=== PATIENT | female | born 1955 | race Caucasian/White ===

== ENCOUNTER 2020-05-19 09:19 | Outpatient (REF) | payer MEDICARE, MEDICAID, SELFPAY ==
[2020-05-19 10:11] LABS: MANUAL DIFF FLAG NO
[2020-05-19 10:23] LABS: Basophils Absolute Auto 0.1 X10*3/uL (0.0-0.2); Basophils Percent Auto 2.1 % (0-2); Eosinophils Absolute Auto 0.3 X10*3/uL (0.0-0.4); Eosinophils Percent Auto 6.5 % (0-4); Hematocrit 41.4 % (37-47); Imm Gran Abs Auto 0.02 X10*3/uL (0.00-0.03); Imm Gran Pct Auto 0.4 % (0.0-0.4); Lymphocytes Absolute Auto 1.2 X10*3/uL (1.2-4.9); Lymphocytes Percent Auto 24.6 % (20-40); Mean Corpuscular HGB Conc 33.8 g/dl (31.0-35.0); Mean Corpuscular Hemoglobin 32.5 pg (27.0-33.0); Mean Corpuscular Volume 96.1 fL (80-98); Mean Platelet Volume 10.9 fL (9.4-12.3); Monocytes Absolute Auto 0.5 X10*3/uL (0.1-1.2); Monocytes Percent Auto 9.7 % (2-11); Neutrophils Absolute Auto 2.7 X10*3/uL (2.0-8.3); Neutrophils Percent Auto 56.7 % (45-73); Platelet Count 146 X10*3/uL (160-400); Red Blood Count 4.31 X10*6/uL (4.20-5.50); Red Cell Distribution Width 12.8 % (11.0-16.0); White Blood Count 4.8 X10*3/uL (4.8-10.8)
[2020-05-19 10:55] LABS: Glucose Urine UA NEG (NEG); Leukocyte Esterase Urine NEG (NEG); Nitrite Urine NEG (NEG); PH 5.5 (5.0-8.0); Specific Gravity - Urine 1.025 (1.005-1.025); Urine Blood TRACE (NEG); Urine Ketones NEG (NEG); Urine Protein TRACE MG/DL (NEG-TRACE)
[2020-05-19 10:59] LABS: Appearance Urine HAZY; Cholesterol 125 mg/dL; Color Urine YELLOW; Glucose Fasting 128 mg/dL (60-99); HDL Cholesterol 45 mg/dL; LDL Cholesterol Calculated 50 mg/dl; Triglycerides 152 mg/dL
[2020-05-19 11:00] LABS: Albumin Level 3.8 g/dL (3.5-5.0); Anion Gap 11 (12-20); Blood Urea Nitrogen 24 mg/dL (9-16); Calcium 8.7 mg/dL (8.4-10.2); Carbon Dioxide 27 mmol/L (22-29); Chloride 105 mmol/L (96-108); Estimated Glomerular Filt Rate 38; Magnesium 1.8 mg/dL (1.6-2.6); Phosphorus 2.7 mg/dL (2.7-4.5); Potassium 4.3 mmol/l (3.3-5.1); Sodium 139 mmol/L (135-145)
[2020-05-19 11:06] LABS: Renal w Reflex-LAB USE ONLY Order Verified
[2020-05-19 11:15] LABS: Bacteria Urine 4+ /LPF; RBC Urine 0-2 /HPF (0); Squamous Epithelial Cell Urine 4+ /LPF
[2020-05-19 11:29] LABS: Estimated Average Glucose 174 mg/dL; Hemoglobin A1c % 7.7 %
[2020-05-19 11:34] LABS: Creatinine Urine 157.93 mg/dL; Microalbum/Creatinine Ratio Ur 25.9 ug/mg cr; Total Protein Urine Random 122 mg/dL (<12)
[2020-05-19 11:35] LABS: Creatinine Urine 156.92 mg/dL; Protein/Creatinine Ratio, Ur 0.74 (<0.2); Total Protein Urine Random 116 mg/dL (<12)
[2020-05-19 11:40] LABS: Renal w Reflex Lab Use Only Order verified
== END 2020-05-19 09:20 | disposition home or self-care (01) ==
LOC: HO.10HDL 09:19
PROVIDERS: Absent Provider Family Medicine; PCP Family Medicine; Visit Provider Internal Medicine Nephrology
DX: M91.0 Juvenile osteochondrosis of pelvis (principal); I12.9 Hypertensive chronic kidney disease with stage 1 through stage 4 chronic kidney disease, or unspecified chronic kidney disease; N18.30 Chronic kidney disease, stage 3 unspecified; E66.9 Obesity, unspecified; F32.9 Major depressive disorder, single episode, unspecified; E11.65 Type 2 diabetes mellitus with hyperglycemia; E11.22 Type 2 diabetes mellitus with diabetic chronic kidney disease; E11.21 Type 2 diabetes mellitus with diabetic nephropathy
CPT/HCPCS: 36415; 80048; 80051; 80061; 81001; 82040; 82043; 82310; 82565; 82947; 83036; 83735; 84100; 84156; 84520; 85025; 87086; 87088; 87186

== ENCOUNTER 2020-08-05 09:53 | Outpatient (REF) | payer MEDICARE, MEDICAID, SELFPAY ==
[2020-08-05 14:43] LABS: Anion Gap 14 (12-20); Blood Urea Nitrogen 23 mg/dL (9-16); Calcium 8.7 mg/dL (8.4-10.2); Carbon Dioxide 28 mmol/L (22-29); Chloride 103 mmol/L (96-108); Cholesterol 130 mg/dL; Estimated Glomerular Filt Rate 43; Glucose Fasting 148 mg/dL (60-99); HDL Cholesterol 46 mg/dL; LDL Cholesterol Calculated 50 mg/dl; Potassium 4.4 mmol/l (3.3-5.1); Sodium 141 mmol/L (135-145); Triglycerides 172 mg/dL
== END 2020-08-05 09:54 | disposition home or self-care (01) ==
LOC: HO.10HDL 09:53
PROVIDERS: Visit Provider Family Medicine
DX: E11.65 Type 2 diabetes mellitus with hyperglycemia (principal); I10 Essential (primary) hypertension; E11.21 Type 2 diabetes mellitus with diabetic nephropathy
CPT/HCPCS: 36415; 80048; 80061

== ENCOUNTER 2020-09-09 09:43 | Outpatient (REF) | payer MEDICARE, MEDICAID, SELFPAY ==
[2020-09-09 13:54] LABS: Estimated Average Glucose 200 mg/dL; Hemoglobin A1c % 8.6 %
== END 2020-09-09 09:44 | disposition home or self-care (01) ==
LOC: HO.10HDL 09:43
PROVIDERS: Visit Provider Family Medicine
DX: E11.9 Type 2 diabetes mellitus without complications (principal)
CPT/HCPCS: 36415; 83036

== ENCOUNTER 2020-11-17 12:29 | Outpatient (REF) | payer MEDICARE, MEDICAID, SELFPAY ==
[2020-11-17 14:11] LABS: Glucose Urine UA 250 MG/DL (NEG); Leukocyte Esterase Urine NEG (NEG); Nitrite Urine NEG (NEG); PH 5.5 (5.0-8.0); Specific Gravity - Urine >= 1.030 (1.005-1.025); Urine Blood NEG (NEG); Urine Ketones NEG (NEG); Urine Protein 1+ MG/DL (NEG-TRACE)
[2020-11-17 14:16] LABS: Hemoglobin 14.8 g/dl (12.0-16.0); Imm Gran Abs Auto 0.02 X10*3/uL (0.00-0.03); Imm Gran Pct Auto 0.3 % (0.0-0.4); MANUAL DIFF FLAG SCAN; PLT CLUMP 1; Red Cell Distribution Width 12.6 % (11.0-16.0); SCAN SMEAR FLAG 1
[2020-11-17 14:18] LABS: Basophils Absolute Auto 0.1 X10*3/uL (0.0-0.2); Basophils Percent Auto 1.6 % (0-2); Eosinophils Absolute Auto 0.3 X10*3/uL (0.0-0.4); Eosinophils Percent Auto 4.6 % (0-4); Hematocrit 43.5 % (37-47); Lymphocytes Absolute Auto 1.3 X10*3/uL (1.2-4.9); Lymphocytes Percent Auto 21.3 % (20-40); Mean Corpuscular Hemoglobin 32.3 pg (27.0-33.0); Monocytes Absolute Auto 0.5 X10*3/uL (0.1-1.2); Monocytes Percent Auto 7.9 % (2-11); Neutrophils Absolute Auto 4.1 X10*3/uL (2.0-8.3); Neutrophils Percent Auto 64.3 % (45-73); Platelet Count 140 X10*3/uL (160-400); Red Blood Count 4.58 X10*6/uL (4.20-5.50); White Blood Count 6.3 X10*3/uL (4.8-10.8)
[2020-11-17 14:23] LABS: Appearance Urine HAZY; Color Urine YELLOW
[2020-11-17 14:40] LABS: Bacteria Urine TRACE /LPF; RBC Urine 0 /HPF (0); Squamous Epithelial Cell Urine 2+ /LPF; WBC Urine 0-2 /HPF (0-4)
[2020-11-17 14:42] LABS: Renal w Reflex-LAB USE ONLY Order Verified
[2020-11-17 14:49] LABS: Albumin Level 4.1 g/dL (3.5-5.0); Anion Gap 14 (12-20); Blood Urea Nitrogen 23 mg/dL (9-16); Calcium 9.2 mg/dL (8.4-10.2); Carbon Dioxide 23 mmol/L (22-29); Chloride 104 mmol/L (96-108); Estimated Glomerular Filt Rate 38; Magnesium 1.7 mg/dL (1.6-2.6); Potassium 4.3 mmol/L (3.3-5.1); Sodium 137 mmol/L (135-145)
[2020-11-17 15:00] LABS: Creatinine Urine 189.27 mg/dL; Microalbum/Creatinine Ratio Ur 32.2 ug/mg cr; Protein/Creatinine Ratio, Ur 0.72 (<0.2); Total Protein Urine Random 137 mg/dL (<12)
[2020-11-17 15:01] LABS: Vitamin D 25-OH Total 22.9 ng/mL (>30)
[2020-11-17 15:37] LABS: Renal w Reflex Lab Use Only Order verified
[2020-11-18 19:47] LABS: Calcium (PTHI) 9.3 mg/dL (8.6-10.4); PTHI 175 pg/mL (14-64)
== END 2020-11-17 12:30 | disposition home or self-care (01) ==
LOC: HO.10HDL 12:29
PROVIDERS: Visit Provider Internal Medicine Nephrology
DX: F32.9 Major depressive disorder, single episode, unspecified (principal); M81.0 Age-related osteoporosis without current pathological fracture; I12.9 Hypertensive chronic kidney disease with stage 1 through stage 4 chronic kidney disease, or unspecified chronic kidney disease; N18.30 Chronic kidney disease, stage 3 unspecified; E66.9 Obesity, unspecified; E11.65 Type 2 diabetes mellitus with hyperglycemia; E11.21 Type 2 diabetes mellitus with diabetic nephropathy; E11.22 Type 2 diabetes mellitus with diabetic chronic kidney disease
CPT/HCPCS: 36415; 80051; 81001; 82040; 82043; 82306; 82310; 82565; 83735; 83970; 84100; 84156; 84520; 85025

== ENCOUNTER 2020-11-25 09:23 | Outpatient (REF) | payer MEDICARE, MEDICAID, SELFPAY ==
[2020-11-25 10:28] LABS: Glucose Urine UA NEG (NEG); Leukocyte Esterase Urine NEG (NEG); Nitrite Urine NEG (NEG); Urine Blood NEG (NEG); Urine Ketones NEG (NEG); Urine Protein NEG (NEG-TRACE)
[2020-11-25 10:32] LABS: Appearance Urine CLEAR; Color Urine YELLOW
[2020-11-25 10:50] LABS: Bacteria Urine TRACE /LPF; Mucus Urine TRACE /LPF; RBC Urine 0 /HPF (0); Squamous Epithelial Cell Urine 2+ /LPF; WBC Urine 0-2 /HPF (0-4)
== END 2020-11-25 09:24 | disposition home or self-care (01) ==
LOC: HO.10HDL 09:23
PROVIDERS: Absent Provider Family Medicine; Visit Provider Internal Medicine Nephrology
DX: I12.9 Hypertensive chronic kidney disease with stage 1 through stage 4 chronic kidney disease, or unspecified chronic kidney disease (principal); N18.31 Chronic kidney disease, stage 3a; E66.8 Other obesity; N25.0 Renal osteodystrophy
CPT/HCPCS: 81001; 87086

== ENCOUNTER 2021-05-25 11:06 | Outpatient (REF) | payer MEDICARE, MEDICAID, SELFPAY ==
[2021-05-25 13:53] LABS: Hematocrit 44.1 % (37.0-47.0); Hemoglobin 14.7 g/dl (12.0-16.0); Mean Corpuscular HGB Conc 33.3 g/dl (31.0-35.0); Mean Corpuscular Hemoglobin 31.6 pg (27.0-33.0); Mean Corpuscular Volume 94.8 fL (80.0-98.0); Mean Platelet Volume 11.6 fL (9.4-12.3); Platelet Count 150 X10*3/uL (160-400); Red Blood Count 4.65 X10*6/uL (4.20-5.50); Red Cell Distribution Width 12.9 % (11.0-16.0); White Blood Count 5.1 X10*3/uL (4.8-10.8)
[2021-05-25 14:19] LABS: Anion Gap 15 (12-20); Blood Urea Nitrogen 21 mg/dL (9-16); Carbon Dioxide 25 mmol/L (22-29); Chloride 105 mmol/L (96-108); Estimated Glomerular Filt Rate 36; Magnesium 1.7 mg/dL (1.6-2.6); Phosphorus 2.6 mg/dL (2.7-4.5); Potassium 4.3 mmol/L (3.3-5.1); Sodium 141 mmol/L (135-145)
[2021-05-25 14:20] LABS: Appearance Urine HAZY; Color Urine YELLOW; Glucose Urine UA NEG (NEG); Leukocyte Esterase Urine TRACE (NEG); Nitrite Urine NEG (NEG); Specific Gravity - Urine 1.025 (1.005-1.025); Urine Blood TRACE (NEG); Urine Ketones 5 MG/DL (NEG); Urine Protein 2+ MG/DL (NEG-TRACE)
[2021-05-25 14:39] LABS: Vitamin D 25-OH Total 21.5 ng/mL (>30)
[2021-05-25 14:41] LABS: Bacteria Urine 1+ /LPF; RBC Urine 0 /HPF (0); Squamous Epithelial Cell Urine 2+ /LPF
[2021-05-25 14:48] LABS: Creatinine Urine 247.89 mg/dL; Microalbum/Creatinine Ratio Ur 140.3 ug/mg cr; Protein/Creatinine Ratio, Ur 0.71 (<0.2); Total Protein Urine Random 177 mg/dL (<12)
[2021-05-27 12:12] LABS: Calcium (PTHI) 9.1 mg/dL (8.6-10.4); PTHI 178 pg/mL (14-64)
== END 2021-05-25 11:07 | disposition home or self-care (01) ==
LOC: HO.10HDL 11:06
PROVIDERS: Visit Provider Internal Medicine Nephrology
DX: I12.9 Hypertensive chronic kidney disease with stage 1 through stage 4 chronic kidney disease, or unspecified chronic kidney disease (principal); N18.31 Chronic kidney disease, stage 3a; E66.8 Other obesity; N25.0 Renal osteodystrophy
CPT/HCPCS: 36415; 80051; 81001; 82040; 82043; 82306; 82310; 82565; 83735; 83970; 84100; 84156; 84520; 85027; 87086; 87088; 87186

== ENCOUNTER 2022-03-03 11:14 | Outpatient (REF) | payer MEDICARE, MEDICAID, SELFPAY ==
[2022-03-03 14:17] LABS: Appearance Urine Clear; Color Urine Yellow; Glucose Urine UA Negative (Negative); Leukocyte Esterase Urine Trace (Negative); Nitrite Urine Negative (Negative); Specific Gravity - Urine 1.025 (1.005-1.025); Urine Blood Negative (Negative); Urine Ketones Trace mg/dL (Negative); Urine Protein 30 (1+) mg/dL (Neg-Trace)
[2022-03-03 14:22] LABS: Bacteria Urine 3+ (None Seen); Hyaline Casts Urine 0-2 /LPF (0-2); RBC Urine 0-2 /HPF (0-2); UACC Culture Trigger YES
[2022-03-03 14:22] LABS: Hematocrit 43.1 % (37.0-47.0); Hemoglobin 14.4 g/dl (12.0-16.0); Mean Corpuscular HGB Conc 33.4 g/dl (31.0-35.0); Mean Corpuscular Hemoglobin 31.9 pg (27.0-33.0); Mean Corpuscular Volume 95.4 fL (80.0-98.0); Mean Platelet Volume 11.6 fL (9.4-12.3); Platelet Count 120 X10*3/uL (160-400); Red Blood Count 4.52 X10*6/uL (4.20-5.50); White Blood Count 5.2 X10*3/uL (4.8-10.8)
[2022-03-03 14:39] LABS: Albumin Level 3.9 g/dL (3.5-5.0); Anion Gap 14 (12-20); Blood Urea Nitrogen 21 mg/dL (9-16); Calcium 9.3 mg/dL (8.4-10.2); Carbon Dioxide 26 mmol/L (22-29); Chloride 104 mmol/L (96-108); Estimated Glomerular Filt Rate 43; Magnesium 1.6 mg/dL (1.6-2.6); Phosphorus 2.9 mg/dL (2.7-4.5); Potassium 4.4 mmol/L (3.3-5.1); Sodium 140 mmol/L (135-145)
[2022-03-03 14:42] LABS: Creatinine Urine 187.45 mg/dL; Protein/Creatinine Ratio, Ur 0.57 (<0.2); Total Protein Urine Random 107 mg/dL (<12)
[2022-03-04 16:13] LABS: Calcium (PTHI) 9.2 mg/dL (8.6-10.4); PTHI 131 pg/mL (16-77)
== END 2022-03-03 11:15 | disposition home or self-care (01) ==
LOC: HO.10HDL 11:14
PROVIDERS: Visit Provider Internal Medicine Nephrology
DX: E11.21 Type 2 diabetes mellitus with diabetic nephropathy (principal); E11.22 Type 2 diabetes mellitus with diabetic chronic kidney disease; N18.31 Chronic kidney disease, stage 3a; N25.0 Renal osteodystrophy
CPT/HCPCS: 36415; 80051; 81001; 82040; 82043; 82306; 82310; 82565; 83735; 83970; 84100; 84156; 84520; 85027; 87086; 87088; 87186

== ENCOUNTER 2023-03-11 10:11 | Outpatient (REF) | payer MEDICARE, MEDICAID, SELFPAY ==
[2023-03-11 11:02] LABS: MANUAL DIFF FLAG NO
[2023-03-11 11:09] LABS: Appearance Urine Clear; Basophils Absolute Auto 0.1 X10*3/uL (0.0-0.2); Basophils Percent Auto 1.9 % (0-2); Color Urine Yellow; Eosinophils Absolute Auto 0.2 X10*3/uL (0.0-0.4); Eosinophils Percent Auto 4.1 % (0-4); Glucose Urine UA Negative (Negative); Hematocrit 43.4 % (37.0-47.0); Hemoglobin 14.1 g/dl (12.0-16.0); Imm Gran Abs Auto 0.01 X10*3/uL (0.00-0.03); Imm Gran Pct Auto 0.2 % (0.0-0.4); Leukocyte Esterase Urine Negative (Negative); Lymphocytes Absolute Auto 1.1 X10*3/uL (1.2-4.9); Lymphocytes Percent Auto 22.2 % (20-40); Mean Corpuscular HGB Conc 32.5 g/dl (31.0-35.0); Mean Corpuscular Hemoglobin 31.8 pg (27.0-33.0); Mean Corpuscular Volume 97.7 fL (80.0-98.0); Mean Platelet Volume 11.4 fL (9.4-12.3); Monocytes Absolute Auto 0.5 X10*3/uL (0.1-1.2); Monocytes Percent Auto 9.3 % (2-11); Neutrophils Percent Auto 62.3 % (45-73); Nitrite Urine Negative (Negative); PH 6.5 (5.0-9.0); Platelet Count 115 X10*3/uL (160-400); Red Blood Count 4.44 X10*6/uL (4.20-5.50); Red Cell Distribution Width 13.4 % (11.0-16.0); Specific Gravity - Urine 1.015 (1.005-1.025); UMIC TRIGGER UACC YES; Urine Blood Negative (Negative); Urine Ketones Negative (Negative); Urine Protein 100 (2+) mg/dL (Neg-Trace); White Blood Count 4.8 X10*3/uL (4.8-10.8)
[2023-03-11 11:15] LABS: Bacteria Urine None Seen (None Seen); Hyaline Casts Urine 0-2 /LPF (0-2); RBC Urine 0-2 /HPF (0-2); Squamous Epithelial Cell Urine 0-2 /HPF (0-2); WBC Urine 0-5 /HPF (0-5)
[2023-03-11 11:34] LABS: Albumin Level 3.8 g/dL (3.5-5.0); Anion Gap 15 (12-20); Blood Urea Nitrogen 19 mg/dL (9-16); Calcium 9.9 mg/dL (8.4-10.2); Carbon Dioxide 24 mmol/L (22-29); Chloride 107 mmol/L (96-108); Estimated Glomerular Filt Rate 48; Magnesium 1.6 mg/dL (1.6-2.6); Phosphorus 2.9 mg/dL (2.7-4.5); Potassium 4.4 mmol/L (3.3-5.1); Sodium 142 mmol/L (135-145)
[2023-03-11 11:49] LABS: Vitamin D 25-OH Total 26.3 ng/mL (>30)
[2023-03-11 12:30] LABS: Creatinine Urine 92.89 mg/dL; Protein/Creatinine Ratio, Ur 1.97 (<0.2); Total Protein Urine Random 183 mg/dL (<12)
[2023-03-11 12:40] LABS: Microalbum/Creatinine Ratio Ur 965.6 ug/mg cr (<30)
[2023-03-13 14:59] LABS: Calcium (PTHI) 9.3 mg/dL (8.6-10.4); PTHI 168 pg/mL (16-77)
== END 2023-03-11 10:12 | disposition home or self-care (01) ==
LOC: HO.10HDL 10:11
PROVIDERS: Visit Provider Internal Medicine Nephrology
DX: I12.9 Hypertensive chronic kidney disease with stage 1 through stage 4 chronic kidney disease, or unspecified chronic kidney disease (principal); E11.22 Type 2 diabetes mellitus with diabetic chronic kidney disease; N18.31 Chronic kidney disease, stage 3a
CPT/HCPCS: 36415; 80051; 81001; 82040; 82043; 82306; 82310; 82565; 82570; 83735; 83970; 84100; 84156; 84520; 85025; 87086; 87088; 87186

== ENCOUNTER 2024-04-12 17:45 | Emergency (ER) | payer MEDICARE, MEDICAID, SELFPAY ==
--- NOTE | ~2024-04-12 | US_ITS ---
EXAMINATION: US TRIPLEX LOWER EXTREMITY, RIGHT CLINICAL INFORMATION: Right lower extremity swelling and pain. Question DVT. COMPARISON: None available. TECHNIQUE: Color-flow triplex imaging with spectral analysis and compression Doppler were performed on the right lower extremity. FINDINGS: Respiratory variation, normal compression and augmented flow are noted throughout the right lower extremity. The visualized common femoral vein, superficial femoral vein, profunda femoral vein, and popliteal vein show no evidence of deep venous thrombosis. There is no Valdez's cyst. US/US venous duplex LE RT IMPRESSION: No evidence of deep venous thrombosis involving the right lower extremity. Please note, the right calf veins were not seen due to body habitus. Electronically signed by: Dwain Cole DO 04/12/2024 07:51 PM EDT
[2024-04-12 18:52] VITALS: BP 119/69; PULSE 90; RESP 18; TEMP 36.4; O2SAT 98; BMI 53.0
--- NOTE | 2024-04-12 18:55 | ED.EXTPRO ---
HPI - Extremity Problem General Chief complaint: Extremity Problem Stated complaint: ? blood clot right leg Time Seen by Provider: 04/12/24 20:52 Source: patient and family Mode of arrival: wheelchair Limitations: no limitations History of Present Illness ED Provider: Edda Dacosta PA-C HPI Narrative: 69 yo female with history of afib on xarelto, DM, morbid obesity who presents to the ER from doctor's office for evaluation of 3 days of 03/20 right lower leg pain, redness and worsening swelling. concerned for blood clot. PCP sent her in. compliant with xarelto. subjective fever and chills. no chest pain or SOB. denies injury to the leg. MD Complaint: extremity pain and extremity swelling Onset (ago): day(s) (3) Pain Consistency: constant Location: right and lower extremity Severity scale (1-10): 9 Quality: aching Radiation: proximal Relieving factors: rest Exacerbating factors: weight bearing, walking and palpation Associated symptoms: denies other symptoms Related Data Previous Rx's ?Medication ?Instructions ?Recorded cephalexin 500 mg capsule 500 mg PO Q6H 7 days #28 caps 04/12/24 doxycycline hyclate 100 mg tablet 100 mg PO BID #14 tabs 04/12/24 Allergies Allergy/AdvReac Type Severity Reaction Status Date / Time Unable to Assess Allergy Verified 04/12/24 18:55 Review of Systems Review of Systems: Yes all other systems are reviewed and are negative [facility] Social History Social History Do you have a plan to hurt others: No Plan Physical Exam Vital Signs: Vital Signs: Last Vital Signs Temp 97.9 F 04/12/24 20:53 Pulse 75 04/12/24 20:53 Resp 18 04/12/24 20:53 BP 102/61 04/12/24 20:53 Pulse Ox 100 04/12/24 20:53 O2 Del Method Room Air 04/12/24 20:53 BMI result Body Mass Index 53.0 Appearance: Alert. Oriented X3. No acute distress. HEENT: normal inspection CVS: Normal heart rate and rhythm. Pulses normal. Respiratory: No respiratory distress. Skin: Skin warm and dry. Normal skin color. Normal skin turgor. No rashes. Extremities: bilateral lower extremity swelling of the entire legs, equal and symmetrical, nonpitting. right lower leg with erythema, warmth and tenderness anteriorly. mild induration. NV intact distally. Neuro: Oriented X 3. limited ROM due to body habitus. grossly nonfocal. Course Course Course Narrative: This is a Rapid Medical Examination (RME) performed by Edda Dacosta PA-C in triage. Full HPI, ROS, assessment and treatment plan per primary provider in the Main ED. 69 yo female with history of afib on xarelto, morbid obesity who presents to the ER from doctor's office for evaluation of 3 days of 9/10 right lower leg pain, redness and worsening swelling. concerned for blood clot. compliant with xarelto. subjective fever and chills. exam w/ right lower leg erythema, warmth and tenderness of the anterior lower leg most c/w cellulitis. Plan: US RLE r/o DVT Medical Decision Making Medical Decision Making MDM Narrative: 69 yo female with history of afib on xarelto, DM, morbid obesity who presents to the ER from doctor's office for evaluation of 3 days of 9/10 right lower leg pain, redness and worsening swelling. PCP sent in for LE doppler to r/o DVT. low suspicion for DVT as she is on Xarleto and exam is more c/w cellulitis. not septic. LE doppler negative for DVT although distal veins not well visualized. will treat for cellulitis and have her f/u her PCP. return precautions were discussed. stable for d/c home with outpatient follow up. Differential Diagnosis Differential Diagnoses: The differential diagnosis associated with the presentation includes DVT, cellulitis, erysipylas, allergic reaction, dermatits, PVD Independent Interpretation I performed an independent interpretation of an: Ultrasound Interpretation: no acute DVT apprecaited Radiology Impression Discussion of test interpretation with radiology: I have reviewed the radiologist's reading. Independent Historian Clinical information obtained from an independent historian. History obtained from or confirmed by: Friend External Record Review External record reviewed: Outpatient record and Prior outpatient labs Tests considered The following testing was considered but not selected: basic labs considered, would not international exchange coordinator Prescription Management I considered prescription management with: Pain Medication and Antibiotic Chronic Conditions Patient?s care impacted by: Diabetes and Other (obesity, afib) Social Determinants Patient?s care significantly limited by Social Determinants of Health including: Other Social Determinant of Health (limited mobility due to body habitus) Critical Care Time Critical Care Time Critical Care Time: No Discharge Plan Discharge Clinical Impression: Cellulitis Qualifiers: Site of cellulitis: extremity Site of cellulitis of extremity: lower extremity Laterality: right Qualified Code(s): L03.115 - Cellulitis of right lower limb Patient Disposition: Home, Self-Care Instructions: Cellulitis (DC) Additional Instructions: Ultrasound did not show any evidence of blood clots today You are being treated for cellulitis Take the prescribed antibiotics as directed, complete the entire course and do not miss any doses Elevate the leg when possible If you develop new or worsening symptoms call 911 or come back to the ER for further evaluation. Prescriptions: New doxycycline hyclate 100 mg tablet 100 mg PO BID Qty: 14 0RF cephalexin 500 mg capsule 500 mg PO Q6H 7 Days Qty: 28 0RF Print Language: Setswana
[2024-04-12 20:53] VITALS: BP 102/61; PULSE 75; RESP 18; TEMP 36.6; O2SAT 100
[2024-04-12] MEDS: cephALEXin 500 MG CAPSULE PO (20:57)
[2024-04-12] MEDS: Doxycycline Monohydrate 100 MG CAPSULE PO (20:58)
[2024-04-12 21:00] VITALS: BP 102/61; PULSE 75; RESP 18; TEMP 36.6; O2SAT 100
== END 2024-04-12 21:07 | disposition home or self-care (01) ==
LOC: HO.ED 21:04
PROVIDERS: Emergency Provider Emergency Medicine
DX: L03.115 Cellulitis of right lower limb (principal); R60.0 Localized edema; I48.91 Unspecified atrial fibrillation; Z79.01 Long term (current) use of anticoagulants
CPT/HCPCS: 93971; 99282; 99284

== ENCOUNTER 2024-10-01 21:44 | Inpatient (IN) | payer MEDICARE, MEDICAID, SELFPAY ==
--- NOTE | ~2024-10-01 | XR_ITS ---
EXAMINATION: XR FINGERS LEFT HISTORY: L 4th finger infection COMPARISON: There are no prior studies available for comparison. FINDINGS: Three views of the left 4th finger are submitted. Osseous mineralization is normal. There is no fracture or dislocation. The joint spaces are preserved. The soft tissues are unremarkable. 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 XR/XR finger LT min 2V IMPRESSION: Unremarkable examination of the left 4th finger. Electronically signed by: Jassi Berry MD 10/03/2024 11:07 AM EDT
--- NOTE | ~2024-10-01 | XR_ITS ---
CLINICAL HISTORY: dyspnea 1 view chest x-ray Comparison: None Findings: Left basilar opacity or infiltrate and layering left-sided effusion. Enlarged cardiac silhouette. No acute fracture. IMPRESSION: Left basilar opacity or infiltrate and layering left-sided effusion. This document has been electronically signed by: Dereck Jose MD, PHD on 10/01/2024 23:00:11
[2024-10-01 21:57] VITALS: BP 106/50; PULSE 67; O2SAT 97
[2024-10-01 22:05] VITALS: BP 96/54; PULSE 55; RESP 16; TEMP 36.5; O2SAT 100; BMI 56.1
--- NOTE | 2024-10-01 22:10 | ECG_ITS ---
Test Reason : check qtc Blood Pressure : */* mmHG Vent. Rate : * BPM Atrial Rate : * BPM P-R Int : * ms QRS Dur : 72 ms QT Int : 196 ms P-R-T Axes : * 0 245 degrees QTcB Int : * ms Baseline wander Sinus bradycardia Low voltage QRS Indeterminate axis Pulmonary disease pattern Nonspecific ST and T wave abnormality Abnormal ECG No previous ECGs available Referred By: Oma Means Electronically Signed By: CAROLYN PEACOCK MD
--- NOTE | 2024-10-01 22:50 | ED_ITS ---
HPI - Recheck/Abnormal Lab/Rx General Chief Complaint: Recheck/Abnormal Lab/Rx Stated Complaint: abnormal labs from [facility] Time Seen by Provider: 10/01/24 22:07 Source: patient, EMS and old records reviewed Mode of arrival: EMS Limitations: no limitations History of Present Illness ED Provider: SINGH RÍOS narrative: 69 yo female with PMH of obesity, CKD Cr 3.0 on 09/21, PAF on eliquis, CHF, HLD, DM, HTN who presents with c/o 20lb [facility] and metolazone. She also reports she is very swollen and was told that her Cr is going up. She has never been on dialysis. She states she is taking her medications and eating the way she is supposed to there. She states she has been okay but cannot lay flat. complaint: abnormal lab Onset/Timin Initial visit (ago): day(s) Initial visit for: other Returns today for: called because of abnormal lab/test Description of abnormal result: increasing BUN and Cr Symptoms since prior visit: no new symptoms Context: called for abnormal lab result Associated symptoms: other (edema/orthopnea) Related Data Previous Rx's ?Medication ?Instructions ?Recorded cephalexin 500 mg capsule 500 mg PO Q6H 7 days #28 caps 04/12/24 doxycycline hyclate 100 mg tablet 100 mg PO BID #14 tabs 04/12/24 Allergies Allergy/AdvReac Type Severity Reaction Status Date / Time adhesive Allergy Unknown Verified 10/01/24 22:07 bacitracin Allergy Unknown Verified 10/01/24 22:07 beet Allergy Unknown Verified 10/01/24 22:07 cefazolin Allergy Unknown Verified 10/01/24 22:07 Corticosteroids Allergy Unknown Verified 10/01/24 22:07 (Glucocorticoids) ibuprofen Allergy Unknown Verified 10/01/24 22:07 polymyxin B Allergy Unknown Verified 10/01/24 22:07 Review of Systems 2 Review of Systems: Constitutional : No Fever, No Chills, pos weight gain ENT/Mouth : No sore throat, No Rhinorrhea, No Swallowing Difficulty Eyes: No Eye Pain, No Swelling, No Redness Cardiovascular : No Chest Pain, positive SOB, pos Orthopnea, positive Edema Respiratory : No Cough, No Sputum, No Wheezing, positive dyspnea Gastrointestinal : No Nausea, No Vomiting, No Diarrhea, No abdominal Pain, No Hematochezia, No Melena Genitourinary : No Dysuria, No Urinary Frequency, No Hematuria Musculoskeletal : No joint pain, No Myalgias Skin : No Skin Lesions, No rash Neuro : No Weakness, No Numbness, No Dizziness, No Headache All other systems reviewed and are negative [facility] Past Medical History Attestation statement: The following information was validated with the patient. Source: old records reviewed Medical History CHF (congestive heart failure) Obesity CKD (chronic kidney disease) Hyperlipidemia HTN (hypertension) Afib Social History Social History Alcohol intake: never Smoked in Last 30 Days: No Use of substances other than those prescribed or required for medical reasons: No Any prior treatment program specific to substance use: No Advance Directives: No Advance Directives Information Provided: Yes Do you have a plan to hurt others: No Plan Physical Exam 2 Vital Signs: Vital Signs: Last Vital Signs Temp 97.7 F 10/01/24 22:05 Pulse 55 10/01/24 22:05 Resp 16 10/01/24 22:05 BP 96/54 L 10/01/24 22:05 Pulse Ox 100 10/01/24 22:05 O2 Del Method Room Air 10/01/24 22:05 BMI result Body Mass Index 56.1 Appearance: Alert. Oriented X3. No acute distress. Eyes: Pupils equal, round and reactive to light. ENT: Pharynx normal. Neck: Normal inspection. Neck supple. CVS: Normal heart rate and rhythm. Pulses normal. Respiratory: No respiratory distress. Breath sounds diminished lower lobes Abdomen: Soft and nontender. Obese Skin: Skin warm and dry. Normal skin color. Normal skin turgor. Extremities: 3+ symmetric diffuse lower extremity pitting edema. No calf ttp Neuro: Oriented X 3. No motor deficit. No sensory deficit. CN2-12 intact Medical Decision Making Medical Decision Making MDM Narrative: 69 yo female with PMH of obesity, CKD Cr 3.0 on 09/21, PAF on eliquis, CHF, HLD, DM, HTN here with c/o diffuse edema, orthopnea and 20lb weight gain sent in for abnormal kidney function at this time she is volume overloaded will need labs, CXR, EKG, IV lasix gtt ordered. She has no CP and no dyspnea unless she is laying flat. She took her xarelto today. Differential Diagnosis Differential Diagnoses: The differential diagnosis associated with the presentation includes TANA on CKD, CHF, volume overload Admission/Observation Consideration of admission/observation: Escalation of care including admission/observation considered admit for diuresisis Consult Healthcare Provider Management of the patient was discussed with: Hospitalist (Dr. Urena to admit) and Eating Disorder Specialist (Dr. Wu message sent) Lab Data [facility] Lab Attestation statement: I reviewed the patient's lab results. 10/01/24 22:41 10/01/24 22:41 Labs: Lab Results 10/01/24 Range/Units 22:41 WBC 4.9 (4.8-10.8) X10*3/uL RBC 3.80 L (4.20-5.50) X10*6/uL Hgb 13.2 (12.0-16.0) g/dl Hct 39.3 (37.0-47.0) % MCV 103.4 H (80.0-98.0) fL MCH 34.7 H (27.0-33.0) pg MCHC 33.6 (31.0-35.0) g/dl RDW 16.3 H (11.0-16.0) % Plt Count 115 L (160-400) X10*3/uL MPV 11.1 (9.4-12.3) fL Immature Gran % (Auto) 0.2 (0.0-0.4) % Neut % (Auto) 69.4 (45-73) % Lymph % (Auto) 14.5 L (20-40) % [place] % (Auto) 12.5 H (2-11) % Eos % (Auto) 1.4 (0-4) % Baso % (Auto) 2.0 (0-2) % Lymph # (Auto) 0.7 L (1.2-4.9) X10*3/uL [place] # (Auto) 0.6 (0.1-1.2) X10*3/uL Eos # (Auto) 0.1 (0.0-0.4) X10*3/uL Baso # (Auto) 0.1 (0.0-0.2) X10*3/uL Abs Immat Gran (auto) 0.01 (0.00-0.03) X10*3/uL Absolute Neuts (auto) 3.4 (2.0-8.3) x10*3/uL Absolute Nucleated RBC 0.000 (0.0-0.012) X10*3/uL Nucleated RBC % (auto) 0.0 (0.0-0.2) /100WBC Sodium 134 L (135-145) mmol/L Potassium 4.1 (3.3-5.1) mmol/L Chloride 96 (96-108) mmol/L Carbon Dioxide 27 (22-29) mmol/L Anion Gap 15 (12-20) BUN 102 H (9-16) mg/dL Creatinine 3.95 H (0.5-1.4) mg/dL Estim Creat Clear Calc 18.3 Estimated GFR 11 Random Glucose 148 H (60-115) mg/dL Calcium 9.0 D (8.4-10.2) mg/dL Magnesium 2.0 (1.6-2.6) mg/dL Total Bilirubin 1.1 H (0.0-1.0) mg/dL Direct Bilirubin 0.7 H (0.0-0.5) mg/dL AST 39 H (5-31) U/L ALT 29 (0-31) U/L Alkaline Phosphatase 117 (39-117) U/L B-Natriuretic Peptide 2564 H (<100) pg/mL Total Protein 5.6 L (6.5-8.0) g/dL Albumin 3.0 L (3.5-5.0) g/dL Lipase 57 (8-78) U/L Independent Interpretation I performed an independent interpretation of an: EKG and Plain X-Ray (effusion) Interpretation: Rate: 60 Rhythm: afib [place]: normal decreased QRS complex. ST T wave : no SET, flat t waves throughout, inverted t wave aVL qTC: normal prior studies:no prior The study has been interpreted contemporaneously by me. . Radiology Impression Discussion of test interpretation with radiology: I have reviewed the radiologist's reading. Independent Historian Clinical information obtained from an independent historian. History obtained from or confirmed by: EMS External Record Review External record reviewed: Outpatient record Discharge Plan Discharge Clinical Impression: Acute kidney injury superimposed on chronic kidney disease, Leg edema, Pleural effusion Patient Disposition: Admitted As Inpatient Prescriptions: No Action doxycycline hyclate 100 mg tablet 100 mg PO BID Qty: 14 0RF cephalexin 500 mg capsule 500 mg PO Q6H 7 Days Qty: 28 0RF Print Language: Spanish
[2024-10-01 22:55] LABS: MANUAL DIFF FLAG NO
[2024-10-01 22:58] LABS: Basophils Absolute Auto 0.1 X10*3/uL (0.0-0.2); Eosinophils Absolute Auto 0.1 X10*3/uL (0.0-0.4); Eosinophils Percent Auto 1.4 % (0-4); Hematocrit 39.3 % (37.0-47.0); Hemoglobin 13.2 g/dl (12.0-16.0); Imm Gran Abs Auto 0.01 X10*3/uL (0.00-0.03); Imm Gran Pct Auto 0.2 % (0.0-0.4); Lymphocytes Absolute Auto 0.7 X10*3/uL (1.2-4.9); Lymphocytes Percent Auto 14.5 % (20-40); Mean Corpuscular HGB Conc 33.6 g/dl (31.0-35.0); Mean Corpuscular Hemoglobin 34.7 pg (27.0-33.0); Mean Corpuscular Volume 103.4 fL (80.0-98.0); Mean Platelet Volume 11.1 fL (9.4-12.3); Monocytes Absolute Auto 0.6 X10*3/uL (0.1-1.2); Monocytes Percent Auto 12.5 % (2-11); Neutrophils Absolute Auto 3.4 x10*3/uL (2.0-8.3); Neutrophils Percent Auto 69.4 % (45-73); Platelet Count 115 X10*3/uL (160-400); Red Cell Distribution Width 16.3 % (11.0-16.0); White Blood Count 4.9 X10*3/uL (4.8-10.8)
[2024-10-01 23:13] LABS: Alanine Aminotransferase 29 U/L (0-31); Alkaline Phosphatase 117 U/L (39-117); Anion Gap 15 (12-20); Aspartate Amino Transferase 39 U/L (5-31); Bilirubin Direct 0.7 mg/dL (0.0-0.5); Bilirubin Total 1.1 mg/dL (0.0-1.0); Blood Urea Nitrogen 102 mg/dL (9-16); Carbon Dioxide 27 mmol/L (22-29); Chloride 96 mmol/L (96-108); Creatinine Clr Calc Pharmacy 18.3; Estimated Glomerular Filt Rate 11; Glucose Random 148 mg/dL (60-115); Lipase 57 U/L (8-78); Potassium 4.1 mmol/L (3.3-5.1); Sodium 134 mmol/L (135-145); Total Protein 5.6 g/dL (6.5-8.0)
[2024-10-01 23:17] LABS: B Type Natriuretic Peptide 2564 pg/mL (<100)
--- NOTE | 2024-10-01 23:45 | PC.NURSE ---
Report given to CANDACE Manning.
[2024-10-02] VITALS (9 sets, daily range): BP systolic 93–119; BP diastolic 50–70; PULSE 55–63; RESP 16–20; TEMP 36–36.9; O2SAT 93–100
[2024-10-02 00:01] LABS: Troponin-I High Sensitivity 928.3 ng/L (<3.5-17.0)
--- NOTE | 2024-10-02 00:43 | P.HPHOSP_ITS ---
History of Present Illness Date of Service: 10/02/24 Attending physician on admission: Eduardo Urena Chief Complaint: Abnormal labs Patient is a 69-year-old female with a past medical history significant for obesity, CKD (creatinine 3.0 on 09/11), PAF on Eliquis, CHF, HLD, T2 DM, HTN, who presented from [facility] to the ED due to a progressive 20 lb weight gain over the past month and abnormal labs. The patient was taking Lasix and metolazone daily. Her labs have shown increasing creatinine. She has never been on dialysis. She reports orthopnea and dyspnea on exertion. She denies any fever, chills, nausea, vomiting or urinary symptoms including frequency, urgency or dysuria. Review of Systems 2 Constitutional: Constitutional: Denies chills, Denies fatigue and Denies fever(s) Eyes: Eyes: Denies change in vision and Denies photophobia ENT: Denies nasal congestion, Denies nasal discharge and Denies sore throat Cardiovascular: Cardiovascular: Denies chest pain, Denies rapid heart rate, Reports leg edema, Denies lightheadedness and Reports dyspnea on exertion Respiratory: Respiratory: Denies chest congestion, Denies cough, Reports dyspnea on exertion and Denies wheezing Gastrointestinal: Gastrointestinal: Denies diarrhea, Denies nausea and Denies vomiting Genitourinary: Genitourinary: Denies hematuria, Denies difficulty voiding, Denies dysuria and Denies urinary urgency Musculoskeletal: Musculoskeletal: Denies back pain Integumentary/Breasts: Skin/Breast: Denies rash Neurologic: Denies confusion Psychiatric: Psychiatric: Denies confusion Endocrine: Endocrine: Denies fatigue Hematologic/Lymphatic: Hematologic/Lymphatic: Denies easy bleeding and Denies easy bruising Allergic/Immunologic: Allergic/Immunologic: Denies wheezing [facility] Medical History Diabetes type 2, controlled CHF (congestive heart failure) Obesity CKD (chronic kidney disease) Hyperlipidemia HTN (hypertension) Afib Functional capacity: wheelchair bound Social History Alcohol intake: never Smoked in Last 30 Days: No Use of substances other than those prescribed or required for medical reasons: No Any prior treatment program specific to substance use: No Advance Directives: No Advance Directives Information Provided: Yes Do you have a plan to hurt others: No Plan Narrative: No smoking, alcohol or drug use Meds Allergies Allergy/AdvReac Type Severity Reaction Status Date / Time adhesive Allergy Unknown Verified 10/01/24 22:07 bacitracin Allergy Unknown Verified 10/01/24 22:07 beet Allergy Unknown Verified 10/01/24 22:07 cefazolin Allergy Unknown Verified 10/01/24 22:07 Corticosteroids Allergy Unknown Verified 10/01/24 22:07 (Glucocorticoids) ibuprofen Allergy Unknown Verified 10/01/24 22:07 polymyxin B Allergy Unknown Verified 10/01/24 22:07 Active Medications: Current Medications Acetaminophen (Acetaminophen 325 Mg Tablet) 650 mg PO Q6H PRN PRN Reason: Pain, Mild 1-3,fever,headache Calcium Carbonate (Calcium Carbonate 750 Mg Tab.Chew) 750 mg PO Q4H PRN PRN Reason: Heartburn Dextrose (Dextrose 50 % 25 Gm/50 Ml Syringe) 25 gm IVPUSH Q15M PRN; Protocol PRN Reason: per Hypoglycemia Standing Ord. Enoxaparin Sodium (Enoxaparin Sodium 30 Mg/0.3 Ml Syringe) 30 mg SUBCUT Q24H AKBAR Glucose (Glucose Gel 15 Gm Gel..Gram.) 15 gm PO Q15M PRN; Protocol PRN Reason: per Hypoglycemia Standing Ord. Furosemide 200 mg/ Sodium (Chloride) 100 mls @ 2.5 mls/hr IVCONT .Q24H AKBAR Insulin Human Lispro (Insulin Lispro 100 Unit/Ml 3 Ml Vial) 0 unit SUBCUT QIDACHS AKBAR; Protocol Magnesium Hydroxide (Milk Of Magnesia 30 Ml Oral.Susp) 30 ml PO DAILY PRN PRN Reason: Constipation Melatonin (Melatonin 3 Mg Tablet) 6 mg PO BEDTIME PRN PRN Reason: Insomnia Ondansetron HCl (Ondansetron Hcl 4 Mg/2 Ml Vial) 4 mg IVPUSH Q8H PRN PRN Reason: Nausea and Vomiting Sodium Chloride (0.9 % Sodium Chloride Flush 3 Ml Syringe) 3 ml IVFLUSH QSHIFT [facility] Physical Exam 2 Vital Signs and Narrative: Vital Signs: Last Vital Signs Temp 97.7 F 10/01/24 22:05 Pulse 55 10/01/24 22:05 Resp 16 10/01/24 22:05 BP 96/54 L 10/01/24 22:05 Pulse Ox 100 10/01/24 22:05 O2 Del Method Room Air 10/01/24 22:05 BMI result Body Mass Index 56.1 General: AOx3, no acute distress Resp: Diminished throughout, no wheezing, fine crackles throughout CVS: regular rate, irregular rhythm, +murmur GI: +BS, NT, no distention Skin: Warm, dry Neuro: Cranial nerves II-XII grossly intact bilaterally. Motor grossly intact bilaterally Extremities: 2+ pitting edema Psych: Appropriate affect Const: General: No confusion Orientation/consciousness: No confusion Eyes: Direct Ophthalmoscopy: No photophobia Neuro: General: No confusion Results Labs 10/01/24 22:41 10/01/24 22:41 Labs: Laboratory Results - last 24 hr 10/01/24 22:41 MCV 103.4 H MCH 34.7 H MCHC 33.6 RDW 16.3 H Plt Count 115 L MPV 11.1 Immature Gran % (Auto) 0.2 Neut % (Auto) 69.4 Lymph % (Auto) 14.5 L [place] % (Auto) 12.5 H Eos % (Auto) 1.4 Baso % (Auto) 2.0 Lymph # (Auto) 0.7 L [place] # (Auto) 0.6 Eos # (Auto) 0.1 Baso # (Auto) 0.1 Abs Immat Gran (auto) 0.01 Absolute Neuts (auto) 3.4 Absolute Nucleated RBC 0.000 Nucleated RBC % (auto) 0.0 Anion Gap 15 Estim Creat Clear Calc 18.3 Estimated GFR 11 Random Glucose 148 H Calcium 9.0 D Magnesium 2.0 Total Bilirubin 1.1 H Direct Bilirubin 0.7 H AST 39 H ALT 29 Alkaline Phosphatase 117 B-Natriuretic Peptide 2564 H Total Protein 5.6 L Albumin 3.0 L Lipase 57 Assessment and Plan (1) Acute exacerbation of chronic heart failure: Status: Acute (2) Acute kidney injury superimposed on chronic kidney disease: Status: Acute (3) Hyponatremia with excess extracellular fluid volume: Status: Acute (4) Elevated troponin: Status: Acute (5) Class 3 obesity: Status: Chronic Plan Patient is a 69-year-old female with a past medical history significant for obesity, CKD (creatinine 3.0 on 09/11), PAF on Eliquis, CHF, HLD, T2DM, HTN, who presented from [facility] to the ED due to a progressive 20 lb weight gain over the past month and abnormal labs. Acute exacerbation of congestive heart failure (EF unknown) - WBC 4.9, no fever, tachycardia or tachypnea. No sign of infectious process - BNP 2564 - chest x-ray with left basilar opacity or infiltrate and layering left-sided effusion - started on Lasix drip in ED - echo - monitor on tele - monitor BMP TANA on CKD 3 - creatinine 3.95, baseline 3.14 - IV diuresis as above - monitor BMP Hypervolemic hyponatremia - sodium mildly low at 134 - IV diuresis as above - monitor BMP Elevated troponin - troponin 928, elevated secondary to usually elevated BNP at 2564 - no chest pain - EKG without ischemic changes Paroxysmal AFib - EKG without active AFib - continue Eliquis HLD - continue home meds Type 2 diabetes - hold glyburide - sliding scale insulin - diabetic diet HTN - BP low - hold BP meds Class 3 obesity - BMI 56.2 - weight loss encouraged Full code VTE prophylaxis: [facility] Patient with acute on chronic congestive heart failure complicated by TANA on CKD, requiring admission for at least 2 midnights stay for IV diuresis. Quality Stroke Does the patient have a stroke diagnosis?: No VTE Prior VTE?: No VTE Risk Level:: Medical - moderate - high VTE Device Contraindication: Treatment Not Indicated VTE Drug Contraindication: N/A - Med Ordered
--- NOTE | 2024-10-02 00:45 | PC.NURSE ---
Report taken from Luz MARIA, assumed care of pt at 0000. Pt A&Ox3 respirations even unlabored. Denies pain. Sent in by [facility] for report of abnormal labs- increased BUN. Pt found to have elevated troponin and BNP in ED. IV access obtained, lasix drip hung and infusing without difficulty. Charge nurse notified of need for monitored bed.
[2024-10-02] MEDS: Enoxaparin Sodium 30 MG/0.3 ML SYRINGE SUBCUT (00:56)
[2024-10-02] MEDS: Furosemide 200 MG in 0.9 % Sodium Chloride 80 ML IVCONT ×2 (00:56→23:58)
--- NOTE | 2024-10-02 01:07 | PC.NURSE ---
Pt moved to RM 19 for cardiac monitoring, report given to Paris MARIA.
--- NOTE | 2024-10-02 01:17 | PC.NURSE ---
Addendum entered by Fani Delatorre 10/02/24 07:00: Pt A&Ox3, reports 5/ headache, Pt medicated per MAR with effectiveness. Pt reports she ambulates with walker at baseline. Swelling noted to bilateral lower legs. Original Note: This fha underwriter assumed care of this Pt at this time.
[2024-10-02] MEDS: Acetaminophen 325 MG TABLET 650 MG PO (05:14)
[2024-10-02 06:38] LABS: MANUAL DIFF FLAG NO
[2024-10-02 06:50] LABS: Basophils Absolute Auto 0.1 X10*3/uL (0.0-0.2); Basophils Percent Auto 2.1 % (0-2); Eosinophils Absolute Auto 0.1 X10*3/uL (0.0-0.4); Eosinophils Percent Auto 2.1 % (0-4); Hematocrit 41.3 % (37.0-47.0); Hemoglobin 13.9 g/dl (12.0-16.0); Imm Gran Abs Auto 0.01 X10*3/uL (0.00-0.03); Imm Gran Pct Auto 0.2 % (0.0-0.4); Lymphocytes Absolute Auto 0.9 X10*3/uL (1.2-4.9); Lymphocytes Percent Auto 17.8 % (20-40); Mean Corpuscular HGB Conc 33.7 g/dl (31.0-35.0); Mean Corpuscular Hemoglobin 34.7 pg (27.0-33.0); Mean Platelet Volume 11.2 fL (9.4-12.3); Monocytes Absolute Auto 0.8 X10*3/uL (0.1-1.2); Monocytes Percent Auto 16.6 % (2-11); Neutrophils Absolute Auto 2.9 x10*3/uL (2.0-8.3); Neutrophils Percent Auto 61.2 % (45-73); Platelet Count 118 X10*3/uL (160-400); Red Blood Count 4.01 X10*6/uL (4.20-5.50); Red Cell Distribution Width 16.1 % (11.0-16.0); White Blood Count 4.8 X10*3/uL (4.8-10.8)
--- NOTE | 2024-10-02 07:00 | CA_ITS ---
Transthoracic Echocardiogram Amended Patient (Last, First, Middle): Shira Nicholas A Gender: Female Date of : 1955 Age: 69 Procedure Date: 10/02/2024 Procedure Type: Transthoracic Echocardiogram Location: ER Height: 160.02 cm Weight: 143.79 kg BSA: 2.35 m2 Heart Rate: 54 bpm BP: 106 / 70 mmHg Office Technology Instructor: CARMEN Referring MD: Eduardo Urena MD Brush Head Maker: Lui Wu MD Symptoms: CHF Study Quality: Adequate ECG Rhythm: Bradycardia Conclusions: - 1. Normal LV ejection fraction with LVEF of 60-65% with grade 3 diastolic dysfunction with moderately increased wall thickness 2. Severely reduced RV systolic function 3. Moderate biatrial enlargement 4. Mild mitral and tricuspid regurgitation 5. Moderately elevated right ventricular systolic pressure with significantly elevated right atrial pressures 6. Mildly dilated ascending aorta at 3.9 cm Findings Procedure Information The quality of the study was technically difficult. The study quality is limited by patients body habitus. Left Ventricle Normal left ventricular size and systolic function. There is moderately increased left ventricular wall thickness. The visually estimated ejection fraction is between 60-65%. Spectral Doppler is indicative of a restrictive filling pattern. E/E prime ratio is >15, consistent with elevated filling pressures. Evidence suggests grade III (severe) diastolic dysfunction. Right Ventricle Normal right ventricular cavity size. There is severely decreased right ventricular systolic function. Atria The left atrium is moderately dilated. There is an interatrial septal aneurysm seen bowing to the right. There is no evidence of interatrial shunt. The right atrium is moderately dilated. Aortic Valve There is mild calcification of the aortic valve. There is no aortic valve stenosis. There is no aortic valve regurgitation. Mitral Valve There is mild anterior and moderate posterior mitral leaflet thickening. There is moderate mitral annular calcification. There is mild mitral valve regurgitation. There is no mitral valve stenosis. Pulmonic Valve The pulmonic valve is likely normal. There is mild to moderate pulmonic valve regurgitation. Tricuspid Valve Normal tricuspid valve structure. There is mild tricuspid valve regurgitation. Significantly elevated right atrial pressure. Moderate pulmonary hypertension is present. Great Vessels The pulmonary artery was not well visualized. There is mild dilatation of the ascending aorta measuring 3.90 cm. Venous The inferior vena cava is moderately dilated and does not collapse with inspiration. Pericardium/Pleural There is no evidence of pericardial effusion. There is a left sided pleural effusion. Prior Study Comparison No prior study available for comparison. Measurements 2D Linear Measurements IVSd: 1.40 0.6-0.9/0.6-1.0 cm LVIDd: 3.39 3.9-5.3/4.2-5.9 cm LVIDd Index: 1.44 2.4-3.2/2.2-3.1 cm/m2 LVIDs: 2.37 2.0-3.6 cm LVPWd: 1.44 0.7-1.1 cm LA Diam: 4.70 2.7-3.8/3.0-4.0 cm LAIDs Index: 2.00 1.5-2.3 cm/m2 LV Mass: 190.93 67-162/88-224 g LV Mass Index: 81.25 43-95/49-115 g/m2 LVOT Diam: 2.30 3.0+(-)1.3 cm 2D Volumes LA Vol: 35.50 2D Systolic Function EF 4C: 63.60 >55% EF 2C: 68.20 >55% EF BiP: 64.00 >55% Mitral Valve MV VTI: 0.24 MV Pk Bart: 0.74 MV Mn Bart: 0.31 MV Pk Grad: 2.00 MV Mn Grad: 1.00 MV Pk E: 0.66 MV PK A: 0.22 MV Decel Time: 204.00 E/A: 3.00 E'Lateral: 2.81 E'Medial: 2.31 E/E' Med: 28.70 E/E' Lat: 23.60 PHT: 60.00 MVA PHT: 3.67 MVA Continuity: 2.22 Decel [place]: 3.25 Aortic Valve AoV Pk Bart: 0.99 AoV Mn Bart: 0.64 AoV VTI: 0.16 AoV Pk Grad: 4.00 Aov Mn Grad: 2.00 [place] Cont.VTI: 3.28 LVOT LVOT Pk Bart: 0.64 LVOT Mn Bart: 0.46 LVOT VTI: 0.13 LVOT Pk Grad: 2.00 LVOT Mn Grad: 1.00 LVOT Diam: 2.30 LVOT Area: 4.15 Diastolic Function MV Pk E: 0.66 MV Pk A: 0.22 E/A: 3.00 E'Medial: 2.31 E/E' Med: 28.70 E' Laterial: 2.81 E/E' Lat: 23.60 Right Ventricle TAPSE (mm): 9.60 TVS' Bart: 6.58 Tricuspid Valve TR Pk Bart: 3.15 TR Pk Grad: 40.00 RA Press: 15.00 RVSP: 55.00 Great Vessels Aorta Sinus of Valsalva: 3.10 2.0-3.5 cm Ao Asc: 3.90 2.1-3.4 cm Pulmonary Valve PV Pk Bart: 0.63 Peak PV Grad: 2.00 MT Pk Bart: 2.61 Updated in Other Vendor System with Status of Final Lui Wu MD electronically signed on 10/02/2024 12:28:01 PM with status of Final
[2024-10-02 07:03] LABS: Anion Gap 19 (12-20); Blood Urea Nitrogen 100 mg/dL (9-16); Calcium 9.5 mg/dL (8.4-10.2); Carbon Dioxide 24 mmol/L (22-29); Chloride 97 mmol/L (96-108); Creatinine Clr Calc Pharmacy 18.5; Estimated Glomerular Filt Rate 11; Glucose Random 86 mg/dL (60-115); Potassium 4.1 mmol/L (3.3-5.1); Sodium 136 mmol/L (135-145)
[2024-10-02 07:11] LABS: Troponin-I High Sensitivity 986.2 ng/L (<3.5-17.0)
[2024-10-02 07:12] LABS: Glucose, Whole Blood 80 mg/dL (60-115)
--- NOTE | 2024-10-02 08:54 | PHA.MEDREC ---
Addendum entered by Anyi Clark [facility] 10/02/24 09:34: reviewed Original Note: Pharmacy Consult ? Medication Reconciliation Pharmacy has completed the medication reconciliation. Utilized list from [facility].
--- NOTE | 2024-10-02 11:56 | P.CONCA_ITS ---
History of Present Illness History of Present Illness Date of Service: 10/02/24 Requesting physician: Stanley Toure Consult reason: congestive heart failure Chief complaint: abnormal labs Narrative: I was consulted to see soon cardiology consultation today for progressive heart failure symptoms. She is a 69-year-old female who follows with manually cardiology group for congestive heart failure syndrome. She says she was prior history of congestive heart failure although her medications have been adjusted due to a worsening kidney functions and that has led to holding of her diuretic regimen. [facility] her [facility] admission to [facility] with decompensated congestive heart failure. She has prior history of morbid obesity, question sleep apnea although she says she was not aware of the test results, chronic kidney disease, paroxysmal atrial fibrillation on full-dose Xarelto, diastolic heart failure, hypertension, diabetes, hyperlipidemia. No clear history of coronary artery disease. Patient says that she came [facility] because she gained significant amount of weight over the last couple weeks with associated shortness of breath on exertion as well as orthopnea. She had also noticed significant leg swelling as well as abdominal distension. She was not had any other systemic symptoms. She denies any chest pain. No prolonged palpitation irregular heartbeat. When presented emergency room she was noted to have normal sinus rhythm with significantly elevated BNP in 2400 range with flat but elevated troponins as well as worsening renal insufficiency with creatinine of 3.9. Review of Systems 2 Constitutional: Constitutional: Denies chills, Denies fever(s), Reports lethargy and Reports weight gain Eyes: Eyes: Reports no additional eye complaints Cardiovascular: Cardiovascular: Reports Abdominal Distension, Denies chest pain, Reports leg edema, Denies lightheadedness, Denies Loss of Consciousness, Denies palpitations and Reports dyspnea on exertion Respiratory: Respiratory: Reports no additional respiratory complaints and Reports dyspnea on exertion Gastrointestinal: Gastrointestinal: Reports no additional gastrointestinal complaints Genitourinary: Genitourinary: Reports no additional female genitourinary complaints Integumentary/Breasts: Skin/Breast: Reports system reviewed and no additional complaints, except as docu Psychiatric: Psychiatric: Reports no additional psychiatric complaints Endocrine: Endocrine: Denies palpitations PMFSH Past Medical History Medical History Diabetes type 2, controlled CHF (congestive heart failure) Obesity CKD (chronic kidney disease) Hyperlipidemia HTN (hypertension) Afib Social History Social History Alcohol intake: never Meds Allergies Allergy/AdvReac Type Severity Reaction Status Date / Time adhesive Allergy Unknown Verified 10/01/24 22:07 bacitracin Allergy Unknown Verified 10/01/24 22:07 beet Allergy Unknown Verified 10/01/24 22:07 cefazolin Allergy Unknown Verified 10/01/24 22:07 Corticosteroids Allergy Unknown Verified 10/01/24 22:07 (Glucocorticoids) ibuprofen Allergy Unknown Verified 10/01/24 22:07 polymyxin B Allergy Unknown Verified 10/01/24 22:07 Active Medications: Current Medications Acetaminophen (Acetaminophen 325 Mg Tablet) 650 mg PO Q6H PRN PRN Reason: Pain, Mild 1-3,fever,headache Last Admin: 10/02/24 05:14 Dose: 650 mg Calcium Carbonate (Calcium Carbonate 750 Mg Tab.Chew) 750 mg PO Q4H PRN PRN Reason: Heartburn Dextrose (Dextrose 50 % 25 Gm/50 Ml Syringe) 25 gm IVPUSH Q15M PRN; Protocol PRN Reason: per Hypoglycemia Standing Ord. Enoxaparin Sodium (Enoxaparin Sodium 30 Mg/0.3 Ml Syringe) 30 mg SUBCUT Q24H [facility] Last Admin: 10/02/24 00:56 Dose: 30 mg Glucose (Glucose Gel 15 Gm Gel..Gram.) 15 gm PO Q15M PRN; Protocol PRN Reason: per Hypoglycemia Standing Ord. Furosemide 200 mg/ Sodium (Chloride) 100 mls @ 2.5 mls/hr IVCONT .Q24H [facility] Last Admin: 10/02/24 00:56 Dose: 5 mg/hr, 2.5 mls/hr Insulin Human Lispro (Insulin Lispro 100 Unit/Ml 3 Ml Vial) 0 unit SUBCUT QIDACHS [facility]; Protocol Last Admin: 10/02/24 08:29 Dose: Not Given Magnesium Hydroxide (Milk Of Magnesia 30 Ml Oral.Susp) 30 ml PO DAILY PRN PRN Reason: Constipation Melatonin (Melatonin 3 Mg Tablet) 6 mg PO BEDTIME PRN PRN Reason: Insomnia Ondansetron HCl (Ondansetron Hcl 4 Mg/2 Ml Vial) 4 mg IVPUSH Q8H PRN PRN Reason: Nausea and Vomiting Sodium Chloride (0.9 % Sodium Chloride Flush 3 Ml Syringe) [facility] Last Admin: 10/02/24 08:29 Dose: Not Given Home Medications ?Medication ?Instructions ?Recorded ?Confirmed ?Last Taken ?Type acetaminophen 325 mg tablet 650 mg PO Q6H PRN Fever/Pain 10/02/24 10/02/24 Unknown History bisacodyl 10 mg rectal suppository [address] DAILY PRN Constipation 10/02/24 10/02/24 Unknown History calcitriol 0.25 mcg capsule 0.25 mcg PO MOWEFR 10/02/24 10/02/24 Unknown History dextrose 40 % oral gel (Glutose-45) 45 g PO Q10M PRN Hypoglycemia 10/02/24 10/02/24 Unknown History fexofenadine 60 mg tablet 60 mg PO DAILY 10/02/24 10/02/24 Unknown History furosemide 20 mg tablet 20 mg PO DAILY@1400 10/02/24 10/02/24 Unknown History furosemide 40 mg tablet 40 mg PO DAILY@0800 10/02/24 10/02/24 Unknown History glucagon 1 mg solution for 1 mg subcut Q10M PRN Hypoglycemia 10/02/24 10/02/24 Unknown History injection glyburide 5 mg tablet 5 mg PO BID 10/02/24 10/02/24 Unknown History levothyroxine 150 mcg tablet 150 mcg PO MOTUWETHFRSA 10/02/24 10/02/24 Unknown History levothyroxine 150 mcg tablet 225 mcg PO TATUM 10/02/24 10/02/24 Unknown History loratadine 10 mg tablet 10 mg PO DAILY 10/02/24 10/02/24 Unknown History magnesium hydroxide 400 mg/5 mL 30 ml PO DAILY PRN Constipation 10/02/24 10/02/24 Unknown History oral suspension (Milk of Magnesia) magnesium oxide 400 mg PO DAILY 10/02/24 10/02/24 Unknown History melatonin 3 mg tablet 6 mg PO BEDTIME 10/02/24 10/02/24 Unknown History metolazone 2.5 mg tablet 2.5 mg PO MOWEFR 10/02/24 10/02/24 Unknown History metoprolol tartrate 25 mg tablet 25 mg PO BID 10/02/24 10/02/24 Unknown History rivaroxaban 20 mg tablet 20 mg PO DAILY 10/02/24 10/02/24 Unknown History rosuvastatin 40 mg tablet 40 mg PO DAILY 10/02/24 10/02/24 Unknown History sodium phosphates 19 gram-[address] DAILY PRN Constipation 10/02/24 10/02/24 Unknown History gram/118 mL enema (Fleet Enema) tramadol 50 mg tablet 50 mg PO DAILY 10/02/24 10/02/24 Unknown History Physical Exam 2 Vital Signs: Vital Signs: Last Vital Signs Temp 97.2 F 10/02/24 10:53 Pulse 63 10/02/24 10:53 Resp 20 10/02/24 10:53 BP 115/55 L 10/02/24 10:53 Pulse Ox 100 10/02/24 10:53 O2 Del Method Room Air 10/02/24 10:53 BMI result Body Mass Index 56.1 Const: General: cooperative, comfortable, alert, awake and in distress mild Nutritional Appearance: obese morbidly obese Orientation/consciousness: p atient oriented x3 HEENT: Head: Yes normocephalic and Yes atraumatic Neck: Neck: Yes trachea midline, Yes supple and Yes JVD Resp: Effort & Inspection: decreased respiratory effort Auscultation: no wheezes and diminished lung sounds Cardio: Jugular venous distension: JVD Rate: regular rate Rhythm: r egular rhythm Heart sounds: S1 normal heart sound present, S2 normal heart sound present, no click, no gallops, no murmurs and no rubs GI: Auscultation: normal bowel sounds Skin: General skin exam: no rashes or lesions noted and ecchymosis Neuro: General: patient oriented x3 and no focal motor deficits Extrem: General: No clubbing, No cyanosis and Yes edema Psych: Appearance: grossly normal Objective Labs and Meds 10/02/24 06:03 10/02/24 06:03 Lab results: Laboratory Results - last 24 hr 10/01/24 10/02/24 10/02/24 22:41 06:03 07:08 WBC 4.9 4.8 RBC 3.80 L 4.01 L Hgb 13.2 13.9 Hct 39.3 41.3 MCV 103.4 H 103.0 H MCH 34.7 H 34.7 H MCHC 33.6 33.7 RDW 16.3 H 16.1 H Plt Count 115 L 118 L MPV 11.1 11.2 Immature Gran % (Auto) 0.2 0.2 Neut % (Auto) 69.4 61.2 Lymph % (Auto) 14.5 L 17.8 L [place] % (Auto) 12.5 H 16.6 H Eos % (Auto) 1.4 2.1 Baso % (Auto) 2.0 2.1 H Lymph # (Auto) 0.7 L 0.9 L [place] # (Auto) 0.6 0.8 Eos # (Auto) 0.1 0.1 Baso # (Auto) 0.1 0.1 Abs Immat Gran (auto) 0.01 0.01 Absolute Neuts (auto) 3.4 2.9 Absolute Nucleated RBC 0.000 0.000 Nucleated RBC % (auto) 0.0 0.0 Sodium 134 L 136 Potassium 4.1 4.1 Chloride 96 97 Carbon Dioxide 27 24 Anion Gap 15 19 BUN 102 H 100 H Creatinine 3.95 H 3.91 H Estim Creat Clear Calc 18.3 18.5 Estimated GFR 11 11 POC Glucose 80 Random Glucose 148 H 86 Calcium 9.0 D 9.5 Magnesium 2.0 Total Bilirubin 1.1 H Direct Bilirubin 0.7 H AST 39 H ALT 29 Alkaline Phosphatase 117 Troponin I High Sens 928.3 H* 986.2 H* B-Natriuretic Peptide 2564 H Total Protein 5.6 L Albumin 3.0 L Lipase 57 Assessment and Plan (1) Acute exacerbation of chronic heart failure: Status: Acute Acute decompensated congestive heart failure in this elderly woman with multiple comorbidities including paroxysmal atrial fibrillation suppressed, chronic kidney disease, morbid obesity, diabetes. There has been change in his management of oral diuretics as outpatient which has led to worsening fluid gain and congestive heart failure symptoms and with poor response to oral diuretic therapy as outpatient. Patient presents with worsening heart failure syndrome with worsening renal function most likely cardiorenal syndrome. At this point time I think she requires diuresis aggressively. Agree with Lasix drip at 5 mg an hour and uptitrate as needed. Strict intake and output chart needs to be pursued. Continue monitor renal function electrolytes closely. Continue blood pressure control which is well optimized. Continue rhythm control approach. Will obtain echocardiogram. Given her low-voltage QRS as well as atrial fibrillation heart failure syndrome there is likelihood of cardiac amyloidosis which will need to be evaluated as outpatient. Also possibility of underlying coronary artery disease will need a myocardial perfusion imaging as an outpatient. Her elevated troponins are most likely related to decompensated congestive heart failure with LV strain in the setting of worsening renal function. (2) Paroxysmal atrial fibrillation: Status: Acute History of atrial fibrillation in the past. Patient currently using sinus rhythm. Continue pursue rhythm control approach. She did mentioned that she was on amiodarone, please check with pharmacy about whether she was getting amiodarone at current point time. She also has worsening renal function with worsening creatinine and reduced GFR and will reduce his Xarelto dose to 15 mg daily. Continue metoprolol for now. Continue full disclosure cardiac telemetry. Will follow with you Procedures Date of Service Date of Service: 10/02/24
[2024-10-02 13:17] LABS: Glucose, Whole Blood 109 mg/dL (60-115)
[2024-10-02 13:18] LABS: Glucose, Whole Blood 132 mg/dL (60-115)
[2024-10-02] MEDS: Triamcinolone Acet 0.5 % Oint 15 GM TUBE 1 APPL TOPICAL ×2 (14:33→20:49)
--- NOTE | 2024-10-02 14:55 | MHC.CM.PN ---
IMM 10/02/24, EMR REVIEWED, PT ADMITTED W/HYPONATREMIA/CHF/TANA, PT A&O, REPORTS SHE IS IN STR AT [facility] HOWEVER WILL BE TRANSITIONING TO LTC. PT REPORTS SHE USES A [facility] FOR MOBILITY, REPORTS HER PLAN IS TO RETURN TO [facility] WHEN MEDICALLY CLEARED. PCP ON FILE VERIFIED AND PT REPORTS HER HCP IS [facility], COPY REQUESTED FROM [facility].
--- NOTE | 2024-10-02 16:02 | PM.EVENT ---
Event Note Date of Service: 10/02/24 Event Note: Day hospitalist update S: breathing + leg swelling improving O: Temp Pulse Resp BP Pulse Ox O2 Del Method 96.8 F 55 16 107/50 L 98 Room Air 10/02/24 15:45 10/02/24 15:45 10/02/24 15:45 10/02/24 15:45 10/02/24 15:45 10/02/24 15:45 Gen: in no acute distress HEENT: sclera anicteric, moist mucus membranes Neck: supple Lungs: diminished Heart: regular rate and rhythm, no murmurs Abd: soft, non-tender, non-distended, obese Ext: 4+ bilateral leg edema Skin: warm/well-perfused Neuro: alert and oriented x3, no focal findings Psych: appropriate affect TTE 10/02/24: 1. Normal LV ejection fraction with LVEF of 60-65% with grade 3 diastolic dysfunction with moderately increased wall thickness 2. Severely reduced RV systolic function 3. Moderate biatrial enlargement 4. Mild mitral and tricuspid regurgitation 5. Moderately elevated right ventricular systolic pressure with significantly elevated right atrial pressures 6. Mildly dilated ascending aorta at 3.9 cm SCr 3.95->3.91 A/P: d1 for 69yo F with HFpEF, CKD3, morbiD obesity, pAF on rivaorxaban, HTN, DM2, and HLD [facility] being [facility] with ADHF; developed worsening weight gain, orthopnea, exertional dypnea, and leg edema and found to have worsening renal insufficiency acute-chronic HFpEF/R-sided HF - IV furosemide infusion, PO metolazone, monitor BNP/BMP/Mg, I/O + wts; Cardiology consulted - needs outpt Cardiology f/u including MPS and possibly cardiac MRI TANA/CKD3 - suspect cardiorenal; monitor SCr with diuresis; Nephrology consultation pAF - continue rivaroxaban - continue metoprolol tartrate hypothyroidism - continue LT4 HTN - continue metoprolol tartrate HLD - statin DM2 - miguel-dose lispro VTE ppx - rivaroxaban dispo - eventual return to STR->LTC transition In my clinical judgment, the patient requires continued hospitalization for the following reasons: IV diuresis, TANA, CHF Time Spent With Patient Time: Total time managing care of this patient today ____ minutes.
[2024-10-02 16:27] LABS: Glucose, Whole Blood 152 mg/dL (60-115)
[2024-10-02] MEDS: 0.9 % Sodium Chloride Flush 3 ML SYRINGE IVFLUSH (20:49)
[2024-10-02] MEDS: Melatonin 3 MG TABLET 6 MG PO (20:49)
[2024-10-03] VITALS (7 sets, daily range): BP systolic 90–151; BP diastolic 50–69; PULSE 63–94; RESP 14–18; TEMP 36–36.7; O2SAT 95–100
--- NOTE | 2024-10-03 | ECG_ITS ---
Test Reason : CP Blood Pressure : */* mmHG Vent. Rate : 87 BPM Atrial Rate : * BPM P-R Int : * ms QRS Dur : 86 ms QT Int : 406 ms P-R-T Axes : * 126 160 degrees QTcB Int : 488 ms Atrial fibrillation Possible Right ventricular hypertrophy Septal infarct , age undetermined Lateral infarct , age undetermined Abnormal ECG When compared with ECG of 01-Oct-2024 22:24, Atrial fibrillation has replaced Normal sinus rhythm Referred By: Stanley Toure Electronically Signed By: CAROLYN PEACOCK MD
[2024-10-03 04:49] LABS: Glucose, Whole Blood 109 mg/dL (60-115)
[2024-10-03] MEDS: Levothyroxine Sodium 150 MCG TABLET PO (06:00)
[2024-10-03 07:08] LABS: B Type Natriuretic Peptide 3239 pg/mL (<100)
[2024-10-03 07:31] LABS: Vitamin B12 591 pg/mL (200-900)
[2024-10-03 07:35] LABS: Anion Gap 17 (12-20); Blood Urea Nitrogen 102 mg/dL (9-16); Calcium 9.3 mg/dL (8.4-10.2); Carbon Dioxide 28 mmol/L (22-29); Chloride 95 mmol/L (96-108); Creatinine Clr Calc Pharmacy 17.7; Estimated Glomerular Filt Rate 11; Glucose Random 106 mg/dL (60-115); Magnesium 2.2 mg/dL (1.6-2.6); Potassium 3.8 mmol/L (3.3-5.1); Sodium 136 mmol/L (135-145)
[2024-10-03 07:56] LABS: Glucose, Whole Blood 132 mg/dL (60-115)
[2024-10-03] MEDS: traMADoL HCL 50 MG TABLET PO (08:10)
[2024-10-03] MEDS: Rivaroxaban 15 MG TABLET PO (08:10)
[2024-10-03] MEDS: Metoprolol Tartrate 25 MG TABLET PO ×2 (08:10→21:08)
[2024-10-03] MEDS: Magnesium Oxide 400 MG TABLET PO (08:10)
[2024-10-03] MEDS: Atorvastatin Calcium 80 MG TABLET PO (08:10)
[2024-10-03] MEDS: Loratadine 10 MG TABLET PO (08:10)
[2024-10-03] MEDS: 0.9 % Sodium Chloride Flush 3 ML SYRINGE IVFLUSH (08:11)
[2024-10-03] MEDS: metOLazone 2.5 MG TABLET PO (08:17)
[2024-10-03] MEDS: Triamcinolone Acet 0.5 % Oint 15 GM TUBE 1 APPL TOPICAL ×2 (08:17→21:08)
--- NOTE | 2024-10-03 10:32 | HO.PM.IMPN ---
Subjective Subjective Date of Service: 10/03/24 Interval History: dyspnea improved, not much improvement in leg swelling; negative 852 mL thus far but had some leakage of urine around [place] so may be underestimated c/o redness tip of L 4th finger at site of cut Review of Systems Review of Systems: Yes all other systems are reviewed and are negative Physical Exam Vital Signs: Vital Signs: Last Vital Signs Temp 96.8 F 10/03/24 07:11 Pulse 84 10/03/24 07:11 Resp 16 10/03/24 07:11 BP 116/56 L 10/03/24 07:11 Pulse Ox 95 10/03/24 07:11 O2 Del Method Room Air 10/03/24 07:11 BMI result Body Mass Index 56.1 Gen: in no acute distress HEENT: sclera anicteric, moist mucus membranes Neck: supple Lungs: diminished Heart: irregular, no murmurs Abd: soft, non-tender, non-distended, obese Ext: 4+ bilateral leg edema Skin: warm/well-perfused, tip of 4th finger with dry cut, some surrounding redness but no purulence Neuro: alert and oriented x3, no focal findings Psych: appropriate affect Objective Data Active Medications Acetaminophen (Acetaminophen 325 Mg Tablet) 650 mg PO Q6H PRN PRN Reason: Pain, Mild 1-3,fever,headache Last Admin: 10/02/24 05:14 Dose: 650 mg Documented By: LORIE Atorvastatin Calcium (Atorvastatin Calcium 80 Mg Tablet) 80 mg PO DAILY [facility] Last Admin: 10/03/24 08:10 Dose: 80 mg Documented By: ILEANA Bisacodyl (Bisacodyl 10 Mg Supp.Rect) 10 mg [place] DAILY PRN PRN Reason: Constipation Calcitriol (Calcitriol 0.25 Mcg Capsule) 0.25 mcg PO MOWEFR [facility] Calcium Carbonate (Calcium Carbonate 750 Mg Tab.Chew) 750 mg PO Q4H PRN PRN Reason: Heartburn Dextrose (Dextrose 50 % 25 Gm/50 Ml Syringe) 25 gm IVPUSH Q15M PRN; Protocol PRN Reason: per Hypoglycemia Standing Ord. Diphenhydramine HCl (Diphenhydramine Hcl 25 Mg Capsule) 25 mg PO Q4H PRN PRN Reason: Itching Glucose (Glucose Gel 15 Gm Gel..Gram.) 15 gm PO Q15M PRN; Protocol PRN Reason: per Hypoglycemia Standing Ord. Furosemide 200 mg/ Sodium (Chloride) 100 mls @ 5 mls/hr IVCONT .Q20H [facility] Last Infusion: 10/03/24 07:54 Dose: 10 mg/hr, 5 mls/hr Documented By: ILEANA Insulin Human Lispro (Insulin Lispro 100 Unit/Ml 3 Ml Vial) 0 unit SUBCUT QIDACHS [facility]; Protocol Last Admin: 10/03/24 08:00 Dose: Not Given Documented By: ILEANA Non-Admin Reason: No Insulin Coverage Levothyroxine Sodium (Levothyroxine Sodium 150 Mcg Tablet) 150 mcg PO MoTuWeThFrSa@0600 [facility] Last Admin: 10/03/24 06:00 Dose: 150 mcg Documented By: ALESIA Levothyroxine Sodium (Levothyroxine Sodium 75 Mcg Tablet) 225 mcg PO Pozo@0600 [facility] Loratadine (Loratadine 10 Mg Tablet) 10 mg PO DAILY [facility] Last Admin: 10/03/24 08:10 Dose: 10 mg Documented By: ILEANA Magnesium Hydroxide (Milk Of Magnesia 30 Ml Oral.Susp) 30 ml PO DAILY PRN PRN Reason: Constipation Magnesium Oxide (Magnesium Oxide 400 Mg Tablet) 400 mg PO DAILY [facility] Last Admin: 10/03/24 08:10 Dose: 400 mg Documented By: ILEANA Melatonin (Melatonin 3 Mg Tablet) 6 mg PO BEDTIME [facility] Last Admin: 10/02/24 20:49 Dose: 6 mg Documented By: CHARLOTTE Metolazone (Metolazone 2.5 Mg Tablet) 2.5 mg PO MOWEFR [facility] Last Admin: 10/03/24 08:17 Dose: 2.5 mg Documented By: ILEANA Metoprolol Tartrate (Metoprolol Tartrate 25 Mg Tablet) 25 mg PO BID [facility]; Protocol Last Admin: 10/03/24 08:10 Dose: 25 mg Documented By: ILEANA Ondansetron HCl (Ondansetron Hcl 4 Mg/2 Ml Vial) 4 mg IVPUSH Q8H PRN PRN Reason: Nausea and Vomiting Rivaroxaban (Rivaroxaban 15 Mg Tablet) 15 mg PO DAILY [facility] Last Admin: 10/03/24 08:10 Dose: 15 mg Documented By: ILEANA Sodium Biphosphate/Sodium Phosphate (Sodium Phosphate,[place]-Dibasic 133 Ml Enema) 118 ml [place] DAILY PRN PRN Reason: Constipation Sodium Chloride (0.9 % Sodium Chloride Flush 3 Ml Syringe) 3 ml IVFLUSH QSHIFT [facility] Last Admin: 10/03/24 08:11 Dose: 3 ml Documented By: ILEANA Tramadol HCl (Tramadol Hcl 50 Mg Tablet) 50 mg PO DAILY [facility] Last Admin: 10/03/24 08:10 Dose: 50 mg Documented By: ILEANA Triamcinolone Acetonide (Triamcinolone Acet 0.5 % Oint 15 Gm Tube) 1 appl TOPICAL BID [facility] Last Admin: 10/03/24 08:17 Dose: 1 appl Documented By: ILEANA Labs 10/02/24 06:03 10/03/24 06:17 Labs: Laboratory Results - last 24 hr 10/02/24 10/02/24 10/02/24 11:10 12:43 15:58 Anion Gap Estim Creat Clear Calc Estimated GFR POC Glucose 109 132 H 152 H Random Glucose Calcium Magnesium B-Natriuretic Peptide Vitamin B12 Folate 10/02/24 10/03/24 10/03/24 19:51 06:17 07:14 Anion Gap 17 Estim Creat Clear Calc 17.7 Estimated GFR 11 POC Glucose 109 132 H Random Glucose 106 Calcium 9.3 Magnesium 2.2 B-Natriuretic Peptide 3239 H Vitamin B12 591 Folate 6.0 Assessment and Plan (1) Acute exacerbation of chronic heart failure: Status: Acute Assessment and Plan: d2 for 69yo F with HFpEF, CKD3, morbiD obesity, pAF on rivaorxaban, HTN, DM2, and HLD sent in from [facility] where she was admitted after being discharged from [facility] with ADHF; developed worsening weight gain, orthopnea, exertional dypnea, and leg edema and found to have worsening renal insufficiency acute-chronic diastolic HF/R-sided HF - TTE 10/02/24 1. Normal LV ejection fraction with LVEF of 60-65% with grade 3 diastolic dysfunction with moderately increased wall thickness 2. Severely reduced RV systolic function 3. Moderate biatrial enlargement 4. Mild mitral and tricuspid regurgitation 5. Moderately elevated right ventricular systolic pressure with significantly elevated right atrial pressures 6. 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 Quality Stroke Does the patient have a stroke diagnosis?: No VTE Prior VTE?: No VTE Risk Level:: Medical - moderate - high VTE Device Contraindication: Treatment Not Indicated VTE Drug Contraindication: N/A - Med Ordered
[2024-10-03 11:21] LABS: Glucose, Whole Blood 104 mg/dL (60-115)
--- NOTE | 2024-10-03 11:34 | PM.PNCARD ---
Subjective Subjective Date of Service: 10/03/24 Principal diagnosis: Decompensated congestive heart failure, predominantly right heart failure Interval history: Echo finding consistent with normal sinus rhythm with normal LV EF of 60 65% with grade 2 diastolic dysfunction with severely reduced RV systolic function with moderately elevated right ventricular systolic pressure with significantly elevated right atrial pressures. She says she continues to have symptoms of orthopnea. She says her belly tightness has improved. She continues to have leg edema. Overall negative balance of 1000 cc but patient says that the catheter was malfunctioning, not sure she had more urine output. Creatinine is slightly worse at 4. She has no uremic symptoms. Noted to be in atrial fibrillation. Patient and patient's daughter at bedside said that she has had intermittent atrial fibrillation. Not sure as to why her amiodarone was discontinued. Review of Systems Constitutional: Reports no additional constitutional complaints Eyes: Reports no additional eye complaints Cardiovascular: Reports Abdominal Distension, Denies chest pain, Reports leg edema, Denies lightheadedness, Denies Loss of Consciousness, Denies palpitations and Reports orthopnea Genitourinary: Reports no additional female genitourinary complaints Musculoskeletal: Reports no additional musculoskeletal complaints Reports system reviewed and no additional complaints, except as documented Endocrine: Denies palpitations Physical Exam Vital Signs: Last Vital Signs Temp 97.6 F 10/03/24 10:58 Pulse 74 10/03/24 10:58 Resp 15 10/03/24 10:58 BP 90/64 10/03/24 10:58 Pulse Ox 98 10/03/24 10:58 O2 Del Method Room Air 10/03/24 10:58 BMI result Body Mass Index 56.1 Const General: cooperative, comfortable, alert, awake and in distress mild Nutritional Appearance: obese morbidly obese Orientation/consciousness: patient oriented x3 HEENT Head: Yes normocephalic and Yes atraumatic Neck Neck: Yes trachea midline, Yes supple and Yes JVD Resp Effort & Inspection: decreased respiratory effort Auscultation: no wheezes and diminished lung sounds Cardio Jugular venous distension: JVD Rate: regular rate Rhythm: regular rhythm Heart sounds: S1 normal heart sound present, S2 normal heart sound present, no click, no gallops, no murmurs and no rubs GI Auscultation: normal bowel sounds Skin General skin exam: no rashes or lesions noted and ecchymosis Neuro General: patient oriented x3 and no focal motor deficits Extrem General: No clubbing, No cyanosis and Yes edema Psych Appearance: grossly normal Objective Labs and Meds 10/02/24 06:03 10/03/24 06:17 Lab results: Laboratory Results - last 24 hr 10/02/24 10/02/24 10/02/24 11:10 12:43 15:58 Sodium Potassium Chloride Carbon Dioxide Anion Gap BUN Creatinine Estim Creat Clear Calc Estimated GFR POC Glucose 109 132 H 152 H Random Glucose Calcium Magnesium B-Natriuretic Peptide Vitamin B12 Folate 10/02/24 10/03/24 10/03/24 19:51 06:17 07:14 Sodium 136 Potassium 3.8 Chloride 95 L Carbon Dioxide 28 Anion Gap 17 BUN 102 H Creatinine 4.08 H* Estim Creat Clear Calc 17.7 Estimated GFR 11 POC Glucose 109 132 H Random Glucose 106 Calcium 9.3 Magnesium 2.2 B-Natriuretic Peptide 3239 H Vitamin B12 591 Folate 6.0 10/03/24 11:05 Sodium Potassium Chloride Carbon Dioxide Anion Gap BUN Creatinine Estim Creat Clear Calc Estimated GFR POC Glucose 104 Random Glucose Calcium Magnesium B-Natriuretic Peptide Vitamin B12 Folate Imaging Radiologist's impression: Impressions Finger X-Ray 10/03/24 10:50 IMPRESSION: Unremarkable examination of the left 4th finger. Electronically signed by: Jassi Berry MD 10/03/2024 11:07 AM EDT RP Progress Note: A&P Assessment and plan (1) Acute exacerbation of chronic heart failure: Status: Acute Assessment and Plan: Patient with acute decompensated congestive heart failure predominantly right heart failure findings with echo findings consistent with advanced diastolic dysfunction with moderately increased wall thickness. 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 She also severely reduced RV systolic function with significantly elevated right atrial pressures. She had tepid diuretic response. Agree with increasing Lasix to 10 mg an hour and add metolazone today. Strict intake and output chart needs to be pursued. Continue monitor renal function closely. Overall prognosis is guarded and this was discussed with her. She was recurrent atrial fibrillation has intermittent atrial fibrillation. Not sure as why rhythm management plan was abandoned as an outpatient. Will need to check with her cardiology group to figure this out. I think she will benefit from rhythm control approach although she does have moderate biatrial enlargement. Overall multiple comorbidities. Consider out of bed to chair. (2) Afib: Status: Acute Assessment and Plan: Atrial fibrillation with recurrent with intermittent atrial fibrillation. When she presented she was in sinus rhythm. I think she will benefit from rhythm control approach. However will check with her cardiology group to see if there was any particular reason her amiodarone was discontinued. Continue full oral anticoagulation although renally adjusted dose of 15 mg of Xarelto. Will follow with you Time Spent With Patient Time: Total time managing care of this patient today ____ minutes. Progress Note: Quality Stroke Does the patient have a stroke diagnosis?: No Procedures Date of Service Date of Service: 10/03/24
[2024-10-03 11:36] LABS: C Reactive Protein 0.65 mg/dL (< or = 0.50)
[2024-10-03] MEDS: Doxycycline Monohydrate 100 MG CAPSULE PO ×2 (11:39→21:08)
[2024-10-03] MEDS: calcitrioL 0.25 MCG CAPSULE PO (18:26)
[2024-10-03] MEDS: Melatonin 3 MG TABLET 6 MG PO (21:08)
--- NOTE | 2024-10-03 21:43 | PM.CNNEP ---
History of Present Illness Reason for Consult Consult date: 10/03/24 Reason for consult: TANA Chief Complaint Chief complaint: abnormal labs History of Present Illness Narrative: 69-year-old female with obesity, advanced CKD , T2 DM, HTN, who presented to the ER due to a progressive 20 lb weight gain over the past month and abnormal labs. The patient was taking Lasix and metolazone daily. Her labs have shown increasing creatinine. She reports orthopnea and dyspnea on exertion. She denies any fever, chills, nausea, vomiting or urinary symptoms including frequency, urgency or dysuria. She was found to have exacerbation of HF and having TANA due to CR syndrome. She was admitted for further management. Nephrology has been consulted to assist in her clinical management during her current hospital stay Review of Systems Review of Systems Yes all other systems are reviewed and are negative PMF Past Medical History Medical History (Updated 10/03/24 @ 11:36 by Lui Wu MD) Diabetes type 2, controlled CHF (congestive heart failure) Obesity CKD (chronic kidney disease) Hyperlipidemia HTN (hypertension) Afib Social History Social History Household Members: Family Housing: House Do you presently have visiting nurse or other home services: No Alcohol intake: never Patient Tobacco Use Status: Never used Tobacco e-Cigarette/Vaping Use: Never Used Second Hand Smoke Exposure: No service: No Meds Allergies Allergy/AdvReac Type Severity Reaction Status Date / Time adhesive Allergy Unknown Verified 10/01/24 22:07 bacitracin Allergy Unknown Verified 10/01/24 22:07 beet Allergy Unknown Verified 10/01/24 22:07 cefazolin Allergy Unknown Verified 10/01/24 22:07 Corticosteroids Allergy Unknown Verified 10/01/24 22:07 (Glucocorticoids) ibuprofen Allergy Unknown Verified 10/01/24 22:07 polymyxin B Allergy Unknown Verified 10/01/24 22:07 Active Medications: Current Medications Acetaminophen (Acetaminophen 325 Mg Tablet) 650 mg PO Q6H PRN PRN Reason: Pain, Mild 1-3,fever,headache Last Admin: 10/02/24 05:14 Dose: 650 mg Atorvastatin Calcium (Atorvastatin Calcium 80 Mg Tablet) 80 mg PO DAILY [facility] Last Admin: 10/03/24 08:10 Dose: 80 mg Bisacodyl (Bisacodyl 10 Mg Supp.Rect) 10 mg [place] DAILY PRN PRN Reason: Constipation Calcitriol (Calcitriol 0.25 Mcg Capsule) 0.25 mcg PO MOWEFR [facility] Last Admin: 10/03/24 18:26 Dose: 0.25 mcg Calcium Carbonate (Calcium Carbonate 750 Mg Tab.Chew) 750 mg PO Q4H PRN PRN Reason: Heartburn Dextrose (Dextrose 50 % 25 Gm/50 Ml Syringe) 25 gm IVPUSH Q15M PRN; Protocol PRN Reason: per Hypoglycemia Standing Ord. Diphenhydramine HCl (Diphenhydramine Hcl 25 Mg Capsule) 25 mg PO Q4H PRN PRN Reason: Itching Doxycycline Monohydrate (Doxycycline Monohydrate 100 Mg Capsule) 100 mg PO Q12H [facility] Last Admin: 10/03/24 21:08 Dose: 100 mg Glucose (Glucose Gel 15 Gm Gel..Gram.) 15 gm PO Q15M PRN; Protocol PRN Reason: per Hypoglycemia Standing Ord. Furosemide 200 mg/ Sodium (Chloride) 100 mls @ 5 mls/hr IVCONT .Q20H [facility] Last Infusion: 10/03/24 07:54 Dose: 10 mg/hr, 5 mls/hr Insulin Human Lispro (Insulin Lispro 100 Unit/Ml 3 Ml Vial) 0 unit SUBCUT QIDACHS [facility]; Protocol Last Admin: 10/03/24 18:09 Dose: Not Given Levothyroxine Sodium (Levothyroxine Sodium 150 Mcg Tablet) 150 mcg PO MoTuWeThFrSa@0600 [facility] Last Admin: 10/03/24 06:00 Dose: 150 mcg Levothyroxine Sodium (Levothyroxine Sodium 75 Mcg Tablet) 225 mcg PO Pozo@0600 [facility] Loratadine (Loratadine 10 Mg Tablet) 10 mg PO DAILY [facility] Last Admin: 10/03/24 08:10 Dose: 10 mg Magnesium Hydroxide (Milk Of Magnesia 30 Ml Oral.Susp) 30 ml PO DAILY PRN PRN Reason: Constipation Magnesium Oxide (Magnesium Oxide 400 Mg Tablet) 400 mg PO DAILY [facility] Last Admin: 10/03/24 08:10 Dose: 400 mg Melatonin (Melatonin 3 Mg Tablet) 6 mg PO BEDTIME [facility] Last Admin: 10/03/24 21:08 Dose: 6 mg Metolazone (Metolazone 2.5 Mg Tablet) 2.5 mg PO MOWEFR [facility] Last Admin: 10/03/24 08:17 Dose: 2.5 mg Metoprolol Tartrate (Metoprolol Tartrate 25 Mg Tablet) 25 mg PO BID [facility]; Protocol Last Admin: 10/03/24 21:08 Dose: 25 mg Ondansetron HCl (Ondansetron Hcl 4 Mg/2 Ml Vial) 4 mg IVPUSH Q8H PRN PRN Reason: Nausea and Vomiting Rivaroxaban (Rivaroxaban 15 Mg Tablet) 15 mg PO DAILY [facility] Last Admin: 10/03/24 08:10 Dose: 15 mg Sodium Biphosphate/Sodium Phosphate (Sodium Phosphate,[place]-Dibasic 133 Ml Enema) 118 ml [place] DAILY PRN PRN Reason: Constipation Sodium Chloride (0.9 % Sodium Chloride Flush 3 Ml Syringe) 3 ml IVFLUSH QSHIFT [facility] Last Admin: 10/03/24 21:08 Dose: Not Given Tramadol HCl (Tramadol Hcl 50 Mg Tablet) 50 mg PO DAILY [facility] Last Admin: 10/03/24 08:10 Dose: 50 mg Triamcinolone Acetonide (Triamcinolone Acet 0.5 % Oint 15 Gm Tube) 1 appl TOPICAL BID [facility] Last Admin: 10/03/24 21:08 Dose: 1 appl Home Medications ?Medication ?Instructions ?Recorded ?Confirmed ?Last Taken ?Type acetaminophen 325 mg tablet 650 mg PO Q6H PRN Fever/Pain 10/02/24 10/02/24 Unknown History bisacodyl 10 mg rectal suppository 10 mg [place] DAILY PRN Constipation 10/02/24 10/02/24 Unknown History calcitriol 0.25 mcg capsule 0.25 mcg PO MOWEFR 10/02/24 10/02/24 Unknown History dextrose 40 % oral gel (Glutose-45) 45 g PO Q10M PRN Hypoglycemia 10/02/24 10/02/24 Unknown History fexofenadine 60 mg tablet 60 mg PO DAILY 10/02/24 10/02/24 Unknown History furosemide 20 mg tablet 20 mg PO DAILY@1400 10/02/24 10/02/24 Unknown History furosemide 40 mg tablet 40 mg PO DAILY@0800 10/02/24 10/02/24 Unknown History glucagon 1 mg solution for 1 mg subcut Q10M PRN Hypoglycemia 10/02/24 10/02/24 Unknown History injection glyburide 5 mg tablet 5 mg PO BID 10/02/24 10/02/24 Unknown History levothyroxine 150 mcg tablet 150 mcg PO MOTUWETHFRSA 10/02/24 10/02/24 Unknown History levothyroxine 150 mcg tablet 225 mcg PO POZO 10/02/24 10/02/24 Unknown History loratadine 10 mg tablet 10 mg PO DAILY 10/02/24 10/02/24 Unknown History magnesium hydroxide 400 mg/5 mL 30 ml PO DAILY PRN Constipation 10/02/24 10/02/24 Unknown History oral suspension (Milk of Magnesia) magnesium oxide 400 mg PO DAILY 10/02/24 10/02/24 Unknown History melatonin 3 mg tablet 6 mg PO BEDTIME 10/02/24 10/02/24 Unknown History metolazone 2.5 mg tablet 2.5 mg PO MOWEFR 10/02/24 10/02/24 Unknown History metoprolol tartrate 25 mg tablet 25 mg PO BID 10/02/24 10/02/24 Unknown History rivaroxaban 20 mg tablet 20 mg PO DAILY 10/02/24 10/02/24 Unknown History rosuvastatin 40 mg tablet 40 mg PO DAILY 10/02/24 10/02/24 Unknown History sodium phosphates 19 gram-7 118 ml [place] DAILY PRN Constipation 10/02/24 10/02/24 Unknown History gram/118 mL enema (Fleet Enema) tramadol 50 mg tablet 50 mg PO DAILY 10/02/24 10/02/24 Unknown History Physical Exam Vital Signs: Last Vital Signs Temp 97.4 F 10/03/24 20:12 Pulse 89 10/03/24 20:12 Resp 16 10/03/24 20:12 BP 101/69 10/03/24 20:12 Pulse Ox 97 10/03/24 20:12 O2 Del Method Room Air 10/03/24 20:12 BMI result Body Mass Index 56.1 Const General: no acute distress Orientation/consciousness: patient oriented x3 Eyes EOM: EOMs intact bilaterally Neck Neck: Yes supple Resp Auscultation: diminished lung sounds Cardio Rhythm: abnormal rhythm GI Palpation (GI): Soft to palpation Neuro General: patient oriented x3 Results Lab Results 10/02/24 06:03 10/03/24 06:17 Lab results: Chemistry 10/01/24 10/02/24 10/03/24 22:41 06:03 06:17 Sodium 134 L 136 136 Potassium 4.1 4.1 3.8 Carbon Dioxide 27 24 28 BUN 102 H 100 H 102 H Creatinine 3.95 H 3.91 H 4.08 H* Calcium 9.0 D 9.5 9.3 Hematology 10/01/24 10/02/24 22:41 06:03 WBC 4.9 4.8 Hgb 13.2 13.9 Plt Count 115 L 118 L Assessment and Plan (1) Acute kidney injury superimposed on chronic kidney disease: Status: Acute Plan TANA due to cardio renal syndrome Has RV systolic dysfunction Very hypervolemic Has good response to diuresis Renal function worsened No indication for renal replacement today Cardiology closely following C/W current management for now Procedures Date of Service Date of Service: 10/03/24
[2024-10-03] MEDS: Furosemide 200 MG in 0.9 % Sodium Chloride 80 ML IVCONT (23:34)
[2024-10-04 03:40] VITALS: BP 115/56; PULSE 85; RESP 16; TEMP 36.6; O2SAT 96
[2024-10-04 04:22] LABS: Glucose, Whole Blood 138 mg/dL (60-115)
[2024-10-04 04:22] LABS: Glucose, Whole Blood 134 mg/dL (60-115)
[2024-10-04 04:22] LABS: Glucose, Whole Blood 146 mg/dL (60-115)
[2024-10-04] MEDS: Levothyroxine Sodium 150 MCG TABLET PO (05:02)
[2024-10-04 07:35] VITALS: BP 93/58; PULSE 95; RESP 18; TEMP 36.3; O2SAT 98
[2024-10-04 08:10] LABS: Glucose, Whole Blood 95 mg/dL (60-115)
[2024-10-04 08:22] LABS: B Type Natriuretic Peptide 4014 pg/mL (<100)
[2024-10-04 08:23] LABS: Anion Gap 17 (12-20); Blood Urea Nitrogen 101 mg/dL (9-16); Calcium 9.4 mg/dL (8.4-10.2); Carbon Dioxide 29 mmol/L (22-29); Chloride 94 mmol/L (96-108); Creatinine Clr Calc Pharmacy 18.4; Estimated Glomerular Filt Rate 11; Glucose Random 97 mg/dL (60-115); Magnesium 2.1 mg/dL (1.6-2.6); Potassium 3.5 mmol/L (3.3-5.1); Sodium 136 mmol/L (135-145)
[2024-10-04 08:40] LABS: Erythrocyte Sedimentation Rate 6 MM/HR (0-20)
[2024-10-04] MEDS: Atorvastatin Calcium 80 MG TABLET PO (09:28)
[2024-10-04] MEDS: traMADoL HCL 50 MG TABLET PO (09:29)
[2024-10-04] MEDS: Metoprolol Tartrate 25 MG TABLET PO (09:30)
[2024-10-04] MEDS: Magnesium Oxide 400 MG TABLET PO (09:30)
[2024-10-04] MEDS: Loratadine 10 MG TABLET PO (09:31)
[2024-10-04] MEDS: Rivaroxaban 15 MG TABLET PO (09:31)
[2024-10-04] MEDS: Triamcinolone Acet 0.5 % Oint 15 GM TUBE 1 APPL TOPICAL ×2 (09:32→20:07)
[2024-10-04] MEDS: 0.9 % Sodium Chloride Flush 3 ML SYRINGE IVFLUSH ×3 (09:33→21:28)
--- NOTE | 2024-10-04 10:30 | HO.PM.IMPN ---
Subjective Subjective Date of Service: 10/04/24 Interval History: breathing and leg edema slightly improved, negative 2.5L thus far Review of Systems Review of Systems: Yes all other systems are reviewed and are negative Physical Exam Vital Signs: Vital Signs: Last Vital Signs Temp 97.3 F 10/04/24 07:35 Pulse 95 10/04/24 07:35 Resp 18 10/04/24 07:35 BP 93/58 L 10/04/24 07:35 Pulse Ox 98 10/04/24 07:35 O2 Del Method Room Air 10/04/24 07:35 BMI result Body Mass Index 56.1 Gen: in no acute distress HEENT: sclera anicteric, moist mucus membranes Neck: supple Lungs: diminished Heart: irregular, no murmurs Abd: soft, non-tender, non-distended, obese Ext: 4+ bilateral leg edema Skin: warm/well-perfused, tip of 4th finger with dry cut, minimal surrounding erythema Neuro: alert and oriented x3, no focal findings Psych: appropriate affect Objective Data Active Medications Acetaminophen (Acetaminophen 325 Mg Tablet) 650 mg PO Q6H PRN PRN Reason: Pain, Mild 1-3,fever,headache Last Admin: 10/02/24 05:14 Dose: 650 mg Documented By: LORIE Atorvastatin Calcium (Atorvastatin Calcium 80 Mg Tablet) 80 mg PO DAILY [facility] Last Admin: 10/04/24 09:28 Dose: 80 mg Documented By: SHERI Bisacodyl (Bisacodyl 10 Mg Supp.Rect) 10 mg ID DAILY PRN PRN Reason: Constipation Calcitriol (Calcitriol 0.25 Mcg Capsule) 0.25 mcg PO MOWEFR [facility] Last Admin: 10/03/24 18:26 Dose: 0.25 mcg Documented By: ILEANA Calcium Carbonate (Calcium Carbonate 750 Mg Tab.Chew) 750 mg PO Q4H PRN PRN Reason: Heartburn Dextrose (Dextrose 50 % 25 Gm/50 Ml Syringe) 25 gm IVPUSH Q15M PRN; Protocol PRN Reason: per Hypoglycemia Standing Ord. Diphenhydramine HCl (Diphenhydramine Hcl 25 Mg Capsule) 25 mg PO Q4H PRN PRN Reason: Itching Doxycycline Monohydrate (Doxycycline Monohydrate 100 Mg Capsule) 100 mg PO Q12H [facility] Last Admin: 10/03/24 21:08 Dose: 100 mg Documented By: ROSS Glucose (Glucose Gel 15 Gm Gel..Gram.) 15 gm PO Q15M PRN; Protocol PRN Reason: per Hypoglycemia Standing Ord. Furosemide 200 mg/ Sodium (Chloride) 100 mls @ 5 mls/hr IVCONT .Q20H [facility] Last Admin: 10/03/24 23:34 Dose: 10 mg/hr, 5 mls/hr Documented By: ROSS Insulin Human Lispro (Insulin Lispro 100 Unit/Ml 3 Ml Vial) 0 unit SUBCUT QIDACHS [facility]; Protocol Last Admin: 10/04/24 09:14 Dose: Not Given Documented By: SHERI Non-Admin Reason: No Insulin Coverage Levothyroxine Sodium (Levothyroxine Sodium 150 Mcg Tablet) 150 mcg PO MoTuWeThFrSa@0600 [facility] Last Admin: 10/04/24 05:02 Dose: 150 mcg Documented By: RSOS Levothyroxine Sodium (Levothyroxine Sodium 75 Mcg Tablet) 225 mcg PO Pozo@0600 [facility] Loratadine (Loratadine 10 Mg Tablet) 10 mg PO DAILY [facility] Last Admin: 10/04/24 09:31 Dose: 10 mg Documented By: SHERI Magnesium Hydroxide (Milk Of Magnesia 30 Ml Oral.Susp) 30 ml PO DAILY PRN PRN Reason: Constipation Magnesium Oxide (Magnesium Oxide 400 Mg Tablet) 400 mg PO DAILY [facility] Last Admin: 10/04/24 09:30 Dose: 400 mg Documented By: SHERI Melatonin (Melatonin 3 Mg Tablet) 6 mg PO BEDTIME [facility] Last Admin: 10/03/24 21:08 Dose: 6 mg Documented By: ROSS Metolazone (Metolazone 2.5 Mg Tablet) 2.5 mg PO MOWEFR [facility] Last Admin: 10/03/24 08:17 Dose: 2.5 mg Documented By: ILEANA Metoprolol Tartrate (Metoprolol Tartrate 25 Mg Tablet) 25 mg PO BID [facility]; Protocol Last Admin: 10/04/24 09:30 Dose: 25 mg Documented By: SHERI Ondansetron HCl (Ondansetron Hcl 4 Mg/2 Ml Vial) 4 mg IVPUSH Q8H PRN PRN Reason: Nausea and Vomiting Rivaroxaban (Rivaroxaban 15 Mg Tablet) 15 mg PO DAILY [facility] Last Admin: 10/04/24 09:31 Dose: 15 mg Documented By: SHERI Sodium Biphosphate/Sodium Phosphate (Sodium Phosphate,[place]-Dibasic 133 Ml Enema) 118 ml ID DAILY PRN PRN Reason: Constipation Sodium Chloride (0.9 % Sodium Chloride Flush 3 Ml Syringe) 3 ml IVFLUSH QSHIFT [facility] Last Admin: 10/04/24 09:33 Dose: 3 ml Documented By: SHERI Tramadol HCl (Tramadol Hcl 50 Mg Tablet) 50 mg PO DAILY [facility] Last Admin: 10/04/24 09:29 Dose: 50 mg Documented By: SHERI Triamcinolone Acetonide (Triamcinolone Acet 0.5 % Oint 15 Gm Tube) 1 appl TOPICAL BID [facility] Last Admin: 10/04/24 09:32 Dose: 1 appl Documented By: SHERI Labs 10/02/24 06:03 10/04/24 07:47 Labs: Laboratory Results - last 24 hr 10/03/24 10/03/24 10/03/24 06:17 11:05 16:20 ESR Anion Gap Estim Creat Clear Calc Estimated GFR POC Glucose 104 134 H Random Glucose Calcium Magnesium C-Reactive Protein 0.65 H B-Natriuretic Peptide 10/03/24 10/03/24 10/04/24 21:05 23:36 07:20 ESR Anion Gap Estim Creat Clear Calc Estimated GFR POC Glucose 146 H 138 H 95 Random Glucose Calcium Magnesium C-Reactive Protein B-Natriuretic Peptide 10/04/24 07:47 ESR 6 Anion Gap 17 Estim Creat Clear Calc 18.4 Estimated GFR 11 POC Glucose Random Glucose 97 Calcium 9.4 Magnesium 2.1 C-Reactive Protein B-Natriuretic Peptide 4014 H Assessment and Plan (1) Acute exacerbation of chronic heart failure: Status: Acute Assessment and Plan: d3 for 69yo F with HFpEF, CKD3, morbiD obesity, pAF on rivaorxaban, HTN, DM2, and HLD sent in from [facility] where she was admitted after being discharged from [facility] with ADHF; developed worsening weight gain, orthopnea, exertional dypnea, and leg edema and found to have worsening renal insufficiency acute-chronic diastolic HF/R-sided HF - TTE 10/02/24 1. Normal LV ejection fraction with LVEF of 60-65% with grade 3 diastolic dysfunction with moderately increased wall thickness 2. Severely reduced RV systolic function 3. Moderate biatrial enlargement 4. Mild mitral and tricuspid regurgitation 5. Moderately elevated right ventricular systolic pressure with significantly elevated right atrial pressures 6. 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 Quality Stroke Does the patient have a stroke diagnosis?: No VTE Prior VTE?: No VTE Risk Level:: Medical - moderate - high VTE Device Contraindication: Treatment Not Indicated VTE Drug Contraindication: N/A - Med Ordered
[2024-10-04 11:29] VITALS: BP 91/55; PULSE 72; RESP 16; TEMP 36.6; O2SAT 99
[2024-10-04] MEDS: Insulin Lispro 100 UNIT/ML 3 ML VIAL SUBCUT ×2 (11:50→21:48)
[2024-10-04] MEDS: Doxycycline Monohydrate 100 MG CAPSULE PO ×2 (11:51→21:27)
--- NOTE | 2024-10-04 12:28 | PM.PNCARD ---
Subjective Subjective Date of Service: 10/04/24 Principal diagnosis: Decompensated congestive heart failure, predominantly right heart failure Interval history: Shira continues to have orthopnea when she lays flat. Says leg edema. Overall negative balance of 1600 cc since last night. Blood pressure is on the softer side. Remains in atrial fibrillation with controlled ventricular response. Kidney function is about similar. Continues to have leg edema. Review of Systems Constitutional: Reports no additional constitutional complaints Cardiovascular: Denies chest pain, Denies rapid heart rate, Reports leg edema, Denies palpitations and Reports orthopnea Respiratory: Reports no additional respiratory complaints Gastrointestinal: Reports no additional gastrointestinal complaints Reports system reviewed and no additional complaints, except as documented Psychiatric: Reports no additional psychiatric complaints Endocrine: Denies palpitations Hematologic/Lymphatic: Reports no additional hematologic/lymphatic complaints Physical Exam Vital Signs: Last Vital Signs Temp 97.8 F 10/04/24 11:29 Pulse 72 10/04/24 11:29 Resp 16 10/04/24 11:29 BP 91/55 L 10/04/24 11:29 Pulse Ox 99 10/04/24 11:29 O2 Del Method Room Air 10/04/24 11:29 BMI result Body Mass Index 56.1 Const General: cooperative, comfortable, alert, awake and in distress mild Nutritional Appearance: obese morbidly obese Orientation/consciousness: patient oriented x3 HEENT Head: Yes normocephalic and Yes atraumatic Neck Neck: Yes trachea midline, Yes supple and Yes JVD Resp Effort & Inspection: decreased respiratory effort Auscultation: no wheezes and diminished lung sounds Cardio Jugular venous distension: JVD Rate: regular rate Rhythm: regular rhythm Heart sounds: S1 normal heart sound present, S2 normal heart sound present, no click, no gallops, no murmurs and no rubs GI Auscultation: normal bowel sounds Skin General skin exam: no rashes or lesions noted and ecchymosis Neuro General: patient oriented x3 and no focal motor deficits Extrem General: No clubbing, No cyanosis and Yes edema Psych Appearance: grossly normal Objective Labs and Meds 10/02/24 06:03 10/04/24 07:47 Lab results: Laboratory Results - last 24 hr 10/03/24 10/03/24 10/03/24 16:20 21:05 23:36 ESR Sodium Potassium Chloride Carbon Dioxide Anion Gap BUN Creatinine Estim Creat Clear Calc Estimated GFR POC Glucose 134 H 146 H 138 H Random Glucose Calcium Magnesium B-Natriuretic Peptide 10/04/24 10/04/24 07:20 07:47 ESR 6 Sodium 136 Potassium 3.5 Chloride 94 L Carbon Dioxide 29 Anion Gap 17 BUN 101 H Creatinine 3.94 H Estim Creat Clear Calc 18.4 Estimated GFR 11 POC Glucose 95 Random Glucose 97 Calcium 9.4 Magnesium 2.1 B-Natriuretic Peptide 4014 H Progress Note: A&P Assessment and plan (1) Acute exacerbation of chronic heart failure: Status: Acute Assessment and Plan: Acute heart failure with significant fluid overloaded predominantly right heart failure syndrome with now persistent atrial fibrillation which makes treatment difficult. Multiple comorbidities as listed before. Continue IV diuresis with Lasix as well as give metolazone today. Strict intake and output chart needs to be pursued. Blood pressures are softer side and would hold metoprolol and switch to amiodarone for rate control, see below. Continue monitor renal function as well as BNP. BNP significantly elevated today compared to on admission probably related to reduced renal clearance in setting of heart failure. Out of bed to chair as well as incentive spirometry. (2) Afib: Status: Acute Assessment and Plan: Persistent atrial fibrillation probably does not help overall heart failure syndrome. Would benefit from rhythm control approach would start amiodarone 200 mg b.i.d., loading with intent of rate control and eventually rhythm control if possible. Hold metoprolol due to low blood pressure. Continue full oral anticoagulation. Will continue to follow with you Time Spent With Patient Time: Total time managing care of this patient today ____ minutes. Progress Note: Quality Stroke Does the patient have a stroke diagnosis?: No Procedures Date of Service Date of Service: 10/04/24
[2024-10-04 12:51] LABS: Glucose, Whole Blood 168 mg/dL (60-115)
[2024-10-04] MEDS: metOLazone 2.5 MG TABLET PO (13:51)
[2024-10-04] MEDS: Amiodarone HCL 200 MG TABLET PO ×2 (13:52→21:27)
[2024-10-04 16:00] VITALS: BP 97/54; PULSE 62; RESP 19; TEMP 36.2; O2SAT 100
[2024-10-04 16:40] LABS: Glucose, Whole Blood 141 mg/dL (60-115)
--- NOTE | 2024-10-04 18:51 | P.PNNP_ITS ---
Subjective Subjective Date of Service: 10/04/24 Principal diagnosis: Decompensated congestive heart failure, predominantly right heart failure Interval history: Seen AM. breathing and leg edema slightly improved, negative 2.5L thus far Physical Exam 2 Vital Signs: Vital Signs: Last Vital Signs Temp 97.1 F 10/04/24 16:00 Pulse 62 10/04/24 16:00 Resp 19 10/04/24 16:00 BP 97/54 L 10/04/24 16:00 Pulse Ox 100 10/04/24 16:00 O2 Del Method Room Air 10/04/24 16:00 BMI result Body Mass Index 56.1 Const: General: no acute distress Orientation/consciousness: patient oriented x3 Eyes: EOM: EOMs intact bilaterally Resp: Auscultation: diminished lung sounds Cardio: Jugular venous distension: JVD GI: Palpation (GI): Soft to palpation Neuro: General: patient oriented x3 and moves all extremities Objective Data Labs 10/02/24 06:03 10/04/24 07:47 Labs: Laboratory Results - last 24 hr 10/03/24 10/03/24 10/03/24 16:20 21:05 23:36 ESR Sodium Potassium Chloride Carbon Dioxide Anion Gap BUN Creatinine Estim Creat Clear Calc Estimated GFR POC Glucose 134 H 146 H 138 H Random Glucose Calcium Magnesium B-Natriuretic Peptide 10/04/24 10/04/24 10/04/24 07:20 07:47 10:49 ESR 6 Sodium 136 Potassium 3.5 Chloride 94 L Carbon Dioxide 29 Anion Gap 17 BUN 101 H Creatinine 3.94 H Estim Creat Clear Calc 18.4 Estimated GFR 11 POC Glucose 95 168 H Random Glucose 97 Calcium 9.4 Magnesium 2.1 B-Natriuretic Peptide 4014 H 10/04/24 15:50 ESR Sodium Potassium Chloride Carbon Dioxide Anion Gap BUN Creatinine Estim Creat Clear Calc Estimated GFR POC Glucose 141 H Random Glucose Calcium Magnesium B-Natriuretic Peptide Procedures Date of Service Date of Service: 10/04/24 Assessment & Plan Assessment and plan (1) Acute kidney injury superimposed on chronic kidney disease: Status: Acute Plan TANA due to cardio renal syndrome Has RV systolic dysfunction Very hypervolemic Has good response to diuresis Renal function stable No indication for renal replacement today Cardiology closely following C/W current management for now Progress Note: Quality Stroke Does the patient have a stroke diagnosis?: No
[2024-10-04 19:30] VITALS: BP 105/56; PULSE 88; RESP 18; TEMP 37.1; O2SAT 97
[2024-10-04] MEDS: Furosemide 200 MG in 0.9 % Sodium Chloride 80 ML IVCONT (20:05)
[2024-10-04] MEDS: diphenhydrAMINE HCL 25 MG CAPSULE PO (21:27)
[2024-10-04 21:57] LABS: Glucose, Whole Blood 172 mg/dL (60-115)
[2024-10-04 23:26] VITALS: BP 100/58; PULSE 73; RESP 18; TEMP 36; O2SAT 96
[2024-10-04] MEDS: Melatonin 3 MG TABLET 6 MG PO (23:38)
[2024-10-05 03:02] VITALS: BP 100/58; PULSE 84; RESP 16; TEMP 36.3; O2SAT 98
[2024-10-05] MEDS: diphenhydrAMINE HCL 25 MG CAPSULE PO ×2 (03:43→20:21)
[2024-10-05] MEDS: Levothyroxine Sodium 150 MCG TABLET PO (05:59)
[2024-10-05 07:18] VITALS: BP 114/57; PULSE 89; RESP 16; TEMP 36.6; O2SAT 98
[2024-10-05 08:16] LABS: Glucose, Whole Blood 113 mg/dL (60-115)
[2024-10-05 08:17] LABS: B Type Natriuretic Peptide 3550 pg/mL (<100)
[2024-10-05] MEDS: traMADoL HCL 50 MG TABLET PO (08:18)
[2024-10-05] MEDS: Acetaminophen 325 MG TABLET 650 MG PO (08:18)
[2024-10-05] MEDS: Rivaroxaban 15 MG TABLET PO (08:18)
[2024-10-05] MEDS: Magnesium Oxide 400 MG TABLET PO (08:18)
[2024-10-05] MEDS: Atorvastatin Calcium 80 MG TABLET PO (08:18)
[2024-10-05] MEDS: Loratadine 10 MG TABLET PO (08:18)
[2024-10-05] MEDS: Amiodarone HCL 200 MG TABLET PO ×2 (08:19→20:21)
[2024-10-05 08:20] LABS: Anion Gap 18 (12-20); Blood Urea Nitrogen 98 mg/dL (9-16); Calcium 9.2 mg/dL (8.4-10.2); Carbon Dioxide 27 mmol/L (22-29); Chloride 94 mmol/L (96-108); Creatinine Clr Calc Pharmacy 18.8; Estimated Glomerular Filt Rate 12; Glucose Random 102 mg/dL (60-115); Magnesium 2.1 mg/dL (1.6-2.6); Potassium 3.3 mmol/L (3.3-5.1); Sodium 136 mmol/L (135-145)
[2024-10-05] MEDS: 0.9 % Sodium Chloride Flush 3 ML SYRINGE IVFLUSH ×3 (08:20→22:20)
[2024-10-05] MEDS: Triamcinolone Acet 0.5 % Oint 15 GM TUBE 1 APPL TOPICAL ×2 (08:22→20:23)
[2024-10-05] MEDS: metOLazone 2.5 MG TABLET PO (08:25)
[2024-10-05 11:13] VITALS: BP 99/65; PULSE 91; RESP 18; TEMP 36; O2SAT 95
[2024-10-05] MEDS: Doxycycline Monohydrate 100 MG CAPSULE PO ×2 (11:18→22:19)
--- NOTE | 2024-10-05 11:34 | PM.PNCARD ---
Subjective Subjective Date of Service: 10/05/24 Principal diagnosis: Decompensated congestive heart failure, predominantly right heart failure Interval history: Patient diastolic gently and typically on current diuretic regimen. Patient continues to have shortness of breath especially orthopnea. Continues to be fluid overloaded. Creatinine in his downtrending. BNP is downtrending. Patient was converted to sinus rhythm Review of Systems Constitutional: Reports lethargy Cardiovascular: Denies Abdominal Distension, Reports leg edema, Denies lightheadedness, Denies Loss of Consciousness, Denies palpitations and Reports orthopnea Gastrointestinal: Reports no additional gastrointestinal complaints Endocrine: Denies palpitations Allergic/Immunologic: Reports no additional allergic/immunologic complaints Physical Exam Vital Signs: Last Vital Signs Temp 96.8 F 10/05/24 11:13 Pulse 91 10/05/24 11:13 Resp 18 10/05/24 11:13 BP 99/65 10/05/24 11:13 Pulse Ox 95 10/05/24 11:13 O2 Del Method Room Air 10/05/24 11:13 BMI result Body Mass Index 56.1 Const General: cooperative, comfortable, alert, awake and in distress mild Nutritional Appearance: obese morbidly obese Orientation/consciousness: patient oriented x3 HEENT Head: Yes normocephalic and Yes atraumatic Neck Neck: Yes trachea midline, Yes supple and Yes JVD Resp Effort & Inspection: decreased respiratory effort Auscultation: no wheezes and diminished lung sounds Cardio Jugular venous distension: JVD Rate: regular rate Rhythm: regular rhythm Heart sounds: S1 normal heart sound present, S2 normal heart sound present, no click, no gallops, no murmurs and no rubs GI Auscultation: normal bowel sounds Skin General skin exam: no rashes or lesions noted and ecchymosis Neuro General: patient oriented x3 and no focal motor deficits Extrem General: No clubbing, No cyanosis and Yes edema Psych Appearance: grossly normal Objective Labs and Meds 10/02/24 06:03 10/05/24 07:13 Lab results: Laboratory Results - last 24 hr 10/04/24 10/04/24 10/04/24 10:49 15:50 21:10 Hold Purple Top Sodium Potassium Chloride Carbon Dioxide Anion Gap BUN Creatinine Estim Creat Clear Calc Estimated GFR POC Glucose 168 H 141 H 172 H Random Glucose Calcium Magnesium B-Natriuretic Peptide 10/05/24 10/05/24 07:13 07:23 Hold Purple Top SEE NOTE Sodium 136 Potassium 3.3 Chloride 94 L Carbon Dioxide 27 Anion Gap 18 BUN 98 H Creatinine 3.85 H Estim Creat Clear Calc 18.8 Estimated GFR 12 POC Glucose 113 Random Glucose 102 Calcium 9.2 Magnesium 2.1 B-Natriuretic Peptide 3550 H Progress Note: A&P Assessment and plan (1) Acute exacerbation of chronic heart failure: Status: Acute Assessment and Plan: Acute decompensated congestive heart failure in this elderly woman with predominantly right heart failure syndrome. Clinically gently improving. Continue IV diuresis with Lasix drip and metolazone. Strict intake and output chart needs to be pursued. Continue monitor renal function as well as BNP. Replace potassium to about 4. Has converted to sinus rhythm with amiodarone therapy. I think overall this should help with her heart failure syndrome. Overall prognosis still guarded. Will continue to follow with you. (2) Paroxysmal atrial fibrillation: Status: Acute Assessment and Plan: Atrial fibrillation converted to sinus rhythm with amiodarone loading. Continue the same. Continue full oral anticoagulation. Continue loading for about a month. Will follow with you Time Spent With Patient Time: Total time managing care of this patient today ____ minutes. Progress Note: Quality Stroke Does the patient have a stroke diagnosis?: No Procedures Date of Service Date of Service: 10/05/24
--- NOTE | 2024-10-05 11:40 | P.PNIM_ITS ---
Subjective Subjective Date of Service: 10/05/24 Interval History: converted to NSR breathing slightly improved legs still very swollen Review of Systems Review of Systems: Yes all other systems are reviewed and are negative Physical Exam 2 Vital Signs: Vital Signs: Last Vital Signs Temp 96.8 F 10/05/24 11:13 Pulse 91 10/05/24 11:13 Resp 18 10/05/24 11:13 BP 99/65 10/05/24 11:13 Pulse Ox 95 10/05/24 11:13 O2 Del Method Room Air 10/05/24 11:13 BMI result Body Mass Index 56.1 Gen: in no acute distress HEENT: sclera anicteric, moist mucus membranes Neck: supple, JVD Lungs: diminished Heart: irregular, no murmurs Abd: soft, non-tender, non-distended, obese Ext: 4+ bilateral leg edema Skin: warm/well-perfused, tip of 4th finger with dry cut, no surrounding erythema Neuro: alert and oriented x3, no focal findings Psych: appropriate affect Objective Data Active Medications Acetaminophen (Acetaminophen 325 Mg Tablet) 650 mg PO Q6H PRN PRN Reason: Pain, Mild 1-3,fever,headache Last Admin: 10/05/24 08:18 Dose: 650 mg Documented By: GENARO Amiodarone HCl (Amiodarone Hcl 200 Mg Tablet) 200 mg PO BID [facility] Last Admin: 10/05/24 08:19 Dose: 200 mg Documented By: GENARO Atorvastatin Calcium (Atorvastatin Calcium 80 Mg Tablet) 80 mg PO DAILY [facility] Last Admin: 10/05/24 08:18 Dose: 80 mg Documented By: GENARO Bisacodyl (Bisacodyl 10 Mg Supp.Rect) 10 mg [place] DAILY PRN PRN Reason: Constipation Calcitriol (Calcitriol 0.25 Mcg Capsule) 0.25 mcg PO MOWEFR [facility] Last Admin: 10/03/24 18:26 Dose: 0.25 mcg Documented By: ILEANA Calcium Carbonate (Calcium Carbonate 750 Mg Tab.Chew) 750 mg PO Q4H PRN PRN Reason: Heartburn Dextrose (Dextrose 50 % 25 Gm/50 Ml Syringe) 25 gm IVPUSH Q15M PRN; Protocol PRN Reason: per Hypoglycemia Standing Ord. Diphenhydramine HCl (Diphenhydramine Hcl 25 Mg Capsule) 25 mg PO Q4H PRN PRN Reason: Itching Last Admin: 10/05/24 03:43 Dose: 25 mg Documented By: ETHAN Doxycycline Monohydrate (Doxycycline Monohydrate 100 Mg Capsule) 100 mg PO Q12H [facility] Last Admin: 10/05/24 11:18 Dose: 100 mg Documented By: GENARO Glucose (Glucose Gel 15 Gm Gel..Gram.) 15 gm PO Q15M PRN; Protocol PRN Reason: per Hypoglycemia Standing Ord. Furosemide 200 mg/ Sodium (Chloride) 100 mls @ 5 mls/hr IVCONT .Q20H [facility] Last Admin: 10/04/24 20:05 Dose: 10 mg/hr, 5 mls/hr Documented By: ETHAN Insulin Human Lispro (Insulin Lispro 100 Unit/Ml 3 Ml Vial) 0 unit SUBCUT QIDACHS [facility]; Protocol Last Admin: 10/05/24 11:18 Dose: Not Given Documented By: GENARO Non-Admin Reason: No Insulin Coverage Levothyroxine Sodium (Levothyroxine Sodium 150 Mcg Tablet) 150 mcg PO MoTuWeThFrSa@0600 [facility] Last Admin: 10/05/24 05:59 Dose: 150 mcg Documented By: ROSS Levothyroxine Sodium (Levothyroxine Sodium 75 Mcg Tablet) 225 mcg PO Pozo@0600 [facility] Loratadine (Loratadine 10 Mg Tablet) 10 mg PO DAILY [facility] Last Admin: 10/05/24 08:18 Dose: 10 mg Documented By: GENARO Magnesium Hydroxide (Milk Of Magnesia 30 Ml Oral.Susp) 30 ml PO DAILY PRN PRN Reason: Constipation Magnesium Oxide (Magnesium Oxide 400 Mg Tablet) 400 mg PO DAILY [facility] Last Admin: 10/05/24 08:18 Dose: 400 mg Documented By: GENARO Melatonin (Melatonin 3 Mg Tablet) 6 mg PO BEDTIME [facility] Last Admin: 10/04/24 23:38 Dose: 6 mg Documented By: ETHAN Metolazone (Metolazone 2.5 Mg Tablet) 2.5 mg PO MOWEFR [facility] Last Admin: 10/05/24 08:25 Dose: 2.5 mg Documented By: GENARO Ondansetron HCl (Ondansetron Hcl 4 Mg/2 Ml Vial) 4 mg IVPUSH Q8H PRN PRN Reason: Nausea and Vomiting Rivaroxaban (Rivaroxaban 15 Mg Tablet) 15 mg PO DAILY [facility] Last Admin: 10/05/24 08:18 Dose: 15 mg Documented By: GENARO Sodium Biphosphate/Sodium Phosphate (Sodium Phosphate,Oliver-Dibasic 133 Ml Enema) 118 ml UT DAILY PRN PRN Reason: Constipation Sodium Chloride (0.9 % Sodium Chloride Flush 3 Ml Syringe) 3 ml IVFLUSH QSHIFT [facility] Last Admin: 10/05/24 11:18 Dose: 3 ml Documented By: GENARO Tramadol HCl (Tramadol Hcl 50 Mg Tablet) 50 mg PO DAILY [facility] Last Admin: 10/05/24 08:18 Dose: 50 mg Documented By: GENARO Triamcinolone Acetonide (Triamcinolone Acet 0.5 % Oint 15 Gm Tube) 1 appl TOPICAL BID [facility] Last Admin: 10/05/24 08:22 Dose: 1 appl Documented By: GENARO Labs 10/02/24 06:03 10/05/24 07:13 Labs: Laboratory Results - last 24 hr 10/04/24 10/04/24 10/04/24 10:49 15:50 21:10 Hold Purple Top Anion Gap Estim Creat Clear Calc Estimated GFR POC Glucose 168 H 141 H 172 H Random Glucose Calcium Magnesium B-Natriuretic Peptide 10/05/24 10/05/24 07:13 07:23 Hold Purple Top SEE NOTE Anion Gap 18 Estim Creat Clear Calc 18.8 Estimated GFR 12 POC Glucose 113 Random Glucose 102 Calcium 9.2 Magnesium 2.1 B-Natriuretic Peptide 3550 H Assessment and Plan (1) Acute exacerbation of chronic heart failure: Status: Acute Assessment and Plan: d4 for 69yo F with HFpEF, CKD3, morbiD obesity, pAF on rivaorxaban, HTN, DM2, and HLD sent in from [facility] where she was admitted after being discharged from [facility] with ADHF; developed worsening weight gain, orthopnea, exertional dypnea, and leg edema and found to have worsening renal insufficiency acute-chronic diastolic HF/R-sided HF - TTE 10/02/24 1. Normal LV ejection fraction with LVEF of 60-65% with grade 3 diastolic dysfunction with moderately increased wall thickness 2. Severely reduced RV systolic function 3. Moderate biatrial enlargement 4. Mild mitral and tricuspid regurgitation 5. Moderately elevated right ventricular systolic pressure with significantly elevated right atrial pressures 6. Mildly dilated ascending aorta at 3.9 cm - continue IV furosemide infusion 10 mg/hr + PO metolazone MWF, monitor BNP/BMP/Mg, I/O + wts; Cardiology following - needs outpt Cardiology f/u including MPS and possibly cardiac MRI TANA/CKD3 - suspect cardiorenal; monitor SCr with diuresis; Nephrology following; SCr slightly improved today L 4th finger cellulitis - mild; continue doxycycline 10/03-10/10 pAF - continue rivaroxaban - stopped metoprolol tartrate and changed to amiodarone 200 mg bid 10/04, continue load until 11/01 then maintenance dosing - replete K to 4+ hypothyroidism - continue LT4 HTN - continue metoprolol tartrate HLD - statin DM2 - miguel-dose lispro VTE ppx - rivaroxaban dispo - eventual return to STR->LTC transition at Rehab In my clinical judgment, the patient requires continued hospitalization for the following reasons: IV diuresis, TANA, CHF Total time managing care of this patient today: 40 minutes. Quality Stroke Does the patient have a stroke diagnosis?: No VTE Prior VTE?: No VTE Risk Level:: Medical - moderate - high VTE Device Contraindication: Treatment Not Indicated VTE Drug Contraindication: N/A - Med Ordered
[2024-10-05] MEDS: Sennosides/Docusate Sodium TABLET 2 TAB PO ×2 (12:17→20:20)
[2024-10-05] MEDS: Potassium Chloride ER 20 MEQ TAB.ER.PRT 40 MEQ PO ×2 (12:17→20:21)
[2024-10-05] MEDS: polyethylene glycoL 3350 17 GM POWD.PACK PO (12:17)
--- NOTE | 2024-10-05 12:34 | MHC.CM.PN ---
PT NOT YET MEDICALLY CLEARED, REQUIRING ONGOING IV DIURESIS AND TREATMENT FOR TANA AND CHF PER HOSPITALIST PN. DCP: RETURN TO [facility] VIA BLS
[2024-10-05 13:28] LABS: Glucose, Whole Blood 142 mg/dL (60-115)
[2024-10-05] MEDS: Furosemide 200 MG in 0.9 % Sodium Chloride 80 ML IVCONT (14:14)
[2024-10-05 15:26] VITALS: BP 97/50; PULSE 86; RESP 16; TEMP 36.1; O2SAT 95
[2024-10-05] MEDS: calcitrioL 0.25 MCG CAPSULE PO (16:45)
[2024-10-05 19:48] VITALS: BP 98/52; PULSE 67; RESP 18; TEMP 37.1; O2SAT 100
--- NOTE | 2024-10-05 21:30 | P.PNNP_ITS ---
Subjective Subjective Date of Service: 10/05/24 Principal diagnosis: Decompensated congestive heart failure, predominantly right heart failure Interval history: converted to NSR; breathing slightly improved; legs still very swollen. Creatinine better. Feels improved Physical Exam 2 Vital Signs: Vital Signs: Last Vital Signs Temp 98.7 F 10/05/24 19:48 Pulse 67 10/05/24 19:48 Resp 18 10/05/24 19:48 BP 98/52 L 10/05/24 19:48 Pulse Ox 100 10/05/24 19:48 O2 Del Method Room Air 10/05/24 19:48 BMI result Body Mass Index 56.1 Const: General: no acute distress Orientation/consciousness: patient oriented x3 Eyes: EOM: EOMs intact bilaterally Neck: Neck: Yes supple Resp: Auscultation: diminished lung sounds Cardio: Jugular venous distension: JVD Rate: regular rate GI: Palpation (GI): Soft to palpation Neuro: General: patient oriented x3 Objective Data Labs 10/02/24 06:03 10/05/24 07:13 Labs: Laboratory Results - last 24 hr 10/04/24 10/05/24 10/05/24 21:10 07:13 07:23 Hold Purple Top SEE NOTE Sodium 136 Potassium 3.3 Chloride 94 L Carbon Dioxide 27 Anion Gap 18 BUN 98 H Creatinine 3.85 H Estim Creat Clear Calc 18.8 Estimated GFR 12 POC Glucose 172 H 113 Random Glucose 102 Calcium 9.2 Magnesium 2.1 B-Natriuretic Peptide 3550 H 10/05/24 11:17 Hold Purple Top Sodium Potassium Chloride Carbon Dioxide Anion Gap BUN Creatinine Estim Creat Clear Calc Estimated GFR POC Glucose 142 H Random Glucose Calcium Magnesium B-Natriuretic Peptide Procedures Date of Service Date of Service: 10/05/24 Assessment & Plan Assessment and plan (1) Acute kidney injury superimposed on chronic kidney disease: Status: Acute Plan TANA due to cardio renal syndrome Has RV systolic dysfunction Hypervolemic- improving Has good response to diuresis Renal function stable/better No indication for renal replacement today Cardiology closely following C/W current management for now Progress Note: Quality Stroke Does the patient have a stroke diagnosis?: No
[2024-10-05 23:38] VITALS: BP 103/59; PULSE 71; RESP 18; TEMP 36.7; O2SAT 97
[2024-10-06] MEDS: diphenhydrAMINE HCL 25 MG CAPSULE PO ×4 (00:35→16:24)
[2024-10-06 02:01] LABS: Glucose, Whole Blood 129 mg/dL (60-115)
[2024-10-06 02:02] LABS: Glucose, Whole Blood 141 mg/dL (60-115)
[2024-10-06 04:00] VITALS: BP 108/58; PULSE 70; RESP 18; TEMP 36.6; O2SAT 95
[2024-10-06] MEDS: Levothyroxine Sodium 150 MCG TABLET PO (05:31)
[2024-10-06 05:57] VITALS: BMI 56.1
[2024-10-06 07:25] LABS: Anion Gap 19 (12-20); Blood Urea Nitrogen 105 mg/dL (9-16); Calcium 9.5 mg/dL (8.4-10.2); Carbon Dioxide 27 mmol/L (22-29); Chloride 94 mmol/L (96-108); Estimated Glomerular Filt Rate 12; Glucose Random 122 mg/dL (60-115); Potassium 3.9 mmol/L (3.3-5.1); Sodium 136 mmol/L (135-145)
[2024-10-06 07:29] LABS: B Type Natriuretic Peptide 2089 pg/mL (<100)
[2024-10-06 07:43] VITALS: BP 104/63; PULSE 106; RESP 20; TEMP 36.6; O2SAT 95
[2024-10-06 08:36] LABS: Glucose, Whole Blood 139 mg/dL (60-115)
[2024-10-06] MEDS: polyethylene glycoL 3350 17 GM POWD.PACK PO (09:15)
[2024-10-06] MEDS: Amiodarone HCL 200 MG TABLET PO ×2 (09:15→21:31)
[2024-10-06] MEDS: Triamcinolone Acet 0.5 % Oint 15 GM TUBE 1 APPL TOPICAL ×2 (09:15→22:24)
[2024-10-06] MEDS: Atorvastatin Calcium 80 MG TABLET PO (09:15)
[2024-10-06] MEDS: Sennosides/Docusate Sodium TABLET 2 TAB PO ×2 (09:15→21:31)
[2024-10-06] MEDS: Doxycycline Monohydrate 100 MG CAPSULE PO ×2 (09:16→21:31)
[2024-10-06] MEDS: traMADoL HCL 50 MG TABLET PO (09:16)
[2024-10-06] MEDS: Magnesium Oxide 400 MG TABLET PO (09:16)
[2024-10-06] MEDS: 0.9 % Sodium Chloride Flush 3 ML SYRINGE IVFLUSH ×3 (09:17→21:32)
[2024-10-06] MEDS: Loratadine 10 MG TABLET PO (09:17)
[2024-10-06] MEDS: Rivaroxaban 15 MG TABLET PO (09:17)
[2024-10-06] MEDS: Furosemide 200 MG in 0.9 % Sodium Chloride 80 ML IVCONT (10:44)
--- NOTE | 2024-10-06 11:06 | P.PNIM_ITS ---
Subjective Subjective Date of Service: 10/06/24 Interval History: dyspnea improved slightly Review of Systems Review of Systems: Yes all other systems are reviewed and are negative Physical Exam 2 Vital Signs: Vital Signs: Last Vital Signs Temp 97.8 F 10/06/24 07:43 Pulse 106 H 10/06/24 07:43 Resp 20 10/06/24 07:43 BP 104/63 10/06/24 07:43 Pulse Ox 95 10/06/24 07:43 O2 Del Method Room Air 10/06/24 07:43 BMI result Body Mass Index 56.1 Gen: in no acute distress HEENT: sclera anicteric, moist mucus membranes Neck: supple, JVD Lungs: diminished Heart: regular, no murmurs Abd: soft, non-tender, non-distended, obese Ext: 3+ pitting bilateral leg edema Skin: warm/well-perfused, tip of 4th finger with dry cut, no surrounding erythema Neuro: alert and oriented x3, no focal findings Psych: appropriate affect Objective Data Active Medications Acetaminophen (Acetaminophen 325 Mg Tablet) 650 mg PO Q6H PRN PRN Reason: Pain, Mild 1-3,fever,headache Last Admin: 10/05/24 08:18 Dose: 650 mg Documented By: GENARO Amiodarone HCl (Amiodarone Hcl 200 Mg Tablet) 200 mg PO BID [facility] Last Admin: 10/06/24 09:15 Dose: 200 mg Documented By: JESUS Atorvastatin Calcium (Atorvastatin Calcium 80 Mg Tablet) 80 mg PO DAILY [facility] Last Admin: 10/06/24 09:15 Dose: 80 mg Documented By: JESUS Bisacodyl (Bisacodyl 10 Mg Supp.Rect) 10 mg [place] DAILY PRN PRN Reason: Constipation Calcitriol (Calcitriol 0.25 Mcg Capsule) 0.25 mcg PO MOWEFR [facility] Last Admin: 10/05/24 16:45 Dose: 0.25 mcg Documented By: GENARO Calcium Carbonate (Calcium Carbonate 750 Mg Tab.Chew) 750 mg PO Q4H PRN PRN Reason: Heartburn Dextrose (Dextrose 50 % 25 Gm/50 Ml Syringe) 25 gm IVPUSH Q15M PRN; Protocol PRN Reason: per Hypoglycemia Standing Ord. Diphenhydramine HCl (Diphenhydramine Hcl 25 Mg Capsule) 25 mg PO Q4H PRN PRN Reason: Itching Last Admin: 10/06/24 09:16 Dose: 25 mg Documented By: JESUS Doxycycline Monohydrate (Doxycycline Monohydrate 100 Mg Capsule) 100 mg PO Q12H [facility] Last Admin: 10/06/24 09:16 Dose: 100 mg Documented By: JESUS Glucose (Glucose Gel 15 Gm Gel..Gram.) 15 gm PO Q15M PRN; Protocol PRN Reason: per Hypoglycemia Standing Ord. Furosemide 200 mg/ Sodium (Chloride) 100 mls @ 5 mls/hr IVCONT .Q20H [facility] Last Admin: 10/06/24 10:44 Dose: 10 mg/hr, 5 mls/hr Documented By: JESUS Insulin Human Lispro (Insulin Lispro 100 Unit/Ml 3 Ml Vial) 0 unit SUBCUT QIDACHS [facility]; Protocol Last Admin: 10/06/24 09:09 Dose: Not Given Documented By: JESUS Non-Admin Reason: poc= 139 Levothyroxine Sodium (Levothyroxine Sodium 150 Mcg Tablet) 150 mcg PO MoTuWeThFrSa@0600 [facility] Last Admin: 10/06/24 05:31 Dose: 150 mcg Documented By: [place] Levothyroxine Sodium (Levothyroxine Sodium 75 Mcg Tablet) 225 mcg PO Pozo@0600 [facility] Loratadine (Loratadine 10 Mg Tablet) 10 mg PO DAILY [facility] Last Admin: 10/06/24 09:17 Dose: 10 mg Documented By: JESUS Magnesium Hydroxide (Milk Of Magnesia 30 Ml Oral.Susp) 30 ml PO DAILY PRN PRN Reason: Constipation Magnesium Oxide (Magnesium Oxide 400 Mg Tablet) 400 mg PO DAILY [facility] Last Admin: 10/06/24 09:16 Dose: 400 mg Documented By: JESUS Melatonin (Melatonin 3 Mg Tablet) 6 mg PO BEDTIME [facility] Last Admin: 10/05/24 21:00 Dose: Not Given Documented By: ETHAN Non-Admin Reason: See Note Metolazone (Metolazone 2.5 Mg Tablet) 2.5 mg PO DAILY [facility] Ondansetron HCl (Ondansetron Hcl 4 Mg/2 Ml Vial) 4 mg IVPUSH Q8H PRN PRN Reason: Nausea and Vomiting Polyethylene Glycol (Polyethylene Glycol 3350 17 Gm Powd.Pack) 17 gm PO DAILY [facility] Last Admin: 10/06/24 09:15 Dose: 17 gm Documented By: JESUS Rivaroxaban (Rivaroxaban 15 Mg Tablet) 15 mg PO DAILY [facility] Last Admin: 10/06/24 09:17 Dose: 15 mg Documented By: JESUS Senna/Docusate Sodium (Sennosides/Docusate Sodium Tablet) 2 tab PO BID [facility] Last Admin: 10/06/24 09:15 Dose: 2 tab Documented By: JESUS Sodium Biphosphate/Sodium Phosphate (Sodium Phosphate,Tompkins-Dibasic 133 Ml Enema) 118 ml [place] DAILY PRN PRN Reason: Constipation Sodium Chloride (0.9 % Sodium Chloride Flush 3 Ml Syringe) 3 ml IVFLUSH QSHIFT [facility] Last Admin: 10/06/24 09:17 Dose: 3 ml Documented By: JESUS Tramadol HCl (Tramadol Hcl 50 Mg Tablet) 50 mg PO DAILY [facility] Last Admin: 10/06/24 09:16 Dose: 50 mg Documented By: JESUS Triamcinolone Acetonide (Triamcinolone Acet 0.5 % Oint 15 Gm Tube) 1 appl TOPICAL BID [facility] Last Admin: 10/06/24 09:15 Dose: 1 appl Documented By: JESUS Labs 10/02/24 06:03 10/06/24 06:41 Labs: Laboratory Results - last 24 hr 10/05/24 10/05/24 10/05/24 11:17 16:38 21:32 Anion Gap Estim Creat Clear Calc Estimated GFR POC Glucose 142 H 129 H 141 H Random Glucose Calcium Magnesium B-Natriuretic Peptide 10/06/24 10/06/24 06:41 07:16 Anion Gap 19 Estim Creat Clear Calc 19.0 Estimated GFR 12 POC Glucose 139 H Random Glucose 122 H Calcium 9.5 Magnesium 2.0 B-Natriuretic Peptide 2089 H Assessment and Plan (1) Acute exacerbation of chronic heart failure: Status: Acute Assessment and Plan: d5 for 69yo F with HFpEF, CKD3, morbid obesity, pAF on rivaorxaban, HTN, DM2, and HLD sent in from [facility] where she was admitted after being discharged from [facility] with ADHF; developed worsening weight gain, orthopnea, exertional dypnea, and leg edema and found to have worsening renal insufficiency acute-chronic diastolic HF/R-sided HF - TTE 10/02/24 1. Normal LV ejection fraction with LVEF of 60-65% with grade 3 diastolic dysfunction with moderately increased wall thickness 2. Severely reduced RV systolic function 3. Moderate biatrial enlargement 4. Mild mitral and tricuspid regurgitation 5. Moderately elevated right ventricular systolic pressure with significantly elevated right atrial pressures 6. Mildly dilated ascending aorta at 3.9 cm - continue IV furosemide infusion 10 mg/hr + PO metolazone [increase to daily] monitor BNP/BMP/Mg, I/O + wts; Cardiology following - needs outpt Cardiology f/u including MPS and possibly cardiac MRI TANA/CKD3 - suspect cardiorenal; monitor SCr with diuresis; Nephrology following; SCr continues to slightly improve L 4th finger cellulitis - mild; continue doxycycline 10/03-10/10 pAF - continue rivaroxaban - stopped metoprolol tartrate and changed to amiodarone 200 mg bid 10/04, continue load until 11/01 then maintenance dosing hypothyroidism - continue LT4 HTN - continue metoprolol tartrate HLD - statin DM2 - miguel-dose lispro VTE ppx - rivaroxaban dispo - eventual return to STR->LTC transition at Rehab In my clinical judgment, the patient requires continued hospitalization for the following reasons: IV diuresis, TANA, CHF Total time managing care of this patient today: 35 minutes. Quality Stroke Does the patient have a stroke diagnosis?: No VTE Prior VTE?: No VTE Risk Level:: Medical - moderate - high VTE Device Contraindication: Treatment Not Indicated VTE Drug Contraindication: N/A - Med Ordered
[2024-10-06] MEDS: Insulin Lispro 100 UNIT/ML 3 ML VIAL SUBCUT ×3 (11:58→21:31)
[2024-10-06] MEDS: metOLazone 2.5 MG TABLET PO (11:59)
--- NOTE | 2024-10-06 11:59 | PM.PNCARD ---
Subjective Subjective Date of Service: 10/06/24 Principal diagnosis: Decompensated congestive heart failure, predominantly right heart failure Interval history: Patient was breathing better. However still remains fluid overloaded. BNP is downtrending nicely. Diuresing gently. Creatinine is more or less remained stable. Remains in sinus rhythm with intermittent atrial fibrillation. Review of Systems Constitutional: Reports fatigue Eyes: Reports no additional eye complaints Cardiovascular: Reports leg edema and Reports orthopnea Respiratory: Reports no additional respiratory complaints Gastrointestinal: Reports no additional gastrointestinal complaints Reports system reviewed and no additional complaints, except as documented Endocrine: Reports fatigue Allergic/Immunologic: Reports no additional allergic/immunologic complaints Physical Exam Vital Signs: Last Vital Signs Temp 97.8 F 10/06/24 07:43 Pulse 106 H 10/06/24 07:43 Resp 20 10/06/24 07:43 BP 104/63 10/06/24 07:43 Pulse Ox 95 10/06/24 07:43 O2 Del Method Room Air 10/06/24 07:43 BMI result Body Mass Index 56.1 Objective Labs and Meds 10/02/24 06:03 10/06/24 06:41 Lab results: Laboratory Results - last 24 hr 10/05/24 10/05/24 10/05/24 11:17 16:38 21:32 Sodium Potassium Chloride Carbon Dioxide Anion Gap BUN Creatinine Estim Creat Clear Calc Estimated GFR POC Glucose 142 H 129 H 141 H Random Glucose Calcium Magnesium B-Natriuretic Peptide 10/06/24 10/06/24 06:41 07:16 Sodium 136 Potassium 3.9 Chloride 94 L Carbon Dioxide 27 Anion Gap 19 BUN 105 H Creatinine 3.80 H Estim Creat Clear Calc 19.0 Estimated GFR 12 POC Glucose 139 H Random Glucose 122 H Calcium 9.5 Magnesium 2.0 B-Natriuretic Peptide 2089 H Progress Note: A&P Assessment and plan (1) Acute exacerbation of chronic heart failure: Status: Acute Assessment and Plan: Acute congestive heart failure with marked fluid overload with predominantly right heart failure syndrome with advanced kidney dysfunction. Improving gradually. Continue IV diuresis with metolazone. Strict intake and output chart needs to be pursued. Out of bed to chair and ambulate if tolerated. Incentive spirometry. Continue monitor renal function as well as BNP. Overall prognosis is guarded. to pursue stops likely rhythm control approach. Amyloidosis workup as outpatient. (2) Afib: Status: Acute Assessment and Plan: Atrial fibrillation with intermittent sinus rhythm versus PACs. Continue amiodarone for rate control as well as rhythm control. Continue full oral anticoagulation. Will follow with you Time Spent With Patient Time: Total time managing care of this patient today ____ minutes. Progress Note: Quality Stroke Does the patient have a stroke diagnosis?: No Procedures Date of Service Date of Service: 10/06/24
[2024-10-06 12:00] VITALS: BP 98/57; PULSE 93; RESP 20; TEMP 36.8; O2SAT 100
[2024-10-06 12:20] LABS: Glucose, Whole Blood 190 mg/dL (60-115)
[2024-10-06 15:25] VITALS: BP 131/67; PULSE 100; RESP 18; TEMP 37; O2SAT 96
[2024-10-06 17:37] LABS: Glucose, Whole Blood 178 mg/dL (60-115)
[2024-10-06 19:59] VITALS: BP 109/64; PULSE 98; RESP 20; TEMP 36.4; O2SAT 95
[2024-10-06] MEDS: Melatonin 3 MG TABLET 6 MG PO (21:30)
[2024-10-06] MEDS: Acetaminophen 325 MG TABLET 650 MG PO (21:30)
[2024-10-06 21:48] LABS: Glucose, Whole Blood 171 mg/dL (60-115)
[2024-10-06 23:56] VITALS: BP 96/55; PULSE 94; RESP 17; TEMP 36.5; O2SAT 95
--- NOTE | 2024-10-07 | ECG_ITS ---
Test Reason : chest pain Blood Pressure : */* mmHG Vent. Rate : 95 BPM Atrial Rate : * BPM P-R Int : * ms QRS Dur : 98 ms QT Int : 326 ms P-R-T Axes : * 68 168 degrees QTcB Int : 409 ms Atrial fibrillation Low voltage QRS Septal infarct (cited on or before 03-Oct-2024) Abnormal ECG When compared with ECG of 03-Oct-2024 21:06, QRS axis Shifted left Referred By: Stanley Toure Electronically Signed By: KHOA FRY
[2024-10-07] MEDS: diphenhydrAMINE HCL 25 MG CAPSULE PO ×2 (02:27→04:19)
[2024-10-07 03:35] VITALS: BP 102/67; PULSE 96; RESP 18; TEMP 36.2; O2SAT 95
[2024-10-07] MEDS: Acetaminophen 325 MG TABLET 650 MG PO (04:17)
[2024-10-07] MEDS: Furosemide 200 MG in 0.9 % Sodium Chloride 80 ML IVCONT (05:42)
[2024-10-07] MEDS: Levothyroxine Sodium 75 MCG TABLET 225 MCG PO (05:43)
[2024-10-07 06:00] VITALS: BMI 52.7
[2024-10-07 07:00] VITALS: BP 116/59; PULSE 98; RESP 17; TEMP 36.1; O2SAT 96
[2024-10-07 07:39] LABS: Glucose, Whole Blood 119 mg/dL (60-115)
[2024-10-07 08:36] LABS: B Type Natriuretic Peptide 3257 pg/mL (<100)
[2024-10-07 08:39] LABS: Blood Urea Nitrogen 106 mg/dL (9-16); Calcium 9.6 mg/dL (8.4-10.2); Creatinine Clr Calc Pharmacy 17.7; Estimated Glomerular Filt Rate 11; Glucose Random 105 mg/dL (60-115); Magnesium 1.9 mg/dL (1.6-2.6)
[2024-10-07 08:54] LABS: Anion Gap 19 (12-20); Carbon Dioxide 30 mmol/L (22-29); Chloride 92 mmol/L (96-108); Potassium 3.1 mmol/L (3.3-5.1); Sodium 138 mmol/L (135-145)
--- NOTE | 2024-10-07 09:54 | PM.PNCARD ---
Subjective Subjective Date of Service: 10/07/24 Principal diagnosis: Decompensated congestive heart failure, predominantly right heart failure Interval history: patient was breathing better. Stains negative balance of about 11 20 cc. Renal function is similar. She says her breathing is better. She denies any abdominal distension. Leg edema persists. Back in atrial fibrillation at this point in time. Review of Systems Constitutional: Reports fatigue and Reports weakness Cardiovascular: Denies chest pain, Reports leg edema, Denies lightheadedness, Denies Loss of Consciousness, Denies palpitations and Reports dyspnea on exertion Respiratory: Denies no additional respiratory complaints and Reports dyspnea on exertion Reports weakness Endocrine: Reports fatigue and Denies palpitations Physical Exam Vital Signs: Last Vital Signs Temp 97.0 F 10/07/24 07:00 Pulse 98 10/07/24 07:00 Resp 17 10/07/24 07:00 BP 116/59 L 10/07/24 07:00 Pulse Ox 96 10/07/24 07:00 O2 Del Method Room Air 10/07/24 07:00 BMI result Body Mass Index 52.7 Const General: cooperative, comfortable, alert, awake and in distress mild Nutritional Appearance: obese morbidly obese Orientation/consciousness: patient oriented x3 HEENT Head: Yes normocephalic and Yes atraumatic Neck Neck: Yes trachea midline, Yes supple and Yes JVD Resp Effort & Inspection: decreased respiratory effort Auscultation: no wheezes and diminished lung sounds Cardio Jugular venous distension: JVD Rate: regular rate Rhythm: regular rhythm Heart sounds: S1 normal heart sound present, S2 normal heart sound present, no click, no gallops, no murmurs and no rubs GI Auscultation: normal bowel sounds Skin General skin exam: no rashes or lesions noted and ecchymosis Neuro General: patient oriented x3 and no focal motor deficits Extrem General: No clubbing, No cyanosis and Yes edema Psych Appearance: grossly normal Objective Labs and Meds 10/02/24 06:03 10/07/24 07:56 Lab results: Laboratory Results - last 24 hr 10/06/24 10/06/24 10/06/24 11:34 16:21 20:56 Sodium Potassium Chloride Carbon Dioxide Anion Gap BUN Creatinine Estim Creat Clear Calc Estimated GFR POC Glucose 190 H 178 H 171 H Random Glucose Calcium Magnesium B-Natriuretic Peptide 10/07/24 10/07/24 07:02 07:56 Sodium 138 Potassium 3.1 L D Chloride 92 L Carbon Dioxide 30 H Anion Gap 19 BUN 106 H Creatinine 3.93 H Estim Creat Clear Calc 17.7 Estimated GFR 11 POC Glucose 119 H Random Glucose 105 Calcium 9.6 Magnesium 1.9 B-Natriuretic Peptide 3257 H Progress Note: A&P Assessment and plan (1) Acute exacerbation of chronic heart failure: Status: Acute Assessment and Plan: Decompensated congestive heart failure with stable creatinine any but gentle add diuretic effect with current diuretic dose. Continue metolazone in addition to Lasix drip. BNP is elevated today. Patient is back in atrial fibrillation which probably does not help overall situation. Continue diuresis. Continue monitor electrolytes and replace electrolytes as needed. Overall prognosis is guarded given her multiple comorbidities. Out of bed to chair incentive spirometer to Be pursued (2) Afib: Status: Acute Assessment and Plan: intermittent atrial fibrillation. Continue amiodarone loading for total of 1 month with 200 mg b.i.d.. Following that if she remains in atrial fibrillation will probably require synchronized cardioversion through her [employer] office. Continue full oral anticoagulation. Will follow with you Time Spent With Patient Time: Total time managing care of this patient today ____ minutes. Progress Note: Quality Stroke Does the patient have a stroke diagnosis?: No Procedures Date of Service Date of Service: 10/07/24
[2024-10-07] MEDS: Doxycycline Monohydrate 100 MG CAPSULE PO ×2 (09:57→22:21)
[2024-10-07] MEDS: Loratadine 10 MG TABLET PO (09:58)
[2024-10-07] MEDS: polyethylene glycoL 3350 17 GM POWD.PACK PO (09:58)
[2024-10-07] MEDS: Rivaroxaban 15 MG TABLET PO (09:58)
[2024-10-07] MEDS: Amiodarone HCL 200 MG TABLET PO ×2 (09:58→22:22)
[2024-10-07] MEDS: Magnesium Oxide 400 MG TABLET PO (09:58)
[2024-10-07] MEDS: Atorvastatin Calcium 80 MG TABLET PO (09:58)
[2024-10-07] MEDS: traMADoL HCL 50 MG TABLET PO (09:58)
[2024-10-07] MEDS: Sennosides/Docusate Sodium TABLET 2 TAB PO ×2 (09:58→22:22)
[2024-10-07] MEDS: metOLazone 2.5 MG TABLET PO (09:58)
[2024-10-07] MEDS: 0.9 % Sodium Chloride Flush 3 ML SYRINGE IVFLUSH (09:59)
--- NOTE | 2024-10-07 10:38 | HO.PM.IMPN ---
Subjective Subjective Date of Service: 10/07/24 Interval History: continues to slowly improve did have brief episode rapid AF in 120s-130s, about 2-3 min Review of Systems Review of Systems: Yes all other systems are reviewed and are negative Physical Exam Vital Signs: Vital Signs: Last Vital Signs Temp 97.0 F 10/07/24 07:00 Pulse 98 10/07/24 07:00 Resp 17 10/07/24 07:00 BP 116/59 L 10/07/24 07:00 Pulse Ox 96 10/07/24 07:00 O2 Del Method Room Air 10/07/24 07:00 BMI result Body Mass Index 52.7 Gen: in no acute distress HEENT: sclera anicteric, moist mucus membranes Neck: supple, JVD Lungs: diminished Heart: regular, no murmurs Abd: soft, non-tender, non-distended, obese Ext: 3+ pitting bilateral leg edema Skin: warm/well-perfused, tip of 4th finger with dry cut, no surrounding erythema Neuro: alert and oriented x3, no focal findings Psych: appropriate affect Objective Data Active Medications Acetaminophen (Acetaminophen 325 Mg Tablet) 650 mg PO Q6H PRN PRN Reason: Pain, Mild 1-3,fever,headache Last Admin: 10/07/24 04:17 Dose: 650 mg Documented By: EMIL Amiodarone HCl (Amiodarone Hcl 200 Mg Tablet) 200 mg PO BID [facility] Last Admin: 10/07/24 09:58 Dose: 200 mg Documented By: VIKAS Atorvastatin Calcium (Atorvastatin Calcium 80 Mg Tablet) 80 mg PO DAILY [facility] Last Admin: 10/07/24 09:58 Dose: 80 mg Documented By: VIKAS Bisacodyl (Bisacodyl 10 Mg Supp.Rect) 10 mg TN DAILY PRN PRN Reason: Constipation Calcitriol (Calcitriol 0.25 Mcg Capsule) 0.25 mcg PO MOWEFR [facility] Last Admin: 10/05/24 16:45 Dose: 0.25 mcg Documented By: GENARO Calcium Carbonate (Calcium Carbonate 750 Mg Tab.Chew) 750 mg PO Q4H PRN PRN Reason: Heartburn Dextrose (Dextrose 50 % 25 Gm/50 Ml Syringe) 25 gm IVPUSH Q15M PRN; Protocol PRN Reason: per Hypoglycemia Standing Ord. Diphenhydramine HCl (Diphenhydramine Hcl 25 Mg Capsule) 25 mg PO Q4H PRN PRN Reason: Itching Last Admin: 10/07/24 02:27 Dose: 25 mg Documented By: EMIL Doxycycline Monohydrate (Doxycycline Monohydrate 100 Mg Capsule) 100 mg PO Q12H [facility] Last Admin: 10/07/24 09:57 Dose: 100 mg Documented By: VIKAS Glucose (Glucose Gel 15 Gm Gel..Gram.) 15 gm PO Q15M PRN; Protocol PRN Reason: per Hypoglycemia Standing Ord. Furosemide 200 mg/ Sodium (Chloride) 100 mls @ 5 mls/hr IVCONT .Q20H [facility] Last Admin: 10/07/24 05:42 Dose: 10 mg/hr, 5 mls/hr Documented By: EMIL Insulin Human Lispro (Insulin Lispro 100 Unit/Ml 3 Ml Vial) 0 unit SUBCUT QIDACHS [facility]; Protocol Last Admin: 10/07/24 07:53 Dose: Not Given Documented By: VIKAS Non-Admin Reason: No Insulin Coverage Levothyroxine Sodium (Levothyroxine Sodium 150 Mcg Tablet) 150 mcg PO MoTuWeThFrSa@0600 [facility] Last Admin: 10/06/24 05:31 Dose: 150 mcg Documented By: [place] Levothyroxine Sodium (Levothyroxine Sodium 75 Mcg Tablet) 225 mcg PO Pozo@0600 [facility] Last Admin: 10/07/24 05:43 Dose: 225 mcg Documented By: EMIL Loratadine (Loratadine 10 Mg Tablet) 10 mg PO DAILY [facility] Last Admin: 10/07/24 09:58 Dose: 10 mg Documented By: VIKAS Magnesium Hydroxide (Milk Of Magnesia 30 Ml Oral.Susp) 30 ml PO DAILY PRN PRN Reason: Constipation Magnesium Oxide (Magnesium Oxide 400 Mg Tablet) 400 mg PO DAILY [facility] Last Admin: 10/07/24 09:58 Dose: 400 mg Documented By: VIKAS Melatonin (Melatonin 3 Mg Tablet) 6 mg PO BEDTIME [facility] Last Admin: 10/06/24 21:30 Dose: 6 mg Documented By: EMIL Metolazone (Metolazone 2.5 Mg Tablet) 2.5 mg PO DAILY [facility] Last Admin: 10/07/24 09:58 Dose: 2.5 mg Documented By: VIKAS Ondansetron HCl (Ondansetron Hcl 4 Mg/2 Ml Vial) 4 mg IVPUSH Q8H PRN PRN Reason: Nausea and Vomiting Polyethylene Glycol (Polyethylene Glycol 3350 17 Gm Powd.Pack) 17 gm PO DAILY [facility] Last Admin: 10/07/24 09:58 Dose: 17 gm Documented By: VIKAS Rivaroxaban (Rivaroxaban 15 Mg Tablet) 15 mg PO DAILY [facility] Last Admin: 10/07/24 09:58 Dose: 15 mg Documented By: VIKAS Senna/Docusate Sodium (Sennosides/Docusate Sodium Tablet) 2 tab PO BID [facility] Last Admin: 10/07/24 09:58 Dose: 2 tab Documented By: VIKAS Sodium Biphosphate/Sodium Phosphate (Sodium Phosphate,Walker-Dibasic 133 Ml Enema) 118 ml TN DAILY PRN PRN Reason: Constipation Sodium Chloride (0.9 % Sodium Chloride Flush 3 Ml Syringe) 3 ml IVFLUSH QSHIFT [facility] Last Admin: 10/07/24 09:59 Dose: 3 ml Documented By: VIKAS Tramadol HCl (Tramadol Hcl 50 Mg Tablet) 50 mg PO DAILY [facility] Last Admin: 10/07/24 09:58 Dose: 50 mg Documented By: VIKAS Triamcinolone Acetonide (Triamcinolone Acet 0.5 % Oint 15 Gm Tube) 1 appl TOPICAL BID [facility] Last Admin: 10/06/24 22:24 Dose: 1 appl Documented By: EMIL Labs 10/02/24 06:03 10/07/24 07:56 Labs: Laboratory Results - last 24 hr 10/06/24 10/06/24 10/06/24 11:34 16:21 20:56 Anion Gap Estim Creat Clear Calc Estimated GFR POC Glucose 190 H 178 H 171 H Random Glucose Calcium Magnesium B-Natriuretic Peptide 10/07/24 10/07/24 07:02 07:56 Anion Gap 19 Estim Creat Clear Calc 17.7 Estimated GFR 11 POC Glucose 119 H Random Glucose 105 Calcium 9.6 Magnesium 1.9 B-Natriuretic Peptide 3257 H Assessment and Plan (1) Acute exacerbation of chronic heart failure: Status: Acute Assessment and Plan: d6 for 69yo F with HFpEF, CKD3, morbid obesity, pAF on rivaorxaban, HTN, DM2, and HLD [facility] in [facility] after being discharged from [facility] with decompensated HF; developed worsening weight gain, orthopnea, exertional dypnea, and leg edema and found to have worsening renal insufficiency, likely from cardiorenal syndrome acute-chronic diastolic HF/R-sided HF - TTE 10/02/24 1. Normal LV ejection fraction with LVEF of 60-65% with grade 3 diastolic dysfunction with moderately increased wall thickness 2. Severely reduced RV systolic function 3. Moderate biatrial enlargement 4. Mild mitral and tricuspid regurgitation 5. Moderately elevated right ventricular systolic pressure with significantly elevated right atrial pressures 6. Mildly dilated ascending aorta at 3.9 cm - continue IV furosemide infusion 10 mg/hr + PO metolazone daily; monitor BNP/BMP/Mg, I/O + wts; Cardiology following - needs outpt Cardiology f/u including MPS and possibly cardiac MRI pAF - continue rivaroxaban - stopped metoprolol tartrate and changed to amiodarone 200 mg bid 10/04, continue load until 11/01 then maintenance dosing. Back in AF today, now rate-controlled. TANA/CKD3 - suspect cardiorenal; monitor SCr with diuresis; Nephrology following; SCr seems to be settling around 3.9 L 4th finger cellulitis - mild; continue doxycycline 10/03-10/10 hypothyroidism - continue LT4 HTN - continue metoprolol tartrate HLD - statin DM2 - miguel-dose lispro VTE ppx - rivaroxaban dispo - eventual return to [facility] transition at Re[facility] In my clinical judgment, the patient requires continued hospitalization for the following reasons: IV diuresis, TANA, CHF Total time managing care of this patient today: 35 minutes. Quality Stroke Does the patient have a stroke diagnosis?: No VTE Prior VTE?: No VTE Risk Level:: Medical - moderate - high VTE Device Contraindication: Treatment Not Indicated VTE Drug Contraindication: N/A - Med Ordered
[2024-10-07] MEDS: Insulin Lispro 100 UNIT/ML 3 ML VIAL SUBCUT ×2 (11:32→22:26)
[2024-10-07] MEDS: Potassium Chloride ER 20 MEQ TAB.ER.PRT 40 MEQ PO (11:32)
[2024-10-07 11:34] VITALS: BP 122/65; PULSE 78; RESP 18; TEMP 36.3; O2SAT 95
[2024-10-07 11:38] LABS: Glucose, Whole Blood 161 mg/dL (60-115)
[2024-10-07 15:37] VITALS: BP 124/62; PULSE 84; RESP 17; TEMP 36.4; O2SAT 97
[2024-10-07 16:27] LABS: Troponin-I High Sensitivity 1560.9 ng/L (<3.5-17.0)
[2024-10-07 18:34] LABS: Troponin-I High Sensitivity 1473.8 ng/L (<3.5-17.0)
[2024-10-07 20:00] VITALS: BP 147/67; PULSE 103; RESP 18; TEMP 36.9; O2SAT 97
[2024-10-07 21:05] LABS: Glucose, Whole Blood 99 mg/dL (60-115)
[2024-10-07 21:05] LABS: Glucose, Whole Blood 164 mg/dL (60-115)
[2024-10-07] MEDS: Melatonin 3 MG TABLET 6 MG PO (22:22)
[2024-10-07] MEDS: Triamcinolone Acet 0.1 % Cream 15 GM TUBE 1 APPL TOPICAL (22:27)
[2024-10-07 23:33] VITALS: BP 120/58; PULSE 93; RESP 20; TEMP 36.2; O2SAT 96
[2024-10-08 01:02] LABS: Glucose, Whole Blood 161 mg/dL (60-115)
[2024-10-08] MEDS: Furosemide 200 MG in 0.9 % Sodium Chloride 80 ML IVCONT (01:47)
[2024-10-08] MEDS: diphenhydrAMINE HCL 25 MG CAPSULE PO ×2 (01:56→09:43)
[2024-10-08 03:40] VITALS: BP 120/56; PULSE 84; RESP 20; TEMP 36.2; O2SAT 97
[2024-10-08 04:47] VITALS: BMI 51.7
[2024-10-08] MEDS: Acetaminophen 325 MG TABLET 650 MG PO (04:51)
[2024-10-08] MEDS: Levothyroxine Sodium 150 MCG TABLET PO (04:51)
[2024-10-08 07:05] VITALS: BP 118/68; PULSE 98; RESP 20; TEMP 36.8; O2SAT 97
[2024-10-08 08:12] LABS: Glucose, Whole Blood 149 mg/dL (60-115)
[2024-10-08 08:46] LABS: Anion Gap 17 (12-20); Blood Urea Nitrogen 105 mg/dL (9-16); Calcium 9.7 mg/dL (8.4-10.2); Carbon Dioxide 36 mmol/L (22-29); Chloride 89 mmol/L (96-108); Creatinine Clr Calc Pharmacy 17.5; Estimated Glomerular Filt Rate 11; Glucose Random 145 mg/dL (60-115); Magnesium 1.9 mg/dL (1.6-2.6); Potassium 3.2 mmol/L (3.3-5.1); Sodium 139 mmol/L (135-145)
[2024-10-08 08:52] LABS: B Type Natriuretic Peptide 2902 pg/mL (<100)
[2024-10-08] MEDS: Magnesium Oxide 400 MG TABLET PO (08:53)
[2024-10-08] MEDS: metOLazone 2.5 MG TABLET PO (08:53)
[2024-10-08] MEDS: Atorvastatin Calcium 80 MG TABLET PO (08:53)
[2024-10-08] MEDS: Doxycycline Monohydrate 100 MG CAPSULE PO ×2 (08:53→20:49)
[2024-10-08] MEDS: Loratadine 10 MG TABLET PO (08:53)
[2024-10-08] MEDS: Potassium Chloride ER 20 MEQ TAB.ER.PRT 40 MEQ PO (08:53)
[2024-10-08] MEDS: Rivaroxaban 15 MG TABLET PO (08:53)
[2024-10-08] MEDS: polyethylene glycoL 3350 17 GM POWD.PACK PO (08:54)
[2024-10-08] MEDS: Triamcinolone Acet 0.1 % Cream 15 GM TUBE 1 APPL TOPICAL ×2 (08:54→20:54)
[2024-10-08] MEDS: traMADoL HCL 50 MG TABLET PO (08:54)
[2024-10-08] MEDS: Sennosides/Docusate Sodium TABLET 2 TAB PO ×2 (08:54→20:49)
[2024-10-08] MEDS: 0.9 % Sodium Chloride Flush 3 ML SYRINGE IVFLUSH ×4 (08:54→20:57)
[2024-10-08] MEDS: Amiodarone HCL 200 MG TABLET PO ×2 (08:54→20:49)
--- NOTE | 2024-10-08 09:54 | PM.PNCARD ---
Subjective Subjective Date of Service: 10/08/24 Principal diagnosis: Decompensated congestive heart failure, predominantly right heart failure Interval history: Patient seen in follow-up. Per sign-out, thought to be right heart failure with advanced CKD and getting diuresis. Intermittent atrial fibrillation and had started amiodarone for rate/rhythm control. Seems to be improving slowly. Review of Systems Review of Systems Yes all other systems are reviewed and are negative Constitutional: Reports as per HPI and Reports no additional constitutional complaints Eyes: Reports as per HPI and Denies no additional eye complaints Denies system reviewed and no additional complaints, except as documented and Reports as per HPI Cardiovascular: Reports as per HPI, Reports no additional cardiovascular complaints, Denies acrocyanosis, Denies cool extremities, Denies chest pain, Denies leg edema, Denies lightheadedness, Denies palpitations and Denies dyspnea Respiratory: Reports as per HPI, Denies no additional respiratory complaints and Denies dyspnea Gastrointestinal: Reports as per HPI and Denies no additional gastrointestinal complaints Genitourinary: Reports as per HPI Musculoskeletal: Reports no additional musculoskeletal complaints and Reports as per HPI Skin/Breast: Reports system reviewed and no additional complaints, except as docu Reports system reviewed and no additional complaints, except as documented and Reports as per HPI Psychiatric: Reports no additional psychiatric complaints and Reports as per HPI Endocrine: Reports no additional endocrine complaints, Reports as per HPI and Denies palpitations Hematologic/Lymphatic: Reports no additional hematologic/lymphatic complaints and Reports as per HPI Allergic/Immunologic: Reports no additional allergic/immunologic complaints and Reports as per HPI Physical Exam Vital Signs: Last Vital Signs Temp 98.2 F 10/08/24 07:05 Pulse 98 10/08/24 07:05 Resp 20 10/08/24 07:05 BP 118/68 10/08/24 07:05 Pulse Ox 97 10/08/24 07:05 O2 Del Method Room Air 10/08/24 07:05 BMI result Body Mass Index 51.7 Const General: comfortable and no acute distress Orientation/consciousness: patient oriented x3 HEENT Other: Unremarkable Head: Yes normal to inspection Neck Neck: Yes normal visual inspection Chest Chest palpation & inspection: normal inspection of the chest Resp Auscultation: clear to auscultation bilaterally Cardio Palpation: normal PMI Heart sounds: S1 normal heart sound present, S2 normal heart sound present, no gallops, no murmurs and no rubs GI Palpation (GI): Soft to palpation Back/Spine/Pelvis Other: unremarkable Skin General skin exam: no rashes or lesions noted Neuro General: patient oriented x3 Extrem General: Yes normal to inspection Psych Mental Status: mental status grossly normal Objective Labs and Meds 10/02/24 06:03 10/08/24 07:52 Lab results: Laboratory Results - last 24 hr 10/07/24 10/07/24 10/07/24 11:08 15:18 15:59 Sodium Potassium Chloride Carbon Dioxide Anion Gap BUN Creatinine Estim Creat Clear Calc Estimated GFR POC Glucose 161 H 99 Random Glucose Calcium Magnesium Troponin I High Sens 1560.9 H* D B-Natriuretic Peptide 10/07/24 10/07/24 10/07/24 17:54 20:33 22:21 Sodium Potassium Chloride Carbon Dioxide Anion Gap BUN Creatinine Estim Creat Clear Calc Estimated GFR POC Glucose 164 H 161 H Random Glucose Calcium Magnesium Troponin I High Sens 1473.8 H* B-Natriuretic Peptide 10/08/24 10/08/24 06:45 07:52 Sodium 139 Potassium 3.2 L Chloride 89 L Carbon Dioxide 36 H Anion Gap 17 BUN 105 H Creatinine 3.91 H Estim Creat Clear Calc 17.5 Estimated GFR 11 POC Glucose 149 H Random Glucose 145 H Calcium 9.7 Magnesium 1.9 Troponin I High Sens B-Natriuretic Peptide 2902 H Progress Note: A&P Assessment and plan (1) Acute exacerbation of chronic heart failure: Status: Acute (2) Paroxysmal atrial fibrillation: Status: Acute (3) Acute kidney injury superimposed on chronic kidney disease: Status: Acute (4) Class 3 obesity: Status: Chronic Plan Echocardiogram reviewed. Preserved LVEF at 60-65%. Advanced diastolic dysfunction. Severely reduced right ventricular systolic function. Moderate biatrial enlargement. Mild mitral/tricuspid regurgitation with moderate pulmonary hypertension and elevated right atrial pressures. Labs show BUN of 105 and it has been like that for the last few days. Creatinine is 3.9 again similar levels last few days. High sensitivity troponins elevated with a peak of 1560. Cardiac BNP elevated at 2900 and against similar range in the last few days. Overall, probable demand related troponin leak unless likely primary NSTEMI. Right heart failure as well as renal failure. She is on IV diuretics with Lasix drip and metolazone. To discuss with Nephrology about any diuretic changes. For anti arrhythmics, on amiodarone. Currently, in atrial fibrillation with a ventricular rate around 90-100/Min. For anticoagulation, she is on Xarelto but this may need to be changed because of low creatinine clearance. Overall, many comorbidities and multiorgan dysfunction. Guarded prognosis. Discussed with Dr. Louis. Time Spent With Patient Time: Total time managing care of this patient today ____ minutes. Progress Note: Quality Stroke Does the patient have a stroke diagnosis?: No Procedures Date of Service Date of Service: 10/08/24
[2024-10-08 10:54] LABS: Glucose, Whole Blood 200 mg/dL (60-115)
[2024-10-08 11:05] VITALS: BP 122/82; PULSE 92; RESP 20; TEMP 36.4; O2SAT 98
[2024-10-08] MEDS: Insulin Lispro 100 UNIT/ML 3 ML VIAL SUBCUT ×2 (11:11→15:56)
--- NOTE | 2024-10-08 13:01 | MHC.CM.PN ---
Per EMR, Pt. is not ready to DC, she requires continued acute care for IV diuresis, TANA, and CHF. DCP: to return to [facility], update sent to them.
--- NOTE | 2024-10-08 13:02 | P.PNNP_ITS ---
Subjective Subjective Date of Service: 10/08/24 Principal diagnosis: Decompensated congestive heart failure, predominantly right heart failure Interval history: continues to slowly improve. Seen this morning. Discussed with the hospitalist. All recent data reviewed Physical Exam 2 Vital Signs: Vital Signs: Last Vital Signs Temp 97.5 F 10/08/24 11:05 Pulse 92 10/08/24 11:05 Resp 20 10/08/24 11:05 BP 122/82 10/08/24 11:05 Pulse Ox 98 10/08/24 11:05 O2 Del Method Room Air 10/08/24 11:05 BMI result Body Mass Index 51.7 Const: General: no acute distress Orientation/consciousness: patient oriented x3 Eyes: EOM: EOMs intact bilaterally Neck: Neck: Yes supple Resp: Auscultation: diminished lung sounds Cardio: Rate: regular rate GI: Palpation (GI): Soft to palpation Neuro: General: patient oriented x3 and moves all extremities Objective Data Labs 10/02/24 06:03 10/08/24 07:52 Labs: Laboratory Results - last 24 hr 10/07/24 10/07/24 10/07/24 15:18 15:59 17:54 Sodium Potassium Chloride Carbon Dioxide Anion Gap BUN Creatinine Estim Creat Clear Calc Estimated GFR POC Glucose 99 Random Glucose Calcium Magnesium Troponin I High Sens 1560.9 H* D 1473.8 H* B-Natriuretic Peptide 10/07/24 10/07/24 10/08/24 20:33 22:21 06:45 Sodium Potassium Chloride Carbon Dioxide Anion Gap BUN Creatinine Estim Creat Clear Calc Estimated GFR POC Glucose 164 H 161 H 149 H Random Glucose Calcium Magnesium Troponin I High Sens B-Natriuretic Peptide 10/08/24 10/08/24 07:52 10:46 Sodium 139 Potassium 3.2 L Chloride 89 L Carbon Dioxide 36 H Anion Gap 17 BUN 105 H Creatinine 3.91 H Estim Creat Clear Calc 17.5 Estimated GFR 11 POC Glucose 200 H Random Glucose 145 H Calcium 9.7 Magnesium 1.9 Troponin I High Sens B-Natriuretic Peptide 2902 H Procedures Date of Service Date of Service: 10/08/24 Assessment & Plan Assessment and plan (1) Acute kidney injury superimposed on chronic kidney disease: Status: Acute Plan TANA due to cardio renal syndrome Has RV systolic dysfunction Hypervolemic- improved Has good response to diuresis Renal function stable/better No indication for renal replacement today Cardiology closely following Could switch to PO diuresis C/W rest of current management for now Progress Note: Quality Stroke Does the patient have a stroke diagnosis?: No
--- NOTE | 2024-10-08 15:49 | P.PNIM_ITS ---
Subjective Subjective Date of Service: 10/08/24 Interval History: Essentially no change overnight. Tolerant of therapies Review of Systems Denies chest pain Admits shortness of breath with minimal movement Denies nausea vomiting diarrhea Denies fever chills Physical Exam 2 Vital Signs: Vital Signs: Last Vital Signs Temp 97.5 F 10/08/24 11:05 Pulse 92 10/08/24 11:05 Resp 20 10/08/24 11:05 BP 122/82 10/08/24 11:05 Pulse Ox 98 10/08/24 11:05 O2 Del Method Room Air 10/08/24 11:05 BMI result Body Mass Index 51.7 Const: Other: Obese ill-appearing lying quietly in bed Resp: Other: Diminished at bases with faint crackles Cardio: Other: No S4; positive S1-S2; no S3 murmurs rubs or gallops Extrem: Other: LNo edema bilaterally Objective Data Active Medications Acetaminophen (Acetaminophen 325 Mg Tablet) 650 mg PO Q6H PRN PRN Reason: Pain, Mild 1-3,fever,headache Last Admin: 10/08/24 04:51 Dose: 650 mg Documented By: ETHAN Amiodarone HCl (Amiodarone Hcl 200 Mg Tablet) 200 mg PO BID [facility] Last Admin: 10/08/24 08:54 Dose: 200 mg Documented By: DERIK Atorvastatin Calcium (Atorvastatin Calcium 80 Mg Tablet) 80 mg PO DAILY [facility] Last Admin: 10/08/24 08:53 Dose: 80 mg Documented By: DERIK Bisacodyl (Bisacodyl 10 Mg Supp.Rect) 10 mg [place] DAILY PRN PRN Reason: Constipation Calcitriol (Calcitriol 0.25 Mcg Capsule) 0.25 mcg PO MOWEFR [facility] Last Admin: 10/05/24 16:45 Dose: 0.25 mcg Documented By: GENARO Calcium Carbonate (Calcium Carbonate 750 Mg Tab.Chew) 750 mg PO Q4H PRN PRN Reason: Heartburn Dextrose (Dextrose 50 % 25 Gm/50 Ml Syringe) 25 gm IVPUSH Q15M PRN; Protocol PRN Reason: per Hypoglycemia Standing Ord. Diphenhydramine HCl (Diphenhydramine Hcl 25 Mg Capsule) 25 mg PO Q4H PRN PRN Reason: Itching Last Admin: 10/08/24 09:43 Dose: 25 mg Documented By: JUAN Doxycycline Monohydrate (Doxycycline Monohydrate 100 Mg Capsule) 100 mg PO Q12H [facility] Last Admin: 10/08/24 08:53 Dose: 100 mg Documented By: DERIK Glucose (Glucose Gel 15 Gm Gel..Gram.) 15 gm PO Q15M PRN; Protocol PRN Reason: per Hypoglycemia Standing Ord. Furosemide 200 mg/ Sodium (Chloride) 100 mls @ 5 mls/hr IVCONT .Q20H [facility] Last Admin: 10/08/24 01:47 Dose: 10 mg/hr, 5 mls/hr Documented By: ETHAN Insulin Human Lispro (Insulin Lispro 100 Unit/Ml 3 Ml Vial) 0 unit SUBCUT QIDACHS [facility]; Protocol Last Admin: 10/08/24 11:11 Dose: 2 unit Documented By: JUAN Levothyroxine Sodium (Levothyroxine Sodium 150 Mcg Tablet) 150 mcg PO MoTuWeThFrSa@0600 [facility] Last Admin: 10/08/24 04:51 Dose: 150 mcg Documented By: ETHAN Levothyroxine Sodium (Levothyroxine Sodium 75 Mcg Tablet) 225 mcg PO Pozo@0600 [facility] Last Admin: 10/07/24 05:43 Dose: 225 mcg Documented By: EMIL Loratadine (Loratadine 10 Mg Tablet) 10 mg PO DAILY [facility] Last Admin: 10/08/24 08:53 Dose: 10 mg Documented By: DERIK Magnesium Hydroxide (Milk Of Magnesia 30 Ml Oral.Susp) 30 ml PO DAILY PRN PRN Reason: Constipation Magnesium Oxide (Magnesium Oxide 400 Mg Tablet) 400 mg PO DAILY [facility] Last Admin: 10/08/24 08:53 Dose: 400 mg Documented By: DERIK Melatonin (Melatonin 3 Mg Tablet) 6 mg PO BEDTIME [facility] Last Admin: 10/07/24 22:22 Dose: 6 mg Documented By: ETHAN Metolazone (Metolazone 2.5 Mg Tablet) 2.5 mg PO DAILY [facility] Last Admin: 10/08/24 08:53 Dose: 2.5 mg Documented By: DERIK Ondansetron HCl (Ondansetron Hcl 4 Mg/2 Ml Vial) 4 mg IVPUSH Q8H PRN PRN Reason: Nausea and Vomiting Polyethylene Glycol (Polyethylene Glycol 3350 17 Gm Powd.Pack) 17 gm PO DAILY [facility] Last Admin: 10/08/24 08:54 Dose: 17 gm Documented By: DERIK Potassium Chloride (Potassium Chloride Er 20 Meq Tab.Er.Prt) 40 meq PO DAILY [facility] Last Admin: 10/08/24 08:53 Dose: 40 meq Documented By: DERIK Rivaroxaban (Rivaroxaban 15 Mg Tablet) 15 mg PO DAILY [facility] Last Admin: 10/08/24 08:53 Dose: 15 mg Documented By: DERIK Senna/Docusate Sodium (Sennosides/Docusate Sodium Tablet) 2 tab PO BID [facility] Last Admin: 10/08/24 08:54 Dose: 2 tab Documented By: DERIK Sodium Biphosphate/Sodium Phosphate (Sodium Phosphate,Dodge-Dibasic 133 Ml Enema) 118 ml [place] DAILY PRN PRN Reason: Constipation Sodium Chloride (0.9 % Sodium Chloride Flush 3 Ml Syringe) 3 ml IVFLUSH QSHIFT [facility] Last Admin: 10/08/24 08:54 Dose: 3 ml Documented By: DERIK Tramadol HCl (Tramadol Hcl 50 Mg Tablet) 50 mg PO DAILY [facility] Last Admin: 10/08/24 08:54 Dose: 50 mg Documented By: DERIK Triamcinolone Acetonide (Triamcinolone Acet 0.5 % Oint 15 Gm Tube) 1 appl TOPICAL BID [facility] Last Admin: 10/08/24 08:54 Dose: Not Given Documented By: DERIK Non-Admin Reason: Duplicate Order Triamcinolone Acetonide (Triamcinolone Acet 0.1 % Cream 15 Gm Tube) 1 appl TOPICAL BID [facility]; Protocol Last Admin: 10/08/24 08:54 Dose: 1 appl Documented By: DERIK Labs 10/02/24 06:03 10/08/24 07:52 Labs: Laboratory Results - last 24 hr 10/07/24 10/07/24 10/07/24 15:59 20:33 22:21 Anion Gap Estim Creat Clear Calc Estimated GFR POC Glucose 99 164 H 161 H Random Glucose Calcium Magnesium B-Natriuretic Peptide 10/08/24 10/08/24 10/08/24 06:45 07:52 10:46 Anion Gap 17 Estim Creat Clear Calc 17.5 Estimated GFR 11 POC Glucose 149 H 200 H Random Glucose 145 H Calcium 9.7 Magnesium 1.9 B-Natriuretic Peptide 2902 H Assessment and Plan (1) Acute exacerbation of chronic heart failure: Status: Acute Assessment and Plan: 69yo F with HFpEF, CKD3, morbid obesity, pAF on rivaorxaban, HTN, DM2, and HLD [facility] being discharged from [facility] with decompensated HF; developed worsening weight gain, orthopnea, exertional dypnea, and leg edema and found to have worsening renal insufficiency, likely from cardiorenal syndrome 1.Acute-chronic diastolic HF/R-sided HF - TTE 10/02/24 1. Normal LV ejection fraction with LVEF of 60-65% with grade 3 diastolic dysfunction with moderately increased wall thickness 2. Severely reduced RV systolic function 3. Moderate biatrial enlargement 4. Mild mitral and tricuspid regurgitation 5. Moderately elevated right ventricular systolic pressure with significantly elevated right atrial pressures 6. Mildly dilated ascending aorta at 3.9 cm - switch to po lasix - needs outpt Cardiology f/u including MPS and possibly cardiac MRI 2.pAF - continue rivaroxaban - stopped metoprolol tartrate and changed to amiodarone 200 mg bid 10/04, continue load until 11/01 then maintenance dosing. Back in AF today, now rate- controlled. 3.TANA/CKD3 - suspect cardiorenal -follow renals/divalents -renal following 4.HTN -acceptable control on current therapies -adjust as indicated 5.DM2 -acceptable control on current therapies -lispro correctional scale -adjust as indicated Rivaroxaban Full Code In my clinical judgment, the patient requires continued hospitalization for the following reasons: IV diuresis, TANA, CHF (2) Paroxysmal atrial fibrillation: Status: Acute Quality Stroke Does the patient have a stroke diagnosis?: No VTE Prior VTE?: No VTE Risk Level:: Medical - moderate - high VTE Device Contraindication: Treatment Not Indicated VTE Drug Contraindication: N/A - Med Ordered
[2024-10-08 15:51] VITALS: BP 134/65; PULSE 77; RESP 18; TEMP 36.3; O2SAT 98
[2024-10-08] MEDS: calcitrioL 0.25 MCG CAPSULE PO (15:56)
[2024-10-08] MEDS: Furosemide 40 MG TABLET PO (16:02)
[2024-10-08 18:01] LABS: Glucose, Whole Blood 174 mg/dL (60-115)
[2024-10-08 20:00] VITALS: BP 159/84; PULSE 85; RESP 16; TEMP 36.2; O2SAT 96
[2024-10-08] MEDS: Melatonin 3 MG TABLET 6 MG PO (20:49)
[2024-10-08 21:22] LABS: Glucose, Whole Blood 143 mg/dL (60-115)
[2024-10-08 23:44] VITALS: BP 105/57; PULSE 87; RESP 16; TEMP 36.7; O2SAT 94
[2024-10-09 03:36] VITALS: BP 107/55; PULSE 100; RESP 18; TEMP 36.1; O2SAT 95
[2024-10-09] MEDS: diphenhydrAMINE HCL 25 MG CAPSULE PO ×2 (03:49→12:11)
[2024-10-09] MEDS: Levothyroxine Sodium 150 MCG TABLET PO (05:04)
[2024-10-09 06:04] LABS: MANUAL DIFF FLAG NO
[2024-10-09 06:12] LABS: Basophils Absolute Auto 0.1 X10*3/uL (0.0-0.2); Basophils Percent Auto 1.2 % (0-2); Eosinophils Absolute Auto 0.1 X10*3/uL (0.0-0.4); Eosinophils Percent Auto 2.3 % (0-4); Hematocrit 41.6 % (37.0-47.0); Hemoglobin 13.8 g/dl (12.0-16.0); Imm Gran Abs Auto 0.03 X10*3/uL (0.00-0.03); Imm Gran Pct Auto 0.6 % (0.0-0.4); Lymphocytes Absolute Auto 0.6 X10*3/uL (1.2-4.9); Lymphocytes Percent Auto 10.9 % (20-40); Mean Corpuscular HGB Conc 33.2 g/dl (31.0-35.0); Mean Corpuscular Hemoglobin 34.4 pg (27.0-33.0); Mean Corpuscular Volume 103.7 fL (80.0-98.0); Monocytes Absolute Auto 0.4 X10*3/uL (0.1-1.2); Monocytes Percent Auto 8.1 % (2-11); Neutrophils Percent Auto 76.9 % (45-73); Red Blood Count 4.01 X10*6/uL (4.20-5.50); Red Cell Distribution Width 16.1 % (11.0-16.0); White Blood Count 5.2 X10*3/uL (4.8-10.8)
[2024-10-09 06:13] LABS: Platelet Count 94 X10*3/uL (160-400)
[2024-10-09 06:34] LABS: Alanine Aminotransferase 25 U/L (0-31); Albumin Level 3.1 g/dL (3.5-5.0); Alkaline Phosphatase 123 U/L (39-117); Anion Gap 20 (12-20); Aspartate Amino Transferase 40 U/L (5-31); Bilirubin Total 2.6 mg/dL (0.0-1.0); Blood Urea Nitrogen 106 mg/dL (9-16); Calcium 9.7 mg/dL (8.4-10.2); Carbon Dioxide 34 mmol/L (22-29); Chloride 89 mmol/L (96-108); Creatinine Clr Calc Pharmacy 18.5; Estimated Glomerular Filt Rate 12; Glucose Fasting 133 mg/dL (60-99); Sodium 140 mmol/L (135-145); Total Protein 5.9 g/dL (6.5-8.0)
[2024-10-09 07:23] VITALS: BP 119/60; PULSE 103; RESP 20; TEMP 36.6; O2SAT 100
[2024-10-09 07:57] LABS: Glucose, Whole Blood 135 mg/dL (60-115)
[2024-10-09] MEDS: Sennosides/Docusate Sodium TABLET 2 TAB PO (09:21)
[2024-10-09] MEDS: Furosemide 40 MG TABLET PO ×2 (09:21→17:37)
[2024-10-09] MEDS: traMADoL HCL 50 MG TABLET PO (09:22)
[2024-10-09] MEDS: Rivaroxaban 15 MG TABLET PO (09:22)
[2024-10-09] MEDS: Magnesium Oxide 400 MG TABLET PO (09:22)
[2024-10-09] MEDS: polyethylene glycoL 3350 17 GM POWD.PACK PO (09:22)
[2024-10-09] MEDS: Atorvastatin Calcium 80 MG TABLET PO (09:22)
[2024-10-09] MEDS: metOLazone 2.5 MG TABLET PO (09:22)
[2024-10-09] MEDS: Amiodarone HCL 200 MG TABLET PO ×2 (09:22→21:11)
[2024-10-09] MEDS: Doxycycline Monohydrate 100 MG CAPSULE PO ×2 (09:22→21:11)
[2024-10-09] MEDS: Potassium Chloride ER 20 MEQ TAB.ER.PRT 40 MEQ PO ×2 (09:22→11:04)
[2024-10-09] MEDS: Loratadine 10 MG TABLET PO (09:22)
[2024-10-09] MEDS: 0.9 % Sodium Chloride Flush 3 ML SYRINGE IVFLUSH ×3 (09:23→21:12)
[2024-10-09] MEDS: Triamcinolone Acet 0.1 % Cream 15 GM TUBE 1 APPL TOPICAL ×2 (09:28→21:11)
--- NOTE | 2024-10-09 09:53 | P.PNCA_ITS ---
Subjective Subjective Date of Service: 10/09/24 Principal diagnosis: Decompensated congestive heart failure, predominantly right heart failure Interval history: Seen this morning around 830. She states that she feels okay. No acute cardiac complaints. Review of Systems Review of Systems all other system reviewed and are negative Yes all other systems are reviewed and are negative Constitutional: Reports as per HPI and Reports no additional constitutional complaints Eyes: Reports as per HPI and Denies no additional eye complaints Denies system reviewed and no additional complaints, except as documented and Reports as per HPI Cardiovascular: Reports as per HPI, Reports no additional cardiovascular complaints, Denies acrocyanosis, Denies cool extremities, Denies chest pain, Denies leg edema, Denies lightheadedness, Denies palpitations and Denies dyspnea Respiratory: Reports as per HPI, Denies no additional respiratory complaints and Denies dyspnea Gastrointestinal: Reports as per HPI and Denies no additional gastrointestinal complaints Genitourinary: Reports as per HPI Musculoskeletal: Reports no additional musculoskeletal complaints and Reports as per HPI Skin/Breast: Reports system reviewed and no additional complaints, except as docu Reports system reviewed and no additional complaints, except as documented and Reports as per HPI Psychiatric: Reports no additional psychiatric complaints and Reports as per HPI Endocrine: Reports no additional endocrine complaints, Reports as per HPI and Denies palpitations Hematologic/Lymphatic: Reports no additional hematologic/lymphatic complaints and Reports as per HPI Allergic/Immunologic: Reports no additional allergic/immunologic complaints and Reports as per HPI Physical Exam Vital Signs: Last Vital Signs Temp 97.9 F 10/09/24 07:23 Pulse 103 H 10/09/24 07:23 Resp 20 10/09/24 07:23 BP 119/60 10/09/24 07:23 Pulse Ox 100 10/09/24 07:23 O2 Del Method Nasal Cannula 10/09/24 07:23 O2 Flow Rate 2 10/09/24 07:23 BMI result Body Mass Index 51.7 Const General: comfortable and no acute distress Orientation/consciousness: patient oriented x3 HEENT Other: Unremarkable Head: Yes normal to inspection Neck Neck: Yes normal visual inspection Chest Chest palpation & inspection: normal inspection of the chest Resp Auscultation: clear to auscultation bilaterally Cardio Palpation: normal PMI Heart sounds: S1 normal heart sound present, S2 normal heart sound present, no gallops, no murmurs and no rubs GI Palpation (GI): Soft to palpation Back/Spine/Pelvis Other: unremarkable Skin General skin exam: no rashes or lesions noted Neuro General: patient oriented x3 Extrem General: Yes normal to inspection Psych Mental Status: mental status grossly normal Objective Labs and Meds 10/09/24 05:51 10/09/24 05:51 Lab results: Laboratory Results - last 24 hr 10/08/24 10/08/24 10/08/24 10:46 15:45 20:30 WBC RBC Hgb Hct MCV MCH MCHC RDW Plt Count MPV Immature Gran % (Auto) Neut % (Auto) Lymph % (Auto) [place] % (Auto) Eos % (Auto) Baso % (Auto) Lymph # (Auto) [place] # (Auto) Eos # (Auto) Baso # (Auto) Abs Immat Gran (auto) Absolute Neuts (auto) Absolute Nucleated RBC Nucleated RBC % (auto) Sodium Potassium Chloride Carbon Dioxide Anion Gap BUN Creatinine Estim Creat Clear Calc Estimated GFR POC Glucose 200 H 174 H 143 H Fasting Glucose Calcium Total Bilirubin AST ALT Alkaline Phosphatase Total Protein Albumin 10/09/24 10/09/24 05:51 06:47 WBC 5.2 RBC 4.01 L Hgb 13.8 Hct 41.6 MCV 103.7 H MCH 34.4 H MCHC 33.2 RDW 16.1 H Plt Count 94 L MPV 11.0 Immature Gran % (Auto) 0.6 H Neut % (Auto) 76.9 H Lymph % (Auto) 10.9 L [place] % (Auto) 8.1 Eos % (Auto) 2.3 Baso % (Auto) 1.2 Lymph # (Auto) 0.6 L [place] # (Auto) 0.4 Eos # (Auto) 0.1 Baso # (Auto) 0.1 Abs Immat Gran (auto) 0.03 Absolute Neuts (auto) 4.0 Absolute Nucleated RBC 0.000 Nucleated RBC % (auto) 0.0 Sodium 140 Potassium 3.0 L Chloride 89 L Carbon Dioxide 34 H Anion Gap 20 BUN 106 H Creatinine 3.70 H Estim Creat Clear Calc 18.5 Estimated GFR 12 POC Glucose 135 H Fasting Glucose 133 H Calcium 9.7 Total Bilirubin 2.6 H AST 40 H ALT 25 Alkaline Phosphatase 123 H Total Protein 5.9 L Albumin 3.1 L Progress Note: A&P Assessment and plan (1) Acute exacerbation of chronic heart failure: Status: Acute (2) Paroxysmal atrial fibrillation: Status: Acute (3) Acute kidney injury superimposed on chronic kidney disease: Status: Acute (4) Class 3 obesity: Status: Chronic Plan Echocardiogram reviewed. Preserved LVEF at 60-65%. Advanced diastolic dysfunction. Severely reduced right ventricular systolic function. Moderate biatrial enlargement. Mild mitral/tricuspid regurgitation with moderate pulmonary hypertension and elevated right atrial pressures. Outpatient cardiology notes reviewed. Has had fairly comprehensive cardiac workup. PYP scan-not suggestive of TTR amyloid. Coronary [id number] not describe stenosis but seems there was nothing significant. FFR value seem normal. Echocardiogram at [facility] with LVEF of 55%; moderate septal hypertrophy and advanced diastolic dysfunction with pulmonary hypertension. With regard to atrial fibrillation itself, history of cardioversions, ablation and it seems that plan was for rate control only. Currently, she seems to be improving. She is on oral diuretics. With regard to atrial fibrillation, it seems that she has failed rhythm control as above. Hence resume beta-blockers and we can consider stopping the amiodarone. She may need AV alexandru ablation as an outpatient. For anticoagulation, need to check with pharmacy as the creatinine is quite low and she may not be suitable for Xarelto. In that case, switch to Eliquis. We will follow up with you. Time Spent With Patient Time: Total time managing care of this patient today ____ minutes. Progress Note: Quality Stroke Does the patient have a stroke diagnosis?: No Procedures Date of Service Date of Service: 10/09/24
[2024-10-09 11:06] LABS: Glucose, Whole Blood 182 mg/dL (60-115)
[2024-10-09 11:14] VITALS: BP 108/52; PULSE 93; RESP 20; TEMP 36.4; O2SAT 96
[2024-10-09] MEDS: Insulin Lispro 100 UNIT/ML 3 ML VIAL SUBCUT ×2 (12:11→22:02)
--- NOTE | 2024-10-09 13:11 | P.PNNP_ITS ---
Subjective Subjective Date of Service: 10/09/24 Principal diagnosis: Decompensated congestive heart failure, predominantly right heart failure Interval history: Events noted. Seen AM. All recent data reviewed. Physical Exam 2 Vital Signs: Vital Signs: Last Vital Signs Temp 97.5 F 10/09/24 11:14 Pulse 93 10/09/24 11:14 Resp 20 10/09/24 11:14 BP 108/52 L 10/09/24 11:14 Pulse Ox 96 10/09/24 11:14 O2 Del Method Room Air 10/09/24 11:14 O2 Flow Rate 2 10/09/24 07:23 BMI result Body Mass Index 51.7 Const: General: no acute distress Orientation/consciousness: patient oriented x3 Eyes: EOM: EOMs intact bilaterally Neck: Neck: Yes supple Resp: Auscultation: diminished lung sounds Cardio: Rate: regular rate GI: Palpation (GI): Soft to palpation Neuro: General: patient oriented x3 Objective Data Labs 10/09/24 05:51 10/09/24 05:51 Labs: Laboratory Results - last 24 hr 10/08/24 10/08/24 10/09/24 15:45 20:30 05:51 WBC 5.2 RBC 4.01 L Hgb 13.8 Hct 41.6 MCV 103.7 H MCH 34.4 H MCHC 33.2 RDW 16.1 H Plt Count 94 L MPV 11.0 Immature Gran % (Auto) 0.6 H Neut % (Auto) 76.9 H Lymph % (Auto) 10.9 L [place] % (Auto) 8.1 Eos % (Auto) 2.3 Baso % (Auto) 1.2 Lymph # (Auto) 0.6 L [place] # (Auto) 0.4 Eos # (Auto) 0.1 Baso # (Auto) 0.1 Abs Immat Gran (auto) 0.03 Absolute Neuts (auto) 4.0 Absolute Nucleated RBC 0.000 Nucleated RBC % (auto) 0.0 Sodium 140 Potassium 3.0 L Chloride 89 L Carbon Dioxide 34 H Anion Gap 20 BUN 106 H Creatinine 3.70 H Estim Creat Clear Calc 18.5 Estimated GFR 12 POC Glucose 174 H 143 H Fasting Glucose 133 H Calcium 9.7 Total Bilirubin 2.6 H AST 40 H ALT 25 Alkaline Phosphatase 123 H Total Protein 5.9 L Albumin 3.1 L 10/09/24 10/09/24 06:47 10:55 WBC RBC Hgb Hct MCV MCH MCHC RDW Plt Count MPV Immature Gran % (Auto) Neut % (Auto) Lymph % (Auto) [place] % (Auto) Eos % (Auto) Baso % (Auto) Lymph # (Auto) [place] # (Auto) Eos # (Auto) Baso # (Auto) Abs Immat Gran (auto) Absolute Neuts (auto) Absolute Nucleated RBC Nucleated RBC % (auto) Sodium Potassium Chloride Carbon Dioxide Anion Gap BUN Creatinine Estim Creat Clear Calc Estimated GFR POC Glucose 135 H 182 H Fasting Glucose Calcium Total Bilirubin AST ALT Alkaline Phosphatase Total Protein Albumin Procedures Date of Service Date of Service: 10/09/24 Assessment & Plan Assessment and plan (1) Acute kidney injury superimposed on chronic kidney disease: Status: Acute Time Spent With Patient Time: TANA due to cardio renal syndrome Has RV systolic dysfunction Hypervolemic- improved Has good response to diuresis Renal function stable/better No indication for renal replacement Cardiology closely following C/W rest of current management for now Progress Note: Quality Stroke Does the patient have a stroke diagnosis?: No
[2024-10-09 15:07] VITALS: BP 124/59; PULSE 113; RESP 20; TEMP 36.4; O2SAT 93
[2024-10-09 16:28] LABS: Glucose, Whole Blood 145 mg/dL (60-115)
--- NOTE | 2024-10-09 16:37 | HO.PM.IMPN ---
Subjective Subjective Date of Service: 10/09/24 Interval History: being followed for acute on chronic diastolic heart failure, offers no acute complaints denies chest pain, no palpitations, no shortness of breath unable to lie flat at night chronically use 2 pillows Review of Systems all other system reviewed and are negative Physical Exam Vital Signs: Vital Signs: Last Vital Signs Temp 97.6 F 10/09/24 15:07 Pulse 113 H 10/09/24 15:07 Resp 20 10/09/24 15:07 BP 124/59 L 10/09/24 15:07 Pulse Ox 93 10/09/24 15:07 O2 Del Method Room Air 10/09/24 15:07 O2 Flow Rate 2 10/09/24 07:23 BMI result Body Mass Index 51.7 Const: Other: Gen: in no acute distress HEENT: sclera anicteric, moist mucus membranes Neck: supple,no JVD Lungs: bibasilar faint crackles Heart: regular, no murmurs Abd: soft, non-tender, non-distended, obese Ext: no pitting edema Skin: warm/well-perfused Neuro: alert and oriented x3, no focal findings Psych: appropriate affect Objective Data Active Medications Acetaminophen (Acetaminophen 325 Mg Tablet) 650 mg PO Q6H PRN PRN Reason: Pain, Mild 1-3,fever,headache Last Admin: 10/08/24 04:51 Dose: 650 mg Documented By: ETHAN Amiodarone HCl (Amiodarone Hcl 200 Mg Tablet) 200 mg PO BID [facility] Last Admin: 10/09/24 09:22 Dose: 200 mg Documented By: DERIK Atorvastatin Calcium (Atorvastatin Calcium 80 Mg Tablet) 80 mg PO DAILY [facility] Last Admin: 10/09/24 09:22 Dose: 80 mg Documented By: DERIK Bisacodyl (Bisacodyl 10 Mg Supp.Rect) 10 mg FL DAILY PRN PRN Reason: Constipation Calcitriol (Calcitriol 0.25 Mcg Capsule) 0.25 mcg PO MOWEFR [facility] Last Admin: 10/08/24 15:56 Dose: 0.25 mcg Documented By: DERIK Calcium Carbonate (Calcium Carbonate 750 Mg Tab.Chew) 750 mg PO Q4H PRN PRN Reason: Heartburn Dextrose (Dextrose 50 % 25 Gm/50 Ml Syringe) 25 gm IVPUSH Q15M PRN; Protocol PRN Reason: per Hypoglycemia Standing Ord. Diphenhydramine HCl (Diphenhydramine Hcl 25 Mg Capsule) 25 mg PO Q4H PRN PRN Reason: Itching Last Admin: 10/09/24 12:11 Dose: 25 mg Documented By: DERIK Doxycycline Monohydrate (Doxycycline Monohydrate 100 Mg Capsule) 100 mg PO Q12H [facility] Last Admin: 10/09/24 09:22 Dose: 100 mg Documented By: DERIK Furosemide (Furosemide 40 Mg Tablet) 40 mg PO BID@0900,1800 [facility]; Protocol Last Admin: 10/09/24 09:21 Dose: 40 mg Documented By: DERIK Glucose (Glucose Gel 15 Gm Gel..Gram.) 15 gm PO Q15M PRN; Protocol PRN Reason: per Hypoglycemia Standing Ord. Insulin Human Lispro (Insulin Lispro 100 Unit/Ml 3 Ml Vial) 0 unit SUBCUT QIDACHS [facility]; Protocol Last Admin: 10/09/24 12:11 Dose: 2 unit Documented By: DERIK Levothyroxine Sodium (Levothyroxine Sodium 150 Mcg Tablet) 150 mcg PO MoTuWeThFrSa@0600 [facility] Last Admin: 10/09/24 05:04 Dose: 150 mcg Documented By: ROSS Levothyroxine Sodium (Levothyroxine Sodium 75 Mcg Tablet) 225 mcg PO Pozo@0600 [facility] Last Admin: 10/07/24 05:43 Dose: 225 mcg Documented By: EMIL Loratadine (Loratadine 10 Mg Tablet) 10 mg PO DAILY [facility] Last Admin: 10/09/24 09:22 Dose: 10 mg Documented By: DERIK Magnesium Hydroxide (Milk Of Magnesia 30 Ml Oral.Susp) 30 ml PO DAILY PRN PRN Reason: Constipation Magnesium Oxide (Magnesium Oxide 400 Mg Tablet) 400 mg PO DAILY [facility] Last Admin: 10/09/24 09:22 Dose: 400 mg Documented By: DERIK Melatonin (Melatonin 3 Mg Tablet) 6 mg PO BEDTIME [facility] Last Admin: 10/08/24 20:49 Dose: 6 mg Documented By: ROSS Metolazone (Metolazone 2.5 Mg Tablet) 2.5 mg PO DAILY [facility] Last Admin: 10/09/24 09:22 Dose: 2.5 mg Documented By: DERIK Ondansetron HCl (Ondansetron Hcl 4 Mg/2 Ml Vial) 4 mg IVPUSH Q8H PRN PRN Reason: Nausea and Vomiting Polyethylene Glycol (Polyethylene Glycol 3350 17 Gm Powd.Pack) 17 gm PO DAILY [facility] Last Admin: 10/09/24 09:22 Dose: 17 gm Documented By: DERIK Potassium Chloride (Potassium Chloride Er 20 Meq Tab.Er.Prt) 40 meq PO DAILY [facility] Last Admin: 10/09/24 11:04 Dose: 40 meq Documented By: DERIK Rivaroxaban (Rivaroxaban 15 Mg Tablet) 15 mg PO DAILY [facility] Last Admin: 10/09/24 09:22 Dose: 15 mg Documented By: DERIK Senna/Docusate Sodium (Sennosides/Docusate Sodium Tablet) 2 tab PO BID [facility] Last Admin: 10/09/24 09:21 Dose: 2 tab Documented By: DERIK Sodium Biphosphate/Sodium Phosphate (Sodium Phosphate,Placer-Dibasic 133 Ml Enema) 118 ml FL DAILY PRN PRN Reason: Constipation Sodium Chloride (0.9 % Sodium Chloride Flush 3 Ml Syringe) 3 ml IVFLUSH QSHIFT [facility] Last Admin: 10/09/24 09:23 Dose: 3 ml Documented By: DERIK Tramadol HCl (Tramadol Hcl 50 Mg Tablet) 50 mg PO DAILY [facility] Last Admin: 10/09/24 09:22 Dose: 50 mg Documented By: DERIK Triamcinolone Acetonide (Triamcinolone Acet 0.5 % Oint 15 Gm Tube) 1 appl TOPICAL BID [facility] Last Admin: 10/09/24 09:29 Dose: Not Given Documented By: DERIK Non-Admin Reason: Duplicate Order Triamcinolone Acetonide (Triamcinolone Acet 0.1 % Cream 15 Gm Tube) 1 appl TOPICAL BID [facility]; Protocol Last Admin: 10/09/24 09:28 Dose: 1 appl Documented By: DERIK Labs 10/09/24 05:51 10/09/24 05:51 Labs: Laboratory Results - last 24 hr 10/08/24 10/08/24 10/09/24 15:45 20:30 05:51 MCV 103.7 H MCH 34.4 H MCHC 33.2 RDW 16.1 H Plt Count 94 L MPV 11.0 Immature Gran % (Auto) 0.6 H Neut % (Auto) 76.9 H Lymph % (Auto) 10.9 L [place] % (Auto) 8.1 Eos % (Auto) 2.3 Baso % (Auto) 1.2 Lymph # (Auto) 0.6 L [place] # (Auto) 0.4 Eos # (Auto) 0.1 Baso # (Auto) 0.1 Abs Immat Gran (auto) 0.03 Absolute Neuts (auto) 4.0 Absolute Nucleated RBC 0.000 Nucleated RBC % (auto) 0.0 Anion Gap 20 Estim Creat Clear Calc 18.5 Estimated GFR 12 POC Glucose 174 H 143 H Fasting Glucose 133 H Calcium 9.7 Total Bilirubin 2.6 H AST 40 H ALT 25 Alkaline Phosphatase 123 H Total Protein 5.9 L Albumin 3.1 L 10/09/24 10/09/24 10/09/24 06:47 10:55 16:24 MCV MCH MCHC RDW Plt Count MPV Immature Gran % (Auto) Neut % (Auto) Lymph % (Auto) [place] % (Auto) Eos % (Auto) Baso % (Auto) Lymph # (Auto) [place] # (Auto) Eos # (Auto) Baso # (Auto) Abs Immat Gran (auto) Absolute Neuts (auto) Absolute Nucleated RBC Nucleated RBC % (auto) Anion Gap Estim Creat Clear Calc Estimated GFR POC Glucose 135 H 182 H 145 H Fasting Glucose Calcium Total Bilirubin AST ALT Alkaline Phosphatase Total Protein Albumin Assessment and Plan (1) Paroxysmal atrial fibrillation: Status: Acute (2) Class 3 obesity: Status: Chronic Plan 69yo F with HFpEF, CKD3, morbid obesity, pAF on rivaorxaban, HTN, DM2, and HLD sent in from [facility] where she was admitted after being discharged from [facility] with decompensated HF; developed worsening weight gain, orthopnea, exertional dypnea, and leg edema and found to have worsening renal insufficiency, likely from cardiorenal syndrome 1.Acute-chronic diastolic HF/R-sided HF - TTE 10/02/24 1. Normal LV ejection fraction with LVEF of 60-65% with grade 3 diastolic dysfunction with moderately increased wall thickness 2. Severely reduced RV systolic function 3. Moderate biatrial enlargement 4. Mild mitral and tricuspid regurgitation 5. Moderately elevated right ventricular systolic pressure with significantly elevated right atrial pressures 6. Mildly dilated ascending aorta at 3.9 cm - on po lasix and metolazone - needs outpt Cardiology f/u including MPS and possibly cardiac MRI 2.pAF - continue rivaroxaban - stopped metoprolol tartrate and changed to amiodarone 200 mg bid 10/04, continue load until 11/01 then maintenance dosing. 3.TANA/CKD3 - suspect cardiorenal, renal function improving, seen by Nephrology recommend to continue current management follow BMP 4.HTN -acceptable control 5.DM2 -acceptable control on current therapies -lispro correctional scale -adjust as indicated 6. left 4th finger cellulitis on doxycycline end date 10/10 7. acute hypokalemia due to diuretics will replace and follow labs. 8. constipation continue bowel regimen as needed enema 9. class 3 obesity recommend low-calorie diet Rivaroxaban Full Code In my clinical judgment, the patient requires continued hospitalization for the following reasons: monitoring of renal function while being diuresed, eventual returned to short-term rehab Quality Stroke Does the patient have a stroke diagnosis?: No VTE Prior VTE?: No VTE Risk Level:: Medical - moderate - high VTE Device Contraindication: Treatment Not Indicated VTE Drug Contraindication: N/A - Med Ordered
[2024-10-09 17:37] VITALS: BP 121/70
[2024-10-09 20:00] VITALS: BP 121/75; PULSE 75; RESP 15; TEMP 36; O2SAT 94
[2024-10-09] MEDS: Metoprolol Tartrate 25 MG TABLET PO (21:11)
[2024-10-09] MEDS: Melatonin 3 MG TABLET 6 MG PO (21:11)
[2024-10-09 22:04] LABS: Glucose, Whole Blood 182 mg/dL (60-115)
[2024-10-10] VITALS: BP 100/56; PULSE 98; RESP 16; TEMP 36.4; O2SAT 96
[2024-10-10 04:00] VITALS: BP 97/55; PULSE 65; RESP 16; TEMP 36.2; O2SAT 92
[2024-10-10] MEDS: Levothyroxine Sodium 150 MCG TABLET PO (05:00)
[2024-10-10 06:00] VITALS: BMI 49.9
[2024-10-10 06:05] LABS: Anion Gap 19 (12-20); Blood Urea Nitrogen 104 mg/dL (9-16); Calcium 9.4 mg/dL (8.4-10.2); Carbon Dioxide 36 mmol/L (22-29); Chloride 90 mmol/L (96-108); Creatinine Clr Calc Pharmacy 19.4; Estimated Glomerular Filt Rate 13; Glucose Random 142 mg/dL (60-115); Potassium 3.5 mmol/L (3.3-5.1); Sodium 141 mmol/L (135-145)
[2024-10-10 07:04] LABS: Glucose, Whole Blood 142 mg/dL (60-115)
[2024-10-10 07:25] VITALS: BP 101/58; PULSE 66; RESP 18; TEMP 36.6; O2SAT 98
[2024-10-10] MEDS: polyethylene glycoL 3350 17 GM POWD.PACK PO (08:04)
[2024-10-10] MEDS: diphenhydrAMINE HCL 25 MG CAPSULE PO (08:05)
[2024-10-10] MEDS: Sennosides/Docusate Sodium TABLET 2 TAB PO (08:05)
[2024-10-10] MEDS: Potassium Chloride ER 20 MEQ TAB.ER.PRT 40 MEQ PO (08:05)
[2024-10-10] MEDS: Atorvastatin Calcium 80 MG TABLET PO (08:06)
[2024-10-10] MEDS: Rivaroxaban 15 MG TABLET PO (08:06)
[2024-10-10] MEDS: Metoprolol Tartrate 25 MG TABLET PO (08:06)
[2024-10-10] MEDS: Furosemide 40 MG TABLET PO (08:07)
[2024-10-10] MEDS: traMADoL HCL 50 MG TABLET PO (08:07)
[2024-10-10] MEDS: Loratadine 10 MG TABLET PO (08:07)
[2024-10-10] MEDS: Magnesium Oxide 400 MG TABLET PO (08:07)
[2024-10-10] MEDS: 0.9 % Sodium Chloride Flush 3 ML SYRINGE IVFLUSH (08:08)
[2024-10-10] MEDS: Amiodarone HCL 200 MG TABLET PO (08:08)
[2024-10-10] MEDS: Triamcinolone Acet 0.1 % Cream 15 GM TUBE 1 APPL TOPICAL (08:08)
[2024-10-10] MEDS: Doxycycline Monohydrate 100 MG CAPSULE PO (08:11)
--- NOTE | 2024-10-10 10:51 | MHC.CM.PN ---
Second IMM given 10/10. Pt is medically cleared for discharge today, she will return to LTC at [facility] today via BLS/Mel[facility]. Per pts request this CM called pts step-daughter Eliana to notify her of the discharge plan.
[2024-10-10 10:53] VITALS: BP 107/51; PULSE 66; RESP 20; TEMP 36.7; O2SAT 100
[2024-10-10 10:55] LABS: Glucose, Whole Blood 156 mg/dL (60-115)
--- NOTE | 2024-10-10 11:44 | PM.PNCARD ---
Subjective Subjective Date of Service: 10/10/24 Principal diagnosis: Decompensated congestive heart failure, predominantly right heart failure Interval history: Patient states she feels good. She seems to be overall stable and without any new complaints. Review of Systems Review of Systems all other system reviewed and are negative Yes all other systems are reviewed and are negative Constitutional: Reports as per HPI and Reports no additional constitutional complaints Eyes: Reports as per HPI and Denies no additional eye complaints Denies system reviewed and no additional complaints, except as documented and Reports as per HPI Cardiovascular: Reports as per HPI, Reports no additional cardiovascular complaints, Denies acrocyanosis, Denies cool extremities, Denies chest pain, Denies leg edema, Denies lightheadedness, Denies palpitations and Denies dyspnea Respiratory: Reports as per HPI, Denies no additional respiratory complaints and Denies dyspnea Gastrointestinal: Reports as per HPI and Denies no additional gastrointestinal complaints Musculoskeletal: Reports no additional musculoskeletal complaints and Reports as per HPI Skin/Breast: Reports system reviewed and no additional complaints, except as docu Reports system reviewed and no additional complaints, except as documented and Reports as per HPI Psychiatric: Reports no additional psychiatric complaints and Reports as per HPI Endocrine: Reports no additional endocrine complaints, Reports as per HPI and Denies palpitations Hematologic/Lymphatic: Reports no additional hematologic/lymphatic complaints and Reports as per HPI Allergic/Immunologic: Reports no additional allergic/immunologic complaints and Reports as per HPI Physical Exam Vital Signs: Last Vital Signs Temp 98.1 F 10/10/24 10:53 Pulse 66 10/10/24 10:53 Resp 20 10/10/24 10:53 BP 107/51 L 10/10/24 10:53 Pulse Ox 100 10/10/24 10:53 O2 Del Method Room Air 10/10/24 10:53 O2 Flow Rate 2 10/10/24 00:00 BMI result Body Mass Index 49.9 Const General: comfortable and no acute distress Orientation/consciousness: patient oriented x3 HEENT Other: Unremarkable Head: Yes normal to inspection Neck Neck: Yes normal visual inspection Chest Chest palpation & inspection: normal inspection of the chest Resp Auscultation: clear to auscultation bilaterally Cardio Palpation: normal PMI Heart sounds: S1 normal heart sound present, S2 normal heart sound present, no gallops, no murmurs and no rubs GI Palpation (GI): Soft to palpation Back/Spine/Pelvis Other: unremarkable Skin General skin exam: no rashes or lesions noted Neuro General: patient oriented x3 Extrem General: Yes normal to inspection Psych Mental Status: mental status grossly normal Objective Labs and Meds 10/09/24 05:51 10/10/24 05:20 Lab results: Laboratory Results - last 24 hr 10/09/24 10/09/24 10/10/24 16:24 21:58 05:20 Sodium 141 Potassium 3.5 Chloride 90 L Carbon Dioxide 36 H Anion Gap 19 BUN 104 H Creatinine 3.54 H Estim Creat Clear Calc 19.4 Estimated GFR 13 POC Glucose 145 H 182 H Random Glucose 142 H Calcium 9.4 10/10/24 10/10/24 07:00 10:51 Sodium Potassium Chloride Carbon Dioxide Anion Gap BUN Creatinine Estim Creat Clear Calc Estimated GFR POC Glucose 142 H 156 H Random Glucose Calcium Progress Note: A&P Assessment and plan (1) Acute exacerbation of chronic heart failure: Status: Acute (2) Paroxysmal atrial fibrillation: Status: Acute (3) Acute kidney injury superimposed on chronic kidney disease: Status: Acute (4) Class 3 obesity: Status: Chronic Plan Echocardiogram reviewed. Preserved LVEF at 60-65%. Advanced diastolic dysfunction. Severely reduced right ventricular systolic function. Moderate biatrial enlargement. Mild mitral/tricuspid regurgitation with moderate pulmonary hypertension and elevated right atrial pressures. Outpatient cardiology notes reviewed. Has had fairly comprehensive cardiac workup. PYP scan-not suggestive of TTR amyloid. Coronary [id number] not describe stenosis but seems there was nothing significant. FFR value seem normal. Echocardiogram at [facility] with LVEF of 55%; moderate septal hypertrophy and advanced diastolic dysfunction with pulmonary hypertension. With regard to atrial fibrillation itself, history of cardioversions, ablation and it seems that plan was for rate control only. Currently, she seems to be okay on oral diuretics. With regard to the atrial fibrillation, she converted to sinus rhythm last evening. Per notes, it seems that plan was to keep her off amiodarone and just use beta-blockers. If she indeed goes back and forth atrial fibrillation, she may be candidate for AV alexandru ablation/pacemaker as she has failed amiodarone previously. Discussed with Nephrology, hospitalist. Upon discharge, follow up with her own technology project manager from [facility]. Time Spent With Patient Time: Total time managing care of this patient today ____ minutes. Progress Note: Quality Stroke Does the patient have a stroke diagnosis?: No Procedures Date of Service Date of Service: 10/10/24
[2024-10-10] MEDS: Insulin Lispro 100 UNIT/ML 3 ML VIAL SUBCUT (12:07)
--- NOTE | 2024-10-10 12:07 | PM.DS ---
DS: Providers Provider Date of Service: 10/10/24 Date of admission: 10/02/24 00:08 Date of discharge: 10/10/24 Primary care physician: Scott Quintanilla MD Consults: 10/02/24 09:06 Consult to Cardiology Routine Consulting Provider: [facility] Reason for consultation: ADHF, cardiorenal 10/02/24 09:07 Consult to Nephrology Routine Consulting Provider: [facility] Reason for consultation: tana/ckd, cardioreanl? DS: Diagnosis Discharge Diagnosis (1) Acute exacerbation of chronic heart failure: Status: Acute (2) Paroxysmal atrial fibrillation: Status: Acute (3) Acute kidney injury superimposed on chronic kidney disease: Status: Acute (4) Class 3 obesity: Status: Chronic DS: Summary Hospital Course Hospital Course: History of presenting illness: Date of Service: 10/02/24 Attending physician on admission: Eduardo Urena Chief Complaint: Abnormal labs Patient is a 69-year-old female with a past medical history significant for obesity, CKD (creatinine 3.0 on 09/11), PAF on Eliquis, CHF, HLD, T2 DM, HTN, who presented from [facility] to the ED due to a progressive 20 lb weight gain over the past month and abnormal labs. The patient was taking Lasix and metolazone daily. Her labs have shown increasing creatinine. She has never been on dialysis. She reports orthopnea and dyspnea on exertion. She denies any fever, chills, nausea, vomiting or urinary symptoms including frequency, urgency or dysuria. Hospital course: 69yo F with HFpEF, CKD3, morbid obesity, pAF on rivaorxaban, HTN, DM2, and HLD sent in from [facility] where she was admitted after being discharged from [facility] with decompensated HF; developed worsening weight gain, orthopnea, exertional dypnea, and leg edema and found to have worsening renal insufficiency, likely from cardiorenal syndrome 1.Acute-chronic diastolic HF/R-sided HF treated aggressively with intravenous diuretics , renal function and electrolytes were monitored closely, responded well ,is greater than 10 L negative shortness of breath resolved currently hemodynamically stable and appears euvolemic, noted to have hypokalemia due to diuretics that has been repleted, was followed closely by Cardiology and Nephrology echo 10/02/24 showed 1. Normal LV ejection fraction with LVEF of 60-65% with grade 3 diastolic dysfunction with moderately increased wall thickness 2. Severely reduced RV systolic function 3. Moderate biatrial enlargement 4. Mild mitral and tricuspid regurgitation 5. Moderately elevated right ventricular systolic pressure with significantly elevated right atrial pressures 6. Mildly dilated ascending aorta at 3.9 cm Since clinically stable she is being discharged home on Lasix 40 mg twice daily and metolazone 2.5 mg 3 times per week recommend outpatient follow-up by primary merchandise complaint adjuster 2. In regard to pAF with episodes of AFib with RVR patient was placed on amiodarone loading dose however later discontinued after reviewing old records that patient has failed multiple trials of amiodarone in the past therefore placed back on metoprolol 25 mg twice daily and Xarelto renally dosed, patient converted to normal sinus rhythm last evening. 3.TANA/CKD3 - likely cardiorenal, renal function improving, recommend outpatient follow-up with Nephrology. 4.DM2 stable blood sugars, recommend to continue home medications and monitor blood sugars. 5. Left 4th finger cellulitis finished course of doxycycline. 6. Constipation added Metamucil and prn enemas. 7. Class 3 obesity recommend low-calorie diet. Time Attestation Discharge Coordination Time (in mins): 40 Quality: Safe Use of Opioids Does Pt have an Active Cancer Diagnosis on the Problem List?: No Quality: Stroke Does the patient have a stroke diagnosis?: No Physical Exam Vital Signs: Vital Signs: Last Vital Signs Temp 98.1 F 10/10/24 10:53 Pulse 66 10/10/24 10:53 Resp 20 10/10/24 10:53 BP 107/51 L 10/10/24 10:53 Pulse Ox 100 10/10/24 10:53 O2 Del Method Room Air 10/10/24 10:53 O2 Flow Rate 2 10/10/24 00:00 BMI result Body Mass Index 49.9 Const: Other: Gen: in no acute distress HEENT: sclera anicteric, moist mucus membranes Neck: supple,no JVD Lungs: bibasilar faint crackles Heart: regular, no murmurs Abd: soft, non-tender, non-distended, obese Ext: no pitting edema Skin: warm/well-perfused/right upper extremity bruises Neuro: alert and oriented x3, no focal findings Psych: appropriate affect DS: Data Data Completed and Pending Labs on day of discharge: Laboratory Results - last 24 hr 10/09/24 10/09/24 10/10/24 16:24 21:58 05:20 Sodium 141 Potassium 3.5 Chloride 90 L Carbon Dioxide 36 H Anion Gap 19 BUN 104 H Creatinine 3.54 H Estim Creat Clear Calc 19.4 Estimated GFR 13 POC Glucose 145 H 182 H Random Glucose 142 H Calcium 9.4 10/10/24 10/10/24 07:00 10:51 Sodium Potassium Chloride Carbon Dioxide Anion Gap BUN Creatinine Estim Creat Clear Calc Estimated GFR POC Glucose 142 H 156 H Random Glucose Calcium Discharge Plan Discharge Anticipated Discharge Date/Time: 10/10/24 11:56 Patient Disposition: [facility] Discharge Diagnosis: Acute on chronic diastolic heart failure/right-sided heart failure Paroxysmal atrial fibrillation Acute on chronic kidney disease stage 3 Left 4th finger cellulitis Referrals: [facility] [Outside] - 1 Week Scott Castle MD [Primary Care Provider] - 1 Week Discharge Medications: New Xarelto 15 mg Tablet 15 mg PO DAILY Qty: 30 0RF furosemide 40 mg Tablet 40 mg PO BID@0900,1800 Qty: 60 0RF Protocol: Hold for SBP< HOLD for SBP < : 90 potassium chloride 20 mEq tablet extended release 20 meq PO DAILY Qty: 30 0RF Metamucil 3.4 gram/5.4 gram powder 1 tbsp PO DAILY Qty: 660 0RF Rx Instructions: mix into at least 8 oz of water or juice before administering Continued metolazone 2.5 mg Tablet 2.5 mg PO MOWEFR acetaminophen 325 mg Tablet 650 mg PO Q6H PRN (Reason: Fever/Pain) glyburide 5 mg Tablet 5 mg PO BID dextrose [Glutose-45] 40 % Gel 45 g PO Q10M PRN (Reason: Hypoglycemia) Rx Instructions: Use if FSBS <50 and able to swallow. melatonin 3 mg Tablet 6 mg PO BEDTIME tramadol 50 mg Tablet 50 mg PO DAILY magnesium hydroxide [Milk of Magnesia] 400 mg/5 mL Suspension 30 ml PO DAILY PRN (Reason: Constipation) bisacodyl 10 mg Suppository 10 mg CO DAILY PRN (Reason: Constipation) levothyroxine 150 mcg Tablet 150 mcg PO MOTUWETHFRSA levothyroxine 150 mcg Tablet 225 mcg PO TATUM Fleet Enema 19-7 gram/118 mL Enema 118 ml CO DAILY PRN (Reason: Constipation) glucagon 1 mg Recon Soln 1 mg SUBCUT Q10M PRN (Reason: Hypoglycemia) Rx Instructions: If FSBS below 60 calcitriol 0.25 mcg Capsule 0.25 mcg PO MOWEFR loratadine 10 mg Tablet 10 mg PO DAILY rosuvastatin 40 mg Tablet 40 mg PO DAILY metoprolol tartrate 25 mg Tablet 25 mg PO BID magnesium oxide 400 mg magnesium Tablet 400 mg PO DAILY Discontinued furosemide 40 mg Tablet 40 mg PO DAILY@0800 fexofenadine 60 mg Tablet 60 mg PO DAILY furosemide 20 mg Tablet 20 mg PO DAILY@1400 rivaroxaban 20 mg Tablet 20 mg PO DAILY Rx Instructions: must administer with evening meal Discharge Orders: Discharge Order (Routine); Ordered 10/10/24 Ordered By: Lenora Cloud Diet: Diabetic diet Activity on Discharge: As tolerated Stand Alone Forms: Patient Portal Discharge page Print Language: Unable To Collect Care Plan Goals: Acute on chronic CHF/right-sided heart failure resolved take Lasix 40 mg twice daily and continue metolazone 3 times per week Paroxysmal atrial fibrillation continue Xarelto dose reduced to 15 mg due to decreased renal function continue metoprolol twice daily Acute on chronic kidney disease stage 3 improving outpatient follow-up with Nephrology Left 4th finger cellulitis finished course of antibiotic Acute hypokalemia due to diuretics resolved continue potassium supplement Constipation continue bowel regimen Health Concerns: Continue diabetic diet and all home medication Plan of Treatment: Outpatient follow-up with primary care physician and primary merchandise complaint adjuster make for appointment Assessment: As above
== END 2024-10-10 14:34 | disposition skilled nursing facility (03) | DRG 291 ==
LOC: HO.ED 23:58 → HO.EDOVER 10-02 00:09 → HO.IMC 10-02 07:23
PROVIDERS: Family Medicine; Hospitalist; Admitting Provider Student in an Organized Health Care Education/Training Program; Emergency Provider Emergency Medicine; PCP Family Medicine; Visit Provider Hospitalist
DX: I13.0 Hypertensive heart and chronic kidney disease with heart failure and stage 1 through stage 4 chronic kidney disease, or unspecified chronic kidney disease (principal); I50.33 Acute on chronic diastolic (congestive) heart failure; N17.9 Acute kidney failure, unspecified; Z68.43 Body mass index [BMI] 50.0-59.9, adult; E85.4 Organ-limited amyloidosis; E78.5 Hyperlipidemia, unspecified; E03.9 Hypothyroidism, unspecified; N18.30 Chronic kidney disease, stage 3 unspecified; I48.0 Paroxysmal atrial fibrillation; I27.29 Other secondary pulmonary hypertension; I08.1 Rheumatic disorders of both mitral and tricuspid valves; E87.6 Hypokalemia; L03.012 Cellulitis of left finger; I43 Cardiomyopathy in diseases classified elsewhere; I50.813 Acute on chronic right heart failure; E11.22 Type 2 diabetes mellitus with diabetic chronic kidney disease; E66.813 Obesity, class 3; Z79.01 Long term (current) use of anticoagulants; Z71.3 Dietary counseling and surveillance; Z79.890 Hormone replacement therapy; Z79.899 Other long term (current) drug therapy
CPT/HCPCS: 36415; 71045; 73140; 80048; 80053; 80076; 82607; 82746; 82947; 83690; 83735; 83880; 84484; 85025; 85652; 86140; 93005; 93306; 99285; J1650; J1940; Q9957

== ENCOUNTER → 2024-10-01 22:10 | Outpatient (BNV) | payer MEDICARE, MEDICAID, SELFPAY | PROVIDERS: Emergency Provider Emergency Medicine; Visit Provider General Practice | DX: R06.00 Dyspnea, unspecified (principal) | CPT/HCPCS: 71045 ==

== ENCOUNTER → 2024-10-01 22:10 | Outpatient (BNV) | payer MEDICARE, MEDICAID, SELFPAY | PROVIDERS: Admitting Provider Student in an Organized Health Care Education/Training Program; Emergency Provider Emergency Medicine; PCP Family Medicine; Visit Provider Internal Medicine Cardiovascular Disease | DX: R07.9 Chest pain, unspecified (principal); I48.91 Unspecified atrial fibrillation; R94.31 Abnormal electrocardiogram [ECG] [EKG] | CPT/HCPCS: 93010 ==

== ENCOUNTER 2024-10-02 00:08 | Outpatient (BNV) | payer MEDICARE, MEDICAID, SELFPAY | END 2024-10-03 21:06 | PROVIDERS: Admitting Provider Student in an Organized Health Care Education/Training Program; Emergency Provider Emergency Medicine; PCP Family Medicine; Visit Provider Internal Medicine Cardiovascular Disease | DX: R07.9 Chest pain, unspecified (principal); I48.91 Unspecified atrial fibrillation; R94.31 Abnormal electrocardiogram [ECG] [EKG] | CPT/HCPCS: 93010 ==

== ENCOUNTER 2024-10-02 00:08 | Outpatient (BNV) | payer MEDICARE, MEDICAID, SELFPAY | END 2024-10-03 10:50 | PROVIDERS: Admitting Provider Student in an Organized Health Care Education/Training Program; Emergency Provider Emergency Medicine; PCP Family Medicine; Visit Provider Radiology Diagnostic Radiology | DX: L08.9 Local infection of the skin and subcutaneous tissue, unspecified (principal) | CPT/HCPCS: 73140 ==

== ENCOUNTER 2024-10-02 00:08 | Outpatient (BNV) | payer MEDICARE, MEDICAID, SELFPAY | END 2024-10-07 12:49 | PROVIDERS: Admitting Provider Student in an Organized Health Care Education/Training Program; Emergency Provider Emergency Medicine; PCP Family Medicine; Visit Provider Internal Medicine | DX: R07.9 Chest pain, unspecified (principal); I48.91 Unspecified atrial fibrillation; R94.31 Abnormal electrocardiogram [ECG] [EKG] | CPT/HCPCS: 93010 ==

== ENCOUNTER → 2024-10-02 00:08 | Outpatient (BNV) | payer MEDICARE, MEDICAID, SELFPAY | PROVIDERS: Admitting Provider Student in an Organized Health Care Education/Training Program; Emergency Provider Emergency Medicine; PCP Family Medicine; Visit Provider Internal Medicine Nephrology | DX: N17.9 Acute kidney failure, unspecified (principal); N18.9 Chronic kidney disease, unspecified | CPT/HCPCS: 99223; 99232 ==

== ENCOUNTER → 2024-10-02 00:08 | Outpatient (BNV) | payer MEDICARE, MEDICAID, SELFPAY | PROVIDERS: Admitting Provider Student in an Organized Health Care Education/Training Program; Emergency Provider Emergency Medicine; PCP Family Medicine; Visit Provider Physician Assistant | DX: I50.9 Heart failure, unspecified (principal) | CPT/HCPCS: 99223; 99232; 99233; 99499 ==

== ENCOUNTER → 2024-10-02 00:08 | Outpatient (BNV) | payer MEDICARE, MEDICAID, SELFPAY | PROVIDERS: Admitting Provider Student in an Organized Health Care Education/Training Program; Emergency Provider Emergency Medicine; PCP Family Medicine; Visit Provider Internal Medicine Cardiovascular Disease | DX: I50.9 Heart failure, unspecified (principal); I48.91 Unspecified atrial fibrillation | CPT/HCPCS: 99233 ==

== ENCOUNTER 2024-10-13 17:52 | Inpatient (IN) | payer MEDICARE, MEDICAID, SELFPAY ==
[2024-10-13] VITALS (11 sets, daily range): BP systolic 88–109; BP diastolic 31–72; PULSE 61–91; RESP 13–22; TEMP 36.4–37.1; O2SAT 93–100; BMI 21.5
--- NOTE | ~2024-10-13 | XR_ITS ---
CLINICAL HISTORY: SOB 1 view chest x-ray Comparison: CR - XR CHEST 1V - 10/13/24 19:34 EDT Findings: [id number] cardiomegaly. Small left pleural effusion. No pleural effusion on the right. No pneumothorax. Pulmonary vascular congestion with mild interstitial and alveolar edema. Asymmetrically increased opacity in the left lung is nonspecific. IMPRESSION: 1. Findings of cardiomegaly with CHF. Asymmetric airspace opacity in the left lung could reflect asymmetric distribution of pulmonary edema although superimposed pneumonia is not excluded. This document has been electronically signed by: Jama Mai MD on 10/15/2024 21:43:16
--- NOTE | ~2024-10-13 | XR_ITS ---
CLINICAL HISTORY: AMS 1 view chest x-ray Comparison: 10/01/2024 Findings: Persistent left basilar consolidation. Probable small underlying left pleural effusion. Aeration has improved somewhat since prior study. Right lung clear. Heart size normal. No acute bony abnormalities. Impression: Residual left basilar consolidation and pleural fluid Left base aeration has improved This document has been electronically signed by: Bob Polk MD on 10/13/2024 20:11:48
--- NOTE | 2024-10-13 18:06 | ECG_ITS ---
Test Reason : HYPOGLYCEMIA Blood Pressure : */* mmHG Vent. Rate : 63 BPM Atrial Rate : 63 BPM P-R Int : 260 ms QRS Dur : 96 ms QT Int : 556 ms P-R-T Axes : 68 111 136 degrees QTcB Int : 568 ms Sinus rhythm with sinus arrhythmia with 1st degree A-V block Low voltage QRS Septal infarct Lateral infarct , age undetermined Prolonged QT Abnormal ECG When compared with ECG of 07-Oct-2024 12:49, rhythm change Referred By: Kwame Gee Electronically Signed By: KHOA FRY
[2024-10-13] MEDS: Dextrose 50 % 25 GM/50 ML SYRINGE IVPUSH (18:07)
--- NOTE | 2024-10-13 18:34 | ED.GENADULT ---
HPI - General Adult General Chief complaint: General Medical Stated complaint: hypoglycemia Source: EMS and RN notes reviewed Mode of arrival: EMS Limitations: no limitations History of Present Illness ED Provider: HPI narrative: 69-year-old female with a past medical history significant for obesity, CKD (creatinine 3.0 on 09/11), PAF on Eliquis, CHF, HLD, T2 DM, HTN, hypothyroidism who presented from [facility] to the ED hypoglycemia of 31mg patient has just admitted and discharged on 10/10/2024 for CHF exacerbation and TANA patient is taking glyburide for diabetes received oral glucose and orange juice by nursing staff when EMS reached POC was 106 patient has stage IV chronic renal disease in his still taking glyburide at the time of discharge patient did not eat much today lunch time been feeling weak and sleepy no fever no chills no abdominal pain patient is incontinent Related Data Home Medications ?Medication ?Instructions ?Recorded ?Confirmed acetaminophen 325 mg tablet 650 mg PO Q6H PRN Fever/Pain 10/02/24 10/02/24 bisacodyl 10 mg rectal suppository 10 mg NH DAILY PRN Constipation 10/02/24 10/02/24 calcitriol 0.25 mcg capsule 0.25 mcg PO MOWEFR 10/02/24 10/02/24 dextrose 40 % oral gel (Glutose-45) 45 g PO Q10M PRN Hypoglycemia 10/02/24 10/02/24 glucagon 1 mg solution for 1 mg subcut Q10M PRN Hypoglycemia 10/02/24 10/02/24 injection glyburide 5 mg tablet 5 mg PO BID 10/02/24 10/02/24 levothyroxine 150 mcg tablet 150 mcg PO MOTUWETHFRSA 10/02/24 10/02/24 levothyroxine 150 mcg tablet 225 mcg PO TATUM 10/02/24 10/02/24 loratadine 10 mg tablet 10 mg PO DAILY 10/02/24 10/02/24 magnesium hydroxide 400 mg/5 mL 30 ml PO DAILY PRN Constipation 10/02/24 10/02/24 oral suspension (Milk of Magnesia) magnesium oxide 400 mg PO DAILY 10/02/24 10/02/24 melatonin 3 mg tablet 6 mg PO BEDTIME 10/02/24 10/02/24 metolazone 2.5 mg tablet 2.5 mg PO MOWEFR 10/02/24 10/02/24 metoprolol tartrate 25 mg tablet 25 mg PO BID 10/02/24 10/02/24 rosuvastatin 40 mg tablet 40 mg PO DAILY 10/02/24 10/02/24 sodium phosphates 19 gram-7 118 ml NH DAILY PRN Constipation 10/02/24 10/02/24 gram/118 mL enema (Fleet Enema) tramadol 50 mg tablet 50 mg PO DAILY 10/02/24 10/02/24 Previous Rx's ?Medication ?Instructions ?Recorded furosemide 40 mg tablet 40 mg PO BID@0900,1800 #60 tabs 10/10/24 potassium chloride 20 mEq 20 meq PO DAILY #30 tabs 10/10/24 tablet,extended release psyllium husk 3.4 gram/5.4 gram 1 tbsp PO DAILY #660 grams 10/10/24 oral powder (Metamucil) rivaroxaban 15 mg tablet (Xarelto) 15 mg PO DAILY #30 tabs 10/10/24 Allergies Allergy/AdvReac Type Severity Reaction Status Date / Time adhesive Allergy Unknown Verified 10/13/24 19:07 bacitracin Allergy Unknown Verified 10/13/24 19:07 beet Allergy Unknown Verified 10/13/24 19:07 cefazolin Allergy Unknown Verified 10/13/24 19:07 Corticosteroids Allergy Unknown Verified 10/13/24 19:07 (Glucocorticoids) ibuprofen Allergy Unknown Verified 10/13/24 19:07 polymyxin B Allergy Unknown Verified 10/13/24 19:07 Review of Systems Review of Systems: Yes all other systems are reviewed and are negative PMFSH Past Medical History Medical History Diabetes type 2, controlled CHF (congestive heart failure) Obesity CKD (chronic kidney disease) Hyperlipidemia HTN (hypertension) Afib Social History Social History Household Members: Family Housing: House Do you presently have visiting nurse or other home services: No Alcohol intake: never Patient Tobacco Use Status: Never used Tobacco Smoked in Last 30 Days: No e-Cigarette/Vaping Use: Never Used Second Hand Smoke Exposure: No Use of substances other than those prescribed or required for medical reasons: No Advance Directives: No Advance Directives Information Provided: No Do you have a plan to hurt others: No Plan service: No Physical Exam ED Vital Signs: Vital Signs - 24 hr 10/13/24 18:22 10/13/24 19:08 10/13/24 19:44 Temperature 98.8 F 98.8 F Pulse Rate 61 62 61 Respiratory Rate 13 18 15 Blood Pressure 107/72 98/52 L 101/49 L Pulse Oximetry 93 94 97 Oxygen Delivery Method Room Air Room Air Room Air Oxygen Flow Rate 10/13/24 20:14 10/13/24 20:30 10/13/24 20:45 Temperature Pulse Rate 91 Respiratory Rate Blood Pressure 96/41 L 89/31 L 88/54 L Pulse Oximetry Oxygen Delivery Method Oxygen Flow Rate 10/13/24 20:54 10/13/24 21:08 10/13/24 21:27 Temperature 97.5 F Pulse Rate 70 73 Respiratory Rate 18 16 Blood Pressure 95/45 L 109/57 L 98/53 L Pulse Oximetry 98 98 Oxygen Delivery Method Nasal Cannula Nasal Cannula Oxygen Flow Rate 2 2 10/13/24 21:33 Temperature 97.6 F Pulse Rate 63 Respiratory Rate 22 H Blood Pressure 105/64 Pulse Oximetry 99 Oxygen Delivery Method Nasal Cannula Oxygen Flow Rate 2 BMI result Body Mass Index 21.5 Appearance: Alert. Oriented X3. No acute distress. Eyes: no pallor or icterus ENT: Pharynx normal. Oral Mucosa moist Neck: Normal inspection. Neck supple. CVS: Normal heart rate and rhythm. Pulses normal. Respiratory: No respiratory distress. Equal air entry bilateral, no wheezing/rales/rhonchi Abdomen: Soft and nontender. Bowel sounds are present, no mass palpable, no CVA tenderness Skin: Skin warm and dry. Normal skin color. Normal skin turgor. Extremities: Nonpitting lower extremity edema with chronic dermatitis changes. No calf tenderness acrocyanosis++ Neuro: Oriented X 3. No motor deficit. No sensory deficit.No cerebellar signs , cranial nerves II-XII intact Medications Administered Generic Name Dose Route Start Last Admin Trade Name Freq PRN Reason Stop Dose Admin Dextrose/Sodium Chloride 1,000 mls @ 80 mls/hr 10/13/24 22:30 10/13/24 22:59 D5ns IVCONT 80 mls/hr .[id number] AKBAR Administration Discontinued Medications Generic Name Dose Route Start Last Admin Trade Name Freq PRN Reason Stop Dose Admin Ceftriaxone Sodium 1 gm 10/13/24 21:39 10/13/24 23:01 Ceftriaxone Sodium 1 Gm Vial IVPUSH 10/13/24 21:40 1 gm ONCE ONE Administration Dextrose 25 gm 10/13/24 18:02 10/13/24 18:07 Dextrose 50 % 25 Gm/50 Ml Syringe IVPUSH 10/13/24 18:03 12.5 gm ONCE ONE Administration Albumin Human 100 mls @ 133.333 mls/hr 10/13/24 20:30 10/13/24 22:59 Kedbumin 25 % IV 10/13/24 22:14 Infused Q1H AKBAR Infusion Dextrose 1,000 mls @ 100 mls/hr 10/13/24 20:45 10/13/24 23:11 D5w IVCONT Infused .Q10H AKBAR Infusion Medical Decision Making Medical Decision Making [facility] Narrative: Patient with persistent hypoglycemia on glyburide with CKD stage 4 with poor oral intake started on dextrose drip also patient has UTI maybe contributing to hypoglycemia lactic acid was elevated likely from CKD fluids were restricted as patient has history of CHF and fluid overload just during last admission last week started on IV Rocephin admit to the hospitalist service Differential Diagnosis Differential Diagnoses: The differential diagnosis associated with the presentation includes Admission/Observation Consideration of admission/observation: Escalation of care including admission/observation considered Consult Healthcare Provider Management of the patient was discussed with: Hospitalist Lab Data [facility] Lab Attestation statement: I reviewed the patient's lab results. 10/13/24 18:58 10/13/24 18:58 Labs: Lab Results 10/13/24 10/13/24 10/13/24 Range/Units 18:01 18:08 18:58 WBC 11.6 H (4.8-10.8) X10*3/uL RBC 3.59 L (4.20-5.50) X10*6/uL Hgb 12.6 (12.0-16.0) g/dl Hct 36.9 L (37.0-47.0) % MCV 102.8 H (80.0-98.0) fL MCH 35.1 H (27.0-33.0) pg MCHC 34.1 (31.0-35.0) g/dl RDW 17.1 H (11.0-16.0) % Plt Count 107 L (160-400) X10*3/uL MPV 12.3 (9.4-12.3) fL Immature Gran % (Auto) 0.3 (0.0-0.4) % Neut % (Auto) 90.5 H (45-73) % Lymph % (Auto) 4.1 L (20-40) % [place] % (Auto) 4.4 (2-11) % Eos % (Auto) 0.3 (0-4) % Baso % (Auto) 0.4 (0-2) % Lymph # (Auto) 0.5 L (1.2-4.9) X10*3/uL [place] # (Auto) 0.5 (0.1-1.2) X10*3/uL Eos # (Auto) 0.0 (0.0-0.4) X10*3/uL Baso # (Auto) 0.1 (0.0-0.2) X10*3/uL Abs Immat Gran (auto) 0.04 H (0.00-0.03) X10*3/uL Absolute Neuts (auto) 10.5 H (2.0-8.3) x10*3/uL Absolute Nucleated RBC 0.000 (0.0-0.012) X10*3/uL Nucleated RBC % (auto) 0.0 (0.0-0.2) /100WBC Smear Tech's Comments VERIFIED VBG pH (7.32-7.43) VBG pCO2 mmHg VBG pO2 mmHg VBG HCO3 (22-26) mmol/L VBG O2 Saturation % VBG Base Excess mmol/L Sodium 135 (135-145) mmol/L Potassium 3.9 (3.3-5.1) mmol/L Chloride 86 L (96-108) mmol/L Carbon Dioxide 33 H (22-29) mmol/L Anion Gap 20 (12-20) BUN 117 H (9-16) mg/dL Creatinine 3.86 H (0.5-1.4) mg/dL Estim Creat Clear Calc 12.5 Estimated GFR 12 POC Glucose 38 L* 101 (60-115) mg/dL Random Glucose 141 H (60-115) mg/dL Lactic Acid 2.8 H* (0.5-2.0) mmol/L Lactic Acid F/U @ 2Hr (0.5-2.0) mmol/L Calcium 8.7 D (8.4-10.2) mg/dL Phosphorus 3.4 (2.7-4.5) mg/dL Magnesium 1.9 (1.6-2.6) mg/dL Total Bilirubin 1.8 H (0.0-1.0) mg/dL AST 33 H (5-31) U/L ALT 20 (0-31) U/L Alkaline Phosphatase 101 (39-117) U/L Total Protein 5.4 L (6.5-8.0) g/dL Albumin 2.8 L (3.5-5.0) g/dL TSH 8.93 H (0.32-4.0) uIU/mL Free T4 1.15 (0.71-1.85) ng/dL Urine Color Urine Appearance Urine pH (5.0-9.0) Ur Specific Darden (1.005-1.025) Urine Protein (Neg-Trace) mg/dL Urine Glucose (UA) (Negative) mg/dL Urine Ketones (Negative) mg/dL Urine Blood (Negative) Urine Nitrite (Negative) Ur Leukocyte Esterase (Negative) Urine RBC (0-2) /HPF Urine WBC (0-5) /HPF Ur Squamous Epith Cells (0-2) /HPF Urine Bacteria (None Seen) Hyaline Casts (0-2) /LPF 10/13/24 10/13/24 10/13/24 Range/Units 19:06 20:26 20:30 WBC (4.8-10.8) X10*3/uL RBC (4.20-5.50) X10*6/uL Hgb (12.0-16.0) g/dl Hct (37.0-47.0) % MCV (80.0-98.0) fL MCH (27.0-33.0) pg MCHC (31.0-35.0) g/dl RDW (11.0-16.0) % Plt Count (160-400) X10*3/uL MPV (9.4-12.3) fL Immature Gran % (Auto) (0.0-0.4) % Neut % (Auto) (45-73) % Lymph % (Auto) (20-40) % [place] % (Auto) (2-11) % Eos % (Auto) (0-4) % Baso % (Auto) (0-2) % Lymph # (Auto) (1.2-4.9) X10*3/uL [place] # (Auto) (0.1-1.2) X10*3/uL Eos # (Auto) (0.0-0.4) X10*3/uL Baso # (Auto) (0.0-0.2) X10*3/uL Abs Immat Gran (auto) (0.00-0.03) X10*3/uL Absolute Neuts (auto) (2.0-8.3) x10*3/uL Absolute Nucleated RBC (0.0-0.012) X10*3/uL Nucleated RBC % (auto) (0.0-0.2) /100WBC Smear Tech's Comments VBG pH 7.56 H (7.32-7.43) VBG pCO2 45 mmHg VBG pO2 34 mmHg VBG HCO3 41 H (22-26) mmol/L VBG O2 Saturation 57.0 % VBG Base Excess 16.8 mmol/L Sodium (135-145) mmol/L Potassium (3.3-5.1) mmol/L Chloride (96-108) mmol/L Carbon Dioxide (22-29) mmol/L Anion Gap (12-20) BUN (9-16) mg/dL Creatinine (0.5-1.4) mg/dL Estim Creat Clear Calc Estimated GFR POC Glucose 65 60 (60-115) mg/dL Random Glucose (60-115) mg/dL Lactic Acid (0.5-2.0) mmol/L Lactic Acid F/U @ 2Hr (0.5-2.0) mmol/L Calcium (8.4-10.2) mg/dL Phosphorus (2.7-4.5) mg/dL Magnesium (1.6-2.6) mg/dL Total Bilirubin (0.0-1.0) mg/dL AST (5-31) U/L ALT (0-31) U/L Alkaline Phosphatase (39-117) U/L Total Protein (6.5-8.0) g/dL Albumin (3.5-5.0) g/dL TSH (0.32-4.0) uIU/mL Free T4 (0.71-1.85) ng/dL Urine Color Urine Appearance Urine pH (5.0-9.0) Ur Specific Darden (1.005-1.025) Urine Protein (Neg-Trace) mg/dL Urine Glucose (UA) (Negative) mg/dL Urine Ketones (Negative) mg/dL Urine Blood (Negative) Urine Nitrite (Negative) Ur Leukocyte Esterase (Negative) Urine RBC (0-2) /HPF Urine WBC (0-5) /HPF Ur Squamous Epith Cells (0-2) /HPF Urine Bacteria (None Seen) Hyaline Casts (0-2) /LPF 10/13/24 10/13/24 10/13/24 Range/Units 20:50 21:46 21:49 WBC (4.8-10.8) X10*3/uL RBC (4.20-5.50) X10*6/uL Hgb (12.0-16.0) g/dl Hct (37.0-47.0) % MCV (80.0-98.0) fL MCH (27.0-33.0) pg MCHC (31.0-35.0) g/dl RDW (11.0-16.0) % Plt Count (160-400) X10*3/uL MPV (9.4-12.3) fL Immature Gran % (Auto) (0.0-0.4) % Neut % (Auto) (45-73) % Lymph % (Auto) (20-40) % [place] % (Auto) (2-11) % Eos % (Auto) (0-4) % Baso % (Auto) (0-2) % Lymph # (Auto) (1.2-4.9) X10*3/uL [place] # (Auto) (0.1-1.2) X10*3/uL Eos # (Auto) (0.0-0.4) X10*3/uL Baso # (Auto) (0.0-0.2) X10*3/uL Abs Immat Gran (auto) (0.00-0.03) X10*3/uL Absolute Neuts (auto) (2.0-8.3) x10*3/uL Absolute Nucleated RBC (0.0-0.012) X10*3/uL Nucleated RBC % (auto) (0.0-0.2) /100WBC Smear Tech's Comments VBG pH (7.32-7.43) VBG pCO2 mmHg VBG pO2 mmHg VBG HCO3 (22-26) mmol/L VBG O2 Saturation % VBG Base Excess mmol/L Sodium (135-145) mmol/L Potassium (3.3-5.1) mmol/L Chloride (96-108) mmol/L Carbon Dioxide (22-29) mmol/L Anion Gap (12-20) BUN (9-16) mg/dL Creatinine (0.5-1.4) mg/dL Estim Creat Clear Calc Estimated GFR POC Glucose 84 (60-115) mg/dL Random Glucose (60-115) mg/dL Lactic Acid (0.5-2.0) mmol/L Lactic Acid F/U @ 2Hr 3.8 H* (0.5-2.0) mmol/L Calcium (8.4-10.2) mg/dL Phosphorus (2.7-4.5) mg/dL Magnesium (1.6-2.6) mg/dL Total Bilirubin (0.0-1.0) mg/dL AST (5-31) U/L ALT (0-31) U/L Alkaline Phosphatase (39-117) U/L Total Protein (6.5-8.0) g/dL Albumin (3.5-5.0) g/dL TSH (0.32-4.0) uIU/mL Free T4 (0.71-1.85) ng/dL Urine Color Yellow Urine Appearance Cloudy Urine pH 6.5 (5.0-9.0) Ur Specific Darden 1.015 (1.005-1.025) Urine Protein 30 (1+) H (Neg-Trace) mg/dL Urine Glucose (UA) Negative (Negative) mg/dL Urine Ketones Negative (Negative) mg/dL Urine Blood Moderate (2+) H (Negative) Urine Nitrite Negative (Negative) Ur Leukocyte Esterase Large (3+) H (Negative) Urine RBC 11-20 H (0-2) /HPF Urine WBC >50 H (0-5) /HPF Ur Squamous Epith Cells 0-2 (0-2) /HPF Urine Bacteria 4+ (None Seen) Hyaline Casts 0-2 (0-2) /LPF Independent Interpretation I performed an independent interpretation of an: EKG Interpretation: Normal sinus rhythm heart rate 63 beats per minute poor progression of R-waves QTC prolonged to 568 milliseconds which has increased from previous EKG on 10/07 no acute ischemic changes Radiology Impression Discussion of test interpretation with radiology: I have reviewed the radiologist's reading. Radiologist Impression: [address] [address] XRay Report Signed Patient: Shira Nicholas MR#: [id number] : 1955 Acct:[id number] Age/Sex: 69 / F ADM Date: 10/13/24 Loc: .ED Attending Dr: Ordering Physician: Kwame Gee MD Date of Service: 10/13/24 Procedure(s): XR chest 1V Accession Number(s): [id number] cc: Scott Castle MD; Kwame Gee MD~ CLINICAL HISTORY: AMS 1 view chest x-ray Comparison: 10/01/2024 Findings: Persistent left basilar consolidation. Probable small underlying left pleural effusion. Aeration has improved somewhat since prior study. Right lung clear. Heart size normal. No acute bony abnormalities. Impression: Residual left basilar consolidation and pleural fluid Left base aeration has improved Critical Care Time Critical Care Time Critical Care Time: Yes Total Critical Care Time: 55 Attestation: The patient was critically ill with a high probability of imminent or life threatening deterioration. I spent greater than 60???minutes of discontinuous time evaluating the patient,delivering critical care at the bedside, discussing and evaluating pertinent data with consultants. Critical care time does not include time spent performing separately billable procedures or teaching. Total time spent performing critical care was 55minutes. Discharge Plan Discharge Clinical Impression: Hypoglycemia due to type 2 diabetes mellitus, Lactic acidosis, Chronic renal disease, stage 5, glomerular filtration rate (GFR) less than or equal to 15 mL/min/1.73 square meter, Prolonged QT interval UTI (urinary tract infection) Qualifiers: Urinary tract infection type: acute cystitis Hematuria presence: with hematuria Qualified Code(s): N30.01 - Acute cystitis with hematuria Patient Disposition: Admitted As Inpatient
[2024-10-13 19:06] LABS: Basophils Absolute Auto 0.1 X10*3/uL (0.0-0.2); Basophils Percent Auto 0.4 % (0-2); Eosinophils Percent Auto 0.3 % (0-4); Hematocrit 36.9 % (37.0-47.0); Hemoglobin 12.6 g/dl (12.0-16.0); Imm Gran Abs Auto 0.04 X10*3/uL (0.00-0.03); Imm Gran Pct Auto 0.3 % (0.0-0.4); Lymphocytes Absolute Auto 0.5 X10*3/uL (1.2-4.9); Lymphocytes Percent Auto 4.1 % (20-40); MANUAL DIFF FLAG SCAN; Mean Corpuscular HGB Conc 34.1 g/dl (31.0-35.0); Mean Corpuscular Hemoglobin 35.1 pg (27.0-33.0); Mean Corpuscular Volume 102.8 fL (80.0-98.0); Mean Platelet Volume 12.3 fL (9.4-12.3); Monocytes Absolute Auto 0.5 X10*3/uL (0.1-1.2); Monocytes Percent Auto 4.4 % (2-11); Neutrophils Absolute Auto 10.5 x10*3/uL (2.0-8.3); Neutrophils Percent Auto 90.5 % (45-73); Platelet Count 107 X10*3/uL (160-400); Red Blood Count 3.59 X10*6/uL (4.20-5.50); Red Cell Distribution Width 17.1 % (11.0-16.0); SCAN SMEAR FLAG 1; White Blood Count 11.6 X10*3/uL (4.8-10.8)
[2024-10-13 19:10] LABS: Venous Blood Gas Refer to POC result
[2024-10-13 19:11] LABS: VBG Base Excess 16.8 mmol/L; VBG HCO3 41 mmol/L (22-26); VBG pCO2 45 mmHg; VBG pH 7.56 (7.32-7.43); VBG pO2 34 mmHg
[2024-10-13 19:13] LABS: Glucose, Whole Blood 101 mg/dL (60-115)
[2024-10-13 19:13] LABS: Glucose, Whole Blood 38 mg/dL (60-115)
[2024-10-13 19:24] LABS: Alanine Aminotransferase 20 U/L (0-31); Albumin Level 2.8 g/dL (3.5-5.0); Alkaline Phosphatase 101 U/L (39-117); Anion Gap 20 (12-20); Aspartate Amino Transferase 33 U/L (5-31); Bilirubin Total 1.8 mg/dL (0.0-1.0); Calcium 8.7 mg/dL (8.4-10.2); Carbon Dioxide 33 mmol/L (22-29); Chloride 86 mmol/L (96-108); Creatinine Clr Calc Pharmacy 12.5; Estimated Glomerular Filt Rate 12; Glucose Random 141 mg/dL (60-115); Magnesium 1.9 mg/dL (1.6-2.6); Potassium 3.9 mmol/L (3.3-5.1); Sodium 135 mmol/L (135-145); Total Protein 5.4 g/dL (6.5-8.0)
[2024-10-13 19:28] LABS: Lactic Acid 2.8 mmol/L (0.5-2.0)
[2024-10-13 19:33] LABS: SLIDE REVIEW VERIFIED
[2024-10-13 19:36] LABS: Blood Urea Nitrogen 117 mg/dL (9-16)
--- NOTE | 2024-10-13 19:36 | PC.NURSE ---
[facility]. Per staff, pt POC was in the 30s- staff gave 1 tube glucose gel and 2 cups of orange juice, poc rechecked and found to be in the 50s. Per EMS, pt hypotensive- manual BPs 80s/60s. Upon arrival, pt a/ox3, speaking in full sentences, pt answering questions appropriately, respirations even and unlabored, no increased wob/sob noted, forehead O2 probe placed with good pleth- O2 sat mid 90s. Pt states she wears 2L NC at night, RA during the day. Rectal temp 98.8, BP soft 90s/60s MD Aware. Upon arrival, POC 30s. Per MD Pedraza, give amp D50, venous poc checked d/t cyanosis of hands/feet- poc 100s. 12.5gm d50 given- MD Aware and reflected in MAR. Per pt, cyanosis of hands/feet not baseline for patient- CMS intact. 20g IV placed in left AC by EMS, 22g IV placed in Right AC by CANDACE Schultz. EKG and labs obtained and sent to lab. Call chairez within reach, all needs met at this time.
[2024-10-13 19:43] LABS: TSH reflex Free T4 8.93 uIU/mL (0.32-4.0)
--- OUTSIDE RECORDS SUMMARY | 2024-10-13 20:06 | XMS_ITS | Encounter Summary ---
Author Organization [facility] [place] [address] Care Team Providers Care Barmaid Name Role Phone Mellisa Santana MD Primary Care Provi lucille Encounter Details Date Type Department Care Team (Late st Contact Info) Description 09/19/2024 Lab Requisition [facility] - Main Lab [address] [facility] [place] [address] Physician, Pcp Unknown Diarrhea, unspecified; Shortness of breath Social History Tobacco Use Types Packs/Day Years Used Date Smoking Tobacco: Never Smokeless Tobacco: Never Alcohol Use Standard Drinks/Week Comments Never 0 (1 standard drink = 0.6 oz pur e alcohol) Housing Instability Answer Date Recorde d Are you worried that in the next 2 months you may not have stable housing? Patient declined 09/08/2024 Food Access & Nutrition Answer Date Rec orded Do you have access to a vari ety of food including fruits and vegetables? Patient declined 09/08/2024 Access to Healthcare Answer Date Record ed Within the last 3 months, asif reich many times did you visit the emergency department for your medical care? 2 09/08/2024 Health Literacy Answer Date Recorded How often do you need to hav e someone help you when you read instructions, pamphlets, or other written material from your doctor or pharmacy? Patient declined 09/08/2024 Caregiver: How often do you need to have someone help you when you read instructions, pamphlets, or other written material from your doctor or pharmacy? Not on file 025 Financial Risk Answer Date Recorded How hard is it for you to pa y for the very basics like food, housing, medical care, and air conditioning / heating? Patient declined 09/08/2024 Transportation Answer Date Recorded Has the lack of transportati on kept you from meetings, work, or from getting things needed for daily living? Patient declined 09/08/2024 Has the lack of transportati on kept you from medical appointments or from getting medications? Patient declined 09/08/2024 Social Isolation Answer Date Recorded How often do you feel lonely or isolated from those around you? Patient declined 09/08/2024 Food Risk Answer Date Recorded Within the past 12 months we worried whether our food would run out before we got money to buy more. Patient declined 025 Within the past 12 months th e food we bought just didn't last and we didn't have money to get more. Patient declined 07/2024 Dependent Care Answer Date Recorded Do you need help finding or paying for care for your loved ones. For example, children's entertainer or elderly care for an older adult? Patient declined 09/08/2024 Education Answer Date Recorded Do you think completing more education or training, like finishing a GED, going to college, or learning a trade, would be helpful for you? Patient declined 09/08/2024 Employment and Income Answer Date Recor ded During the last four weeks, have you been actively looking for work? Patient declined 09/08/2024 Living Situation Answer Date Recorded What is your living situation? 0 09/08/2024 Interpersonal Safety Answer Date Record ed Physical Abuse 09/08/2024 Verbal Abuse 09/08/2024 Comments No Sex and Gender Information Value Date Recorded Sex Assigned at Female 06/22/2024 1:24 PM EST Legal Sex Female 8:10 PM EST Gender Identity Female 06/22/2024 1:24 PM EST Sexual Orientation Straight 06/22/2024 1: 24 PM EST documented as of this encounter Functional Status * Are you deaf or do you have serious difficulty hearing? Answer Date of Assessment Author No 07/19/2024 5:57 PM EST Blount RN * Are you blind or do you have serious difficulty seeing, even when wearing glasses? Answer Date of Assessment Author No 07/19/2024 5:57 PM Espino RN * Do you have serious difficulty walking or climbing stairs? Answer Date of Assessment Author No 07/19/2024 5:57 PM Espino RN * Do you have serious difficulty dressing or bathing? Answer Date of Assessment Author No 07/19/2024 5:57 PM Espino RN * Because of a physical, mental, or emotional condition, do you have serious difficulty doing errandsalone such as visiting the doctor? Answer Date of Assessment Author No 07/19/2024 5:57 PM Espino RN documented as of this encounter Mental Status * Because of a physical, mental, or emotional condition, do you have serious difficulty concentrating, remembering, or making decisions? (5 years old or older) Answer Entry Date Author No 07/19/2024 5:57 PM Espino RN documented in this encounter Plan of Treatment Upcoming Encounters Date Type Department Care Team (Late st Contact Info) Description 10/25/2024 11:10 AM EDT Office Visit [facility] [address] [facility] [address] [place] [address] Kathrin Cardona PA [address] [facility] [address] [place] [address] 12/06/2024 8:30 AM EDT Consult Orthopedic Surgery - [place] [address] [address] Shravan Pa DPM [address] [address] documented as of this encounter Procedures Procedure Name Priority Date/Time Associated Diagnosis Comments [id number], RSV, FLU A AND B QUALITATIVE RT-PCR, LOCAL REFERENCE LAB Routine 09/19/2024 2:30 PM EDT Diarrhea, unspecified Shortness of breath documented in this encounter Results * [id number], RSV, Influenza A and B qualitative RT-PCR (09/19/2024 2:30 PM EDT) SARS COV-2 Not Detected Not Detected LAB MOLECULAR DIAGNOSTICS METHOD 09/20/2024 9:36 AM EDT [facility] Comment: Disclaimer: The manner in which this information is used to guide patient care is the responsibility of the healthcare provider. Testing was performed using the charming charlie Al[employer] m SARS-CoV-2 test. This test has been authorized by FDA under an Emergency Use Authorization (EUA). This test is only authorized for the duration of time the declaration that circumstances exist justifying the authorization of the emergency use of in vitro diagnostic tests for detection of SARS-CoV-2 virus and/or diagnosis of COVID-19 infection under section 564(b)(1) of the Act, 21 U.S.C. 360bbb- 3(b)(1), unless the authorization is terminated or revoked sooner. Fact sheet for Healthcare Providers can be found at: https://www.fda.gov/media/753881/download Fact sheet for Patients can be found at: https://www.fda.gov/media/617166/download Influenza A PCR Not Detected Not Detected LAB MOLECULAR DIAGNOSTICS METHOD 09/20/2024 9:36 AM EDT [facility] Influenza B PCR Not Detected Not Detected LAB MOLECULAR DIAGNOSTICS METHOD 09/20/2024 9:36 AM EDT [facility] RSV PCR Not Detected Not Detected LAB MOLECULAR DIAGNOSTICS METHOD 09/20/2024 9:36 AM EDT [facility] Swab Nasopharyngeal structure / Unknown 09/19/2024 2:30 PM EDT 09/19/2024 4:22 PM EDT us Pcp Unknown Physician LAB MICROBIOLOGY - GENERAL ORDERABLES Final Result [facility] [address] [place] [address], documented in this encounter Visit Diagnoses Diagnosis Diarrhea, unspecified Shortness of breath documented in this encounter Additional Health Concerns Infection Onset Date Last Indicated Resolved Time Respiratory Rule-Out 09/19/2024 09/19/2024 025 9:36 AM EDT documented as of this encounter Care Teams Barmaid Relationship Specialty Start Date End Date Mellisa Santana MD [address] [place], [place] PCP - General 10/06/22 documented as of this encounter
--- OUTSIDE RECORDS SUMMARY | 2024-10-13 20:06 | XMS_ITS | Encounter Summary ---
Author Organization [facility] Address [address] [place] [address] Care Team Providers Care Ticketer Name Role Phone Mellisa Santana MD Primary Care Provi lucille Encounter Details Date Type Department Care Team (Late st Contact Info) Description 09/29/2024 Lab Requisition [facility] - Main Lab 299 [facility] [place] [address] Obdulia Moreira MD [address] [place] [id number] Essential (primary) hypertension Social History Tobacco Use Types Packs/Day Years [...] ed Within the last 3 months, asif w many times did you visit the emergency [...] care for your loved ones. For example, child care leader or elderly care for an older adult? [...] No 07/19/2024 5:57 PM Espino RN * Are you blind or do [...] of Assessment Author No 07/19/2024 5:57 PM sEpino RN documented as of this encounter Mental [...] Description 10/25/2024 11:10 AM EDT Office Visit [facility] - [facility] 154 300 [facility] 154 [place] [address] Kathrin Cardona PA 300 [facility] 154 [place] [address] 12/06/2024 8:30 AM EDT Consult Orthopedic Surgery - [place] 250 175 [facility] 250 [place] [address] Shravan Pa DPM [address] [address] documented as of this encounter Procedures Procedure Name Priority Date/Time Associated Diagnosis Comments COMPLETE BLOOD COUNT Routine 10/01/2024 9:08 AM EDT Essential (primary) hypertension COMPREHENSIVE METABOLIC PANEL Routine 10/01/2024 9:08 AM EDT Essential (primary) hypertension documented in this encounter Results * (ABNORMAL) Comprehensive metabolic panel (10/01/2024 9:08 AM EDT) Sodium 132(L) 133 - 145 mmol/L LAB CHEMISTRY METHOD 10/01/2024 12:50 PM [facility] Potassium 4.3 3.5 - 5.5 mmol/L LAB CHEMISTRY METHOD 10/01/2024 12:50 PM [facility] Chloride 94(L) 96 - 110 mmol/L LAB CHEMISTRY METHOD 10/01/2024 12:50 PM [facility] CO2 26 21 - 32 mmol/L LAB CHEMISTRY METHOD 10/01/2024 12:50 PM [facility] Anion Gap 12(H) 3 - 11 LAB CHEMISTRY METHOD 10/01/2024 12:50 PM [facility] Glucose 135(H) 70 - 100 mg/dL LAB CHEMISTRY METHOD 10/01/2024 12:50 PM [facility] BUN 97(H) 5 - 25 mg/dL LAB CHEMISTRY METHOD 10/01/2024 12:50 PM [facility] Creatinine 4.20(H) 0.50 - 1.10 mg/dL LAB CHEMISTRY METHOD 10/01/2024 12:50 PM [facility] eGFR 11(L) >=60 mL/min/1. 73m2 LAB CHEMISTRY METHOD 10/01/2024 12:50 PM [facility] Comment:Calculation based on the??Chronic Kidney Disease Epidemiology Collaboration (CKD-EPI) equation refit??without adjustment for race. BUN/Creatinine Ratio 23.1 LAB CHEMISTRY METHOD 10/01/2024 12:50 PM [facility] Calcium 9.5 8.5 - 10.5 mg/dL LAB CHEMISTRY METHOD 10/01/2024 12:50 PM [facility] AST (SGOT) 30 10 - 42 unit/L LAB CHEMISTRY METHOD 10/01/2024 12:[address] [facility] ALT (SGPT) 32 10 - 60 unit/L LAB CHEMISTRY METHOD 10/01/2024 12:[address] [facility] Alkaline Phosphatase 133(H) 42 - 121 unit/L LAB CHEMISTRY METHOD 10/01/2024 12:[address] [facility] Total Protein 5.8(L) 6.0 - 8.0 g/dL LAB CHEMISTRY METHOD 10/01/2024 12:[address] [facility] Albumin 2.8(L) 3.2 - 5.0 g/dL LAB CHEMISTRY METHOD 10/01/2024 12:[address] [facility] Total Bilirubin 1.3 0.0 - 1.4 mg/dL LAB CHEMISTRY METHOD 10/01/2024 12:[address] [facility] Blood Venous blood specimen / Unknown Venipuncture / Unknown 10/01/2024 9:08 AM EDT 10/01/2024 11:04 AM EDT us Obdulia Moreira MD LAB BLOOD ORDERABLES Fin al Result [facility] 299 [place] [address], * (ABNORMAL) Complete blood count (10/01/2024 9:08 AM EDT) WBC 4.6(L) 4.8 - 10.8 K/mcL LAB HEMETOLOGY METHOD 10/01/2024 11:[address] [facility] RBC 3.90 3.80 - 4.80 M/mcL LAB HEMETOLOGY METHOD 10/01/2024 11:[address] [facility] Hemoglobin 13.9 11.5 - 16.0 g/dL LAB HEMETOLOGY METHOD 10/01/2024 11:[address] [facility] Hematocrit 41.0 35.0 - 47.0 % LAB HEMETOLOGY METHOD 10/01/2024 11:[address] [facility] MCV 104.3(H) 79.0 - 98.0 FL LAB HEMETOLOGY METHOD 10/01/2024 11:[address] [facility] MCH 35.4(H) 27.0 - 32.0 pcg LAB HEMETOLOGY METHOD 10/01/2024 11:[address] [facility] MCHC 33.9 32.0 - 37.0 g/dL LAB HEMETOLOGY METHOD [facility] RDW 16.8(H) 11.0 - 15.0 % LAB HEMETOLOGY METHOD 10/[facility]/2024 [facility] Platelets 134 130 - 400 K/mcL LAB HEMETOLOGY METHOD 10/01/2024 11:59 AM [facility] MPV 11.2(H) 7.0 - 11.0 FL LAB HEMETOLOGY METHOD 10/01/2024 11[facility] NRBC 0.0 <1.0 % LAB HEMETOLOGY METHOD 10/01/2024 11:[address] [facility] NRBC Absolute 0.00 <0.10 K/mcL LAB HEMETOLOGY METHOD 10/01/2024 11:59 AM [facility] Blood Venous blood specimen / Unknown Venipuncture / Unknown 10/01/2024 9:08 AM EDT 10/01/2024 11:04 AM EDT us Obdulia Moreira MD LAB BLOOD ORDERABLES Fin al Result [facility] 299 [place] [address], documented in this encounter Visit Diagnoses Diagnosis Essential (primary) hypertension Unspecified essential hypertension documented in this encounter Care Teams Ticketer Relationship Specialty Start Date End Date Mellisa Santana MD 238 [place], [place] PCP - General 10/06/22 documented as of this encounter
--- OUTSIDE RECORDS SUMMARY | 2024-10-13 20:06 | XMS_ITS | Encounter Summary ---
Author Organization [facility] Address [address] [place] [address] Care Team Providers Care Bricklayer Tender Name Role Phone Mellisa Santana MD Primary Care Provi lucille Encounter Details Date Type Department Care Team (Late st Contact Info) Description 09/16/2024 Lab Requisition [facility] - Main Lab 299 [facility] [place] [address] Obdulia Moreira MD [address] [place] [phone] Essential (primary) hypertension Social History Tobacco Use [...] for your loved ones. For example, child nutrition manager or elderly care for an older adult? [...] 10/25/2024 11:10 AM EDT Office Visit [facility] - [facility] 154 300 [facility] 154 [place] [address] Kathrin Cardona PA 300 [facility] 154 [place] [address] 12/06/2024 8:30 AM EDT Consult Orthopedic Surgery - [place] 250 175 [facility] 250 [place] [phone] Shravan Pa DPM 175 [facility] 250 [place] [address] documented as of this encounter Procedures Procedure Name Priority Date/Time Associated Diagnosis Comments COMPLETE BLOOD COUNT Routine 09/17/2024 8:25 AM EDT Essential (primary) hypertension COMPREHENSIVE METABOLIC PANEL Routine 09/17/2024 8:25 AM EDT Essential (primary) hypertension documented in this encounter Results * (ABNORMAL) Comprehensive metabolic panel (09/17/2024 8:25 AM EDT) Sodium 135 133 - 145 mmol/L LAB CHEMISTRY METHOD 09/17/2024 11:32 AM [facility] Potassium 4.1 3.5 - 5.5 mmol/L LAB CHEMISTRY METHOD 09/17/2024 11:32 AM [facility] Chloride 97 96 - 110 mmol/L LAB CHEMISTRY METHOD 09/17/2024 11:32 AM [facility] CO2 27 21 - 32 mmol/L LAB CHEMISTRY METHOD 09/17/2024 11:32 AM [facility] Anion Gap 11 3 - 11 LAB CHEMISTRY METHOD 09/17/2024 11:32 AM [facility] Glucose 185(H) 70 - 100 mg/dL LAB CHEMISTRY METHOD 09/17/2024 11:32 AM [facility] BUN 61(H) 5 - 25 mg/dL LAB CHEMISTRY METHOD 09/17/2024 11:32 AM [facility] Creatinine 2.29(H) 0.50 - 1.10 mg/dL LAB CHEMISTRY METHOD 09/17/2024 11:32 AM [facility] eGFR 22(L) >=60 mL/min/1. 73m2 LAB CHEMISTRY METHOD 09/17/2024 11:32 AM [facility] Comment:Calculation based on the??Chronic Kidney Disease Epidemiology Collaboration (CKD-EPI) equation refit??without adjustment for race. BUN/Creatinine Ratio 26.6 LAB CHEMISTRY METHOD 09/17/2024 11:32 AM [facility] Calcium 8.3(L) 8.5 - 10.5 mg/dL LAB CHEMISTRY METHOD 09/17/2024 11:32 AM [facility] AST (SGOT) 25 10 - 42 unit/L LAB CHEMISTRY METHOD 09/17/2024 11:32 AM EDT [facility] ALT (SGPT) 37 10 - 60 unit/L LAB CHEMISTRY METHOD 09/17/2024 11:32 AM EDT [facility] Alkaline Phosphatase 108 42 - 121 unit/L LAB CHEMISTRY METHOD 09/17/2024 11:32 AM EDT [facility] Total Protein 5.9(L) 6.0 - 8.0 g/dL LAB CHEMISTRY METHOD 09/17/2024 11:32 AM EDT [facility] Albumin 3.0(L) 3.2 - 5.0 g/dL LAB CHEMISTRY METHOD 09/17/2024 11:32 AM [facility] Total Bilirubin 1.2 0.0 - 1.4 mg/dL LAB CHEMISTRY METHOD 09/17/2024 11:32 AM T [facility] Blood Venous blood specimen / Unknown Venipuncture / Unknown 09/17/2024 8:25 AM EDT 09/17/2024 10:41 AM EDT us Obdulia Moreira MD LAB BLOOD ORDERABLES Fin al Result [facility] 299 [place] [address], * (ABNORMAL) Complete blood count (09/17/2024 8:25 AM EDT) [facility] WBC 5.0 4.8 - 10.8 K/mcL LAB HEMETOLOGY METHOD 09/17/2024 11:24 AM EDT [facility] RBC 3.80 3.80 - 4.80 M/mcL LAB HEMETOLOGY METHOD 09/17/2024 11:24 AM EDT [facility] Hemoglobin 13.2 11.5 - 16.0 g/dL LAB HEMETOLOGY METHOD 09/17/2024 11:24 AM EDT [facility] Hematocrit 41.1 35.0 - 47.0 % LAB HEMETOLOGY METHOD 09/17/2024 11:24 AM EDT [facility] MCV 109.6(H) 79.0 - 98.0 FL LAB HEMETOLOGY METHOD 09/17/2024 11:24 AM EDT [facility] MCH 35.2(H) 27.0 - 32.0 pcg LAB HEMETOLOGY METHOD 09/17/2024 11:24 AM EDT [facility] MCHC 32.1 32.0 - 37.0 g/dL LAB HEMETOLOGY METHOD 09/17/2024 11:24 AM EDT [facility] RDW 17.5(H) 11.0 - 15.0 % LAB HEMETOLOGY METHOD 09/17/2024 11:24 AM [facility] Platelets 141 130 - 400 K/mcL LAB HEMETOLOGY METHOD 09/17/2024 11:24 AM EDT [facility] MPV 11.0 7.0 - 11.0 FL LAB HEMETOLOGY METHOD 09/17/2024 11:24 AM [facility] NRBC 0.0 <1.0 % LAB HEMETOLOGY METHOD 09/17/2024 11:24 AM [facility] NRBC Absolute 0.00 <0.10 K/mcL LAB HEMETOLOGY METHOD 09/17/2024 11:24 AM [facility] Blood Venous blood specimen / Unknown Venipuncture / Unknown 09/17/2024 8:25 AM EDT 09/17/2024 10:41 AM EDT us Obdulia Moreira MD LAB BLOOD ORDERABLES Fin al Result [facility] 299 [place], [place] [address] [phone] documented in this encounter Visit Diagnoses Diagnosis Essential (primary) hypertension Unspecified essential hypertension documented in this encounter Additional Health Concerns Infection Onset Date Last Indicated Resolved Time Respiratory Rule-Out 09/19/2024 09/19/2024 025 9:36 AM EDT documented as of this encounter Care Teams Bricklayer Tender Relationship Specialty Start Date End Date Mellisa Santana MD 238 [place], [place] PCP - General 10/06/22 documented as of this encounter
--- OUTSIDE RECORDS SUMMARY | 2024-10-13 20:06 | XMS_ITS | Encounter Summary ---
Author Organization [facility] Address [address] [place] [address] Care Team Providers Care Puttier Name Role Phone Mellisa Santana MD Primary Care Provi lucille Encounter Details Date Type Department Care Team (Late st Contact Info) Description 09/22/2024 Lab Requisition [facility] - Main Lab 299 [facility] [place] [address] Obdulia Moreira MD [address] [place] [phone] Essential (primary) hypertension Social History Tobacco Use [...] for your loved ones. For example, child support specialist or elderly care for an older adult? [...] Description 10/25/2024 11:10 AM EDT Office Visit [facility] - [facility] 154 300 [facility] 154 [place] [address] Kathrin Cardona PA 300 [facility] 154 [place] [address] 12/06/2024 8:30 AM EDT Consult Orthopedic Surgery - [place] 250 175 [facility] 250 [place] [phone] Shravan Pa DPM 175 [facility] 250 [place] [address] documented as of this encounter Procedures Procedure Name Priority Date/Time Associated Diagnosis Comments COMPLETE BLOOD COUNT Routine 09/24/2024 8:41 AM EDT Essential (primary) hypertension COMPREHENSIVE METABOLIC PANEL Routine 09/24/2024 8:41 AM EDT Essential (primary) hypertension documented in this encounter Results * (ABNORMAL) Comprehensive metabolic panel (09/24/2024 8:41 AM EDT) Sodium 135 133 - 145 mmol/L LAB CHEMISTRY METHOD 09/24/2024 11:52 AM [facility] Potassium 4.7 3.5 - 5.5 mmol/L LAB CHEMISTRY METHOD 09/24/2024 11:52 AM [facility] Chloride 96 96 - 110 mmol/L LAB CHEMISTRY METHOD 09/24/2024 11:52 AM [facility] CO2 27 21 - 32 mmol/L LAB CHEMISTRY METHOD 09/24/2024 11:52 AM [facility] Anion Gap 12(H) 3 - 11 LAB CHEMISTRY METHOD 09/24/2024 11:52 AM [facility] Glucose 103(H) 70 - 100 mg/dL LAB CHEMISTRY METHOD 09/24/2024 11:52 AM [facility] BUN 85(H) 5 - 25 mg/dL LAB CHEMISTRY METHOD 09/24/2024 11:52 AM [facility] Creatinine 3.40(H) 0.50 - 1.10 mg/dL LAB CHEMISTRY METHOD 09/24/2024 11:52 AM [facility] eGFR 14(L) >=60 mL/min/1. 73m2 LAB CHEMISTRY METHOD 09/24/2024 11:52 AM [facility] Comment:Calculation based on the??Chronic Kidney Disease Epidemiology Collaboration (CKD-EPI) equation refit??without adjustment for race. BUN/Creatinine Ratio 25.0 LAB CHEMISTRY METHOD 09/24/2024 11:52 AM [facility] Calcium 9.2 8.5 - 10.5 mg/dL LAB CHEMISTRY METHOD 09/24/2024 11:52 AM [facility] AST (SGOT) 27 10 - 42 unit/L LAB CHEMISTRY METHOD 09/24/2024 11:52 AM EDT [facility] ALT (SGPT) 34 10 - 60 unit/L LAB CHEMISTRY METHOD 09/24/2024 11:52 AM EDT [facility] Alkaline Phosphatase 132(H) 42 - 121 unit/L LAB CHEMISTRY METHOD 09/24/2024 11:52 AM EDT [facility] Total Protein 6.0 6.0 - 8.0 g/dL LAB CHEMISTRY METHOD 09/24/2024 11:52 AM EDT [facility] Albumin 3.0(L) 3.2 - 5.0 g/dL LAB CHEMISTRY METHOD 09/24/2024 11:52 AM [facility] Total Bilirubin 1.4 0.0 - 1.4 mg/dL LAB CHEMISTRY METHOD 09/24/2024 11:52 AM T [facility] Blood Venous blood specimen / Unknown Venipuncture / Unknown 09/24/2024 8:41 AM EDT 09/24/2024 10:54 AM EDT us Obdulia Moreira MD LAB BLOOD ORDERABLES Fin al Result [facility] 299 [place] [address], * (ABNORMAL) Complete blood count (09/24/2024 8:41 AM EDT) WBC 5.1 4.8 - 10.8 K/[facility] LAB HEMETOLOGY METHOD 09/24/2024 11:34 AM EDT [facility] RBC 4.00 3.80 - 4.80 M/mcL LAB HEMETOLOGY METHOD 09/24/2024 11:34 AM EDT [facility] Hemoglobin 13.9 11.5 - 16.0 g/dL LAB HEMETOLOGY METHOD 09/24/2024 11:34 AM EDT [facility] Hematocrit 42.6 35.0 - 47.0 % LAB HEMETOLOGY METHOD 09/24/2024 11:34 AM EDT [facility] MCV 107.6(H) 79.0 - 98.0 FL LAB HEMETOLOGY METHOD 09/24/2024 11:34 AM EDT [facility] MCH 35.1(H) 27.0 - 32.0 pcg LAB HEMETOLOGY METHOD 09/24/2024 11:34 AM EDT [facility] MCHC 32.6 32.0 - 37.0 g/dL LAB HEMETOLOGY METHOD 09/24/2024 11:34 AM EDT [facility] RDW 17.2(H) 11.0 - 15.0 % LAB HEMETOLOGY METHOD 09/24/2024 11:34 AM EDT [facility] Platelets 137 130 - 400 K/mcL LAB HEMETOLOGY METHOD 09/24/2024 11:34 AM EDT [facility] MPV 10.9 7.0 - 11.0 FL LAB HEMETOLOGY METHOD 09/24/2024 11:34 AM EDT [facility] NRBC 0.6 <1.0 % LAB HEMETOLOGY METHOD 09/24/2024 11:34 AM T [facility] NRBC Absolute 0.03 <0.10 K/mcL LAB HEMETOLOGY METHOD 09/24/2024 11:34 AM T [facility] Blood Venous blood specimen / Unknown Venipuncture / Unknown 09/24/2024 8:41 AM EDT 09/24/2024 10:54 AM EDT us Obdulia Moreira MD LAB BLOOD ORDERABLES Fin al Result [facility] [address] [place], [place] [address] [phone] documented in this encounter Visit Diagnoses Diagnosis Essential (primary) hypertension Unspecified essential hypertension documented in this encounter Care Teams Puttier Relationship Specialty Start Date End Date Melilsa Santana MD [address] [place] [address] PCP - General 10/06/22 documented as of this encounter
--- OUTSIDE RECORDS SUMMARY | 2024-10-13 20:06 | XMS_ITS | Encounter Summary ---
Author Organization [facility] Address [address] [place] [address] Phone Care Team Providers Care Mobile Qa Tester Name Role Phone Scott Santana MD Primary Care Prov ider Reason for Visit * Reason Onset Date Comments RX refill Amlodipine 05/31/2022 Encounter Details Date Type Department Care Team (Late st Contact Info) Description 05/31/2022 Telephone [facility] [address] [place] [address] S[facility] Valdez RX refill Amlodipine Social History Tobacco Use Types Packs/Day Years Used Date Smoking Tobacco: Never Alcohol Use Standard Drinks/Week Comments No 0 (1 standard drink = 0.6 oz pur e alcohol) Comments Unknown Sex and Gender Information Value Date Recorded Sex Assigned at Not on file Legal Sex Female 4:43 PM EST Gender Identity Not on file Sexual Orientation Not on file documented as of this encounter Miscellaneous Notes * Telephone Encounter - Sinai Valdez - 05/31/2022 9:40 AM EST Pt called needing a refill on her Amlodipine. documented in this encounter Plan of Treatment Not on file documented as of this encounter Visit Diagnoses Not on filedocumented in this encounter Care Teams Mobile Qa Tester Relationship Specialty Start Date End Date Scott Santana MD [address] [place] [phone] PCP - General 05/15/19 documented as of this encounter
--- OUTSIDE RECORDS SUMMARY | 2024-10-13 20:06 | XMS_ITS | Encounter Summary ---
Author Organization [facility] Address [address] [place] [address] Care Team Providers Care Extract Wringer Name Role Phone Mellisa Santana MD Primary Care Provi lucille Encounter Details Date Type Department Care Team (Late st Contact Info) Description 09/12/2024 Lab Requisition [facility] - Main Lab [address] [facility] [place] [address] Obdulia Moreira MD [address] [address] Essential (primary) hypertension; Type 2 diabetes mellitus without complications (CMS/HCC) Social History Tobacco Use Types Packs/Day Years [...] Record ed Within the last 3 months, ho w many times did you visit the [...] your loved ones. For example, child care provider or elderly care for an older adult? [...] Description 10/25/2024 11:10 AM EDT Office Visit [facility] 154 [address] [facility] 154 [place] [address] Kathrin Cardona PA [address] [facility] [address] [place] [address] 12/06/2024 8:30 AM EDT Consult Orthopedic Surgery - [place] 250 175 [facility] 250 [place] [address] Shravan Pa DPM [address] [address] documented as of this encounter Procedures Procedure Name Priority Date/Time Associated Diagnosis Comments COMPLETE BLOOD COUNT Routine 09/12/2024 5:00 AM EST Essential (primary) hypertension Type 2 diabetes mellitus without complications (CMS/FORMERLY [facility]) THYROID STIMULATING HORMONE Routine 09/12/2024 5:00 AM EST Essential (primary) hypertension Type 2 diabetes mellitus without complications (CMS/HCC) HEMOGLOBIN A1C Routine 09/12/2024 5:00 AM EST Essential (primary) hypertension Type 2 diabetes mellitus without complications (CMS/HCC) COMPREHENSIVE METABOLIC PANEL Routine 09/12/2024 5:00 AM EST Essential (primary) hypertension Type 2 diabetes mellitus without complications (CMS/HCC) documented in this encounter Results * (ABNORMAL) Thyroid stimulating hormone (09/12/2024 5:00 AM EST) TSH 8.90(H) 0.40 - 4.00 mcIU/mL LAB CHEMISTRY METHOD 09/12/2024 2:55 PM EST [facility] Blood Venous blood specimen / Unknown Venipuncture / Unknown 09/12/2024 5:00 AM EST 09/12/2024 10:16 AM EST Obdulia Moreira MD LAB BLOOD ORDERABLES Fin al Result [facility] [address] [place] [address], * (ABNORMAL) Hemoglobin A1c (09/12/2024 5:00 AM EST) Hemoglobin A1C 7.6(H) <6.5 % LAB CHEMISTRY METHOD 09/12/2024 2:11 PM EST [facility] Mean Bld Glu Estim. 171 mg/dL LAB CHEMISTRY METHOD 09/12/2024 2:11 PM EST [facility] Blood Venous blood specimen / Unknown Venipuncture / Unknown 09/12/2024 5:00 AM EST 09/12/2024 10:16 AM EST Obdulia Moreira MD LAB BLOOD ORDERABLES Fin al Result [facility] [address] [place] [address], * (ABNORMAL) Comprehensive metabolic panel (09/12/2024 5:00 AM EST) Sodium 139 133 - 145 mmol/L LAB CHEMISTRY METHOD 09/12/2024 2:47 PM EST [facility] Potassium 4.0 3.5 - 5.5 mmol/L LAB CHEMISTRY METHOD 09/12/2024 2:47 PM [facility] Chloride 99 96 - 110 mmol/L LAB CHEMISTRY METHOD 09/12/2024 2:47 PM [facility] CO2 31 21 - 32 mmol/L LAB CHEMISTRY METHOD 09/12/2024 2:47 PM [facility] Anion Gap 9 3 - 11 LAB CHEMISTRY METHOD 09/12/2024 2:47 PM [facility] Glucose 110(H) 70 - 100 mg/dL LAB CHEMISTRY METHOD 09/12/2024 2:47 PM [facility] BUN 50(H) 5 - 25 mg/dL LAB CHEMISTRY METHOD 09/12/2024 2:47 PM [facility] Creatinine 2.38(H) 0.50 - 1.10 mg/dL LAB CHEMISTRY METHOD 09/12/2024 2:47 PM [facility] eGFR 21(L) >=60 mL/min/1. 73m2 LAB CHEMISTRY METHOD 09/12/2024 2:47 PM [facility] Comment:Calculation based on the??Chronic Kidney Disease Epidemiology Collaboration (CKD-EPI) equation refit??without adjustment for race. BUN/Creatinine Ratio 21.0 LAB CHEMISTRY METHOD 09/12/2024 2:47 PM [facility] Calcium 9.1 8.5 - 10.5 mg/dL LAB CHEMISTRY METHOD 09/12/2024 2:47 PM [facility] AST (SGOT) 38 10 - 42 unit/L LAB CHEMISTRY METHOD 09/12/2024 2:47 PM [facility] ALT (SGPT) 34 10 - 60 unit/L LAB CHEMISTRY METHOD 09/12/2024 2:47 PM [facility] Alkaline Phosphatase 132(H) 42 - 121 unit/L LAB CHEMISTRY METHOD 09/12/2024 2:47 PM [facility] Total Protein 6.2 6.0 - 8.0 g/dL LAB CHEMISTRY METHOD 09/12/2024 2:47 PM [facility] Albumin 3.0(L) 3.2 - 5.0 g/dL LAB CHEMISTRY METHOD 09/12/2024 2:47 PM [facility] Total Bilirubin 1.3 0.0 - 1.4 mg/dL LAB CHEMISTRY METHOD 09/12/2024 2:47 PM [facility] Blood Venous blood specimen / Unknown Venipuncture / Unknown 09/12/2024 5:00 AM EST 09/12/2024 10:16 AM EST us Obdulia Moreira MD LAB BLOOD ORDERABLES Fin al Result [facility] [address] [place] [address], * (ABNORMAL) Complete blood count (09/12/2024 5:00 AM EST) WBC 5.4 4.8 - 10.8 K/mcL LAB HEMETOLOGY METHOD 09/12/2024 11:27 AM [facility] RBC 4.00 3.80 - 4.80 M/mcL LAB HEMETOLOGY METHOD 09/12/2024 11:27 AM [facility] Hemoglobin 14.0 11.5 - 16.0 g/dL LAB HEMETOLOGY METHOD 09/12/2024 11:27 AM [facility] Hematocrit 43.0 35.0 - 47.0 % LAB HEMETOLOGY METHOD 09/12/2024 11:27 AM [facility] MCV 108.6(H) 79.0 - 98.0 FL LAB HEMETOLOGY METHOD 09/12/2024 11:27 AM [facility] MCH 35.4(H) 27.0 - 32.0 pcg LAB HEMETOLOGY METHOD 09/12/2024 11:27 AM [facility] MCHC 32.6 32.0 - 37.0 g/dL LAB HEMETOLOGY METHOD 09/12/2024 11:27 AM [facility] RDW 17.8(H) 11.0 - 15.0 % LAB HEMETOLOGY METHOD 09/12/2024 11:27 AM [facility] Platelets 111(L) 130 - 400 K/mcL LAB HEMETOLOGY METHOD 09/12/2024 11:27 AM [facility] MPV 11.1(H) 7.0 - 11.0 FL LAB HEMETOLOGY METHOD 09/12/2024 11:27 AM [facility] NRBC 0.0 <1.0 % LAB HEMETOLOGY METHOD 09/12/2024 11:27 AM [facility] NRBC Absolute 0.00 <0.10 K/mcL LAB HEMETOLOGY METHOD 09/12/2024 11:27 AM [facility] Blood Venous blood specimen / Unknown Venipuncture / Unknown 09/12/2024 5:00 AM EST 09/12/2024 10:16 AM EST us Obdulia Moreira MD LAB BLOOD ORDERABLES Fin al Result [facility] [address] [place] [address], documented in this encounter Visit Diagnoses Diagnosis Essential (primary) hypertension Unspecified essential hypertension Type 2 diabetes mellitus without complications documented in this encounter Additional Health Concerns Infection Onset Date Last Indicated Resolved Time Respiratory Rule-Out 09/19/2024 09/19/2024 025 9:36 AM EDT documented as of this encounter Care Teams Extract Wringer Relationship Specialty Start Date End Date Mellisa Santana MD [address] [place], [place] PCP - General 10/06/22 documented as of this encounter
--- OUTSIDE RECORDS SUMMARY | 2024-10-13 20:06 | XMS_ITS | Encounter Summary ---
Author Organization [facility] [place] [address] Care Team Providers Care Insulation Mechanic Name Role Phone Mellisa Santana MD Primary Care Provi lucille Reason for Visit * Reason Onset Date Comments Medical Records 10/02/2024 Encounter Details Date Type Department Care Team (Late st Contact Info) Description 10/02/2024 Telephone [facility] [address] [facility] [address] [place] [address] Mellisa Santnaa MD [address] [place], [place] Medical Records Social History Tobacco Use Types Packs/Day Years [...] for your loved ones. For example, children's attendant or elderly care for an older adult? [...] PM Espino RN documented in this encounter Progress Notes * Nancy Schwarz - 10/12/2024 1:34 PM EDT Faxed 09/06/2024 Office Note to [facility] Lab Att: Sabina at [phone] on 10/02/2024 documented in this encounter Plan of Treatment Upcoming Encounters Date Type Department Care Team (Late st Contact Info) Description 10/25/2024 11:10 AM EDT Office Visit [facility] - [facility] [address] [facility] 154 [place] [phone] Kathrin Cardona PA [address] [place] [address] 12/06/2024 8:30 AM EDT Consult Orthopedic Surgery - [place] 250 175 [facility] 250 [place] [phone] Shravan Pa, DPBrad 175 [facility] [address] [place] [address] documented as of this encounter Visit Diagnoses Not on filedocumented in this encounter Care Teams Insulation Mechanic Relationship Specialty Start Date End Date Mellisa Santana MD [address] [place], [place] PCP - General 10/06/22 documented as of this encounter
--- OUTSIDE RECORDS SUMMARY | 2024-10-13 20:07 | XMS_ITS | Encounter Summary ---
Author Organization [facility] [place] [address] Care Team Providers Care Design Engineer Products Name Role Phone Mellisa Santana MD Primary Care Provi lucille Reason for Visit * Reason Onset Date Comments Medical Records 10/03/2024 Encounter Details Date Type Department Care Team (Late st Contact Info) Description 10/03/2024 Telephone [facility] [address] [facility] [address] [place] [address] Mellisa Santana MD [address] [place], [place] Medical Records Social History Tobacco Use [...] for your loved ones. For example, child and family services specialist or elderly care for an older [...] Progress Notes * Nancy Schwarz - 10/12/2024 4:41 PM EDT Faxed 08/2024 Office Note to [facility] Att: Catie at [phone] on 10/03/2024 documented in this encounter Plan of Treatment Upcoming Encounters Date Type Department Care Team (Late st Contact Info) Description 10/25/2024 11:10 AM EDT Office Visit [facility] - [facility] [address] [facility] 154 [place] [phone] Kathrin Cardona PA [address] [place] [address] 12/06/2024 8:30 AM EDT Consult Orthopedic Surgery - [place] 250 175 [facility] 250 [place] [phone] Shravan Pa, DPBrad 175 [facility] [address] [place] [address] documented as of this encounter Visit Diagnoses Not on filedocumented in this encounter Care Teams Design Engineer Products Relationship Specialty Start Date End Date Mellisa Santana MD [address] [place], [place] PCP - General 10/06/22 documented as of this encounter
--- OUTSIDE RECORDS SUMMARY | 2024-10-13 20:07 | XMS_ITS | Encounter Summary ---
Author Organization [facility] Address [address] [address] Phone Care Team Providers Care E Learning Manager Name Role Phone Scott Santana MD Primary Care Prov ider Encounter Details Date Type Department Care Team (Late st Contact Info) Description 08/23/2024 Office Communication [facility] [address] [address] Beau Reeves MD [address] [address] Social History Tobacco Use Types Packs/Day Years [...] on file documented as of this encounter Plan of Treatment Not on file documented as of this encounter Visit Diagnoses Not on filedocumented in this encounter Care Teams E Learning Manager Relationship Specialty Start Date End Date Scott Santana MD [address] [place] [address] PCP - General 05/15/19 documented as of this encounter
--- OUTSIDE RECORDS SUMMARY | 2024-10-13 20:07 | XMS_ITS | Clinical Summary ---
Author Organization [facility] Address [address] [place] [phone] Phone Care Team Providers Care Associate Financial Representative Name Role Phone Mellisa Santana MD Primary Care Provi lucille Allergies Active Allergy Reactions Criticality Noted Date Comments Adhesive Rash Low 05/15/2019 Other Reaction(s): blisters if left too long Bacitracin-Polymyxin B Other 11/24/2020 Other reaction(s): Other (see comments) Cefazolin Other 11/11/2020 See ID note from 11/17/22 Corticosteroids (Glucocorticoids) Unknown Low 05/15/2019 Other reaction(s): Other (see comments) Food Allergy Formula 11/24/2020 Other reaction(s): Other (see comments) Ibuprofen Other 11/11/2020 Other reaction(s): Other (see comments) Red Beet (Beta Vulgaris) 05/15/2019 Medications calcitrioL (ROCALTROL) 0.25 mcg capsule Comments: Filled Date: Oct 03 2019 12:16PM Patient Notes: 1 capsule by mouth three times a week Duration: 90 8 Active fexofenadine (KHADRA) 60 mg tablet Take 1 tablet (60 mg total) by mouth. Active glyBURIDE (DIABETA) 5 mg tablet Take 1 tablet (5 mg total) by mouth 2 (two) times a day. Active levothyroxine (SYNTHROID, LEVOTHROID) 150 mcg tablet Take 1 tablet (150 mcg total) by mouth 1 (one) time each day. Active magnesium oxide 400 mg magnesium capsule Take 1 capsule by mouth 1 (one) time each day. Active metoprolol tartrate (LOPRESSOR) 25 mg tablet Take 1 tablet (25 mg total) by mouth 2 (two) times a day. 3 Active Xarelto 20 mg tablet Take 1 tablet (20 mg total) by mouth 1 (one) time each day. 3 Active rosuvastatin (CRESTOR) 40 mg tablet Take 1 tablet (40 mg total) by mouth 1 (one) time each day. 9 Active traMADoL (ULTRAM) 50 mg tablet Take 1 tablet (50 mg total) by mouth 1 (one) time each day. 9 Active nystatin (MYCOSTATIN) 100,000 unit/gram powder Apply topically 2 (two) times a day for 10 days. 5 09/21/19 25 cefpodoxime (VANTIN) 200 mg tablet Take 1 tablet (200 mg total) by mouth 1 (one) time each day for 7 days. 5 09/18/19 25 Active Problems Problem Noted Date Diagnosed Date TANA (acute kidney injury) 09/08/2024 Urinary tract infection 09/07/2024 Elevated troponin 09/03/2024 Pleural effusion 09/03/2024 Acute kidney injury superimp osed on stage 4 chronic kidney disease 08/08/2024 Acute on chronic congestive heart failure, unspecified heart failure type 08/05/2024 Acute on chronic HFrEF (hear t failure with reduced ejection fraction) 08/04/2024 Acute on chronic heart failu re with preserved ejection fraction 07/19/2024 LVH (left ventricular hypertrophy) 03/07/2024 Lymphedema 03/07/2024 Benign essential HTN 02/28/2024 Lightheadedness 02/28/2024 Bradycardia 01/05/2024 Fatigue 11/24/2023 Carpal tunnel syndrome of left wrist 09/26/2023 Chest pain 09/22/2023 Peripheral neuropathy 04/28/2023 Overview (05/16/2024): DUE TO TYPE 2 DIABETES MELLITUS Proteinuria 03/15/2023 Snoring 02/02/2023 SOB (shortness of breath) 02/02/2023 Atrial flutter 12/20/2022 Diabetes 1.5, managed as type 2 12/20/2022 Mixed hyperlipidemia 12/20/2022 Morbid obesity 12/20/2022 PAF (paroxysmal atrial fibrillation) 12/16/2022 Overview (05/16/2024): UNSPECIFIED Cellulitis of left finger 11/16/2022 Overview (05/16/2024): Last Assessment & Plan: Operative note implies that 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 Culture from the previous day is growing MSSA. Culture from the OR also looks like MSSA but definitive ID and senses are pending. No evidence of gram-negative rods Recommendations Discontinue vancomycin I have continued Zosyn rather than switching her to cefazolin because there is a vague history of hives to cefazolin. She does not appear to be allergic to penicillin. When she is ready for discharge she could go out on a short course of Augmentin, to treat soft tissue infection. Given her high body weight, consider giving extra doses of ampicillin between doses of Augmentin to try to increase her serum level of ampicillin. Please call if further questions or problems arise. 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 11/11/2020 Stage 3 chronic kidney disease 11/11/2020 Type 2 diabetes mellitus 11/11/2020 Encounters Date Type Department Care Team Description 10/13/2024 Lab Requisition [facility] - [facility] Lab [address] [place] [phone] Obdulia Moreira MD Essential (primary) hypertension 10/07/2024 Lab Requisition [facility] - [facility] Lab [address] [place] [phone] Obdulia Moreira MD Essential (primary) hypertension 10/03/2024 Telephone [facility] [address] [place] [phone] Mellisa Santana MD Medical Records 10/03/2024 Telephone [facility] - [address] [place] [phone] Castro Chen MD 10/02/2024 Telephone [facility] [address] [place] [phone] Mellisa Santana MD Medical Records 09/29/2024 Lab Requisition [facility] [address] [place] [phone] Obdulia Moreira MD Essential (primary) hypertension 09/22/2024 Lab Requisition [facility] Lab [address] [place] [phone] Obdulia Moreira MD Essential (primary) hypertension 09/21/2024 2:53 PM EDT - 09/21/2024 9:59 PM EDT Emergency [facility] Emergency [address] [place] [phone] Brenda Ortiz DO Chronic kidney disease, unspecified CKD stage (Primary Dx) Discharge Disposition: Home or Self Care 09/21/2024 Lab Requisition [facility] - [facility] Lab [address] [place] [address] Obdulia Moreira MD Localized swelling, mass and lump, unspecified 09/20/2024 11:00 AM EDT Ancillary Procedure [facility] [address] [place] [phone] Persistent atrial fibrillation ([facility]/HCC); Bradycardia; NAVA (dyspnea on exertion); Acute on chronic heart failure with preserved ejection fraction (CMS/HCC); Hypokalemia 09/19/2024 Lab Requisition [facility] Lab [address] [place] [phone] Physician, Pcp Unknown Diarrhea, unspecified; Shortness of breath 09/18/2024 Telephone [facility] [address] [facility] [address] [place] [phone] Kathrin Cardona PA PA FOR COMPRESSION WRAPS (Office note needed) 09/16/2024 Lab Requisition [facility] Lab [address] [place] [phone] Obdulia Moreira MD Essential (primary) hypertension 09/12/2024 Lab Requisition [facility] Lab [address] [place] [phone] Obdulia Moreira MD Essential (primary) hypertension; Type 2 diabetes mellitus without complications (CMS/HCC) 09/09/2024 Telephone [facility] [address] [facility] [address] [place] [phone] Kathrin Cardona PA 09/06/2024 4:11 PM EST - 09/10/2024 1:09 PM EST Hospital Encounter [facility] Intermediate Care Unit [address] [place] [phone] Shravan Hurt MD Bell, Alistair A, MD Santoyo-Pacheco, Omar D, MD Kokosadze, Estate, MD Acute cystitis without hematuria (Primary Dx); Troponin level elevated; Dizziness; TANA (acute kidney injury) (CMS/HCC); Acute on chronic heart failure with preserved ejection fraction (CMS/HCC) Discharge Disposition: Nursing Home Facility 09/06/2024 10:10 AM EST Office Visit [facility] - [address] [place] [phone] Kathrin Cardona PA Persistent atrial fibrillation (CMS/HCC) (Primary Dx); Bradycardia; NAVA (dyspnea on exertion); Acute on chronic heart failure with preserved ejection fraction (CMS/HCC); Hypokalemia; Other fatigue 08/23/2024 Telephone [facility] - [address] [place] [address] Kathrin Cardona PA 08/06/2024 Telephone [facility] Hematology Oncology [address] [place] [phone] Zoey Goddard DO 08/04/2024 5:09 PM EST - 08/08/2024 4:47 PM EST Hospital Encounter [facility] Medical Surgical Unit [address] [place] [address] Haley Tovar MD Jones, Christopher, MD Surendran, Anupama, MD Santoyo-Pacheco, Omar D, MD Acute on chronic congestive heart failure, unspecified heart failure type (CMS/HCC) (Primary Dx); Chronic kidney disease, unspecified CKD stage; Leg swelling; Acute kidney injury superimposed on stage 4 chronic kidney disease (CMS/HCC) Discharge Disposition: Nursing Home Facility 07/19/2024 5:37 PM EST - 07/20/2024 2:44 PM EST Emergency [facility] Intermediate Care Unit [address] [place] [phone] Beau Allison MD Jones, Christopher, MD Kela, Kashyap Devendrabhai, MD Shortness of breath (Primary Dx) Discharge Disposition: Home-Health Care [facility] 07/19/2024 10:14 AM EST - 07/19/2024 11:59 PM EST Hospital Encounter [facility] CT Scan [address] [place] [phone] Elevated serum immunoglobulin free light chains; Macrocytosis Discharge Disposition: Home or Self Care 07/19/2024 Telephone [facility] Hematology Oncology [address] [place] [phone] Hazel Shannon MA from Last 3 Months Immunizations Name Administration Dates Next Due Influenza Quadravalent, 0.5m l (Fluad) 65yo and older 04/23/2021 Influenza Quadravalent, 0.5m l (Fluzone High-dose) 65yo and older 04/01/2023,05/13/2022,05/29/2018 Influenza Quadrivalent, 0.5m l, preservative free (Fluarix; FluLaval; Fluzone) ages 6mo and older (Afluria) 3yo and older 03/24/2017 Influenza trivalent, 0.5mL ( Fluzone High-dose) 65yo and older 04/04/2024,05/06/2020,05/27/2019 Pneumococcal conjugate 13 va lent (Prevnar 13, PCV13) 2mo and older 05/29/2018 Pneumococcal conjugate 20 va lent (Prevnar 20, PCV 20) 2mo and older 04/04/2024 Pneumococcal polysaccharide 23 valent (Pneumovax 23) 2yo and older 08/18/2001 Zoster Live 08/05/2015 Zoster recombinant (Shingrix ) 19yo and older 04/22/2023,12/17/2022 Surgical History Surgery Date Site/Laterality Comments APPENDECTOMY CHOLECYSTECTOMY HYSTERECTOMY Medical History Medical History Date Comments Morbid obesity ([facility]) DX:Morb id obesity ([facility]) Arthritis DX:Arthritis Chronic kidney disease, stag e 3 ([facility]) DX:Chronic kidney disease, s tage 3 ([facility]) Benign essential HTN DX:Benign e ssential HTN Urinary incontinence DX:Urinary incontinence Arteriovenous fistula ([facility]) DX:Arteriovenous fistula ([facility]); COMMENT: acquired renal Hypothyroidism DX:Hypothyroidis m Renal disorder DX:Renal disorde r; COMMENT: DUE TO TYPE 2 DIABETES MELLITUS Peripheral neuropathy DX:Periphe ral neuropathy; COMMENT: DUE TO TYPE 2 DIABETES MELLITUS Abnormal gait 03/30/2016 DX:Abnormal gait Family History Medical History Relation Name Comments Other: MYOCARDIAL INFRACTION Father Other: CEREBROVASCULAR ACCIDENT Mother Other: DIABETES MELLITUS Mother Relation Name Status Comments Father Mother Social History Tobacco Use Types Packs/Day Years Used Date Smoking Tobacco: Never Smokeless Tobacco: Never Tobacco Cessation:Counseling Given: Not Answered Alcohol Use Standard Drinks/Week Comments Never 0 [...] for your loved ones. For example, child day care center worker or elderly care for an older adult? [...] Orientation Straight 06/22/2024 1: 24 PM EST Obstetrics History Last Filed Vital Signs Vital Sign Reading Time Taken Comments Blood Pressure 106/56 09/21/2024 9:45 PM EDT Pulse 60 09/21/2024 9:45 PM EDT Temperature 36.8 ??C (98.2 ??F) 09/21/2024 9:45 PM ED T Respiratory Rate 22 09/21/2024 9:45 PM EDT Oxygen Saturation 98% 09/21/2024 9:45 PM EDT Inhaled Oxygen Concentration - - Weight 132 kg (290 lb) 09/21/2024 3:09 PM EDT Height 167.6 cm (5' 6 ) 09/21/2024 3:09 PM EDT Body Mass Index 46.81 09/21/2024 3:09 PM EDT Plan of Treatment Upcoming Encounters Date Type Department Care Team (Late st Contact Info) Description 10/25/2024 11:10 AM EDT Office Visit [facility] [address] [facility] [address] [place] [phone] Kathrin Cardona PA [address] [place] [address] 12/06/2024 8:30 AM EDT Consult Orthopedic Surgery - [place] [address] [facility] [address] [place] [phone] Shravan Pa DPM [address] [facility] [address] [place] [address] Health Maintenance Due Date Last Done Comments Breast Cancer Screening 1953 Diabetes: Annual Foot Exam 1963 Diabetes: Annual Retina Eye Exam 1963 RSV Immunization Adult Patients (1 - Risk 60-74 years 1-dose series) 2013 Colorectal Cancer Screening: Colonoscopy 08/04/2023 Depression Screening 08/04/2023 Hepatitis C Screening 08/04/2023 Osteoporosis Screening (Bone Density Screening) 08/04/2023 Diabetes: Annual Urine Albumin-Creatinine Ratio (uACR) 08/13/2023 Medicare Annual Wellness Visit 04/01/2024 04/01/2023 Diabetes: Blood Sugar Control Test (HGBA1C) 03/15/2025 09/12/2024, 07/19/2024 Social Influencers of Health Screening 09/08/2025 09/08/2024 Falls Risk Assessment 09/10/2025 09/10/2024 Diabetes: Annual GFR (Glomerular Filtration Rate) 10/01/2025 10/01/2024, 09/24/2024, 09/21/2024, Additional history exists Hypertension/CHF/CAD Annual BMP Blood Test 10/01/2025 10/01/2024, 09/24/2024, 09/21/2024, Additional history exists DTaP,Tdap,and Td Vaccines (2 - Td or Tdap) 11/29/2027 11/28/2017 Cholesterol Screening (Lipid Panel) 07/20/2029 07/20/2024 Zoster Vaccines Completed 04/22/2023, 06/0 03/2023, 08/05/2015 COVID-19 Vaccine Completed 04/04/2024, 02/2022, 07/18/2021, Additional history exists Influenza Vaccine Completed 04/04/2024, , 05/13/2022, Additional history exists Pneumococcal Vaccine: 50+ Years Completed 04/04/2024, 05/29/2018, 08/01/2015, Additional history exists HIB Vaccines Aged Out No longer eligi ble based on patient's age to complete this topic HPV Vaccines Aged Out No longer eligi ble based on patient's age to complete this topic Hepatitis A Vaccines Aged Out No long er eligible based on patient's age to complete this topic Hepatitis B Vaccines Aged Out No long er eligible based on patient's age to complete this topic IPV Vaccines Aged Out No longer eligi ble based on patient's age to complete this topic MMR Vaccines Aged Out No longer eligi ble based on patient's age to complete this topic Meningococcal ACWY Vaccine Aged Out N o longer eligible based on patient's age to complete this topic Meningococcal B Vacine Aged Out No lo nger eligible based on patient's age to complete this topic RSV Immunization Patients Under 20 months Aged Out No longer eligible based on patient's age to complete this topic Varicella Vaccines Aged Out No longer eligible based on patient's age to complete this topic Procedures Procedure Name Priority Date/Time Associated Diagnosis Comments COMPREHENSIVE METABOLIC PANEL Routine 10/01/2024 9:08 AM EDT Essential (primary) hypertension COMPLETE BLOOD COUNT Routine 10/01/2024 9:08 AM EDT Essential (primary) hypertension COMPREHENSIVE METABOLIC PANEL Routine 09/24/2024 8:41 AM EDT Essential (primary) hypertension COMPLETE BLOOD COUNT Routine 09/24/2024 8:41 AM EDT Essential (primary) hypertension CT HEAD WO CONTRAST STAT 09/21/2024 7 :59 PM EDT URINALYSIS WITH REFLEX MICROSCOPIC AND CULTURE STAT 09/21/2024 7:35 PM EDT URINALYSIS WITH REFLEX MICROSCOPIC AND CULTURE STAT 09/21/2024 7:35 PM EDT XR CHEST 1 VIEW STAT 09/21/2024 7:21 PM EDT CBC WITH AUTO DIFFERENTIAL STAT 09/21/2024 6:23 PM EDT CBC AND DIFFERENTIAL STAT 09/21/2024 6:23 PM EDT BASIC METABOLIC PANEL Routine 09/21/2024 7:00 AM EDT Localized swelling, mass and lump, unspecified CARDIAC HOLTER MONITOR (REPORT GENERATED IN HOUSE) Routine 09/20/2024 10:29 AM EDT Persistent atrial fibrillation (CMS/HCC) Bradycardia NAVA (dyspnea on exertion) Acute on chronic heart failure with preserved ejection fraction (CMS/HCC) Hypokalemia [id number], RSV, FLU A AND B QUALITATIVE RT-PCR, LOCAL REFERENCE LAB Routine 09/19/2024 2:30 PM EDT Diarrhea, unspecified Shortness of breath COMPREHENSIVE METABOLIC PANEL Routine 09/17/2024 8:25 AM EDT Essential (primary) hypertension COMPLETE BLOOD COUNT Routine 09/17/2024 8:25 AM EDT Essential (primary) hypertension THYROID STIMULATING HORMONE Routine 09/12/2024 5:00 AM EST Essential (primary) hypertension Type 2 diabetes mellitus without complications (CMS/HCC) HEMOGLOBIN A1C Routine 09/12/2024 5:00 AM EST Essential (primary) hypertension Type 2 diabetes mellitus without complications (CMS/HCC) COMPREHENSIVE METABOLIC PANEL Routine 09/12/2024 5:00 AM EST Essential (primary) hypertension Type 2 diabetes mellitus without complications (CMS/HCC) COMPLETE BLOOD COUNT Routine 09/12/2024 5:00 AM EST Essential (primary) hypertension Type 2 diabetes mellitus without complications (CMS/HCC) ECG ANNOTATED 09/11/2024 POCT GLUCOSE BLOOD Routine 09/10/2024 10 :55 AM EST POCT GLUCOSE BLOOD Routine 09/10/2024 7: 44 AM EST CBC WITH AUTO DIFFERENTIAL Routine 09/10/2024 5:25 AM EST MAGNESIUM Routine 09/10/2024 5:25 AM EST BASIC METABOLIC PANEL Routine 09/10/2024 5:25 AM EST CBC AND DIFFERENTIAL Routine 09/10/2024 5:25 AM EST POCT GLUCOSE BLOOD Routine 09/09/2024 8: 09 PM EST POCT GLUCOSE BLOOD Routine 09/09/2024 2: 58 PM EST POCT GLUCOSE BLOOD Routine 09/09/2024 10 :50 AM EST CBC WITH AUTO DIFFERENTIAL Routine 09/09/2024 8:11 AM EST MAGNESIUM Routine 09/09/2024 8:11 AM EST BASIC METABOLIC PANEL Routine 09/09/2024 8:11 AM EST CBC AND DIFFERENTIAL Routine 09/09/2024 8:11 AM EST POCT GLUCOSE BLOOD Routine 09/09/2024 7: 27 AM EST ECG 12-LEAD Routine 09/08/2024 8:37 PM EST POCT GLUCOSE BLOOD Routine 09/08/2024 7: 31 PM EST POCT GLUCOSE BLOOD Routine 09/08/2024 3: 06 PM EST POCT GLUCOSE BLOOD Routine 09/08/2024 10 :32 AM EST POCT GLUCOSE BLOOD Routine 09/08/2024 7: 19 AM EST C4 COMPLEMENT Add-On 09/08/2024 6:18 AM EST C3 COMPLEMENT Add-On 09/08/2024 6:18 AM EST CBC WITH AUTO DIFFERENTIAL Routine 09/08/2024 6:18 AM EST MAGNESIUM Routine 09/08/2024 6:18 AM EST BASIC METABOLIC PANEL Routine 09/08/2024 6:18 AM EST CBC AND DIFFERENTIAL Routine 09/08/2024 6:18 AM EST POCT GLUCOSE BLOOD Routine 09/07/2024 8: 31 PM EST POCT GLUCOSE BLOOD Routine 09/07/2024 4: 38 PM EST TRANSTHORACIC ECHOCARDIOGRAM (TTE) COMPLETE W/ CONTRAST Routine 09/07/2024 2:56 PM EST Acute on chronic heart failure with preserved ejection fraction (CMS/HCC) POCT GLUCOSE BLOOD Routine 09/07/2024 12 :36 PM EST US RETROPERITONEAL COMPLETE Routine 09/07/2024 12:34 PM EST TRIIODOTHYRONINE FREE Routine 09/07/2024 7:32 AM EST FREE THYROXINE WITH REFLEX TO FREE TRIIODOTHYRONINE Routine 09/07/2024 7:32 AM EST BASIC METABOLIC PANEL STAT 09/07/2024 7:32 AM EST VITAMIN B12 Routine 09/07/2024 7:32 AM EST THYROID STIMULATING HORMONE WITH REFLEX TO FREE T4 AND FREE T3 Routine 09/07/2024 7:32 AM EST CBC WITH AUTO DIFFERENTIAL Routine 09/07/2024 7:32 AM EST CBC AND DIFFERENTIAL Routine 09/07/2024 7:32 AM EST POCT GLUCOSE BLOOD Routine 09/07/2024 6: 33 AM EST POCT GLUCOSE BLOOD Routine 09/06/2024 11 :[address] HEAD WO CONTRAST STAT 09/06/2024 1 1:09 PM EST LE URINE CULTURE TUBE STAT 09/06/19 25 7:55 PM EST URINALYSIS WITH REFLEX MICROSCOPIC AND CULTURE STAT 09/06/2024 7:55 PM EST URINALYSIS WITH REFLEX MICROSCOPIC AND CULTURE STAT 09/06/2024 7:55 PM EST CULTURE URINE STAT 09/06/2024 7:55 PM EST ECG 12-LEAD STAT 09/06/2024 6:50 PM EST TROPONIN I HIGH SENSITIVITY STAT 09/06/2024 5:22 PM EST XR CHEST 2 VIEWS STAT 09/06/2024 4:33 PM EST VITAMIN B12 AND FOLATE Add-On 2:21 PM EST CBC WITH AUTO DIFFERENTIAL STAT 09/06/2024 2:21 PM EST TROPONIN I HIGH SENSITIVITY STAT 09/06/2024 2:21 PM EST MAGNESIUM STAT 09/06/2024 2:21 PM EST BASIC METABOLIC PANEL STAT 09/06/2024 2:21 PM EST CBC AND DIFFERENTIAL STAT 09/06/2024 2:21 PM EST ECG 12-LEAD Routine 09/06/2024 11:51 AM EST Persistent atrial fibrillation (CMS/HCC) ECG 12-LEAD Routine 09/06/2024 11:00 AM EST Persistent atrial fibrillation (CMS/HCC) ECG 12-LEAD Routine 09/06/2024 10:59 AM EST Persistent atrial fibrillation (CMS/HCC) ECG 12-LEAD Routine 09/06/2024 10:57 AM EST Persistent atrial fibrillation (CMS/HCC) URINALYSIS MICROSCOPIC ONLY Routine 08/08/2024 1:01 PM EST URINALYSIS MICROSCOPIC ONLY Routine 08/08/2024 1:01 PM EST POCT GLUCOSE BLOOD Routine 08/08/2024 11 :24 AM EST CBC WITH AUTO DIFFERENTIAL STAT 08/08/2024 9:34 AM EST CBC AND DIFFERENTIAL STAT 08/08/2024 9:34 AM EST BASIC METABOLIC PANEL STAT 08/08/2024 9:34 AM EST POCT GLUCOSE BLOOD Routine 08/08/2024 8: 35 AM EST POCT GLUCOSE BLOOD Routine 08/07/2024 8: 14 PM EST POCT GLUCOSE BLOOD Routine 08/07/2024 4: 44 PM EST POCT GLUCOSE BLOOD Routine 08/07/2024 11 :20 AM EST POCT GLUCOSE BLOOD Routine 08/07/2024 7: 50 AM EST CBC WITH AUTO DIFFERENTIAL Routine 08/07/2024 6:20 AM EST MAGNESIUM Routine 08/07/2024 6:20 AM EST PHOSPHORUS Routine 08/07/2024 6:20 AM EST BASIC METABOLIC PANEL Routine 08/07/2024 6:20 AM EST CBC AND DIFFERENTIAL Routine 08/07/2024 6:20 AM EST POCT GLUCOSE BLOOD Routine 08/06/2024 8: 13 PM EST POCT GLUCOSE BLOOD Routine 08/06/2024 3: 56 PM EST POCT GLUCOSE BLOOD Routine 08/06/2024 11 :06 AM EST ECG 12-LEAD STAT 08/06/2024 10:25 AM EST POCT GLUCOSE BLOOD Routine 08/06/2024 7: 40 AM EST CBC WITH AUTO DIFFERENTIAL Routine 08/06/2024 6:21 AM EST CBC AND DIFFERENTIAL Routine 08/06/2024 6:21 AM EST BASIC METABOLIC PANEL Routine 08/06/2024 6:21 AM EST POCT GLUCOSE BLOOD Routine 08/05/2024 7: 48 PM EST POCT GLUCOSE BLOOD Routine 08/05/2024 4: 41 PM EST POCT GLUCOSE BLOOD Routine 08/05/2024 12 :09 PM EST POCT GLUCOSE BLOOD Routine 08/05/2024 8: 19 AM EST CBC WITH AUTO DIFFERENTIAL Routine 08/05/2024 4:50 AM EST MAGNESIUM Routine 08/05/2024 4:50 AM EST CBC AND DIFFERENTIAL Routine 08/05/2024 4:50 AM EST BASIC METABOLIC PANEL Routine 08/05/2024 4:50 AM EST ECG ANNOTATED 08/05/2024 POCT GLUCOSE BLOOD Routine 08/04/2024 11 :16 PM EST ECG 12-LEAD STAT 08/04/2024 6:27 PM EST ECG 12-LEAD STAT 08/04/2024 6:24 PM EST TROPONIN I HIGH SENSITIVITY STAT 08/04/2024 6:22 PM EST XR CHEST 2 VIEWS STAT 08/04/2024 2:20 PM EST CBC WITH AUTO DIFFERENTIAL STAT 08/04/2024 2:10 PM EST B-TYPE NATRIURETIC PEPTIDE STAT 08/04/2024 2:10 PM EST MAGNESIUM STAT 08/04/2024 2:10 PM EST LIPASE STAT 08/04/2024 2:10 PM EST COMPREHENSIVE METABOLIC PANEL STAT 08/04/2024 2:10 PM EST CBC AND DIFFERENTIAL STAT 08/04/2024 2:10 PM EST TROPONIN I HIGH SENSITIVITY STAT 08/04/2024 2:10 PM EST POCT GLUCOSE BLOOD Routine 07/20/2024 11 :22 AM EST POCT GLUCOSE BLOOD Routine 07/20/2024 8: 15 AM EST TROPONIN I HIGH SENSITIVITY Routine 07/20/2024 4:55 AM EST CBC WITH AUTO DIFFERENTIAL Routine 07/20/2024 4:55 AM EST LIPID PANEL WITH REFLEX TO DIRECT LDL Routine 07/20/2024 4:55 AM EST MAGNESIUM Routine 07/20/2024 4:55 AM EST CBC AND DIFFERENTIAL Routine 07/20/2024 4:55 AM EST BASIC METABOLIC PANEL Routine 07/20/2024 4:55 AM EST PROTHROMBIN TIME WITH INR STAT 07/19/2024 5:46 PM EST ACTIVATED PARTIAL THROMBOPLASTIN TIME STAT 07/19/2024 5:46 PM EST TROPONIN I HIGH SENSITIVITY STAT 07/19/2024 5:46 PM EST XR CHEST 2 VIEWS STAT 07/19/2024 4:48 PM EST HEMOGLOBIN A1C Add-On 07/19/2024 4:19 PM EST CBC WITH AUTO DIFFERENTIAL STAT 07/19/2024 4:19 PM EST TROPONIN I HIGH SENSITIVITY STAT 07/19/2024 4:19 PM EST B-TYPE NATRIURETIC PEPTIDE STAT 07/19/2024 4:19 PM EST BASIC METABOLIC PANEL STAT 07/19/2024 4:19 PM EST CBC AND DIFFERENTIAL STAT 07/19/2024 4:19 PM EST ECG 12-LEAD STAT 07/19/2024 4:[address] CHEST/ABDOMEN/PELVIS WO CONTRAST STAT 07/19/2024 10:52 AM EST Elevated serum immunoglobulin free light chains Macrocytosis ECG OUTSIDE 07/19/2024 ECG ANNOTATED 07/19/2024 from Last 3 Months Results * (ABNORMAL) Complete blood count (10/01/2024 9:08 AM EDT) Only the most recent of4 resultswithin the time period is included. WBC 4.6(L) 4.8 - 10.8 K/mcL LAB HEMETOLOGY METHOD 10/01/2024 11:59 AM EDT [facility] RBC 3.90 3.80 - 4.80 M/mcL LAB HEMETOLOGY METHOD 10/01/2024 11:59 AM EDT [facility] Hemoglobin 13.9 11.5 - 16.0 g/dL LAB HEMETOLOGY METHOD 10/01/2024 11:59 AM EDT [facility] Hematocrit 41.0 35.0 - 47.0 % LAB HEMETOLOGY METHOD 10/01/2024 11:59 AM EDT [facility] MCV 104.3(H) 79.0 - 98.0 FL LAB HEMETOLOGY METHOD 10/01/2024 11:59 AM EDT [facility] MCH 35.4(H) 27.0 - 32.0 pcg LAB HEMETOLOGY METHOD 10/01/2024 11:59 AM EDT [facility] MCHC 33.9 32.0 - 37.0 g/dL LAB HEMETOLOGY METHOD 10/01/2024 11:59 AM EDT [facility] RDW 16.8(H) 11.0 - 15.0 % LAB HEMETOLOGY METHOD 10/01/2024 11:59 AM EDT [facility] Platelets 134 130 - 400 K/mcL LAB HEMETOLOGY METHOD 10/01/2024 11:59 AM EDT [facility] MPV 11.2(H) 7.0 - 11.0 FL LAB HEMETOLOGY METHOD 10/01/2024 11:59 AM EDT [facility] NRBC 0.0 <1.0 % LAB HEMETOLOGY METHOD 10/01/2024 11:59 AM EDT [facility] NRBC Absolute 0.00 <0.10 K/mcL LAB HEMETOLOGY METHOD 10/01/2024 11:59 AM EDT [facility] Blood Venous blood specimen / Unknown Venipuncture / Unknown 10/01/2024 9:08 AM EDT 10/01/2024 11:04 AM EDT us Obdulia Moreira MD LAB BLOOD ORDERABLES Fin al Result [facility] [address] [place] [address], * (ABNORMAL) Comprehensive metabolic panel (10/01/2024 9:08 AM EDT) Only the most recent of5 resultswithin the time period is included. Sodium 132(L) 133 - 145 mmol/L LAB CHEMISTRY METHOD 10/01/2024 12:50 PM [facility] Potassium 4.3 3.5 - 5.5 mmol/L LAB CHEMISTRY METHOD 10/01/2024 12:50 PM [facility] Chloride 94(L) 96 - 110 mmol/L LAB CHEMISTRY METHOD 10/01/2024 12:50 PM [facility] CO2 26 21 - 32 mmol/L LAB CHEMISTRY METHOD 10/01/2024 12:50 PM [facility] Anion Gap 12(H) 3 - 11 LAB CHEMISTRY METHOD 10/01/2024 12:50 PM [facility] Glucose 135(H) 70 - 100 mg/dL LAB CHEMISTRY METHOD 10/01/2024 12:50 PM [facility] BUN 97(H) 5 - 25 mg/dL LAB CHEMISTRY METHOD 10/01/2024 12:50 PM [facility] Creatinine 4.20(H) 0.50 - 1.10 mg/dL LAB CHEMISTRY METHOD 10/01/2024 12:50 PM [facility] eGFR 11(L) >=60 mL/min/1. 73m2 LAB CHEMISTRY METHOD 10/01/2024 12:50 PM [facility] Comment:Calculation based on the??Chronic Kidney Disease Epidemiology Collaboration (CKD-EPI) equation refit??without adjustment for race. BUN/Creatinine Ratio 23.1 LAB CHEMISTRY METHOD 10/01/2024 12:50 PM [facility] Calcium 9.5 8.5 - 10.5 mg/dL LAB CHEMISTRY METHOD 10/01/2024 12:50 PM [facility] AST (SGOT) 30 10 - 42 unit/L LAB CHEMISTRY METHOD 10/01/2024 12:50 PM EDT [facility] ALT (SGPT) 32 10 - 60 unit/L LAB CHEMISTRY METHOD 10/01/2024 12:50 PM EDT [facility] Alkaline Phosphatase 133(H) 42 - 121 unit/L LAB CHEMISTRY METHOD 10/01/2024 12:50 PM EDT [facility] Total Protein 5.8(L) 6.0 - 8.0 g/dL LAB CHEMISTRY METHOD 10/01/2024 12:50 PM EDT [facility] Albumin 2.8(L) 3.2 - 5.0 g/dL LAB CHEMISTRY METHOD 10/01/2024 12:50 PM EDT [facility] Total Bilirubin 1.3 0.0 - 1.4 mg/dL LAB CHEMISTRY METHOD 10/01/2024 12:50 PM EDT [facility] Blood Venous blood specimen / Unknown Venipuncture / Unknown 10/01/2024 9:08 AM EDT 10/01/2024 11:04 AM EDT us Obdulia Moreira MD LAB BLOOD ORDERABLES Fin al Result [facility] [address] [place] [address], * CT Head wo Contrast (09/21/2024 7:59 PM EDT) Only the most recent of2 resultswithin the time period is included. Anatomical Region Laterality Modality Head and Neck Computed Tomogra phy 09/21/2024 8:29 PM EDT Impressions 09/21/2024 8:29 PM EDT 1. Study degraded by patient motion artifact. No acute intracranial findings identified. 2. Stable atrophy and white matter chronic ischemic changes. 3. Maxillary sinus inflammatory disease [id number]. This document has been electronically signed by: Rina Dave MD on 09/21/2024 20:29:16 Narrative 09/21/2024 8:29 PM EDT INDICATION: Mental status change, unknown cause CT head without contrast Comparison: CT - CT HEAD WO CONTRAST - 09/06/24 22:56 EST Findings: Study degraded by patient motion artifact. No intra-axial mass, midline shift, hydrocephalus, or acute hemorrhage. There is mild atrophy. Nonspecific supratentorial white matter hypodensities most suggestive of chronic small-vessel ischemic changes. Atherosclerotic vascular disease. Bilateral inferior aspect basal ganglia dilated perivascular spaces left larger than the right. There is significant mucosal thickening and opacification in left maxillary sinus and mild mucosal thickening in right maxillary sinus. The orbits are unremarkable. No acute skull fracture. Procedure Note Rina Dave MD - 09/21/2024 INDICATION: Mental status change, unknown cause CT head without contrast Comparison: CT - CT HEAD WO CONTRAST - 09/06/24 22:56 EST Findings: Study degraded by patient motion artifact. No intra-axial mass, midline shift, hydrocephalus, or acute hemorrhage. There is mild atrophy. Nonspecific supratentorial white matter hypodensities most suggestive of chronic small-vessel ischemic changes. Atherosclerotic vascular disease. Bilateral inferior aspect basalganglia dilated perivascular spaces left larger than the right. There is significant mucosal thickening and opacification in left maxillary sinus and mild mucosal thickening in right maxillary sinus. The orbits are unremarkable. No acute skull fracture. IMPRESSION: 1. Study degraded by patient motion artifact. No acute intracranial findings identified. 2. Stable atrophy and white matter chronic ischemic changes. 3. Maxillary sinus inflammatory disease [id number]-right. This document has been electronically signed by: Rina Dave MD on 09/21/2024 20:29:16 Brenda Mistryny Angel DO IMG CT PROCEDURES Final R esult * (ABNORMAL) Urinalysis with reflex microscopic and culture (09/21/2024 7:35 PM EDT) Only the most recent of2 resultswithin the time period is included. Specific [place] Urine 1.010 1.003 - 1.030 LAB URINALYSIS - AUTOMATED METHOD 09/21/2024 8:29 PM EDT [facility] pH, Urine 5.5 5.0 - 8.0 pH LAB URINALYSIS - AUTOMATED METHOD 09/21/2024 8:29 PM [facility] Leukocytes, Urine Negative Negative LAB URINALYSIS - AUTOMATED METHOD 09/21/2024 8:29 PM [facility] Nitrite, Urine Negative Negative LAB URINALYSIS - AUTOMATED METHOD 09/21/2024 8:29 PM [facility] Protein, Urine 30(A) <=Trace mg/dL LAB URINALYSIS - AUTOMATED METHOD 09/21/2024 8:29 PM [facility] Glucose, Urine 500(A) Negative mg/dL LAB URINALYSIS - AUTOMATED METHOD 09/21/2024 8:29 PM [facility] Ketones, Urine Negative Negative mg/dL LAB URINALYSIS - AUTOMATED METHOD 09/21/2024 8:29 PM [facility] Urobilinogen, Urine 0.2 0.2 - 1.0 mg/dL LAB URINALYSIS - AUTOMATED METHOD 09/21/2024 8:29 PM [facility] Bilirubin, Urine Negative Negative LAB URINALYSIS - AUTOMATED METHOD 09/21/2024 8:29 PM [facility] Blood, Urine Trace(A) Negative LAB URINALYSIS - AUTOMATED METHOD 09/21/2024 8:29 PM [facility] RBC, Urine 2.2 0 - 4 /HPF LAB URINALYSIS - AUTOMATED METHOD 09/21/2024 8:29 PM [facility] WBC, Urine 0.6 0 - 4 /HPF LAB URINALYSIS - AUTOMATED METHOD 09/21/2024 8:29 PM [facility] Squamous Epithelial, Urine 14 0 - 60 /LPF LAB URINALYSIS - AUTOMATED METHOD 09/21/2024 8:29 PM [facility] Bacteria, Urine Negative Negative /HPF LAB URINALYSIS - AUTOMATED METHOD 09/21/2024 8:29 PM [facility] Hyaline Casts, Urine 1.2 0 - 3 /LPF LAB URINALYSIS - AUTOMATED METHOD 09/21/2024 8:29 PM EDT [facility] Urine Urine specimen obtained by clean catch procedure / Unknown Non-blood Collection / Unknown 09/21/2024 7:35 PM EDT 09/21/2024 7:47 PM EDT us Brenda Ortiz DO LAB URINE ORDERABLES Nicol l Result [facility] [address] [place] [address], [place] [phone] * XR Chest 1 View (09/21/2024 7:21 PM EDT) Anatomical Region Laterality Modality Body Radiographic Emilee ging 09/22/2024 8:50 AM EDT Impressions 09/22/2024 8:51 AM EDT Minimal left basilar and retrocardiac opacity that could represent atelectasis or infiltrate. ??Remainder the lungs are clear. ??The mediastinum appears normal. -------- FINAL REPORT -------- Dictated By: Shravan Sylvester Dictated Date: 09/22/2024 08:50 ET Assigned Physician: Shravan Sylvester Reviewed and Electronically Signed By: Shravan Sylvester Signed Date: 09/22/2024 08:51 ET Workstation ID: [id number] Transcribed By: Self Edit Transcribed Date: 09/22/2024 08:50 ET Narrative 09/22/2024 8:51 AM EDT Frontal view of the chest COMPARISON: Chest radiograph August 2024 INDICATION: Shortness of breath Procedure Note Shravan Sylvester MD - 09/22/2024 Frontal view of the chest COMPARISON: Chest radiograph August 2024 INDICATION: Shortness of breath IMPRESSION: Minimal left basilar and retrocardiac opacity that could representatelectasis or infiltrate. Remainder the lungs are clear. Themediastinum appears normal. -------- FINAL REPORT -------- Dictated By: Shravan Sylvester Dictated Date: 09/22/2024 08:50 ET Assigned Physician: Shravan Sylvester Reviewed and Electronically Signed By: Shravan Sylvester Signed Date: 09/22/2024 08:51 ET Workstation ID: [id number] Transcribed By: Self Edit Transcribed Date: 09/22/2024 08:50 ET us Brenda Ortiz DO IMG XR PROCEDURES Final R esult * (ABNORMAL) CBC auto differential (09/21/2024 6:23 PM EDT) Only the most recent of13 resultswithin the time period is included. WBC 5.7 4.8 - 10.8 K/mcL LAB HEMETOLOGY METHOD 09/21/2024 6:51 PM EDT [facility] RBC 4.30 3.80 - 4.80 M/[facility] LAB HEMETOLOGY METHOD 09/21/2024 6:51 PM EDT [facility] Hemoglobin 15.0 11.5 - 16.0 g/dL LAB HEMETOLOGY METHOD 09/21/2024 6:51 PM EDT [facility] Hematocrit 45.2 35.0 - 47.0 % LAB HEMETOLOGY METHOD 09/21/2024 6:51 PM EDT [facility] MCV 105.6(H) 79.0 - 98.0 FL LAB HEMETOLOGY METHOD 09/21/2024 6:51 PM EDT [facility] MCH 35.0(H) 27.0 - 32.0 pcg LAB HEMETOLOGY METHOD 09/21/2024 6:51 PM EDT [facility] MCHC 33.2 32.0 - 37.0 g/dL LAB HEMETOLOGY METHOD 09/21/2024 6:51 PM EDT [facility] RDW 17.4(H) 11.0 - 15.0 % LAB HEMETOLOGY METHOD 09/21/2024 6:51 PM EDT [facility] Platelets 142 130 - 400 K/mcL LAB HEMETOLOGY METHOD 09/21/2024 6:51 PM [facility] MPV 11.1(H) 7.0 - 11.0 FL LAB HEMETOLOGY [facility] NRBC 0.3 <1.0 % LAB HEMETOLOGY METHOD 09/21/2024 6:51 PM [facility] NRBC Absolute 0.02 <0.10 K/mcL LAB HEMETOLOGY METHOD 09/21/2024 6:51 PM [facility] Neutrophils Relative 67.8 % LAB HEMETOLOGY METHOD 09/21/2024 6:51 PM [facility] Lymphocytes Relative 19.0 % LAB HEMETOLOGY METHOD 09/21/2024 6:51 PM [facility] Monocytes Relative 9.6 % LAB HEMETOLOGY METHOD 09/21/2024 6:51 PM [facility] Eosinophils Relative 1.7 % LAB HEMETOLOGY METHOD 09/21/2024 6:51 PM [facility] Basophils Relative 1.7 % LAB HEMETOLOGY METHOD 09/21/2024 6:51 PM [facility] Immature Granulocytes Relative 0.2 % LAB HEMETOLOGY METHOD 09/21/2024 6:51 PM [facility] Neutrophils Absolute 3.89 1.50 - 7.00 K/mcL LAB HEMETOLOGY METHOD 09/21/2024 6:51 PM [facility] Lymphocytes Absolute 1.09 1.00 - 5.00 K/mcL LAB HEMETOLOGY METHOD 09/21/2024 6:51 PM [facility] Monocytes Absolute 0.55 0.20 - 1.00 K/mcL LAB HEMETOLOGY METHOD 09/21/2024 6:51 PM EDT [facility] Eosinophils Absolute 0.10 0.00 - 0.50 K/mcL LAB HEMETOLOGY METHOD 09/21/2024 6:51 PM EDT [facility] Basophils Absolute 0.10 0.00 - 0.20 K/mcL LAB HEMETOLOGY METHOD 09/21/2024 6:51 PM EDT [facility] Immature Granulocytes Absolute 0.01 0.00 - 0.03 K/[facility] LAB HEMETOLOGY METHOD 09/21/2024 6:51 PM EDT [facility] Blood Venous blood specimen / Unknown Venipuncture / Unknown 09/21/2024 6:23 PM EDT 09/21/2024 6:27 PM EDT [facility] Prabhjot Ortiz DO LAB BLOOD ORDERABLES Nicol l Result [facility] [address] [place] [address], [place] [phone] * (ABNORMAL) Basic metabolic panel (09/21/2024 7:00 AM EDT) Only the most recent of12 resultswithin the time period is included. Sodium 130(L) 133 - 145 mmol/L LAB CHEMISTRY METHOD 09/21/2024 10:27 AM [facility] Potassium 4.7 3.5 - 5.5 mmol/L LAB CHEMISTRY METHOD 09/21/2024 10:27 AM [facility] Chloride 94(L) 96 - 110 mmol/L LAB CHEMISTRY METHOD 09/21/2024 10:27 AM T [facility] CO2 29 21 - 32 mmol/L LAB CHEMISTRY METHOD 09/21/2024 10:27 AM EDT [facility] Anion Gap 7 3 - 11 LAB CHEMISTRY METHOD 09/21/2024 10:27 AM EDT [facility] Glucose 121(H) 70 - 100 mg/dL LAB CHEMISTRY METHOD 09/21/2024 10:27 AM T [facility] BUN 80(H) 5 - 25 mg/dL LAB CHEMISTRY METHOD 09/21/2024 10:27 AM [facility] Creatinine 3.09(H) 0.50 - 1.10 mg/dL LAB CHEMISTRY METHOD 09/21/2024 10:27 AM EDT [facility] eGFR 16(L) >=60 mL/min/1. 73m2 LAB CHEMISTRY METHOD 09/21/2024 10:27 AM EDT [facility] Comment:Calculation based on the??Chronic Kidney Disease Epidemiology Collaboration (CKD-EPI) equation refit??without adjustment for race. BUN/Creatinine Ratio 25.9 LAB CHEMISTRY METHOD 09/21/2024 10:27 AM EDT [facility] Calcium 9.3 8.5 - 10.5 mg/dL LAB CHEMISTRY METHOD 09/21/2024 10:27 AM EDT [facility] Blood Venous blood specimen / Unknown Venipuncture / Unknown 09/21/2024 7:00 AM EDT 09/21/2024 9:15 AM EDT us Obdulia Moreira MD LAB BLOOD ORDERABLES Fin al Result [facility] [address] [place] [address], * CARDIAC HOLTER MONITOR (REPORT GENERATED IN HOUSE) (09/20/2024 10:29 AM EDT) Anatomical Region Laterality Modality Cardiac Diagnost ic Narrative 10/10/2024 11:21 AM EDT [facility] DEPARTMENT [address] [facility], [address] [address] TEL: FAX: Type of Test: 24 Hour Holter Monitor Date of Test: 09/20/2024 Ordering Provider: JACKIE Jernigan Reason for Test: Persistent Atrial Fibrillation, Bradycardia, NAVA (dyspnea on exertion) Findings: ?? 1: Predominant rhythm was Normal Sinus Rhythm with First Degree AV Block. 2: Rare PACs and aberrant beats. 3: Occasional PVCs. 4: No significant pause noted, longest R-R was 1.5 seconds at 10:12 AM. 5: Diary returned with symptoms of lightheadedness, shortness of breath, and dizziness noted. EKG at those times showed Normal Sinus Rhythm and isolated aberrant beats and PVCs. Heart rates were in the range of 61-66 BPM. Kathrin MEJIA CV CARDIAC SERVICES PROCEDURES F inal Result * [id number], RSV, Influenza A and B qualitative RT-PCR (09/19/2024 2:30 PM EDT) Pathologist [facility] SARS COV-2 Not Detected Not Detected LAB MOLECULAR DIAGNOSTICS METHOD 09/20/2024 9:36 AM EDT [facility] Comment: Disclaimer: The manner in which this information is used to guide patient care is the responsibility of the healthcare provider. Testing was performed using the [employer] m SARS-CoV-2 test. This test has [...] for Healthcare Providers can be found at: https://www.fda.gov/media/696406/download Fact sheet for Patients can be found at: https://www.fda.gov/media/901603/download Influenza A PCR Not Detected Not Detected LAB MOLECULAR DIAGNOSTICS METHOD 09/20/2024 9:36 AM EDT [facility] Influenza B PCR Not Detected Not Detected LAB MOLECULAR DIAGNOSTICS METHOD 09/20/2024 9:36 AM EDT [facility] RSV PCR Not Detected Not Detected LAB MOLECULAR DIAGNOSTICS METHOD 09/20/2024 9:36 AM EDT [facility] Swab Nasopharyngeal structure / Unknown 09/19/2024 2:30 PM EDT 09/19/2024 4:22 PM EDT Pcp Unknown Physician LAB MICROBIOLOGY - GENERAL ORDERABLES Final Result Performing Organization Address [facility]/ZIP Co de Phone Number [facility] [address] [place] [address], * (ABNORMAL) Thyroid stimulating hormone (09/12/2024 5:00 AM EST) TSH 8.90(H) 0.40 - 4.00 mcIU/mL LAB CHEMISTRY METHOD 09/12/2024 2:55 PM EST [facility] Blood Venous blood specimen / Unknown Venipuncture / Unknown 09/12/2024 5:00 AM EST 09/12/2024 10:16 AM EST Obdulia Moreira MD LAB BLOOD ORDERABLES Fin al Result Performing Organization Address [facility]/ZIP Co de Phone Number [facility] [address] [place] [address], * (ABNORMAL) Hemoglobin A1c (09/12/2024 5:00 AM EST) Only the most recent of2 resultswithin the time period is included. Hemoglobin A1C 7.6(H) <6.5 % LAB CHEMISTRY METHOD 09/12/2024 2:11 PM EST [facility] Mean Bld Glu Estim. 171 mg/dL LAB CHEMISTRY METHOD 09/12/2024 2:11 PM EST [facility] Blood Venous blood specimen / Unknown Venipuncture / Unknown 09/12/2024 5:00 AM EST 09/12/2024 10:16 AM EST Obdulia Moreira MD LAB BLOOD ORDERABLES Fin al Result Performing Organization Address City/[facility]/ZIP Co de Phone Number [facility] [address] [place] [address], * ECG-Annotated (09/11/2024) Only the most recent of3 resultswithin the time period is included. Provider Onbase ECG ORDERABLES Final Result * (ABNORMAL) POCT Glucose, blood (09/10/2024 10:55 AM EST) Only the most recent of32 resultswithin the time period is included. Glucose POCT 229(H) 70 - 100 mg/dL 09/10/2024 11:04 AM EST [facility] Blood Capillary blood specimen / Unknown 09/10/2024 10:55 AM EST 09/10/2024 11:06 AM EST Gayle Callejas MD LAB POINT OF CARE TE ST DOCKED DEVICE UNSOLICITED RESULTS Final Result Performing Organization Address [facility] Co de Phone Number [facility] [address] [place] [address], * Magnesium (09/10/2024 5:25 AM EST) Only the most recent of8 resultswithin the time period is included. Magnesium 2.1 1.9 - 2.6 mg/dL LAB CHEMISTRY METHOD 09/10/2024 7:01 AM EST [facility] Blood Venous blood specimen / Unknown Venipuncture / Unknown 09/10/2024 5:25 AM EST 09/10/2024 6:15 AM EST [facility] [employer] LAB BLOOD ORDERABLES Final Resul t Performing Organization Address [facility] Co de Phone Number [facility] [address] [place] [address], [place] [phone] * ECG 12 lead (09/08/2024 8:37 PM EST) Only the most recent of10 resultswithin the time period is included. Ventricular Rate ECG 95 BPM GEMUSE Atrial Rate 95 BPM GEMUSE QRS Duration 88 ms GEMUSE Q-T Interval 352 ms GEMUSE QTc 442 ms GEMUSE R [place] 132 degrees GEMUSE T [place] 157 degrees GEMUSE ECG Interpretation Atrial flutter with 2 to 1 block Right axis deviation Pulmonary disease pattern Septal infarct , age undetermined Abnormal ECG When compared with ECG of 06-SEP-2024 18:50, Atrial flutter with 2 to 1 block has replaced Sinus rhythm Septal infarct is now Present Confirmed by Isac RODRIGEZ JOHN ([id number]) on 09/10/2024 7:43:51 PM GEMUSE 09/08/2024 8:37 PM EST 09/10/2024 7:43 PM EST Kenan Huerta MD ECG ORDERABLES Final Result Performing Organization Address [facility] de Phone Number ALA[facility] * (ABNORMAL) C3 complement (09/08/2024 6:18 AM EST) C3 Complement 78(L) 88 - 201 mg/dL LAB CHEMISTRY METHOD 09/08/2024 12:55 PM EST [facility] Blood Venous blood specimen / Unknown Venipuncture / Unknown 09/08/2024 6:18 AM EST 09/08/2024 6:37 AM EST Reg Ruiz MD LAB BLOOD ORDERABLES Final Result Performing Organization Address [facility] Co de Phone Number [facility] [address] [place] [address], [place] [phone] * (ABNORMAL) C4 complement (09/08/2024 6:18 AM EST) C4 Complement 13(L) 16 - 47 mg/dL LAB CHEMISTRY METHOD 09/08/2024 12:55 PM EST [facility] Blood Venous blood specimen / Unknown Venipuncture / Unknown 09/08/2024 6:18 AM EST 09/08/2024 6:37 AM EST us Reg Ruiz MD LAB BLOOD ORDERABLES Final Result [facility] [address] [place] [address], [place] [phone] * (ABNORMAL) TRANSTHORACIC ECHOCARDIOGRAM (TTE) COMPLETE W/ CONTRAST (09/07/2024 2:56 PM EST) Left Atrium Minor [place] 6.5 cm CV PACS Left Atrium Major [place] 6.6 cm CV PACS LA Area Sys (A2C) 27 cm2 CV PACS LA Area Sys (A4C) 24 cm2 CV PACS LA Volume (BP) 79 mL CV PACS RA Area 25.3 cm2 CV PACS RA 2D Volume 73 mL CV PACS AV Regurgitation PHT 673 ms CV PACS AR Max Velocity 2.5 m/s CV PACS AV Peak Bart 1.1 m/s CV PACS AV Peak Gradient 5 mmHg CV PACS AV Mean Gradient 3 mmHg CV PACS Ao VTI 19.4 cm CV PACS AV Area Continuity Equation 2.3 cm2 CV PACS AV Area Peak Velocity 2.1 cm2 CV PACS Aortic Sinus Valsalva 3.1 cm CV PACS Ascending Aorta 3.7 cm CV PACS IVC Proximal 2.2 cm CV PACS IVSD 1.5(A) 0.6 - 0.9 cm CV PACS LVIDD 3.5(A) 3.8 - 5.2 cm CV PACS LVIDS 2.7 2.2 - 3.5 cm CV PACS LVOT Diameter 2.1 cm CV PACS LVOT Mean Bart 0.5 m/s CV PACS LVOT Mean Grad 1 mmHg CV PACS LVOT Peak VTI 12.7 cm CV PACS LVOT Peak Bart 0.7 m/s CV PACS LVOT Peak Gradient 2 mmHg CV PACS LVPWD 1.5(A) 0.6 - 0.9 cm CV PACS MV E' Tissue Velocity Lateral 5 cm/s CV PACS MV E' Tissue Velocity Septal 3 cm/s CV PACS GLS -15.6 % CV PACS GLS -10.1 % CV PACS GLS -6.2 % CV PACS GLS -10.7 % CV PACS LVOT Area 3.5 cm2 CV PACS LVOT Stroke Volume 44 mL CV PACS MV Deceleration [place] 3.7 m/s2 CV PACS E Wave Deceleration Time 192 119 - 242 ms CV PACS MV PHT 56 ms CV PACS MV Peak A Bart 0.25 m/s CV PACS MV Peak E Bart 0.71 m/s CV PACS MV Area PHT 3.9 cm2 CV PACS PV Acceleration Time 70 ms CV PACS RV Diastolic Basal Dimension 3.9 2.5 - 4.1 cm CV PACS RV S' 7 cm/s CV PACS TAPSE 14 mm CV PACS TR Peak Velocity 3.10 m/s CV PACS TR Peak Gradient 38 mmHg CV PACS E/E' Ratio Septal 24 CV PACS E/E' Ratio Averaged 19 CV PACS LVOT Stroke Index 19 mL/m2 CV PACS Relative Wall Thickness ratio 0.86 CV PACS LVOT:AV VTI Index 0.65 CV PACS FS 23 % CV PACS LV Mass 2D 193 g CV PACS Ascending Aorta Index 1.60 cm/m2 CV PACS LVOT flow 173 mL/s CV PACS RA 2D Volume Index 32 mL/m2 CV PACS [place] Index (VTI) 0.98 cm2/m2 CV PACS [place] Index (Pk Bart) 0.91 cm2/m2 CV PACS LVIDD Index 1.52 cm/m2 CV PACS LVIDS Index 1.17 cm/m2 CV PACS AV Velocity Ratio 0.64 CV PACS E/A Ratio 2.8 CV PACS E/E' Ratio Lateral 14 CV PACS LA Volume Index (BP) 34 mL/m2 CV PACS LV Mass Index 2D 84 g/m2 CV PACS BSA 2.45 m2 CV PACS Right Ventricular Peak Systolic Pressure 53 mmHg CV PACS Est. RA Pressure 15 mmHg CV PACS Anatomical Region Laterality Modality Ultrasound Narrative 09/07/2024 3:35 PM EST ?Concentric LVH at about 14 to 15 mm. ??Small internal cavity dimensions. ?? I do not feel I can give a numerical EF. ??Global function looks good on the contrast images but my impression based on the noncontrast images is that systolic function is mildly impaired. ?Global longitudinal strain is reduced at -10.7%. ??Severe diastolic dysfunction with increased LA pressure. ??The interatrial septum bows towards the right. The right ventricle is mildly dilated with mildly reduced function. There is mild mitral regurgitation. ??Trace aortic regurgitation. ??Mild tricuspid regurgitation with an elevated CVP of 15 mmHg and an estimated RV systolic pressure of 53 mmHg. ??Mild pulmonic insufficiency. ?Mildly dilated left atrium with bowing of the interatrial septum towards the right. ??Indicative of the diastolic dysfunction and increased left atrial pressure. ?No major change from January 11, 2024. Left Ventricle Left ventricle cavity size is normal. There is severe concentric hypertrophy. The appearance of the contractility varies from image to imaging especially during the contrast images. Based on the contrast images the ejection fraction looks good. On some of the noncontrast images it looks mildly impaired. There is Grade III (severe) diastolic dysfunction, restrictive filling. Global longitudinal strain is reduced at -10.7% (prior -12.5%). Right Ventricle Right ventricle cavity is mildly dilated. Systolic function is reduced. Left Atrium Left atrium cavity is moderately dilated. There is left to right atrial septal bowing. Consistent with increased left atrial pressure Right Atrium Right atrium cavity is mildly dilated. IVC/SVC RA pressures is estimated to be 15 mmHg (IVC diameter >21 mm and decreases <50% during inspiration). Mitral Valve The leaflets are mildly thickened. There is posterior mitral annular calcification. There is mild regurgitation. There is no evidence of mitral valve stenosis. Tricuspid Valve Tricuspid valve structure is normal. There is mild regurgitation. There is no evidence of tricuspid valve stenosis. The right ventricular systolic pressure is elevated at 53 mmHg. Gradient of 38 mmHg plus a estimated CVP of 15 mmHg. Aortic Valve The aortic valve is trileaflet. Thickened aortic valve leaflets. There is trace regurgitation. There is no evidence of aortic valve stenosis. Pulmonic Valve Pulmonic valve structure is normal. There is mild pulmonic valve regurgitation. There is no evidence of pulmonic valve stenosis. Ascending Aorta Normal aortic sinuses. Ascending aorta is 3.7 cm. Transverse aorta not well visualized. Pericardium Pericardium appears normal. There is no pericardial effusion. Study Details Overall the study quality was technically difficult. Definity contrast was given to enhance imaging. us Marion Fortune NP CV ECHO PROCEDURES Final Result * US Retroperitoneal Complete (09/07/2024 12:34 PM EST) Anatomical Region Laterality Modality Body Ultrasound 09/07/2024 12:5 6 PM EST Impressions 09/07/2024 1:01 PM EST NO HYDRONEPHROSIS ON THE RIGHT. ??THE LEFT KIDNEY WAS UNABLE TO BE VISUALIZED.. -------- FINAL REPORT -------- Dictated By: Jd Nelson Dictated Date: 09/07/2024 12:56 ET Assigned Physician: Jd Nelson Reviewed and Electronically Signed By: Jd Nelson Signed Date: 09/07/2024 13:01 ET Workstation ID: [id number] Transcribed By: Self Edit Transcribed Date: 09/07/2024 12:56 ET Narrative 09/07/2024 1:01 PM EST PROCEDURE: US RETROPERITONEAL COMPLETE INDICATION: acute kidney injury R/O obstruction TECHNIQUE: ??2-D le scale, color Doppler imaging of the kidneys. COMPARISON: No priors available. FINDINGS: Right kidney: The right kidney is normal in size, shape, configuration, and echogenicity. There is no hydronephrosis or nephrolithiasis. The right kidney measures 8.4cm. Left kidney: Unable to visualize due to limited windows and body habitus Limited visualization without either jet visualized Procedure Note Jd Nelson MD - 09/07/2024 PROCEDURE: US RETROPERITONEAL COMPLETE INDICATION: acute kidney injury R/O obstruction TECHNIQUE: 2-D le scale, color Doppler imaging of the kidneys. COMPARISON: No priors available. FINDINGS: Right kidney: The right kidney is normal in size, shape, configuration,and echogenicity. There is no hydronephrosis or nephrolithiasis. The rightkidney measures 8.4cm. Left kidney: Unable to visualize due to limited windows and body habitus Limited visualization without either jet visualized IMPRESSION: NO HYDRONEPHROSIS ON THE RIGHT. THE LEFT KIDNEY WAS UNABLE TO BEVISUALIZED.. -------- FINAL REPORT -------- Dictated By: Jd Nelson Dictated Date: 09/07/2024 12:56 ET Assigned Physician: Jd Nelson Reviewed and Electronically Signed By: Jd Nelson Signed Date: 09/07/2024 13:01 ET Workstation ID: [id number] Transcribed By: Self Edit Transcribed Date: 09/07/2024 12:56 ET Marion Fortune [employer] IMG US PROCEDURES Final Result * (ABNORMAL) Thyroid stimulating hormone with reflex to free t4 and free t3 (09/07/2024 7:32 AM EST) TSH 6.18(H) 0.40 - 4.00 mcIU/mL LAB CHEMISTRY METHOD 09/07/2024 9:10 AM EST [facility] Blood Venous blood specimen / Unknown Venipuncture / Unknown 09/07/2024 7:32 AM EST 09/07/2024 7:42 AM EST Nick MEJIA LAB BLOOD ORDERABLES Final Res ult [facility] [address] [place] [address], * Free thyroxine with reflex to free triiodothyronine (09/07/2024 7:32 AM EST) Free T4 1.23 0.70 - 1.80 ng/dL LAB CHEMISTRY METHOD 09/07/2024 10:47 AM EST [facility] Blood Venous blood specimen / Unknown Venipuncture / Unknown 09/07/2024 7:32 AM EST 09/07/2024 7:42 AM EST Nick MEJIA LAB BLOOD ORDERABLES Final Res ult Performing Organization Address City/[facility]/ZIP Co de Phone Number [facility] [address] [place] [address], [place] [phone] * (ABNORMAL) Triiodothyronine free (09/07/2024 7:32 AM EST) Pathologist [facility] T3, Free 160(L) 230 - 420 pcg/dL LAB CHEMISTRY METHOD 09/07/2024 11:07 AM EST [facility] Blood Venous blood specimen / Unknown Venipuncture / Unknown 09/07/2024 7:32 AM EST 09/07/2024 7:42 AM EST Nick MEJIA LAB BLOOD ORDERABLES Final Res ult Performing Organization Address [facility]/ZIP Co de Phone Number [facility] [address] [place] [address], [place] [phone] * Vitamin B12 (09/07/2024 7:32 AM EST) [facility] Vitamin B-12 648 250 - 900 pcg/mL LAB CHEMISTRY METHOD 09/07/2024 9:02 AM EST [facility] Blood Venous blood specimen / Unknown Venipuncture / Unknown 09/07/2024 7:32 AM EST 09/07/2024 7:42 AM EST Nick MEJIA LAB BLOOD ORDERABLES Final Res ult Performing Organization Address City/[facility]/ZIP Co de Phone Number [facility] [address] [place] [address], [place] [phone] * Le urine culture tube (09/06/2024 7:55 PM EST) [facility] Extra Tube Hold for add-ons. 09/06/2024 10:02 PM EST [facility] Comment:Auto resulted. Urine Urine specimen obtained by clean catch procedure / Unknown Non-blood Collection / Unknown 09/06/2024 7:55 PM EST 09/06/2024 8:03 PM EST Shravan Hurt MD LAB URINE ORDERABLES Final Result [facility] [address] [place] [address], * (ABNORMAL) Culture urine (09/06/2024 7:55 PM EST) Culture, Urine >100,000 CFU/mL Escherichia coli(A) ALEXANDRA 09/08/2024 10:34 AM EST [facility] Urine Urine specimen obtained by clean catch procedure / Unknown Non-blood Collection / Unknown 09/06/2024 7:55 PM EST 09/06/2024 8:16 PM EST Narrative Organism Antibiotic Method Susceptibility Escherichia coli Amoxicillin/Clavulanate ALEXANDRA <=2 ug/ml: Susceptible Escherichia coli Ampicillin/Sulbactam ALEXANDRA <=2 ug/ml: Susceptible Escherichia coli Piperacillin/Tazobactam ALEXANDRA <=4 ug/ml: Susceptible Escherichia coli Cefazolin (Urine) ALEXANDRA <=1 ug/ml: Susceptible Escherichia coli Cefoxitin ALEXANDRA <=4 ug/ml: Susceptible Escherichia coli Ceftazidime ALEXANDRA <=0.5 ug/ml: Susceptible Escherichia coli Ceftriaxone ALEXANDRA <=0.25 ug/ml: Susceptible Escherichia coli Cefepime ALEXANDRA <=0.12 ug/ml: Susceptible Escherichia coli Meropenem ALEXANDRA <=0.25 ug/ml: Susceptible Escherichia coli Amikacin ALEXANDRA 2 ug/ml: Susceptible Escherichia coli Gentamicin ALEXANDRA <=1 ug/ml: Susceptible Escherichia coli Ciprofloxacin ALEXANDRA <=0.06 ug/ml: Susceptible Escherichia coli Levofloxacin ALEXANDRA <=0.12 ug/ml: Susceptible Escherichia coli Nitrofurantoin ALEXANDRA <=16 ug/ml: Susceptible Escherichia coli Trimethoprim/Sulfamethoxazole ALEXANDRA <=20 ug/ml: Susceptible Shravan Hurt MD LAB MICROBIOLOGY - GENERAL ORDERABLES Final Result [facility] [address] [place] [address], [place] [phone] * (ABNORMAL) Troponin I high sensitivity (09/06/2024 5:22 PM EST) Only the most recent of7 resultswithin the time period is included. High Sensitivity Troponin I 460(HH) <=54 ng/L LAB CHEMISTRY METHOD 09/06/2024 6:23 PM EST [facility] Blood Venous blood specimen / Unknown Venipuncture / Unknown 09/06/2024 5:22 PM EST 09/06/2024 5:41 PM EST Narrative [facility] - 09/06/2024 6:23 PM EST High levels of biotin in samples may falsely decrease hsTroponin values. ??Use caution when interpreting hsTroponin results in patients taking biotin who exhibit renal impairment (eGFR <60) or in patients taking more than 20 mg/day of biotin. us Shravan Hurt MD LAB BLOOD ORDERABLES Final Result Performing Organization Address [facility] Co de Phone Number [facility] [address] [place] [address], [place] [phone] * XR Chest 2 Views (09/06/2024 4:33 PM EST) Only the most recent of3 resultswithin the time period is included. Anatomical Region Laterality Modality Body Radiographic Emilee ging 09/06/2024 5:18 PM EST Impressions 09/06/2024 5:19 PM EST FINDINGS/IMPRESSION: Stable cardiomediastinal contours with small left and trace right pleural effusion. ??Retrocardiac atelectasis versus developing infiltrate. ??Degenerative osseous changes. -------- FINAL REPORT -------- Dictated By: Jd Nelson Dictated Date: 09/06/2024 17:18 ET Assigned Physician: Jd Nelson Reviewed and Electronically Signed By: Jd Nelson Signed Date: 09/06/2024 17:19 ET Workstation ID: [id number] Transcribed By: Self Edit Transcribed Date: 09/06/2024 17:18 ET Narrative 09/06/2024 5:19 PM EST XR CHEST 2 VIEWS INDICATION: chest pain TECHNIQUE: XR CHEST 2 VIEWS COMPARISON: 08/04/2024 Procedure Note Jd Nelson MD - 09/06/2024 XR CHEST 2 VIEWS INDICATION: chest pain TECHNIQUE: XR CHEST 2 VIEWS COMPARISON: 08/04/2024 IMPRESSION: FINDINGS/IMPRESSION: Stable cardiomediastinal contours with small left andtrace right pleural effusion. Retrocardiac atelectasis versus developinginfiltrate. Degenerative osseous changes. -------- FINAL REPORT -------- Dictated By: Jd Nelson Dictated Date: 09/06/2024 17:18 ET Assigned Physician: Jd Nelson Reviewed and Electronically Signed By: Jd Nelson Signed Date: 09/06/2024 17:19 ET Workstation ID: [id number] Transcribed By: Self Edit Transcribed Date: 09/06/2024 17:18 ET Shravan Hurt MD IMG XR PROCEDURES Final Res ult * Vitamin B12 and folate (09/06/2024 2:21 PM EST) Vitamin B-12 633 250 - 900 pcg/mL LAB CHEMISTRY METHOD 09/07/2024 1:31 AM EST [facility] Folate 10.6 2.8 - 17.0 ng/ml LAB CHEMISTRY METHOD 09/07/2024 1:31 AM EST [facility] Blood Venous blood specimen / Unknown Venipuncture / Unknown 09/06/2024 2:21 PM EST 09/06/2024 2:31 PM EST Shravan Hurt MD LAB BLOOD ORDERABLES Final Result [facility] [address] [place] [address], [place] [phone] * (ABNORMAL) Urinalysis microscopic only (08/08/2024 1:01 PM EST) RBC, Urine 2.6 0 - 4 /HPF LAB URINALYSIS - AUTOMATED METHOD 08/08/2024 1:33 PM EST [facility] WBC, Urine 1.2 0 - 4 /HPF LAB URINALYSIS - AUTOMATED METHOD 08/08/2024 1:33 PM [facility] Squamous Epithelial, Urine 64(H) 0 - 60 /LPF LAB URINALYSIS - AUTOMATED METHOD 08/08/2024 1:33 PM [facility] Bacteria, Urine Negative Negative /HPF LAB URINALYSIS - AUTOMATED METHOD 08/08/2024 1:33 PM [facility] Hyaline Casts, Urine 2.1 0 - 3 /LPF LAB URINALYSIS - AUTOMATED METHOD 08/08/2024 1:33 PM [facility] Urine Urine specimen obtained by clean catch procedure / Unknown Non-blood Collection / Unknown 08/08/2024 1:01 PM EST 08/08/2024 1:09 PM EST Hosea Koo MD LAB URINE ORDERABLES Final Res ult Performing Organization Address [facility]/ZIP Co de Phone Number [facility] [address] [place] [address], * Phosphorus (08/07/2024 6:20 AM EST) Phosphorus 3.6 2.5 - 4.5 mg/dL LAB CHEMISTRY METHOD 08/07/2024 7:01 AM EST [facility] Blood Venous blood specimen / Unknown Venipuncture / Unknown 08/07/2024 6:20 AM EST 08/07/2024 6:30 AM EST Kenan Huerta MD LAB BLOOD ORDERABLES F inal Result [facility] [address] [place] [address], [place] [phone] * (ABNORMAL) B-type natriuretic peptide (08/04/2024 2:10 PM EST) Only the most recent of2 resultswithin the time period is included. [facility] BNP 609(H) <=100 pcg/mL LAB CHEMISTRY METHOD 08/04/2024 2:52 PM EST [facility] Blood Venous blood specimen / Unknown Venipuncture / Unknown 08/04/2024 2:10 PM EST 08/04/2024 2:19 PM EST us Haley Tovar MD LAB BLOOD ORDERABLES Final Resul t Performing Organization Address City/[facility] de Phone Number [facility] [address] [place] [address], [place] [phone] * Lipase (08/04/2024 2:10 PM EST) [facility] Lipase 40 13 - 75 unit/L LAB CHEMISTRY METHOD 08/04/2024 2:46 PM EST [facility] Blood Venous blood specimen / Unknown Venipuncture / Unknown 08/04/2024 2:10 PM EST 08/04/2024 2:19 PM EST us Haley Tovar MD LAB BLOOD ORDERABLES Final Resul t [facility] [address] [place] [address], [place] [phone] * (ABNORMAL) Lipid panel with reflex to direct LDL (07/20/2024 4:55 AM EST) [facility] Cholesterol 66 0 - 200 mg/dL LAB CHEMISTRY METHOD 07/20/2024 6:10 AM EST [facility] Triglycerides 78 0 - 150 mg/dL LAB CHEMISTRY METHOD 07/20/2024 6:10 AM EST [facility] HDL 35(L) >=40 mg/dL LAB CHEMISTRY METHOD 07/20/2024 6:10 AM [facility] LDL Calculated 15 0 - 100 mg/dL LAB CHEMISTRY METHOD 07/20/2024 6:10 AM [facility] VLDL Cholesterol Andrei 15.6 mg/dL LAB CHEMISTRY METHOD 07/20/2024 6:10 AM [facility] Non HDL Chol. (LDL+VLDL) 31 <145 mg/dL LAB CHEMISTRY METHOD 07/20/2024 6:10 AM [facility] Chol/HDL Ratio 1.9 0.0 - 4.4 LAB CHEMISTRY METHOD 07/20/2024 6:10 AM [facility] Blood Venous blood specimen / Unknown Venipuncture / Unknown 07/20/2024 4:55 AM EST 07/20/2024 5:39 AM EST Nick MEJIA LAB BLOOD ORDERABLES Final Res ult [facility] [address] [place] [address], [place] [phone] * APTT (07/19/2024 5:46 PM EST) aPTT 35.0 24.1 - 39.3 sec LAB COAGULATION METHOD 07/19/2024 6:38 PM [facility] Blood Venous blood specimen / Unknown Venipuncture / Unknown 07/19/2024 5:46 PM EST 07/19/2024 6:14 PM EST Beau Allison MD LAB BLOOD ORDERABLES Final Result [facility] [address] [place] [address], [place] [phone] * (ABNORMAL) Prothrombin time with INR (07/19/2024 5:46 PM EST) Protime 33.4(H) 10.6 - 13.9 sec LAB COAGULATION METHOD 07/19/2024 6:38 PM EST [facility] INR 2.7 LAB COAGULATION METHOD 07/19/2024 6:38 PM EST [facility] Blood Venous blood specimen / Unknown Venipuncture / Unknown 07/19/2024 5:46 PM EST 07/19/2024 6:14 PM EST us Beau Allison MD LAB BLOOD ORDERABLES Final Result [facility] [address] [place] [address], [place] [phone] * CT Chest/Abdomen/Pelvis wo Contrast (07/19/2024 10:52 AM EST) Anatomical Region Laterality Modality Body Computed Tomogra phy 07/19/2024 11:1 6 AM EST Impressions 07/19/2024 11:[address]: Moderate left and [id number] right pleural effusions with mild atelectatic changes. Abdomen/pelvic CT: No obstruction, free air, free fluid or focal inflammatory changes. -------- FINAL REPORT -------- Dictated By: Dorie Gonzales Dictated Date: 07/19/2024 11:16 ET Assigned Physician: Dorie Gonzales Reviewed and Electronically Signed By: Dorie Gonzales Signed Date: 07/19/2024 11:24 ET Workstation ID: [id number] Transcribed By: Self Edit Transcribed Date: 07/19/2024 11:16 ET Narrative 07/19/2024 11:24 AM EST INDICATION: Shortness of breath concern for multiple myeloma Technique: CT scan of the chest, abdomen and pelvis obtained with a total of 95 cc of Isovue 370 intravenously without incident. No oral contrast administered. Scanner: [employer] 64 slice VCT Dose reduction technique: ASIR (Adaptive statistical iterative reconstruction) and/or AEC (automated exposure control) Dose: total exam DLP 2499 mGY per cm Comparison: No prior studies available for comparison. FINDINGS: Chest CT: Lung rowland demonstrate mild bibasilar atelectasis. Small to moderate right and moderate left pleural effusions. No thoracic lymphadenopathy. Trachea and esophagus are within normal limits. Heart is mildly enlarged without pericardial effusion. Vascular structures are normal in course and caliber for the patient's age. Bony structures demonstrate osteopenia and mild degenerative changes. Abdomen/pelvic CT: Unopacified liver, spleen, pancreas and adrenal glands are within normal limits. Status post cholecystectomy. Kidneys are slightly small in size without significant cortical thinning or hydronephrosis. Small amount of perihepatic ascites extending along the right paracolic gutter. Stomach and small bowel are within normal limits. Terminal ileum normal in the right lower quadrant. Colon normal in course and caliber. No colonic wall thickening or pericolonic inflammatory changes. Urinary bladder unremarkable. Status post hysterectomy. No adnexal masses. Abdominal aorta demonstrates mild atherosclerotic changes. No retroperitoneal lymphadenopathy. Scattered mesenteric calcifications likely representing calcified nodes/granulomatous change. Bony structures demonstrate osteopenia and mild degenerative changes. Well- positioned left hip replacement. Procedure Note Dorie Gonzales MD - 07/19/2024 INDICATION: Shortness of breath concern for multiple myeloma Technique: CT scan of the chest, abdomen and pelvis obtained with a totalof 95 cc of Isovue 370 intravenously without incident. No oral contrastadministered. Scanner: [employer] 64 slice VCT Dose reduction technique: ASIR (Adaptive statistical iterativereconstruction) and/or AEC (automated exposure control) Dose: total exam DLP 2499 mGY per cm Comparison: No prior studies available for comparison. FINDINGS: Chest CT: Lung rowland demonstrate mild bibasilar atelectasis. Small to moderateright and moderate left pleural effusions. No thoracic lymphadenopathy. Trachea and esophagus are within normallimits. Heart is mildly enlarged without pericardial effusion. Vascular structures are normal in course and caliber for the patient'terell. Bony structures demonstrate osteopenia and mild degenerative changes. Abdomen/pelvic CT: Unopacified liver, spleen, pancreas and adrenal glands are within normallimits. Status post cholecystectomy. Kidneys are slightly small in sizewithout significant cortical thinning or hydronephrosis. Small amount of perihepatic ascites extending along the right paracolicgutter. Stomach and small bowel are within normal limits. Terminal ileum normal inthe right lower quadrant. Colon normal in course and caliber. No colonicwall thickening or pericolonic inflammatory changes. Urinary bladder unremarkable. Status post hysterectomy. No adnexalmasses. Abdominal aorta demonstrates mild atherosclerotic changes. Noretroperitoneal lymphadenopathy. Scattered mesenteric calcificationslikely representing calcified nodes/granulomatous change. Bony structures demonstrate osteopenia and mild degenerative changes.Well- positioned left hip replacement. IMPRESSION: Chest CT: Moderate left and [id number] right pleural effusions withmild atelectatic changes. Abdomen/pelvic CT: No obstruction, free air, free fluid or focalinflammatory changes. 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 Do not modify or discontinue any currently active code status orders. * Full Code - Default Date Activated Date Inactivated Comments 08/04/2024 10:31 PM 08/08/2024 6:52 PM This is ord er is used when code status has not been discussed with the patient, or code status is otherwise unknown/unconfirmed To update the patient's code status, place a code status order. Do not modify or discontinue any currently active code status orders. * Full Code - Default Date Activated Date Inactivated Comments 07/19/2024 8:04 PM 07/20/2024 4:49 PM This is order is used when code status has not been discussed with the patient, or code status is otherwise unknown/unconfirmed To update the patient's code status, place a code status order. Do not modify or discontinue any currently active code status orders. Healthcare Agents on File Name Relationship Healthcare Agent [facility] p Marycruz Marimar Nicholas Daughter Health Care Agent Georgina Sosa Daughter First Alternate Health Car e Agent Care Teams Associate Financial Representative Relationship Specialty Start Date End Date Mellisa Snatana MD [address] [place] [address] PCP - General 10/06/22
--- OUTSIDE RECORDS SUMMARY | 2024-10-13 20:07 | XMS_ITS | Encounter Summary ---
Author Organization [facility] Address [address] [place] [address] Care Team Providers Care Conductor Pullman Name Role Phone Mellisa Santana MD Primary Care Provi lucille Encounter Details Date Type Department Care Team (Late st Contact Info) Description 10/07/2024 Lab Requisition [facility] Main Lab [address] [facility] [place] [address] Obdulia Moreira MD [address] [place] [id number] Essential (primary) hypertension Social History Tobacco Use [...] for your loved ones. For example, children's program coordinator or elderly care for an older adult? [...] Description 10/25/2024 11:10 AM EDT Office Visit [facility] [address] [facility] [address] [place] [address] Kathrin Cardona PA [address] [facility] [address] [place] [address] 12/06/2024 8:30 AM EDT Consult Orthopedic Surgery - [place] [address] [facility] [address] [place] [id number] Shravan Pa DPM [address] [id number] documented as of this encounter Visit Diagnoses Diagnosis Essential (primary) hypertension Unspecified essential hypertension documented in this encounter Care Teams Conductor Pullman Relationship Specialty Start Date End Date Mellisa Santana MD [address] [place] [address] PCP - General 10/06/22 documented as of this encounter
--- OUTSIDE RECORDS SUMMARY | 2024-10-13 20:07 | XMS_ITS | Clinical Summary ---
Author Organization [facility] Address [address] [facility] [address] [place] [address] Phone Care Team Providers Care Corporate Financial Analyst Name Role Phone Scott Santana MD Primary Care Prov ider Allergies Active Allergy Reactions Criticality Noted Date Comments Adhesive Tape Rash Low 05/15/2019 Bacitracin-Polymyxin B Other (see comments) Beta Vulgaris 05/15/2019 Cefazolin Other (see comments) 11/11/2020 Corticosteroids Other (see comments) 11/24/2020 Food Other (see comments) 11/24/2020 Ibuprofen Other (see comments) 11/11/2020 Penicillin V Other (see comments) 11/11/2020 Penicillins 05/15/2019 Medications calcitriol (ROCALTROL) 0.25 MCG capsule Comments: Filled Date: Oct 03 2019 12:16PM Patient Notes: 1 capsule by mouth three times a week Duration: 90 12/25/2017 Active diphenhydrAMINE (SOMINEX) 25 MG tablet Take 2 tablets by mouth 1 (one) time each day Active furosemide (LASIX) 40 MG tablet Take 1 tablet by mouth 1 (one) time each day Active glyBURIDE (DIABETA) 2.5 MG tablet Take 5 mg by mouth 2 (two) times a day Active levothyroxine (SYNTHROID, LEVOTHROID) 125 MCG tablet Take 1 tablet by mouth 1 (one) time each day Active Magnesium Oxide 400 MG capsule Take 1 capsule by mouth 1 (one) time each day Active rosuvastatin (CRESTOR) 40 MG tablet Take 1 tablet by mouth 1 (one) time each day Active traMADol (ULTRAM) 50 MG tablet Take 1 tablet by mouth 1 (one) time each day Active Xarelto 20 MG tablet Take 20 mg by mouth 1 (one) time each day 03/10/2023 Active metoprolol tartrate 25 MG tablet Take 25 mg by mouth in the morning and 25 mg in the evening. 01/13/2023 Active Farxiga 5 MG tablet 09/25/2023 Active Active Problems Problem Noted Date Diagnosed Date Carpal tunnel syndrome of left wrist 09/26/2023 Stage 3b chronic kidney disease 09/26/2023 Proteinuria 03/15/2023 Cellulitis of left finger 11/16/2022 Overview (09/26/2023): Last Assessment & Plan: Operative note implies [...] arise. Thank you Atrial fibrillation 11/16/2022 Overview (09/26/2023): Last Assessment & Plan: - Rivaroxaban was held for surgery but has been restarted -Her home dose of rivaroxaban was reduced dose of 15 mg daily but based on her renal function it has been increased to 20 mg daily here - cont metoprolol Type 2 diabetes mellitus wit h diabetic chronic kidney disease 11/24/2020 Renal osteodystrophy 11/24/2020 Type 2 diabetes mellitus 11/11/2020 Renal disorder due to type 2 diabetes mellitus 0 11/11/2020 Osteoporosis 11/11/2020 Osteoarthritis 11/11/2020 Obesity 11/11/2020 Hypothyroidism 11/11/2020 Hypertensive disorder 11/11/2020 Depressive disorder 11/11/2020 Stage 3a chronic kidney disease 11/11/2020 Essential hypertension 11/11/2020 Encounters Date Type Department Care Team Description 09/24/2024 Telephone [facility] [address] [place] [address] [phone] Marimar Hodge MA 08/23/2024 Office Communication [facility] [address] [place] [address] [phone] Beau Reeves MD from Last 3 Months Immunizations Name Administration Dates Next Due Pneumococcal Polysaccharide 08/18/2001 Family History Medical History Relation Comments Heart disease Father Hypertension Father Diabetes Mother Heart disease Mother Hypertension Mother Cancer Sibling 1 Stroke Sibling 2 Diabetes Sibling 3 Cancer Sibling 4 Diabetes Sibling 4 Hypertension Sibling 4 Relation Status Comments Father Mother Sibling 1 Sibling 2 Sibling 3 Sibling 4 Social History Tobacco Use Types Packs/Day Years Used Date Smoking Tobacco: Never Alcohol Use Standard Drinks/Week Comments No 0 (1 standard drink = 0.6 oz pur e alcohol) Comments Unknown Sex and Gender Information Value Date Recorded Sex Assigned at Not on file Legal Sex Female 4:43 PM EST Gender Identity Not on file Sexual Orientation Not on file Last Filed Vital Signs Vital Sign Reading Time Taken Comments Blood Pressure 126/62 04/02/2024 2:14 PM EDT Pulse 88 04/02/2024 2:14 PM EDT Temperature - - Respiratory Rate - - Oxygen Saturation 98% 04/02/2024 2:14 PM EDT Inhaled Oxygen Concentration - - Weight 133 kg (293 lb 3.2 oz) 04/02/2024 2:14 PM EDT Height 160 cm (5' 3 ) 05/26/2020 12:00 PM EST Body Mass Index 51.94 05/26/2020 12:00 PM EST Plan of Treatment Health Maintenance Due Date Last Done Comments Breast Cancer Screening 1955 Colorectal Cancer Screening: Annual FOBT 2002 Colorectal Cancer Screening: Colonoscopy 2002 Colorectal Cancer Screening: Sigmoidoscopy 2002 Pneumococcal Vaccine: 65+ Years (4 of 4 - PPSV23 or PCV20) 08/01/2020 05/29/2018, 08/01/2015, 08/18/2001 Diabetes: Ophthalmology Exam 08/11/2020 Diabetes: Pedal Pulse Checked 08/11/2020 Diabetes: Sensory Foot Exam 08/11/2020 Diabetes: Visual Foot Exam 08/11/2020 Diabetes: Hemoglobin A1C 12/13/2024 0305 025, 07/19/2024, 05/20/2020 Influenza Vaccine Completed 04/04/2024, , 05/06/2020, Additional history exists Hepatitis B Vaccine Aged Out No longe r eligible based on patient's age to complete this topic Procedures Procedure Name Priority Date/Time Associated Diagnosis Comments BLOOD PANEL (HC) Routine 05/20/2020 12:0 0 AM EST from Last 3 Months or Most Recently Relevant to Health Maintenance Results * (ABNORMAL) Blood Panel (05/20/2020 12:00 AM EST) HDL 45 >40 mg/dl [facility] LDL,Direct 50 <130 mg/dl [facility] Cholesterol 125 <200 mg/dl [facility] Triglycerides 152(H) <150 mg/dl [facility] Hemoglobin A1C 7.7(H) <5 % [facility] 05/20/2020 us [facility] Conversion LAB [id number] LICITED RESULTS Final Result [facility] from Last 3 Months or Most Recently Relevant to Health Maintenance Insurance [place] Care Teams Corporate Financial Analyst Relationship Specialty Start Date End Date Scott Santana MD [address] [place] [address] PCP - General 05/15/19
--- OUTSIDE RECORDS SUMMARY | 2024-10-13 20:07 | XMS_ITS | Encounter Summary ---
Author Organization [facility] Address [address] [place] [address] Care Team Providers Care Project Mgr Name Role Phone Mellisa Santana MD Primary Care Provi lcuille Encounter Details Date Type Department Care Team (Late st Contact Info) Description 10/13/2024 Lab Requisition [facility] - Main Lab [address] [facility] [place] [address] Obdulia Moreira MD [address] [place] [phone] Essential (primary) hypertension Social History Tobacco Use [...] care for your loved ones. For example, early childhood aide classroom or elderly care for an older adult? [...] Description 10/25/2024 11:10 AM EDT Office Visit [facility] [address] [facility] 154 [place] [address] Kathrin Cardona PA 300 [facility] 154 [place] [address] 12/06/2024 8:30 AM EDT Consult Orthopedic Surgery - [place] 250 175 [facility] 250 [place] [address] Shravan Pa DPM [address] [address] Scheduled Orders Name Type Priority Associated Diagnoses Orde r Schedule Complete blood count Lab Routine Essential (primary) hypertension Ordered: 10/13/2024 Comprehensive metabolic panel Lab Routine Essential (primary) hypertension Ordered: 10/13/2024 documented as of this encounter Visit Diagnoses Diagnosis Essential (primary) hypertension Unspecified essential hypertension documented in this encounter Care Teams Project Mgr Relationship Specialty Start Date End Date Mellisa Santana MD [address] [place] [address] PCP - General 10/06/22 documented as of this encounter
--- OUTSIDE RECORDS SUMMARY | 2024-10-13 20:07 | XMS_ITS | Encounter Summary ---
Author Organization [facility] [place] [address] Care Team Providers Care Electric Crane Operator Name Role Phone Mellisa Santana MD Primary Care Provi lucille Encounter Details Date Type Department Care Team (Late st Contact Info) Description 09/21/[address] [facility] - Main Lab [address] [facility] [place] [address] Obdulia Moreira MD [address] [address] Localized swelling, mass and lump, unspecified Social History Tobacco Use Types Packs/Day Years [...] your loved ones. For example, early childhood assistant or elderly care for an older adult? [...] Description 10/25/2024 11:10 AM EDT Office Visit [facility] 154 [address] [facility] 154 [place] [address] Kathrin Cardona PA 300 [facility] [address] [place] [address] 12/06/2024 8:30 AM EDT Consult Orthopedic Surgery - [place] 250 175 [facility] 250 [place] [address] Shravan Pa, PAMELAM 175 [facility] 250 [place] [address] documented as of this encounter Procedures Procedure Name Priority Date/Time Associated Diagnosis Comments BASIC METABOLIC PANEL Routine 09/21/2024 7:00 AM EDT Localized swelling, mass and lump, unspecified documented in this encounter Results * (ABNORMAL) Basic metabolic panel (09/21/2024 7:00 AM EDT) Sodium 130(L) 133 - 145 mmol/L LAB CHEMISTRY METHOD 09/21/2024 10:27 AM [facility] Potassium 4.7 3.5 - 5.5 mmol/L LAB CHEMISTRY METHOD 09/21/2024 10:27 AM [facility] Chloride 94(L) 96 - 110 mmol/L LAB CHEMISTRY METHOD 09/21/2024 10:27 AM [facility] CO2 29 21 - 32 mmol/L LAB CHEMISTRY METHOD 09/21/2024 10:27 AM [facility] Anion Gap 7 3 - 11 LAB CHEMISTRY METHOD 09/21/2024 10:27 AM [facility] Glucose 121(H) 70 - 100 mg/dL LAB CHEMISTRY METHOD 09/21/2024 10:27 AM [facility] BUN 80(H) 5 - 25 mg/dL LAB CHEMISTRY METHOD 09/21/2024 10:27 AM [facility] Creatinine 3.09(H) 0.50 - 1.10 mg/dL LAB CHEMISTRY METHOD 09/21/2024 10:27 AM [facility] eGFR 16(L) >=60 mL/min/1. 73m2 LAB CHEMISTRY METHOD 09/21/2024 10:27 AM [facility] Comment:Calculation based on the??Chronic Kidney Disease Epidemiology Collaboration (CKD-EPI) equation refit??without adjustment for race. BUN/Creatinine Ratio 25.9 LAB CHEMISTRY METHOD 09/21/2024 10:27 AM [facility] Calcium 9.3 8.5 - 10.5 mg/dL LAB CHEMISTRY METHOD 09/21/2024 10:27 AM [facility] Blood Venous blood specimen / Unknown Venipuncture / Unknown 09/21/2024 7:00 AM EDT 09/21/2024 9:15 AM EDT us Obdulia Moreira MD LAB BLOOD ORDERABLES Fin al Result [facility] [address] [place] [address], documented in this encounter Visit Diagnoses Diagnosis Localized swelling, mass and lump, unspecified documented in this encounter Care Teams Electric Crane Operator Relationship Specialty Start Date End Date Mellisa Santana MD [address] [place] [address] PCP - General 10/06/22 documented as of this encounter
[2024-10-13 20:16] LABS: Free T4 (Free Thyroxine) 1.15 ng/dL (0.71-1.85)
[2024-10-13] MEDS: Albumin Human 25 % 100 ML 133.33 ML IV ×2 (20:39→21:27)
[2024-10-13] MEDS: Dextrose 5 % 1,000 ML 100 ML IVCONT (20:40)
[2024-10-13 21:05] LABS: Reflex Lactate? Lactic Acid Added
[2024-10-13 21:06] LABS: Glucose, Whole Blood 60 mg/dL (60-115)
[2024-10-13 21:06] LABS: Glucose, Whole Blood 65 mg/dL (60-115)
[2024-10-13 21:06] LABS: Appearance Urine Cloudy; Color Urine Yellow; Glucose Urine UA Negative (Negative); Leukocyte Esterase Urine Large (3+) (Negative); Nitrite Urine Negative (Negative); PH 6.5 (5.0-9.0); Specific Gravity - Urine 1.015 (1.005-1.025); UMIC TRIGGER UACC YES; Urine Blood Moderate (2+) (Negative); Urine Ketones Negative (Negative); Urine Protein 30 (1+) mg/dL (Neg-Trace)
[2024-10-13 21:15] LABS: Bacteria Urine 4+ (None Seen); Hyaline Casts Urine 0-2 /LPF (0-2); Squamous Epithelial Cell Urine 0-2 /HPF (0-2); UACC Culture Trigger YES; WBC Urine >50 /HPF (0-5)
--- NOTE | 2024-10-13 21:28 | PC.NURSE ---
patient given apple juice at this time, tolerated po intake well
[2024-10-13 21:55] LABS: Glucose, Whole Blood 84 mg/dL (60-115)
[2024-10-13 22:12] LABS: ~Lactic Acid-LAB USE ONLY 3.8 mmol/L (0.5-2.0)
[2024-10-13 22:24] LABS: Cancel Lactic Acid Canceled
[2024-10-13] MEDS: Dextrose 5 % and 0.9 % NaCl 1,000 ML 80 ML IVCONT (22:59)
[2024-10-13] MEDS: cefTRIAXone sodium 1 GM VIAL IVPUSH (23:01)
--- NOTE | 2024-10-13 23:11 | PM.IMHP ---
History of Present Illness Date of Service: 10/13/24 Attending physician on admission: Eduardo Urena Chief Complaint: Patient told she had low blood sugar Patient is a 69-year-old female with past medical history of diabetes type 2, chronic kidney disease stage 4, hypertension, hypothyroidism, morbid obesity, paroxysmal atrial fibrillation on anticoagulation, CHF on oxygen, hyperlipidemia has been staying at a rehabilitation facility since discharge October 10 from [facility] for [facility]. Patient was found to have a blood sugar of 31. Patient stated she had gone down earlier to play bingo but complained that her legs hurt and she wanted to returned to her room and take a nap. Staff or coming in to help make the bed so that patient could rest. In the interim patient's blood sugar was checked and patient denies being symptomatic including altered mental status, diaphoresis, or agitation. Patient then learned that her blood sugar was low and required transfer to the hospital for intervention. Patient received dextrose and point of care with EMS was 106. Blood glucose level in the emergency department is currently 84. Patient is currently on a D5 0.9 normal saline infusion at 80 mL/hour. Patient is not reporting any chest pain, shortness of breath, dizziness, sweating and is not altered in terms of mental status. Patient had been on glyburide at the time of discharge on October 10. Patient also found to have high suspicion for UTI based on UA and was started on ceftriaxone in the emergency department. Patient does have of 11.6. Patient is afebrile. Patient's renal function currently at baseline although noting stage IV with a creatinine of 3.86, creatinine clearance of 12.5 and estimated GFR of 12. Patient follows with blood bank order control clerk at [facility]. Patient has noted metabolic alkalosis and a lactic acid of 3.8. Patient is not currently oliguric or anuric. Patient was straight cath for urine sample and obtained 150 mL of urine. Patient is complaining of some itching on the upper arms. Phosphorus is pending. Incidentally EKG notes sinus rhythm with sinus arrhythmia and a first-degree AV block. ID interval is 260. QTC is 568. Magnesium 1.9. Chest x-ray notes a left basilar consolidation that may likely represent atelectasis versus pneumonia as this finding was also noted from a chest x-ray from 10/01/2024 indicating a left basilar opacity or infiltrate and layering left-sided effusion. Effusion no longer present. We will assess viral studies for flu, COVID, and RSV. Patient has not had any hypoxia and is currently 100% on 2 L nasal cannula. Patient does use oxygen daily normally. Patient currently being admitted for hypoglycemia, urinary tract infection, chronic kidney disease stage 4, baseline hypotension with a noted metabolic alkalosis and lactic acidosis. Patient does not meet the criteria for SIRS and is not being qualified as having sepsis. Review of Systems Review of Systems: Patient denies any chest pain, shortness of breath at rest, abdominal pain, constipation or diarrhea. Patient is not having any issues with nausea, vomiting. Patient denies any painful urination or abnormal discharge. Patient denies any headaches, visual changes or recent falls. Patient denies any sweating, irritability or agitation especially when her blood sugar was low. Patient is reporting upper extremity itching at times. Yes all other systems are reviewed and are negative [facility] Medical History (Updated 10/14/24 @ 00:18 by Kwame Gee MD) Diabetes type 2, controlled CHF (congestive heart failure) Obesity CKD (chronic kidney disease) Hyperlipidemia HTN (hypertension) Afib Functional capacity: bed bound Social History (Reviewed 10/13/24 @ 23:27 by Sadaf Martinez [facility]) Household Members: Family Housing: House Do you presently have visiting nurse or other home services: No Alcohol intake: never Patient Tobacco Use Status: Never used Tobacco Smoked in Last 30 Days: No e-Cigarette/Vaping Use: Never Used Second Hand Smoke Exposure: No Use of substances other than those prescribed or required for medical reasons: No Advance Directives: No Advance Directives Information Provided: No Do you have a plan to hurt others: No Plan service: No Ebola Risk: Travel/Contact With Anyone From Affected Area/s: No Has Patient Experienced Ebola Symptoms: No Meds Allergies Allergy/AdvReac Type Severity Reaction Status Date / Time adhesive Allergy Unknown Verified 10/13/24 19:07 bacitracin Allergy Unknown Verified 10/13/24 19:07 beet Allergy Unknown Verified 10/13/24 19:07 cefazolin Allergy Unknown Verified 10/13/24 19:07 Corticosteroids Allergy Unknown Verified 10/13/24 19:07 (Glucocorticoids) ibuprofen Allergy Unknown Verified 10/13/24 19:07 polymyxin B Allergy Unknown Verified 10/13/24 19:07 Active Medications: Current Medications Acetaminophen (Acetaminophen 325 Mg Tablet) 650 mg PO Q6H PRN PRN Reason: Pain, Mild 1-3,fever,headache Albuterol/Ipratropium (Albuterol/Iprat 2.5/0.5mg 3 Ml Ampul.Neb) 3 ml INHALE Q4H PRN PRN Reason: Shortness of Breath/Wheezing Calcium Carbonate (Calcium Carbonate 750 Mg Tab.Chew) 750 mg PO Q4H PRN PRN Reason: Heartburn Ceftriaxone Sodium (Ceftriaxone Sodium 1 Gm Vial) 1 gm IVPUSH Q24H [facility] Dextrose (Dextrose 50 % 25 Gm/50 Ml Syringe) 25 gm IVPUSH Q15M PRN; Protocol PRN Reason: per Hypoglycemia Standing Ord. Dextrose (Dextrose 50 % 25 Gm/50 Ml Syringe) 25 gm IVPUSH Q15M PRN; Protocol PRN Reason: per Hypoglycemia Standing Ord. Glucose (Glucose Gel 15 Gm Gel..Gram.) 15 gm PO Q15M PRN; Protocol PRN Reason: per Hypoglycemia Standing Ord. Glucose (Glucose Gel 15 Gm Gel..Gram.) 15 gm PO Q15M PRN; Protocol PRN Reason: per Hypoglycemia Standing Ord. Dextrose/Sodium Chloride (D5ns) 1,000 mls @ 80 mls/hr IVCONT .[id number] [facility] Last Admin: 10/13/24 22:59 Dose: 80 mls/hr Magnesium Hydroxide (Milk Of Magnesia 30 Ml Oral.Susp) 30 ml PO DAILY PRN PRN Reason: Constipation Melatonin (Melatonin 3 Mg Tablet) 6 mg PO BEDTIME PRN PRN Reason: Insomnia Ondansetron HCl (Ondansetron Hcl 4 Mg/2 Ml Vial) 4 mg IVPUSH Q8H PRN PRN Reason: Nausea and Vomiting Polyethylene Glycol (Polyethylene Glycol 3350 17 Gm Powd.Pack) 17 gm PO DAILY PRN PRN Reason: Constipation Senna (Sennosides 8.6 Mg Tablet) 17.2 mg PO BEDTIME [facility] Sodium Chloride (0.9 % Sodium Chloride Flush 3 Ml Syringe) 3 ml IVFLUSH QSHIFT [facility] Home Medications ?Medication ?Instructions ?Recorded ?Confirmed ?Last Taken ?Type acetaminophen 325 mg tablet 650 mg PO Q6H PRN Fever/Pain 10/02/24 10/02/24 Unknown History bisacodyl 10 mg rectal suppository 10 mg ID DAILY PRN Constipation 10/02/24 10/02/24 Unknown History calcitriol 0.25 mcg capsule 0.25 mcg PO MOWEFR 10/02/24 10/02/24 Unknown History dextrose 40 % oral gel (Glutose-45) 45 g PO Q10M PRN Hypoglycemia 10/02/24 10/02/24 Unknown History glucagon 1 mg solution for 1 mg subcut Q10M PRN Hypoglycemia 10/02/24 10/02/24 Unknown History injection glyburide 5 mg tablet 5 mg PO BID 10/02/24 10/02/24 Unknown History levothyroxine 150 mcg tablet 150 mcg PO MOTUWETHFRSA 10/02/24 10/02/24 Unknown History levothyroxine 150 mcg tablet 225 mcg PO TATUM 10/02/24 10/02/24 Unknown History loratadine 10 mg tablet 10 mg PO DAILY 10/02/24 10/02/24 Unknown History magnesium hydroxide 400 mg/5 mL 30 ml PO DAILY PRN Constipation 10/02/24 10/02/24 Unknown History oral suspension (Milk of Magnesia) magnesium oxide 400 mg PO DAILY 10/02/24 10/02/24 Unknown History melatonin 3 mg tablet 6 mg PO BEDTIME 10/02/24 10/02/24 Unknown History metolazone 2.5 mg tablet 2.5 mg PO MOWEFR 10/02/24 10/02/24 Unknown History metoprolol tartrate 25 mg tablet 25 mg PO BID 10/02/24 10/02/24 Unknown History rosuvastatin 40 mg tablet 40 mg PO DAILY 10/02/24 10/02/24 Unknown History sodium phosphates 19 gram-7 118 ml ID DAILY PRN Constipation 10/02/24 10/02/24 Unknown History gram/118 mL enema (Fleet Enema) tramadol 50 mg tablet 50 mg PO DAILY 10/02/24 10/02/24 Unknown History Physical Exam Vital Signs and Narrative: Vital Signs: Last Vital Signs Temp 97.6 F 10/13/24 21:33 Pulse 65 10/13/24 23:05 Resp 14 10/13/24 23:05 BP 94/58 L 10/13/24 23:05 Pulse Ox 100 10/13/24 23:05 O2 Del Method Nasal Cannula 10/13/24 23:05 O2 Flow Rate 2 10/13/24 23:05 BMI result Body Mass Index 21.5 Alert and orientated X3, able to give good history. Neuro: CN II-X11 intact, visual acuity intact EYES: PERRLA, EOM intact ENT: hearing intact, no issues with swallowing, uvula midline, lips moist, nares patent no epistaxis Cardiac: S1 S2 RRR, no murmur, no JVD, edema noted in Lower ext Pulmonary: lungs diminshed B Abdominal: BS active in all 4 quadrants, no guarding, tenderness, rebounding, pt is obese (wt listed does not correlate) MSK: strength 2/5 upper and lower extremities : no CVA tenderness no bladder distension Extremities: mild non pitting edema in lower extremities, PT and DP pulses palpable +2, toes are cool (baseline per pt) Psych: mood stable, judgement and insight fair Skin: upper arms with B excoriations, non infectious, backside free of redness or stageable wounds Results Labs 10/13/24 18:58 10/13/24 18:58 Labs: Laboratory Results - last 24 hr 10/13/24 10/13/24 10/13/24 18:01 18:08 18:58 MCV 102.8 H MCH 35.1 H MCHC 34.1 RDW 17.1 H Plt Count 107 L MPV 12.3 Immature Gran % (Auto) 0.3 Neut % (Auto) 90.5 H Lymph % (Auto) 4.1 L [place] % (Auto) 4.4 Eos % (Auto) 0.3 Baso % (Auto) 0.4 Lymph # (Auto) 0.5 L [place] # (Auto) 0.5 Eos # (Auto) 0.0 Baso # (Auto) 0.1 Abs Immat Gran (auto) 0.04 H Absolute Neuts (auto) 10.5 H Absolute Nucleated RBC 0.000 Nucleated RBC % (auto) 0.0 Smear Tech's Comments VERIFIED VBG pH VBG pCO2 VBG pO2 VBG HCO3 VBG O2 Saturation VBG Base Excess Anion Gap 20 Estim Creat Clear Calc 12.5 Estimated GFR 12 POC Glucose 38 L* 101 Random Glucose 141 H Lactic Acid 2.8 H* Lactic Acid F/U @ 2Hr Calcium 8.7 D Magnesium 1.9 Total Bilirubin 1.8 H AST 33 H ALT 20 Alkaline Phosphatase 101 Total Protein 5.4 L Albumin 2.8 L TSH 8.93 H Free T4 1.15 Urine Color Urine Appearance Urine pH Ur Specific [place] Urine Protein Urine Glucose (UA) Urine Ketones Urine Blood Urine Nitrite Ur Leukocyte Esterase Urine RBC Urine WBC Ur Squamous Epith Cells Urine Bacteria Hyaline Casts 10/13/24 10/13/24 10/13/24 19:06 20:26 20:30 MCV MCH MCHC RDW Plt Count MPV Immature Gran % (Auto) Neut % (Auto) Lymph % (Auto) [place] % (Auto) Eos % (Auto) Baso % (Auto) Lymph # (Auto) [place] # (Auto) Eos # (Auto) Baso # (Auto) Abs Immat Gran (auto) Absolute Neuts (auto) Absolute Nucleated RBC Nucleated RBC % (auto) Smear Tech's Comments VBG pH 7.56 H VBG pCO2 45 VBG pO2 34 VBG HCO3 41 H VBG O2 Saturation 57.0 VBG Base Excess 16.8 Anion Gap Estim Creat Clear Calc Estimated GFR POC Glucose 65 60 Random Glucose Lactic Acid Lactic Acid F/U @ 2Hr Calcium Magnesium Total Bilirubin AST ALT Alkaline Phosphatase Total Protein Albumin TSH Free T4 Urine Color Urine Appearance Urine pH Ur Specific [place] Urine Protein Urine Glucose (UA) Urine Ketones Urine Blood Urine Nitrite Ur Leukocyte Esterase Urine RBC Urine WBC Ur Squamous Epith Cells Urine Bacteria Hyaline Casts 10/13/24 10/13/24 10/13/24 20:50 21:46 21:49 MCV MCH MCHC RDW Plt Count MPV Immature Gran % (Auto) Neut % (Auto) Lymph % (Auto) [place] % (Auto) Eos % (Auto) Baso % (Auto) Lymph # (Auto) [place] # (Auto) Eos # (Auto) Baso # (Auto) Abs Immat Gran (auto) Absolute Neuts (auto) Absolute Nucleated RBC Nucleated RBC % (auto) Smear Tech's Comments VBG pH VBG pCO2 VBG pO2 VBG HCO3 VBG O2 Saturation VBG Base Excess Anion Gap Estim Creat Clear Calc Estimated GFR POC Glucose 84 Random Glucose Lactic Acid Lactic Acid F/U @ 2Hr 3.8 H* Calcium Magnesium Total Bilirubin AST ALT Alkaline Phosphatase Total Protein Albumin TSH Free T4 Urine Color Yellow Urine Appearance Cloudy Urine pH 6.5 Ur Specific [place] 1.015 Urine Protein 30 (1+) H Urine Glucose (UA) Negative Urine Ketones Negative Urine Blood Moderate (2+) H Urine Nitrite Negative Ur Leukocyte Esterase Large (3+) H Urine RBC 11-20 H Urine WBC >50 H Ur Squamous Epith Cells 0-2 Urine Bacteria 4+ Hyaline Casts 0-2 Imaging Radiologist's Impressions: CXR Persistent left basilar consolidation. Probable small underlying left pleural effusion. Aeration has improved somewhat since prior study. Right lung clear. Heart size normal. No acute bony abnormalities. Impression: Residual left basilar consolidation and pleural fluid Left base aeration has improved Assessment and Plan (1) Hypoglycemia: Status: Acute (2) Hypotension: Qualifiers: Hypotension type: unspecified hypotension type Qualified Code(s): I95.9 - Hypotension, unspecified Status: Acute (3) Metabolic alkalosis: Status: Acute (4) Lactic acidosis: Status: Acute (5) UTI (urinary tract infection): Qualifiers: Urinary tract infection type: acute cystitis Hematuria presence: with hematuria Qualified Code(s): N30.01 - Acute cystitis with hematuria Status: Acute (6) Consolidation of left lower lobe of lung: Status: Acute (7) Total bilirubin, elevated: Status: Acute (8) Afib: Qualifiers: Atrial fibrillation type: paroxysmal Qualified Code(s): I48.0 - Paroxysmal atrial fibrillation Status: Acute (9) First degree AV block: Status: Acute (10) Subclinical hypothyroidism: Status: Acute (11) Class 3 obesity: Status: Chronic (12) CKD stage 4 due to type 2 diabetes mellitus: Status: Acute Plan 1. Hypoglycemia Patient received D5 water which was changed to D5 normal saline in hopes that her sodium would remain normal. Patient has remained alert and orientated x3 with no alteration of mental status Patient likely can no longer be on glyburide Blood glucose checks are now every 2 hours. BG currently 84 mg/dL. Patient will eventually need sliding scale insulin once stabilized. 2. Hypotension Looking back in patient's records her blood pressure baseline has been in the 90 systolic. This does not appear to be related to infection We will hold Lasix, metoprolol for now as med rec is not completed. 3. Metabolic alkalosis via ABG Likely secondary to renal issues. Monitor pt closely. 4. Lactic acidosis Lactic acid went from 2.8-3.8 with a noted possible urinary tract infection. Please note that chest x-ray also has a consolidation of the left lung but this is not new as this was noted on patient's chest x-ray from September 2024 and it was suspected that this is atelectasis. Repeat lactic acidosis every 4 hours Continue IV fluids as ordered 5. Urinary tract infection Patient is started on ceftriaxone the department. This antibiotic we will continue Follow urine culture Periwick in place. 6. Consoldation of left lung (not new) Noted on today's chest x-ray with effusion resolved. May be atelectasis. Adding incentive spirometry Patient is on ceftriaxone for UTI. Patient is at her baseline oxygen needs of 2 L with no evidence of hypoxia. Consider doxycycline if patient's condition worsens. 7. Total bilirubin elevated Total bili 1.8. Patient does not have her gallbladder. Patient is currently asymptomatic Recheck level in the a.m. LFTs only AST mildly elevated 33 8. AFIB Patient has chronic AFib normally on anticoagulation which has been resumed. EKG done today see below for first-degree AV block Metoprolol to be continued when blood pressure is stable, med rec is completed and ECG redone in AM noting prolonged ID and Qtc Telemetry 9. First degree AV Block EKG with a first-degree AV block and a ID interval 260 and a QTC of 568 Patient is not normally on SSRIs. Hold beta-rei until further review. Cardiology consult if needed Telemetry 10. Subclinical hypothyroidism Patient's TSH 8.93 with a normal free T4. Unclear how patient is taking her levothyroxine at the rehab facility. It is important that patient takes the medication 30 minutes before eating. We will continue current dose of levothyroxine and patient will need repeat labs in 3-4 weeks Patient will need to follow up as an outpatient 11. Class 3 obesity Patient's weight is not listed correctly. Nursing will attempt to reweigh patient for an accurate weight Nutritional consult as needed Patient does have history of CHF so daily weights are recommended. 12. CKD IV Renal function at [facility] from last admission, [place] 10/10 to rehab on glyberide Stopping glyberide Avoid hypotension COnsult nephrology if needed Monitor BMP daily Xaralto DVT prophylaxis PPI ordered Reviewed advanced directives, pt is [place] CODE Patient requires inpatient hospitalization for hypoglycemia and urinary tract infection. Patient has noted chronic kidney disease and nephrology should be consulted if needed. Patient has a new EKG showing sinus rhythm with sinus arrhythmia and first-degree AV block with a prolonged ID and QTC of 568. Cardiology should be consulted if needed. Metoprolol currently on hold noting patient has history of AFib. Total time managing care of this patient today: 45 minutes. Quality Stroke Does the patient have a stroke diagnosis?: No Reason for No Anti-thrombotic by Day Two: N/A - Med Ordered VTE Prior VTE?: No VTE Risk Level:: Medical - moderate - high VTE Device Contraindication: Treatment Not Tolerated VTE Drug Contraindication: N/A - Med Ordered
[2024-10-13 23:57] LABS: Phosphorus 3.4 mg/dL (2.7-4.5)
[2024-10-13 23:59] LABS: Glucose, Whole Blood 82 mg/dL (60-115)
[2024-10-14] VITALS (14 sets, daily range): BP systolic 90–142; BP diastolic 45–114; PULSE 60–98; RESP 12–22; TEMP 36.1–36.6; O2SAT 97–100; BMI 48.3
[2024-10-14 01:24] LABS: Lactic Acid 1.6 mmol/L (0.5-2.0)
[2024-10-14 01:52] LABS: Glucose, Whole Blood 72 mg/dL (60-115)
[2024-10-14 02:31] LABS: MANUAL DIFF FLAG NO
[2024-10-14 02:40] LABS: Basophils Percent Auto 0.5 % (0-2); Eosinophils Absolute Auto 0.1 X10*3/uL (0.0-0.4); Eosinophils Percent Auto 0.7 % (0-4); Hematocrit 34.8 % (37.0-47.0); Hemoglobin 11.9 g/dl (12.0-16.0); Imm Gran Abs Auto 0.03 X10*3/uL (0.00-0.03); Imm Gran Pct Auto 0.4 % (0.0-0.4); Lymphocytes Absolute Auto 0.5 X10*3/uL (1.2-4.9); Lymphocytes Percent Auto 6.3 % (20-40); Mean Corpuscular HGB Conc 34.2 g/dl (31.0-35.0); Mean Corpuscular Hemoglobin 35.6 pg (27.0-33.0); Mean Corpuscular Volume 104.2 fL (80.0-98.0); Mean Platelet Volume 11.9 fL (9.4-12.3); Monocytes Absolute Auto 0.5 X10*3/uL (0.1-1.2); Monocytes Percent Auto 6.1 % (2-11); NRBC Pct Auto 0.2 /100WBC (0.0-0.2); Neutrophils Absolute Auto 7.1 x10*3/uL (2.0-8.3); Platelet Count 85 X10*3/uL (160-400); Red Blood Count 3.34 X10*6/uL (4.20-5.50); Red Cell Distribution Width 16.9 % (11.0-16.0); White Blood Count 8.3 X10*3/uL (4.8-10.8)
[2024-10-14 02:54] LABS: Anion Gap 19 (12-20); Carbon Dioxide 35 mmol/L (22-29); Chloride 87 mmol/L (96-108); Creatinine Clr Calc Pharmacy 12.5; Estimated Glomerular Filt Rate 12; Potassium 3.6 mmol/L (3.3-5.1); Sodium 137 mmol/L (135-145)
[2024-10-14 02:55] LABS: Alanine Aminotransferase 20 U/L (0-31); Albumin Level 3.4 g/dL (3.5-5.0); Alkaline Phosphatase 87 U/L (39-117); Aspartate Amino Transferase 29 U/L (5-31); Bilirubin Total 1.8 mg/dL (0.0-1.0); Calcium 8.9 mg/dL (8.4-10.2); Glucose Random 97 mg/dL (60-115); Total Protein 5.7 g/dL (6.5-8.0)
[2024-10-14 03:03] LABS: Blood Urea Nitrogen 123 mg/dL (9-16)
[2024-10-14 04:01] LABS: Glucose, Whole Blood 63 mg/dL (60-115)
[2024-10-14 05:43] LABS: Glucose, Whole Blood 74 mg/dL (60-115)
[2024-10-14 06:47] LABS: Parathyroid Hormone Intact 566.6 pg/mL (8.7-77.1)
[2024-10-14 07:02] LABS: Cortisol Random 13.6 ug/dL
--- NOTE | 2024-10-14 07:50 | PHA.MEDREC ---
Addendum entered by Lauren Herr RPh 10/14/24 08:19: [facility] reviewed Original Note: Pharmacy Consult ? Medication Reconciliation Pharmacy has completed the medication reconciliation List from [facility]..
[2024-10-14 07:59] LABS: Glucose, Whole Blood 94 mg/dL (60-115)
--- NOTE | 2024-10-14 08:00 | ECG_ITS ---
Test Reason : RENAL FAILURE Blood Pressure : */* mmHG Vent. Rate : 65 BPM Atrial Rate : 65 BPM P-R Int : 260 ms QRS Dur : 96 ms QT Int : 472 ms P-R-T Axes : 77 72 133 degrees QTcB Int : 490 ms Sinus rhythm with sinus arrhythmia with 1st degree A-V block Low voltage QRS Septal infarct (cited on or before 03-Oct-2024) Abnormal ECG When compared with ECG of 13-Oct-2024 18:23, QT has shortened Referred By: Sadaf Martinez Electronically Signed By: KHOA FRY
[2024-10-14] MEDS: 0.9 % Sodium Chloride Flush 3 ML SYRINGE IVFLUSH ×2 (08:57→21:33)
[2024-10-14] MEDS: Potassium Chloride ER 20 MEQ TAB.ER.PRT PO (09:38)
[2024-10-14] MEDS: Furosemide 40 MG TABLET PO (09:38)
[2024-10-14] MEDS: Loratadine 10 MG TABLET PO (09:38)
[2024-10-14] MEDS: traMADoL HCL 50 MG TABLET PO (09:38)
[2024-10-14] MEDS: Atorvastatin Calcium 80 MG TABLET PO (09:38)
[2024-10-14] MEDS: Magnesium Oxide 400 MG TABLET PO (09:39)
[2024-10-14 09:53] LABS: Glucose, Whole Blood 69 mg/dL (60-115)
--- NOTE | 2024-10-14 10:23 | MHC.CM.PN ---
IMM 10/14. Pt is a LTC resident at [facility], she will return there via BLS once medically cleared. Pt uses a walker and a wheelchair. HCP on file and verified. PCP: Dr. Scott Gipson
[2024-10-14 10:29] LABS: Glucose, Whole Blood 77 mg/dL (60-115)
[2024-10-14] MEDS: Dextrose 5 % 1,000 ML 100 ML IVCONT (10:45)
[2024-10-14 11:50] LABS: Glucose, Whole Blood 75 mg/dL (60-115)
--- NOTE | 2024-10-14 11:53 | PC.NURSE ---
MD aware of BS 75. even with D5w infusion intervention. RN recommend serum glucose d/t patient vascular disease to extremities to confirm value. MD orders placed.
[2024-10-14 12:18] LABS: Glucose Random 84 mg/dL (60-115)
--- NOTE | 2024-10-14 12:29 | P.PNIM_ITS ---
Subjective Subjective Date of Service: 10/14/24 Interval History: BGs 70s-80s, tolerating diet BP soft; no dizziness no dyspnea Review of Systems Review of Systems: Yes all other systems are reviewed and are negative Physical Exam 2 Vital Signs: Vital Signs: Last Vital Signs Temp 97.6 F 10/14/24 04:46 Pulse 61 10/14/24 09:39 Resp 20 10/14/24 08:00 BP 101/50 L 10/14/24 09:39 Pulse Ox 97 10/14/24 08:00 O2 Del Method Nasal Cannula 10/14/24 08:00 O2 Flow Rate 2 10/14/24 08:00 BMI result Body Mass Index 21.5 Gen: in no acute distress HEENT: sclera anicteric, moist mucus membranes Neck: supple Lungs: clear to auscultation bilaterally Heart: regular rate and rhythm, no murmurs Abd: soft, non-tender, non-distended, obese Ext: 2+ edema Skin: warm/well-perfused Neuro: alert and oriented x3, no focal findings Psych: appropriate affect Objective Data Active Medications Acetaminophen (Acetaminophen 325 Mg Tablet) 650 mg PO Q6H PRN PRN Reason: Pain, Mild 1-3,fever,headache Albuterol/Ipratropium (Albuterol/Iprat 2.5/0.5mg 3 Ml Ampul.Neb) 3 ml INHALE Q4H PRN PRN Reason: Shortness of Breath/Wheezing Atorvastatin Calcium (Atorvastatin Calcium 80 Mg Tablet) 80 mg PO DAILY [facility] Last Admin: 10/14/24 09:38 Dose: 80 mg Documented By: VICTORIANO Bisacodyl (Bisacodyl 10 Mg Supp.Rect) 10 mg NV DAILY PRN PRN Reason: Constipation Calcitriol (Calcitriol 0.25 Mcg Capsule) 0.25 mcg PO MOWEFR@0900 [facility] Calcium Carbonate (Calcium Carbonate 750 Mg Tab.Chew) 750 mg PO Q4H PRN PRN Reason: Heartburn Ceftriaxone Sodium (Ceftriaxone Sodium 1 Gm Vial) 1 gm IVPUSH Q24H [facility] Dextrose (Dextrose 50 % 25 Gm/50 Ml Syringe) 25 gm IVPUSH Q15M PRN; Protocol PRN Reason: per Hypoglycemia Standing Ord. Diphenhydramine HCl (Diphenhydramine Hcl 25 Mg Capsule) 25 mg PO Q6H PRN PRN Reason: pruritus Furosemide (Furosemide 40 Mg Tablet) 40 mg PO BID@0900,1800 [facility]; Protocol Last Admin: 10/14/24 09:38 Dose: 40 mg Documented By: VICTORIANO Glucose (Glucose Gel 15 Gm Gel..Gram.) 15 gm PO Q15M PRN; Protocol PRN Reason: per Hypoglycemia Standing Ord. Dextrose (D5w) 1,000 mls @ 100 mls/hr IVCONT .Q10H [facility] Stop: 10/14/24 20:29 Last Admin: 10/14/24 10:45 Dose: 100 mls/hr Documented By: VICTORIANO Levothyroxine Sodium (Levothyroxine Sodium 150 Mcg Tablet) 150 mcg PO MOTUWETHFRSA@0600 [facility] Levothyroxine Sodium (Levothyroxine Sodium 75 Mcg Tablet) 225 mcg PO TATUM@0600 [facility] Loratadine (Loratadine 10 Mg Tablet) 10 mg PO DAILY [facility] Last Admin: 10/14/24 09:38 Dose: 10 mg Documented By: VICTORIANO Magnesium Hydroxide (Milk Of Magnesia 30 Ml Oral.Susp) 30 ml PO DAILY PRN PRN Reason: Constipation Magnesium Oxide (Magnesium Oxide 400 Mg Tablet) 400 mg PO DAILY [facility] Last Admin: 10/14/24 09:39 Dose: 400 mg Documented By: VICTORIANO Melatonin (Melatonin 3 Mg Tablet) 6 mg PO BEDTIME PRN PRN Reason: Insomnia Melatonin (Melatonin 3 Mg Tablet) 6 mg PO BEDTIME [facility] Metolazone (Metolazone 2.5 Mg Tablet) 2.5 mg PO MOWEFR@0900 [facility] Metoprolol Tartrate (Metoprolol Tartrate 25 Mg Tablet) 25 mg PO BID [facility]; Protocol Last Admin: 10/14/24 09:39 Dose: Not Given Documented By: VICTORIANO Non-Admin Reason: See Note Ondansetron HCl (Ondansetron Hcl 4 Mg/2 Ml Vial) 4 mg IVPUSH Q8H PRN PRN Reason: Nausea and Vomiting Polyethylene Glycol (Polyethylene Glycol 3350 17 Gm Powd.Pack) 17 gm PO DAILY PRN PRN Reason: Constipation Potassium Chloride (Potassium Chloride Er 20 Meq Tab.Er.Prt) 20 meq PO DAILY [facility] Last Admin: 10/14/24 09:38 Dose: 20 meq Documented By: VICTORIANO Psyllium Hydrophilic Mucilloid (Psyllium Seed 3.7 Gm Packet) 3.7 gm PO DAILY [facility] Last Admin: 10/14/24 09:39 Dose: Not Given Documented By: VICTORIANO Non-Admin Reason: Patient Refused Rivaroxaban (Rivaroxaban 15 Mg Tablet) 15 mg PO DAILY@1700 [facility] Senna (Sennosides 8.6 Mg Tablet) 17.2 mg PO BEDTIME [facility] Sodium Biphosphate/Sodium Phosphate (Sodium Phosphate,[place]-Dibasic 133 Ml Enema) 118 ml NV DAILY PRN PRN Reason: Constipation Sodium Chloride (0.9 % Sodium Chloride Flush 3 Ml Syringe) 3 ml IVFLUSH QSHIFT [facility] Last Admin: 10/14/24 08:57 Dose: 3 ml Documented By: VICTORIANO Tramadol HCl (Tramadol Hcl 50 Mg Tablet) 50 mg PO DAILY [facility] Last Admin: 10/14/24 09:38 Dose: 50 mg Documented By: VICTORIANO Labs 10/14/24 01:03 10/14/24 12:04 Labs: Laboratory Results - last 24 hr 10/13/24 10/13/24 10/13/24 18:01 18:08 18:58 MCV 102.8 H MCH 35.1 H MCHC 34.1 RDW 17.1 H Plt Count 107 L MPV 12.3 Immature Gran % (Auto) 0.3 Neut % (Auto) 90.5 H Lymph % (Auto) 4.1 L [place] % (Auto) 4.4 Eos % (Auto) 0.3 Baso % (Auto) 0.4 Lymph # (Auto) 0.5 L [place] # (Auto) 0.5 Eos # (Auto) 0.0 Baso # (Auto) 0.1 Abs Immat Gran (auto) 0.04 H Absolute Neuts (auto) 10.5 H Absolute Nucleated RBC 0.000 Nucleated RBC % (auto) 0.0 Smear Tech's Comments VERIFIED Hold Purple Top VBG pH VBG pCO2 VBG pO2 VBG HCO3 VBG O2 Saturation VBG Base Excess Anion Gap 20 Estim Creat Clear Calc 12.5 Estimated GFR 12 POC Glucose 38 L* 101 Random Glucose 141 H Lactic Acid 2.8 H* Lactic Acid F/U @ 2Hr Calcium 8.7 D Phosphorus 3.4 Magnesium 1.9 Total Bilirubin 1.8 H AST 33 H ALT 20 Alkaline Phosphatase 101 Total Protein 5.4 L Albumin 2.8 L TSH 8.93 H Free T4 1.15 PTH Intact Random Cortisol Urine Color Urine Appearance Urine pH Ur Specific [place] Urine Protein Urine Glucose (UA) Urine Ketones Urine Blood Urine Nitrite Ur Leukocyte Esterase Urine RBC Urine WBC Ur Squamous Epith Cells Urine Bacteria Hyaline Casts 10/13/24 10/13/24 10/13/24 19:06 20:26 20:30 MCV MCH MCHC RDW Plt Count MPV Immature Gran % (Auto) Neut % (Auto) Lymph % (Auto) [place] % (Auto) Eos % (Auto) Baso % (Auto) Lymph # (Auto) [place] # (Auto) Eos # (Auto) Baso # (Auto) Abs Immat Gran (auto) Absolute Neuts (auto) Absolute Nucleated RBC Nucleated RBC % (auto) Smear Tech's Comments Hold Purple Top VBG pH 7.56 H VBG pCO2 45 VBG pO2 34 VBG HCO3 41 H VBG O2 Saturation 57.0 VBG Base Excess 16.8 Anion Gap Estim Creat Clear Calc Estimated GFR POC Glucose 65 60 Random Glucose Lactic Acid Lactic Acid F/U @ 2Hr Calcium Phosphorus Magnesium Total Bilirubin AST ALT Alkaline Phosphatase Total Protein Albumin TSH Free T4 PTH Intact Random Cortisol Urine Color Urine Appearance Urine pH Ur Specific [place] Urine Protein Urine Glucose (UA) Urine Ketones Urine Blood Urine Nitrite Ur Leukocyte Esterase Urine RBC Urine WBC Ur Squamous Epith Cells Urine Bacteria Hyaline Casts 10/13/24 10/13/24 10/13/24 20:50 21:46 21:49 MCV MCH MCHC RDW Plt Count MPV Immature Gran % (Auto) Neut % (Auto) Lymph % (Auto) [place] % (Auto) Eos % (Auto) Baso % (Auto) Lymph # (Auto) [place] # (Auto) Eos # (Auto) Baso # (Auto) Abs Immat Gran (auto) Absolute Neuts (auto) Absolute Nucleated RBC Nucleated RBC % (auto) Smear Tech's Comments Hold Purple Top VBG pH VBG pCO2 VBG pO2 VBG HCO3 VBG O2 Saturation VBG Base Excess Anion Gap Estim Creat Clear Calc Estimated GFR POC Glucose 84 Random Glucose Lactic Acid Lactic Acid F/U @ 2Hr 3.8 H* Calcium Phosphorus Magnesium Total Bilirubin AST ALT Alkaline Phosphatase Total Protein Albumin TSH Free T4 PTH Intact Random Cortisol Urine Color Yellow Urine Appearance Cloudy Urine pH 6.5 Ur Specific [place] 1.015 Urine Protein 30 (1+) H Urine Glucose (UA) Negative Urine Ketones Negative Urine Blood Moderate (2+) H Urine Nitrite Negative Ur Leukocyte Esterase Large (3+) H Urine RBC 11-20 H Urine WBC >50 H Ur Squamous Epith Cells 0-2 Urine Bacteria 4+ Hyaline Casts 0-2 10/13/24 10/14/24 10/14/24 23:54 01:03 01:48 MCV 104.2 H MCH 35.6 H MCHC 34.2 RDW 16.9 H Plt Count 85 L MPV 11.9 Immature Gran % (Auto) 0.4 Neut % (Auto) 86.0 H Lymph % (Auto) 6.3 L [place] % (Auto) 6.1 Eos % (Auto) 0.7 Baso % (Auto) 0.5 Lymph # (Auto) 0.5 L [place] # (Auto) 0.5 Eos # (Auto) 0.1 Baso # (Auto) 0.0 Abs Immat Gran (auto) 0.03 Absolute Neuts (auto) 7.1 Absolute Nucleated RBC 0.020 H Nucleated RBC % (auto) 0.2 Smear Tech's Comments Hold Purple Top SEE NOTE VBG pH VBG pCO2 VBG pO2 VBG HCO3 VBG O2 Saturation VBG Base Excess Anion Gap 19 Estim Creat Clear Calc 12.5 Estimated GFR 12 POC Glucose 82 72 Random Glucose 97 Lactic Acid 1.6 Lactic Acid F/U @ 2Hr Calcium 8.9 Phosphorus Magnesium Total Bilirubin 1.8 H AST 29 ALT 20 Alkaline Phosphatase 87 Total Protein 5.7 L Albumin 3.4 L TSH Free T4 PTH Intact Random Cortisol Urine Color Urine Appearance Urine pH Ur Specific [place] Urine Protein Urine Glucose (UA) Urine Ketones Urine Blood Urine Nitrite Ur Leukocyte Esterase Urine RBC Urine WBC Ur Squamous Epith Cells Urine Bacteria Hyaline Casts 10/14/24 10/14/24 10/14/24 03:56 05:38 06:01 MCV MCH MCHC RDW Plt Count MPV Immature Gran % (Auto) Neut % (Auto) Lymph % (Auto) [place] % (Auto) Eos % (Auto) Baso % (Auto) Lymph # (Auto) [place] # (Auto) Eos # (Auto) Baso # (Auto) Abs Immat Gran (auto) Absolute Neuts (auto) Absolute Nucleated RBC Nucleated RBC % (auto) Smear Tech's Comments Hold Purple Top VBG pH VBG pCO2 VBG pO2 VBG HCO3 VBG O2 Saturation VBG Base Excess Anion Gap Estim Creat Clear Calc Estimated GFR POC Glucose 63 74 Random Glucose Lactic Acid Lactic Acid F/U @ 2Hr Calcium Phosphorus Magnesium Total Bilirubin AST ALT Alkaline Phosphatase Total Protein Albumin TSH Free T4 PTH Intact 566.6 H Random Cortisol 13.6 Urine Color Urine Appearance Urine pH Ur Specific [place] Urine Protein Urine Glucose (UA) Urine Ketones Urine Blood Urine Nitrite Ur Leukocyte Esterase Urine RBC Urine WBC Ur Squamous Epith Cells Urine Bacteria Hyaline Casts 10/14/24 10/14/24 10/14/24 07:50 09:47 10:24 MCV MCH MCHC RDW Plt Count MPV Immature Gran % (Auto) Neut % (Auto) Lymph % (Auto) [place] % (Auto) Eos % (Auto) Baso % (Auto) Lymph # (Auto) [place] # (Auto) Eos # (Auto) Baso # (Auto) Abs Immat Gran (auto) Absolute Neuts (auto) Absolute Nucleated RBC Nucleated RBC % (auto) Smear Tech's Comments Hold Purple Top VBG pH VBG pCO2 VBG pO2 VBG HCO3 VBG O2 Saturation VBG Base Excess Anion Gap Estim Creat Clear Calc Estimated GFR POC Glucose 94 69 77 Random Glucose Lactic Acid Lactic Acid F/U @ 2Hr Calcium Phosphorus Magnesium Total Bilirubin AST ALT Alkaline Phosphatase Total Protein Albumin TSH Free T4 PTH Intact Random Cortisol Urine Color Urine Appearance Urine pH Ur Specific [place] Urine Protein Urine Glucose (UA) Urine Ketones Urine Blood Urine Nitrite Ur Leukocyte Esterase Urine RBC Urine WBC Ur Squamous Epith Cells Urine Bacteria Hyaline Casts 10/14/24 10/14/24 11:46 12:04 MCV MCH MCHC RDW Plt Count MPV Immature Gran % (Auto) Neut % (Auto) Lymph % (Auto) [place] % (Auto) Eos % (Auto) Baso % (Auto) Lymph # (Auto) [place] # (Auto) Eos # (Auto) Baso # (Auto) Abs Immat Gran (auto) Absolute Neuts (auto) Absolute Nucleated RBC Nucleated RBC % (auto) Smear Tech's Comments Hold Purple Top VBG pH VBG pCO2 VBG pO2 VBG HCO3 VBG O2 Saturation VBG Base Excess Anion Gap Estim Creat Clear Calc Estimated GFR POC Glucose 75 Random Glucose 84 Lactic Acid Lactic Acid F/U @ 2Hr Calcium Phosphorus Magnesium Total Bilirubin AST ALT Alkaline Phosphatase Total Protein Albumin TSH Free T4 PTH Intact Random Cortisol Urine Color Urine Appearance Urine pH Ur Specific [place] Urine Protein Urine Glucose (UA) Urine Ketones Urine Blood Urine Nitrite Ur Leukocyte Esterase Urine RBC Urine WBC Ur Squamous Epith Cells Urine Bacteria Hyaline Casts Microbiology Microbiology Results: Microbiology 10/13/24 20:50 Urine Culture - Preliminary Urine Catheterized - Straight Catheter Gram negative gordon Assessment and Plan (1) Hypoglycemia: Status: Acute Plan d2 69yo F with HFpEF, CKD3, morbid obesity, pAF on rivaorxaban, HTN, DM2, and HLD sent in from [facility] for hypoglycemia; recent admission here for decompensated heart failure + cardiorenal syndrome hypoglycemia - likely due to glyburide with renal failure, which should be discontinued - continue D5W for now chronic diastolic + R-sided HF - hold furosemide + metolazone for now given soft BP lactic acidosis - due to dehydration, not sepsis UTI - ceftriaoxne 10/13-, follow UCx CKD4 - SCr at baseline chronic AF - continue metoprolol tartrate; continue rivaroxaban [consider change to apixaban if CrCl consistently <15] hypothyroidism - TSH under-suppressed but checked in the face of acute illness; recheck TSH in 4 wk; continue LT4 for now HLD - statin morbid obesity - diet/exercise counseling VTE ppx - rivaroxaban dispo - eventual return to LTC at [facility] In my clinical judgment, the patient requires continued inpatient hospitalization for the following reasons: hypoglycemia, IV ABX Total time managing care of this patient today: 35 minutes. Quality Stroke Does the patient have a stroke diagnosis?: No Reason for No Anti-thrombotic by Day Two: N/A - Med Ordered VTE Prior VTE?: No VTE Risk Level:: Medical - moderate - high VTE Device Contraindication: Treatment Not Tolerated VTE Drug Contraindication: N/A - Med Ordered
[2024-10-14 14:26] LABS: Glucose, Whole Blood 61 mg/dL (60-115)
[2024-10-14] MEDS: Dextrose 50 % 25 GM/50 ML SYRINGE IVPUSH (14:35)
[2024-10-14 15:07] LABS: Glucose, Whole Blood 160 mg/dL (60-115)
[2024-10-14] MEDS: Dextrose 10 % 1,000 ML 75 ML IVCONT (15:41)
[2024-10-14 15:42] LABS: Glucose, Whole Blood 131 mg/dL (60-115)
[2024-10-14 16:06] LABS: Mean Corpuscular Volume 103.5 fL (80.0-98.0); PLT CLUMP 1
[2024-10-14 16:08] LABS: Hematocrit 35.3 % (37.0-47.0); Hemoglobin 11.9 g/dl (12.0-16.0); Mean Corpuscular HGB Conc 33.7 g/dl (31.0-35.0); Mean Corpuscular Hemoglobin 34.9 pg (27.0-33.0); Mean Platelet Volume 11.3 fL (9.4-12.3); Red Blood Count 3.41 X10*6/uL (4.20-5.50); Red Cell Distribution Width 16.8 % (11.0-16.0)
[2024-10-14 16:09] LABS: Platelet Count 92 X10*3/uL (160-400); White Blood Count 6.9 X10*3/uL (4.8-10.8)
[2024-10-14 16:10] LABS: VBG Base Excess 14.9 mmol/L; VBG HCO3 38 mmol/L (22-26); VBG pCO2 40 mmHg; VBG pH 7.57 (7.32-7.43); VBG pO2 38 mmHg
[2024-10-14 16:12] LABS: Venous Blood Gas Refer to POC result
[2024-10-14 16:37] LABS: Anion Gap 21 (12-20); Blood Urea Nitrogen 122 mg/dL (9-16); Calcium 8.7 mg/dL (8.4-10.2); Carbon Dioxide 32 mmol/L (22-29); Chloride 89 mmol/L (96-108); Creatinine Clr Calc Pharmacy 12.8; Estimated Glomerular Filt Rate 12; Glucose Random 116 mg/dL (60-115); Sodium 138 mmol/L (135-145)
[2024-10-14 17:14] LABS: Lactic Acid 3.2 mmol/L (0.5-2.0)
[2024-10-14 17:28] LABS: Glucose, Whole Blood 138 mg/dL (60-115)
[2024-10-14 18:03] LABS: Reflex Lactate? Lactic Acid Added
[2024-10-14] MEDS: Dextrose 5 % and 0.9 % NaCl 1,000 ML 100 ML IVCONT (18:11)
[2024-10-14] MEDS: Rivaroxaban 15 MG TABLET PO (18:27)
[2024-10-14 19:08] LABS: ~Lactic Acid-LAB USE ONLY 3.5 mmol/L (0.5-2.0)
[2024-10-14 20:39] LABS: Glucose, Whole Blood 135 mg/dL (60-115)
[2024-10-14 20:42] LABS: Reflex Lactate? 2 Y
[2024-10-14] MEDS: Melatonin 3 MG TABLET 6 MG PO (21:32)
[2024-10-14] MEDS: Metoprolol Tartrate 25 MG TABLET PO (21:32)
[2024-10-14] MEDS: Sennosides 8.6 MG TABLET 17.2 MG PO (21:32)
[2024-10-14] MEDS: cefTRIAXone sodium 1 GM VIAL IVPUSH (21:33)
[2024-10-14 22:11] LABS: ~Lactic Acid-LAB USE ONLY 2.9 mmol/L (0.5-2.0)
[2024-10-15] VITALS (9 sets, daily range): BP systolic 84–110; BP diastolic 40–64; PULSE 70–86; RESP 16–20; TEMP 36–36.7; O2SAT 97–100
[2024-10-15 00:03] LABS: Glucose, Whole Blood 132 mg/dL (60-115)
[2024-10-15 01:35] LABS: Glucose, Whole Blood 138 mg/dL (60-115)
[2024-10-15] MEDS: Dextrose 5 % and 0.9 % NaCl 1,000 ML 100 ML IVCONT (03:19)
[2024-10-15] MEDS: Levothyroxine Sodium 150 MCG TABLET PO (06:10)
[2024-10-15 06:19] LABS: Glucose, Whole Blood 101 mg/dL (60-115)
--- NOTE | 2024-10-15 06:31 | PC.NURSE ---
Patient admitted to s4 from ED. Lactic acid follow up drawn shortly after arrival to the unit resulted with priority message to promotion writer and provider from lab at 22:06 with critical lactic of 2.9, improved from previous 3.5.No further orders from MD; pt continues on IVFs per MAR. Pt is A&Ox4. Afebrile. D5/NS infusing per MAR with q2hr POCs initially ordered. POCs stable in 130s x2 on arrival to floor, appear stable since earlier in the afternoon. Pt denied s/s of hypoglycemia. Covering Dr. Arias notified with orders to change POC to q6h. Last done at 06:00 was 101. Pt remains asymptomatic. Tolerating meds in applesauce without issue. Jolly catheter in place on arrival to unit. Covering Dr. Arias notified with MD written orders to discharge rn to maintain for accurate I+O. Order was placed accordingly. Jolly care was provided. Redness to buttocks and bruising/ ?rash to BUE noted on arrival. Repositioning q2h. Bed alarm on and safety measures in place. Call chairez within reach and educated on use. Please see admission/shift assessments, tasks, and MAR for full details.
--- NOTE | 2024-10-15 06:44 | HO.SKINPHOTO ---
Location: L arm Location: R Arm
--- NOTE | 2024-10-15 07:00 | CA_ITS ---
Transthoracic Echocardiogram Patient (Last, First, Middle): Shira Nicholas A Gender: Female Date of : 1955 Age: 69 Procedure Date: 10/15/2024 Procedure Type: Transthoracic Echocardiogram Location: [facility] [place] Height: 167.64 cm Weight: 135.63 kg BSA: 2.37 m2 Heart Rate: 73 bpm BP: 110 / 60 mmHg Machine Shop Lead Man: Referring MD: Stanley Toure MD Symptoms: check IVC diameter/insp collapse for preload estim Study Quality: Adequate ECG Rhythm: Sinus Conclusions: - Normal left ventricular size and systolic function. There is severely increased left ventricular wall thickness. The visually estimated ejection fraction is between 60-65%. Elevated filling pressures. - Normal right ventricular cavity size. There is moderately decreased right ventricular systolic function. - Significantly elevated right atrial pressure. Moderate pulmonary hypertension is present. - There is a left sided pleural effusion. Findings Left Ventricle Normal left ventricular size and systolic function. There is severely increased left ventricular wall thickness. The visually estimated ejection fraction is between 60-65%. Elevated filling pressures. Right Ventricle Normal right ventricular cavity size. There is moderately decreased right ventricular systolic function. Tricuspid Valve The right ventricular systolic pressure is 52 mmHg. Significantly elevated right atrial pressure. Moderate pulmonary hypertension is present. Venous The inferior vena cava is dilated and does not collapse with inspiration. Pericardium/Pleural There is no evidence of pericardial effusion. There is a left sided pleural effusion. Prior Study Comparison Changes noted compared to prior study dated: 10/02/2024. RV function moderately reduced. Measurements 2D Linear Measurements IVSd: 1.40 0.6-0.9/0.6-1.0 cm LVIDd: 3.45 3.9-5.3/4.2-5.9 cm LVIDd Index: 1.46 2.4-3.2/2.2-3.1 cm/m2 LVIDs: 2.54 2.0-3.6 cm LVPWd: 1.47 0.7-1.1 cm LV Mass: 219.83 67-162/88-224 g LV Mass Index: 92.75 43-95/49-115 g/m2 2D Systolic Function EF 4C: 61.90 >55% EF 2C: 57.10 >55% EF BiP: 59.70 >55% Mitral Valve MV Pk E: 0.72 MV Decel Time: 226.00 E'Lateral: 4.79 E'Medial: 3.59 E/E' Med: 19.90 E/E' Lat: 14.90 PHT: 66.00 MVA PHT: 3.33 Decel Charles: 3.17 Diastolic Function MV Pk E: 0.72 E'Medial: 3.59 E/E' Med: 19.90 E' Laterial: 4.79 E/E' Lat: 14.90 Right Ventricle TAPSE (mm): 13.10 TVS' Bart: 6.09 Tricuspid Valve TR Pk Bart: 3.04 TR Pk Grad: 37.00 RA Press: 15.00 RVSP: 52.00 Updated in Other Vendor System with Status of Final Jared Allen MD electronically signed on 10/15/2024 5:44:36 PM with status of Final
[2024-10-15 08:17] LABS: Hematocrit 35.6 % (37.0-47.0); Hemoglobin 11.6 g/dl (12.0-16.0); Mean Corpuscular HGB Conc 32.6 g/dl (31.0-35.0); Mean Corpuscular Hemoglobin 34.7 pg (27.0-33.0); Mean Corpuscular Volume 106.6 fL (80.0-98.0); Mean Platelet Volume 11.9 fL (9.4-12.3); Red Blood Count 3.34 X10*6/uL (4.20-5.50); Red Cell Distribution Width 16.8 % (11.0-16.0); White Blood Count 5.4 X10*3/uL (4.8-10.8)
[2024-10-15 08:22] LABS: Platelet Count 87 X10*3/uL (160-400)
[2024-10-15 08:36] LABS: Anion Gap 18 (12-20); Blood Urea Nitrogen 122 mg/dL (9-16); Calcium 8.6 mg/dL (8.4-10.2); Carbon Dioxide 35 mmol/L (22-29); Chloride 88 mmol/L (96-108); Creatinine Clr Calc Pharmacy 20.3; Estimated Glomerular Filt Rate 13; Glucose Random 113 mg/dL (60-115); Magnesium 1.9 mg/dL (1.6-2.6); Potassium 3.7 mmol/L (3.3-5.1); Sodium 137 mmol/L (135-145)
[2024-10-15 08:40] LABS: B Type Natriuretic Peptide 2185 pg/mL (<100)
[2024-10-15] MEDS: Loratadine 10 MG TABLET PO (08:51)
[2024-10-15] MEDS: Atorvastatin Calcium 80 MG TABLET PO (08:51)
[2024-10-15] MEDS: Magnesium Oxide 400 MG TABLET PO (08:52)
[2024-10-15] MEDS: traMADoL HCL 50 MG TABLET PO (08:52)
[2024-10-15] MEDS: calcitrioL 0.25 MCG CAPSULE PO (08:52)
[2024-10-15] MEDS: Potassium Chloride ER 20 MEQ TAB.ER.PRT PO (08:52)
[2024-10-15] MEDS: Psyllium seed 3.7 GM PACKET PO (08:53)
[2024-10-15] MEDS: 0.9 % Sodium Chloride Flush 3 ML SYRINGE IVFLUSH ×3 (08:53→21:57)
[2024-10-15] MEDS: Metoprolol Tartrate 25 MG TABLET PO (08:54)
--- NOTE | 2024-10-15 11:11 | P.CONNP_ITS ---
History of Present Illness Reason for Consult Consult date: 10/15/24 Chief Complaint Chief complaint: Hyperglycemia, UTI, CKD 4 History of Present Illness Narrative: 69-year-old female with chronic kidney disease stage 4 who had a hospitalization recently at [facility] for TANA. Since D/C she has been staying at a rehabilitation facility. Patient was found to have a blood sugar of 31. patient denies being symptomatic including altered mental status, diaphoresis, or agitation at that time. Patient then learned that her blood sugar was low and required transfer to the hospital for intervention. Patient received dextrose and point of care with EMS was 106. Blood glucose level in the emergency department was 84 presentation . She had no chest pain, shortness of breath, dizziness, sweating or altered mental status. Patient's renal function at presentation was close to baseline.Patient was admitted for hypoglycemia, urinary tract infection, chronic kidney disease stage 4, baseline hypotension with a noted metabolic alkalosis and lactic acidosis. Nephrology has been consulted to assist in her clinical care during her current hospital stay Review of Systems Review of Systems Yes all other systems are reviewed and are negative [facility] Past Medical History Medical History Diabetes type 2, controlled CHF (congestive heart failure) Obesity CKD (chronic kidney disease) Hyperlipidemia HTN (hypertension) Afib Social History Social History Household Members: Family Housing: House Do you presently have visiting nurse or other home services: No Alcohol intake: never Patient Tobacco Use Status: Never used Tobacco e-Cigarette/Vaping Use: Never Used Second Hand Smoke Exposure: No service: No Travel History Ebola Risk: Travel/Contact With Anyone From Affected Area/s: No Has Patient Experienced Ebola Symptoms: No Meds Allergies Allergy/AdvReac Type Severity Reaction Status Date / Time adhesive Allergy Unknown Verified 10/13/24 19:07 bacitracin Allergy Unknown Verified 10/13/24 19:07 beet Allergy Unknown Verified 10/13/24 19:07 cefazolin Allergy Unknown Verified 10/13/24 19:07 Corticosteroids Allergy Unknown Verified 10/13/24 19:07 (Glucocorticoids) ibuprofen Allergy Unknown Verified 10/13/24 19:07 polymyxin B Allergy Unknown Verified 10/13/24 19:07 Active Medications: Current Medications Acetaminophen (Acetaminophen 325 Mg Tablet) 650 mg PO Q6H PRN PRN Reason: Pain, Mild 1-3,fever,headache Albuterol/Ipratropium (Albuterol/Iprat 2.5/0.5mg 3 Ml Ampul.Neb) 3 ml INHALE Q4H PRN PRN Reason: Shortness of Breath/Wheezing Atorvastatin Calcium (Atorvastatin Calcium 80 Mg Tablet) 80 mg PO DAILY [facility] Last Admin: 10/15/24 08:51 Dose: 80 mg Bisacodyl (Bisacodyl 10 Mg Supp.Rect) 10 mg [place] DAILY PRN PRN Reason: Constipation Calcitriol (Calcitriol 0.25 Mcg Capsule) 0.25 mcg PO MOWEFR@0900 [facility] Last Admin: 10/15/24 08:52 Dose: 0.25 mcg Calcium Carbonate (Calcium Carbonate 750 Mg Tab.Chew) 750 mg PO Q4H PRN PRN Reason: Heartburn Ceftriaxone Sodium (Ceftriaxone Sodium 1 Gm Vial) 1 gm IVPUSH Q24H [facility] Last Admin: 10/14/24 21:33 Dose: 1 gm Dextrose (Dextrose 50 % 25 Gm/50 Ml Syringe) 25 gm IVPUSH Q15M PRN; Protocol PRN Reason: per Hypoglycemia Standing Ord. Last Admin: 10/14/24 14:35 Dose: 25 gm Diphenhydramine HCl (Diphenhydramine Hcl 25 Mg Capsule) 25 mg PO Q6H PRN PRN Reason: pruritus Furosemide (Furosemide 40 Mg Tablet) 40 mg PO BID@0900,1800 [facility]; Protocol Last Admin: 10/14/24 09:38 Dose: 40 mg Glucose (Glucose Gel 15 Gm Gel..Gram.) 15 gm PO Q15M PRN; Protocol PRN Reason: per Hypoglycemia Standing Ord. Levothyroxine Sodium (Levothyroxine Sodium 150 Mcg Tablet) 150 mcg PO MOTUWETHFRSA@0600 [facility] Last Admin: 10/15/24 06:10 Dose: 150 mcg Levothyroxine Sodium (Levothyroxine Sodium 75 Mcg Tablet) 225 mcg PO TATUM@0600 [facility] Loratadine (Loratadine 10 Mg Tablet) 10 mg PO DAILY [facility] Last Admin: 10/15/24 08:51 Dose: 10 mg Magnesium Hydroxide (Milk Of Magnesia 30 Ml Oral.Susp) 30 ml PO DAILY PRN PRN Reason: Constipation Magnesium Oxide (Magnesium Oxide 400 Mg Tablet) 400 mg PO DAILY [facility] Last Admin: 10/15/24 08:52 Dose: 400 mg Melatonin (Melatonin 3 Mg Tablet) 6 mg PO BEDTIME PRN PRN Reason: Insomnia Melatonin (Melatonin 3 Mg Tablet) 6 mg PO BEDTIME [facility] Last Admin: 10/14/24 21:32 Dose: 6 mg Metolazone (Metolazone 2.5 Mg Tablet) 2.5 mg PO MOWEFR@0900 [facility] Metoprolol Tartrate (Metoprolol Tartrate 25 Mg Tablet) 25 mg PO BID [facility]; Protocol Last Admin: 10/15/24 08:54 Dose: 25 mg Ondansetron HCl (Ondansetron Hcl 4 Mg/2 Ml Vial) 4 mg IVPUSH Q8H PRN PRN Reason: Nausea and Vomiting Polyethylene Glycol (Polyethylene Glycol 3350 17 Gm Powd.Pack) 17 gm PO DAILY PRN PRN Reason: Constipation Potassium Chloride (Potassium Chloride Er 20 Meq Tab.Er.Prt) 20 meq PO DAILY [facility] Last Admin: 10/15/24 08:52 Dose: 20 meq Psyllium Hydrophilic Mucilloid (Psyllium Seed 3.7 Gm Packet) 3.7 gm PO DAILY [facility] Last Admin: 10/15/24 08:53 Dose: 3.7 gm Rivaroxaban (Rivaroxaban 15 Mg Tablet) 15 mg PO DAILY@1700 [facility] Last Admin: 10/14/24 18:27 Dose: 15 mg Senna (Sennosides 8.6 Mg Tablet) 17.2 mg PO BEDTIME [facility] Last Admin: 10/14/24 21:32 Dose: 17.2 mg Sodium Biphosphate/Sodium Phosphate (Sodium Phosphate,[place]-Dibasic 133 Ml Enema) 118 ml [place] DAILY PRN PRN Reason: Constipation Sodium Chloride (0.9 % Sodium Chloride Flush 3 Ml Syringe) 3 ml IVFLUSH QSHIFT [facility] Last Admin: 10/15/24 08:53 Dose: 3 ml Tramadol HCl (Tramadol Hcl 50 Mg Tablet) 50 mg PO DAILY [facility] Last Admin: 10/15/24 08:52 Dose: 50 mg Home Medications ?Medication ?Instructions ?Recorded ?Confirmed ?Last Taken ?Type acetaminophen 325 mg tablet 650 mg PO Q6H PRN Fever/Pain 10/02/24 10/14/24 Unknown History bisacodyl 10 mg rectal suppository 10 mg [place] DAILY PRN Constipation 10/02/24 10/14/24 Unknown History calcitriol 0.25 mcg capsule 0.25 mcg PO MOWEFR@0900 10/02/24 10/14/24 Unknown History dextrose 40 % oral gel (Glutose-45) 45 g PO Q10M PRN Hypoglycemia 10/02/24 10/14/24 Unknown History glucagon 1 mg solution for 1 mg subcut Q10M PRN Hypoglycemia 10/02/24 10/14/24 Unknown History injection glyburide 5 mg tablet 5 mg PO BID 10/02/24 10/14/24 Unknown History levothyroxine 150 mcg tablet 150 mcg PO MOTUWETHFRSA@0600 10/02/24 10/14/24 Unknown History levothyroxine 150 mcg tablet 225 mcg PO TATUM@0600 10/02/24 10/14/24 Unknown History loratadine 10 mg tablet 10 mg PO DAILY 10/02/24 10/14/24 Unknown History magnesium hydroxide 400 mg/5 mL 30 ml PO DAILY PRN Constipation 10/02/24 10/14/24 Unknown History oral suspension (Milk of Magnesia) magnesium oxide 400 mg PO DAILY 10/02/24 10/14/24 Unknown History melatonin 3 mg tablet 6 mg PO BEDTIME 10/02/24 10/14/24 Unknown History metolazone 2.5 mg tablet 2.5 mg PO MOWEFR@0900 10/02/24 10/14/24 Unknown History metoprolol tartrate 25 mg tablet 25 mg PO BID 10/02/24 10/14/24 Unknown History rosuvastatin 40 mg tablet 40 mg PO DAILY 10/02/24 10/14/24 Unknown History sodium phosphates 19 gram-7 118 ml [place] DAILY PRN Constipation 10/02/24 10/14/24 Unknown History gram/118 mL enema (Fleet Enema) tramadol 50 mg tablet 50 mg PO DAILY 10/02/24 10/14/24 Unknown History diphenhydramine HCl 25 mg tablet 25 mg PO Q6H PRN pruritus 10/14/24 10/14/24 Unknown History (Benadryl Allergy) Physical Exam Vital Signs: Last Vital Signs Temp 97.7 F 10/15/24 09:22 Pulse 82 10/15/24 09:22 Resp 20 10/15/24 09:22 BP 110/60 10/15/24 08:05 Pulse Ox 100 10/15/24 04:00 O2 Del Method Room Air, Nasal Cannula 10/15/24 04:00 O2 Flow Rate 2 10/15/24 04:00 BMI result Body Mass Index 48.3 Const General: no acute distress Orientation/consciousness: patient oriented x3 Eyes EOM: EOMs intact bilaterally Neck Neck: Yes supple Resp Auscultation: diminished lung sounds Cardio Rate: regular rate GI Palpation (GI): Soft to palpation Neuro General: patient oriented x3 Results Lab Results 10/15/24 06:54 10/15/24 06:54 Lab results: Chemistry 10/13/24 10/14/24 10/14/24 18:58 01:03 15:59 Sodium 135 137 138 Potassium 3.9 3.6 4.0 Carbon Dioxide 33 H 35 H 32 H BUN 117 H 123 H 122 H Creatinine 3.86 H 3.86 H 3.74 H Calcium 8.7 D 8.9 8.7 Phosphorus 3.4 10/15/24 06:54 Sodium 137 Potassium 3.7 Carbon Dioxide 35 H BUN 122 H Creatinine 3.59 H Calcium 8.6 Phosphorus Hematology 10/13/24 10/14/24 10/14/24 18:58 01:03 15:59 WBC 11.6 H 8.3 6.9 Hgb 12.6 11.9 L 11.9 L Plt Count 107 L 85 L 92 L 10/15/24 06:54 WBC 5.4 Hgb 11.6 L Plt Count 87 L Urinalysis 10/13/24 20:50 Urine Color Yellow Urine Appearance Cloudy Urine pH 6.5 Ur Specific [place] 1.015 Urine Protein 30 (1+) H Urine Glucose (UA) Negative Urine Ketones Negative Urine Blood Moderate (2+) H Urine Nitrite Negative Ur Leukocyte Esterase Large (3+) H Urine RBC 11-20 H Urine WBC >50 H Ur Squamous Epith Cells 0-2 Hyaline Casts 0-2 Assessment and Plan (1) Chronic renal disease, stage 5, glomerular filtration rate (GFR) less than or equal to 15 mL/min/1.73 square meter: Status: Acute Plan Recently had TANA due to cardio renal syndrome Has RV systolic dysfunction Not clinically dry or overloaded Diuretics on hold; No further IVF May need Right Heart Cath;Cards to see Renal function stable; No Glyburide No indication for renal replacement C/W rest of current management for now Procedures Date of Service Date of Service: 10/15/24
[2024-10-15 12:23] LABS: Glucose, Whole Blood 95 mg/dL (60-115)
--- NOTE | 2024-10-15 12:40 | P.CONCA_ITS ---
History of Present Illness History of Present Illness Date of Service: 10/15/24 Requesting physician: Stanley Toure Chief complaint: Hypoglycemia, UTI, CKD 4 Narrative: [age] year female who we have been asked to see for congestive heart failure. She has known history of diastolic heart failure and severe RV dysfunction based on echocardiography recently. Apparently was in the hospital and was diuresed and discharged home on p.o. diuretics Lasix 40 mg b.i.d. and metolazone 2.5 mg Tuesday and Tuesday. She was also on metoprolol 25 mg twice a day. She was noted to be hypoglycemic at the rehab facility and was sent to the emergency department. She has been diagnosed with urinary tract infection and is on antibiotics. Her BUN was 117 from 10 for and it has gone up to 122. She was given some IV fluids with thought process of dehydration. Also with mild lactate elevation and urinary tract infection she was given fluids. She is morbidly obese and unfortunately quite deconditioned. She follows with Dr. Castro Chen at [facility]. [facility] Past Medical History Medical History Diabetes type 2, controlled CHF (congestive heart failure) Obesity CKD (chronic kidney disease) Hyperlipidemia HTN (hypertension) Afib Social History Social History Household Members: Family Housing: House Do you presently have visiting nurse or other home services: No Alcohol intake: never Patient Tobacco Use Status: Never used Tobacco e-Cigarette/Vaping Use: Never Used Second Hand Smoke Exposure: No service: No Travel History Ebola Risk: Travel/Contact With Anyone From Affected Area/s: No Has Patient Experienced Ebola Symptoms: No Meds Allergies Allergy/AdvReac Type Severity Reaction Status Date / Time adhesive Allergy Unknown Verified 10/13/24 19:07 bacitracin Allergy Unknown Verified 10/13/24 19:07 beet Allergy Unknown Verified 10/13/24 19:07 cefazolin Allergy Unknown Verified 10/13/24 19:07 Corticosteroids Allergy Unknown Verified 10/13/24 19:07 (Glucocorticoids) ibuprofen Allergy Unknown Verified 10/13/24 19:07 polymyxin B Allergy Unknown Verified 10/13/24 19:07 Active Medications: Current Medications Acetaminophen (Acetaminophen 325 Mg Tablet) 650 mg PO Q6H PRN PRN Reason: Pain, Mild 1-3,fever,headache Albuterol/Ipratropium (Albuterol/Iprat 2.5/0.5mg 3 Ml Ampul.Neb) 3 ml INHALE Q4H PRN PRN Reason: Shortness of Breath/Wheezing Atorvastatin Calcium (Atorvastatin Calcium 80 Mg Tablet) 80 mg PO DAILY [facility] Last Admin: 10/15/24 08:51 Dose: 80 mg Bisacodyl (Bisacodyl 10 Mg Supp.Rect) 10 mg [place] DAILY PRN PRN Reason: Constipation Calcitriol (Calcitriol 0.25 Mcg Capsule) 0.25 mcg PO MOWEFR@0900 [facility] Last Admin: 10/15/24 08:52 Dose: 0.25 mcg Calcium Carbonate (Calcium Carbonate 750 Mg Tab.Chew) 750 mg PO Q4H PRN PRN Reason: Heartburn Ceftriaxone Sodium (Ceftriaxone Sodium 1 Gm Vial) 1 gm IVPUSH Q24H [facility] Last Admin: 10/14/24 21:33 Dose: 1 gm Dextrose (Dextrose 50 % 25 Gm/50 Ml Syringe) 25 gm IVPUSH Q15M PRN; Protocol PRN Reason: per Hypoglycemia Standing Ord. Last Admin: 10/14/24 14:35 Dose: 25 gm Diphenhydramine HCl (Diphenhydramine Hcl 25 Mg Capsule) 25 mg PO Q6H PRN PRN Reason: pruritus Furosemide (Furosemide 40 Mg Tablet) 40 mg PO BID@0900,1800 [facility]; Protocol Last Admin: 10/14/24 09:38 Dose: 40 mg Glucose (Glucose Gel 15 Gm Gel..Gram.) 15 gm PO Q15M PRN; Protocol PRN Reason: per Hypoglycemia Standing Ord. Levothyroxine Sodium (Levothyroxine Sodium 150 Mcg Tablet) 150 mcg PO MOTUWETHFRSA@0600 [facility] Last Admin: 10/15/24 06:10 Dose: 150 mcg Levothyroxine Sodium (Levothyroxine Sodium 75 Mcg Tablet) 225 mcg PO TATUM@0600 [facility] Loratadine (Loratadine 10 Mg Tablet) 10 mg PO DAILY [facility] Last Admin: 10/15/24 08:51 Dose: 10 mg Magnesium Hydroxide (Milk Of Magnesia 30 Ml Oral.Susp) 30 ml PO DAILY PRN PRN Reason: Constipation Magnesium Oxide (Magnesium Oxide 400 Mg Tablet) 400 mg PO DAILY [facility] Last Admin: 10/15/24 08:52 Dose: 400 mg Melatonin (Melatonin 3 Mg Tablet) 6 mg PO BEDTIME PRN PRN Reason: Insomnia Melatonin (Melatonin 3 Mg Tablet) 6 mg PO BEDTIME [facility] Last Admin: 10/14/24 21:32 Dose: 6 mg Metolazone (Metolazone 2.5 Mg Tablet) 2.5 mg PO MOWEFR@0900 [facility] Metoprolol Tartrate (Metoprolol Tartrate 25 Mg Tablet) 25 mg PO BID [facility]; Protocol Last Admin: 10/15/24 08:54 Dose: 25 mg Ondansetron HCl (Ondansetron Hcl 4 Mg/2 Ml Vial) 4 mg IVPUSH Q8H PRN PRN Reason: Nausea and Vomiting Polyethylene Glycol (Polyethylene Glycol 3350 17 Gm Powd.Pack) 17 gm PO DAILY PRN PRN Reason: Constipation Potassium Chloride (Potassium Chloride Er 20 Meq Tab.Er.Prt) 20 meq PO DAILY [facility] Last Admin: 10/15/24 08:52 Dose: 20 meq Psyllium Hydrophilic Mucilloid (Psyllium Seed 3.7 Gm Packet) 3.7 gm PO DAILY [facility] Last Admin: 10/15/24 08:53 Dose: 3.7 gm Rivaroxaban (Rivaroxaban 15 Mg Tablet) 15 mg PO DAILY@1700 [facility] Last Admin: 10/14/24 18:27 Dose: 15 mg Senna (Sennosides 8.6 Mg Tablet) 17.2 mg PO BEDTIME [facility] Last Admin: 10/14/24 21:32 Dose: 17.2 mg Sodium Biphosphate/Sodium Phosphate (Sodium Phosphate,[place]-Dibasic 133 Ml Enema) 118 ml [place] DAILY PRN PRN Reason: Constipation Sodium Chloride (0.9 % Sodium Chloride Flush 3 Ml Syringe) 3 ml IVFLUSH QSHIFT [facility] Last Admin: 10/15/24 08:53 Dose: 3 ml Tramadol HCl (Tramadol Hcl 50 Mg Tablet) 50 mg PO DAILY [facility] Last Admin: 10/15/24 08:52 Dose: 50 mg Home Medications ?Medication ?Instructions ?Recorded ?Confirmed ?Last Taken ?Type acetaminophen 325 mg tablet 650 mg PO Q6H PRN Fever/Pain 10/02/24 10/14/24 Unknown History bisacodyl 10 mg rectal suppository 10 mg [place] DAILY PRN Constipation 10/02/24 10/14/24 Unknown History calcitriol 0.25 mcg capsule 0.25 mcg PO MOWEFR@0900 10/02/24 10/14/24 Unknown History dextrose 40 % oral gel (Glutose-45) 45 g PO Q10M PRN Hypoglycemia 10/02/24 10/14/24 Unknown History glucagon 1 mg solution for 1 mg subcut Q10M PRN Hypoglycemia 10/02/24 10/14/24 Unknown History injection glyburide 5 mg tablet 5 mg PO BID 10/02/24 10/14/24 Unknown History levothyroxine 150 mcg tablet 150 mcg PO MOTUWETHFRSA@0600 10/02/24 10/14/24 Unknown History levothyroxine 150 mcg tablet 225 mcg PO TATUM@0600 10/02/24 10/14/24 Unknown History loratadine 10 mg tablet 10 mg PO DAILY 10/02/24 10/14/24 Unknown History magnesium hydroxide 400 mg/5 mL 30 ml PO DAILY PRN Constipation 10/02/24 10/14/24 Unknown History oral suspension (Milk of Magnesia) magnesium oxide 400 mg PO DAILY 10/02/24 10/14/24 Unknown History melatonin 3 mg tablet 6 mg PO BEDTIME 10/02/24 10/14/24 Unknown History metolazone 2.5 mg tablet 2.5 mg PO MOWEFR@0900 10/02/24 10/14/24 Unknown History metoprolol tartrate 25 mg tablet 25 mg PO BID 10/02/24 10/14/24 Unknown History rosuvastatin 40 mg tablet 40 mg PO DAILY 10/02/24 10/14/24 Unknown History sodium phosphates 19 gram-7 118 ml [place] DAILY PRN Constipation 10/02/24 10/14/24 Unknown History gram/118 mL enema (Fleet Enema) tramadol 50 mg tablet 50 mg PO DAILY 10/02/24 10/14/24 Unknown History diphenhydramine HCl 25 mg tablet 25 mg PO Q6H PRN pruritus 10/14/24 10/14/24 Unknown History (Benadryl Allergy) Physical Exam 2 Vital Signs: Vital Signs: Last Vital Signs Temp 97.9 F 10/15/24 12:00 Pulse 86 10/15/24 12:00 Resp 17 10/15/24 12:00 BP 98/52 L 10/15/24 12:00 Pulse Ox 100 10/15/24 12:00 O2 Del Method Nasal Cannula 10/15/24 12:00 O2 Flow Rate 3 10/15/24 12:00 BMI result Body Mass Index 48.3 GENERAL APPEARANCE: Morbid obesity. NECK: no carotid bruit, + jugular venous distention. SKIN: no suspicious lesions, warm and dry. HEART: no murmurs, regular rate and rhythm. LUNGS: clear to auscultation bilaterally. ABDOMEN: soft, nontender. EXTREMITIES: + edema. PERIPHERAL PULSES: equal. NEUROLOGIC: No gross deficits, AAO X 3 Objective Labs and Meds 10/15/24 06:54 10/15/24 06:54 Lab results: Laboratory Results - last 24 hr 10/14/24 10/14/24 10/14/24 14:22 15:02 15:39 WBC RBC Hgb Hct MCV MCH MCHC RDW Plt Count MPV Absolute Nucleated RBC Nucleated RBC % (auto) VBG pH VBG pCO2 VBG pO2 VBG HCO3 VBG O2 Saturation VBG Base Excess Sodium Potassium Chloride Carbon Dioxide Anion Gap BUN Creatinine Estim Creat Clear Calc Estimated GFR POC Glucose 61 160 H 131 H Random Glucose Lactic Acid Lactic Acid F/U @ 2Hr Lactic Acid F/U @ 4Hr Calcium Magnesium B-Natriuretic Peptide 10/14/24 10/14/24 10/14/24 15:59 16:05 17:24 WBC 6.9 RBC 3.41 L Hgb 11.9 L Hct 35.3 L MCV 103.5 H MCH 34.9 H MCHC 33.7 RDW 16.8 H Plt Count 92 L MPV 11.3 Absolute Nucleated RBC 0.000 Nucleated RBC % (auto) 0.0 VBG pH 7.57 H VBG pCO2 40 VBG pO2 38 VBG HCO3 38 H VBG O2 Saturation 71.0 VBG Base Excess 14.9 Sodium 138 Potassium 4.0 Chloride 89 L Carbon Dioxide 32 H Anion Gap 21 H BUN 122 H Creatinine 3.74 H Estim Creat Clear Calc 12.8 Estimated GFR 12 POC Glucose 138 H Random Glucose 116 H Lactic Acid 3.2 H* Lactic Acid F/U @ 2Hr Lactic Acid F/U @ 4Hr Calcium 8.7 Magnesium B-Natriuretic Peptide 10/14/24 10/14/24 10/14/24 18:39 20:36 21:32 WBC RBC Hgb Hct MCV MCH MCHC RDW Plt Count MPV Absolute Nucleated RBC Nucleated RBC % (auto) VBG pH VBG pCO2 VBG pO2 VBG HCO3 VBG O2 Saturation VBG Base Excess Sodium Potassium Chloride Carbon Dioxide Anion Gap BUN Creatinine Estim Creat Clear Calc Estimated GFR POC Glucose 135 H Random Glucose Lactic Acid Lactic Acid F/U @ 2Hr 3.5 H* Lactic Acid F/U @ 4Hr 2.9 H* Calcium Magnesium B-Natriuretic Peptide 10/14/24 10/15/24 10/15/24 23:59 01:31 06:15 WBC RBC Hgb Hct MCV MCH MCHC RDW Plt Count MPV Absolute Nucleated RBC Nucleated RBC % (auto) VBG pH VBG pCO2 VBG pO2 VBG HCO3 VBG O2 Saturation VBG Base Excess Sodium Potassium Chloride Carbon Dioxide Anion Gap BUN Creatinine Estim Creat Clear Calc Estimated GFR POC Glucose 132 H 138 H 101 Random Glucose Lactic Acid Lactic Acid F/U @ 2Hr Lactic Acid F/U @ 4Hr Calcium Magnesium B-Natriuretic Peptide 10/15/24 10/15/24 06:54 12:18 WBC 5.4 RBC 3.34 L Hgb 11.6 L Hct 35.6 L MCV 106.6 H MCH 34.7 H MCHC 32.6 RDW 16.8 H Plt Count 87 L MPV 11.9 Absolute Nucleated RBC 0.000 Nucleated RBC % (auto) 0.0 VBG pH VBG pCO2 VBG pO2 VBG HCO3 VBG O2 Saturation VBG Base Excess Sodium 137 Potassium 3.7 Chloride 88 L Carbon Dioxide 35 H Anion Gap 18 BUN 122 H Creatinine 3.59 H Estim Creat Clear Calc 20.3 Estimated GFR 13 POC Glucose 95 Random Glucose 113 Lactic Acid Lactic Acid F/U @ 2Hr Lactic Acid F/U @ 4Hr Calcium 8.6 Magnesium 1.9 B-Natriuretic Peptide 2185 H Assessment and Plan (1) CKD stage 4 due to type 2 diabetes mellitus: Status: Acute (2) Paroxysmal atrial fibrillation: Status: Acute (3) Chronic diastolic heart failure: Status: Acute Plan [age] female with diastolic heart failure, chronic kidney disease, morbid obesity, diabetes and recent admission with decompensated congestive heart failure when she was diuresed and discharged to rehab facility on October 10. She is now presenting with hypoglycemia. Recent echocardiography in September 2024 showed normal LVEF of 60 65% with grade 3 diastolic dysfunction with moderate left ventricular hypertrophy, severely reduced right ventricular systolic function. Significantly elevated right atrial pressure and moderate pulmonary hypertension. By examination today, she has JVD. I do not think she is hypovolemic. Her blood pressure readings are the same as previously documented in the chart. With severe RV dysfunction I think beta-rei use is challenging and we will hold the metoprolol for now to see if her blood pressure improves. This may also improve her urine output. Creatinine appears to be steady currently. I think she should be resumed on her home diuretics. If it is felt that she needs a right heart catheterization then she will need to be transferred to [facility] and we will be seen by [facility]. Thank you for allowing me to participate in the care of your patient. Please feel free to contact me if you have any questions. Procedures Date of Service Date of Service: 10/15/24
--- NOTE | 2024-10-15 13:18 | P.PNIM_ITS ---
Subjective Subjective Date of Service: 10/15/24 Interval History: awake, alert, eating well denies lightheadedness, dyspnea, or chest pain Review of Systems Review of Systems: Yes all other systems are reviewed and are negative Physical Exam 2 Vital Signs: Vital Signs: Last Vital Signs Temp 97.9 F 10/15/24 12:00 Pulse 86 10/15/24 12:00 Resp 17 10/15/24 12:00 BP 98/52 L 10/15/24 12:00 Pulse Ox 100 10/15/24 12:00 O2 Del Method Nasal Cannula 10/15/24 12:00 O2 Flow Rate 3 10/15/24 12:00 BMI result Body Mass Index 48.3 Gen: in no acute distress HEENT: sclera anicteric, moist mucus membranes Neck: supple Lungs: clear to auscultation bilaterally Heart: regular rate and rhythm, no murmurs Abd: soft, non-tender, non-distended, obese Ext: 2+ edema Skin: warm/well-perfused Neuro: alert and oriented x3, no focal findings Psych: appropriate affect Objective Data Active Medications Acetaminophen (Acetaminophen 325 Mg Tablet) 650 mg PO Q6H PRN PRN Reason: Pain, Mild 1-3,fever,headache Albuterol/Ipratropium (Albuterol/Iprat 2.5/0.5mg 3 Ml Ampul.Neb) 3 ml INHALE Q4H PRN PRN Reason: Shortness of Breath/Wheezing Atorvastatin Calcium (Atorvastatin Calcium 80 Mg Tablet) 80 mg PO DAILY [facility] Last Admin: 10/15/24 08:51 Dose: 80 mg Documented By: STAR Bisacodyl (Bisacodyl 10 Mg Supp.Rect) 10 mg [place] DAILY PRN PRN Reason: Constipation Calcitriol (Calcitriol 0.25 Mcg Capsule) 0.25 mcg PO MOWEFR@0900 [facility] Last Admin: 10/15/24 08:52 Dose: 0.25 mcg Documented By: STAR Calcium Carbonate (Calcium Carbonate 750 Mg Tab.Chew) 750 mg PO Q4H PRN PRN Reason: Heartburn Ceftriaxone Sodium (Ceftriaxone Sodium 1 Gm Vial) 1 gm IVPUSH Q24H [facility] Last Admin: 10/14/24 21:33 Dose: 1 gm Documented By: JODY Dextrose (Dextrose 50 % 25 Gm/50 Ml Syringe) 25 gm IVPUSH Q15M PRN; Protocol PRN Reason: per Hypoglycemia Standing Ord. Last Admin: 10/14/24 14:35 Dose: 25 gm Documented By: VICTORIANO Diphenhydramine HCl (Diphenhydramine Hcl 25 Mg Capsule) 25 mg PO Q6H PRN PRN Reason: pruritus Furosemide (Furosemide 40 Mg Tablet) 40 mg PO BID@0900,1800 [facility]; Protocol Last Admin: 10/14/24 09:38 Dose: 40 mg Documented By: VICTORIANO Glucose (Glucose Gel 15 Gm Gel..Gram.) 15 gm PO Q15M PRN; Protocol PRN Reason: per Hypoglycemia Standing Ord. Levothyroxine Sodium (Levothyroxine Sodium 150 Mcg Tablet) 150 mcg PO MOTUWETHFRSA@0600 [facility] Last Admin: 10/15/24 06:10 Dose: 150 mcg Documented By: KURT Levothyroxine Sodium (Levothyroxine Sodium 75 Mcg Tablet) 225 mcg PO TATUM@0600 [facility] Loratadine (Loratadine 10 Mg Tablet) 10 mg PO DAILY [facility] Last Admin: 10/15/24 08:51 Dose: 10 mg Documented By: STAR Magnesium Hydroxide (Milk Of Magnesia 30 Ml Oral.Susp) 30 ml PO DAILY PRN PRN Reason: Constipation Magnesium Oxide (Magnesium Oxide 400 Mg Tablet) 400 mg PO DAILY [facility] Last Admin: 10/15/24 08:52 Dose: 400 mg Documented By: STAR Melatonin (Melatonin 3 Mg Tablet) 6 mg PO BEDTIME PRN PRN Reason: Insomnia Melatonin (Melatonin 3 Mg Tablet) 6 mg PO BEDTIME [facility] Last Admin: 10/14/24 21:32 Dose: 6 mg Documented By: JODY Metolazone (Metolazone 2.5 Mg Tablet) 2.5 mg PO MOWEFR@0900 [facility] Metoprolol Tartrate (Metoprolol Tartrate 25 Mg Tablet) 25 mg PO BID [facility]; Protocol Last Admin: 10/15/24 08:54 Dose: 25 mg Documented By: STAR Ondansetron HCl (Ondansetron Hcl 4 Mg/2 Ml Vial) 4 mg IVPUSH Q8H PRN PRN Reason: Nausea and Vomiting Polyethylene Glycol (Polyethylene Glycol 3350 17 Gm Powd.Pack) 17 gm PO DAILY PRN PRN Reason: Constipation Potassium Chloride (Potassium Chloride Er 20 Meq Tab.Er.Prt) 20 meq PO DAILY [facility] Last Admin: 10/15/24 08:52 Dose: 20 meq Documented By: STAR Psyllium Hydrophilic Mucilloid (Psyllium Seed 3.7 Gm Packet) 3.7 gm PO DAILY [facility] Last Admin: 10/15/24 08:53 Dose: 3.7 gm Documented By: STAR Rivaroxaban (Rivaroxaban 15 Mg Tablet) 15 mg PO DAILY@1700 [facility] Last Admin: 10/14/24 18:27 Dose: 15 mg Documented By: VICTORIANO Senna (Sennosides 8.6 Mg Tablet) 17.2 mg PO BEDTIME [facility] Last Admin: 10/14/24 21:32 Dose: 17.2 mg Documented By: JODY Sodium Biphosphate/Sodium Phosphate (Sodium Phosphate,[place]-Dibasic 133 Ml Enema) 118 ml [place] DAILY PRN PRN Reason: Constipation Sodium Chloride (0.9 % Sodium Chloride Flush 3 Ml Syringe) 3 ml IVFLUSH QSHIFT [facility] Last Admin: 10/15/24 08:53 Dose: 3 ml Documented By: STAR Tramadol HCl (Tramadol Hcl 50 Mg Tablet) 50 mg PO DAILY [facility] Last Admin: 10/15/24 08:52 Dose: 50 mg Documented By: STAR Labs 10/15/24 06:54 10/15/24 06:54 Labs: Laboratory Results - last 24 hr 10/14/24 10/14/24 10/14/24 14:22 15:02 15:39 MCV MCH MCHC RDW Plt Count MPV Absolute Nucleated RBC Nucleated RBC % (auto) VBG pH VBG pCO2 VBG pO2 VBG HCO3 VBG O2 Saturation VBG Base Excess Anion Gap Estim Creat Clear Calc Estimated GFR POC Glucose 61 160 H 131 H Random Glucose Lactic Acid Lactic Acid F/U @ 2Hr Lactic Acid F/U @ 4Hr Calcium Magnesium B-Natriuretic Peptide 10/14/24 10/14/24 10/14/24 15:59 16:05 17:24 MCV 103.5 H MCH 34.9 H MCHC 33.7 RDW 16.8 H Plt Count 92 L MPV 11.3 Absolute Nucleated RBC 0.000 Nucleated RBC % (auto) 0.0 VBG pH 7.57 H VBG pCO2 40 VBG pO2 38 VBG HCO3 38 H VBG O2 Saturation 71.0 VBG Base Excess 14.9 Anion Gap 21 H Estim Creat Clear Calc 12.8 Estimated GFR 12 POC Glucose 138 H Random Glucose 116 H Lactic Acid 3.2 H* Lactic Acid F/U @ 2Hr Lactic Acid F/U @ 4Hr Calcium 8.7 Magnesium B-Natriuretic Peptide 10/14/24 10/14/24 10/14/24 18:39 20:36 21:32 MCV MCH MCHC RDW Plt Count MPV Absolute Nucleated RBC Nucleated RBC % (auto) VBG pH VBG pCO2 VBG pO2 VBG HCO3 VBG O2 Saturation VBG Base Excess Anion Gap Estim Creat Clear Calc Estimated GFR POC Glucose 135 H Random Glucose Lactic Acid Lactic Acid F/U @ 2Hr 3.5 H* Lactic Acid F/U @ 4Hr 2.9 H* Calcium Magnesium B-Natriuretic Peptide 10/14/24 10/15/24 10/15/24 23:59 01:31 06:15 MCV MCH MCHC RDW Plt Count MPV Absolute Nucleated RBC Nucleated RBC % (auto) VBG pH VBG pCO2 VBG pO2 VBG HCO3 VBG O2 Saturation VBG Base Excess Anion Gap Estim Creat Clear Calc Estimated GFR POC Glucose 132 H 138 H 101 Random Glucose Lactic Acid Lactic Acid F/U @ 2Hr Lactic Acid F/U @ 4Hr Calcium Magnesium B-Natriuretic Peptide 10/15/24 10/15/24 06:54 12:18 MCV 106.6 H MCH 34.7 H MCHC 32.6 RDW 16.8 H Plt Count 87 L MPV 11.9 Absolute Nucleated RBC 0.000 Nucleated RBC % (auto) 0.0 VBG pH VBG pCO2 VBG pO2 VBG HCO3 VBG O2 Saturation VBG Base Excess Anion Gap 18 Estim Creat Clear Calc 20.3 Estimated GFR 13 POC Glucose 95 Random Glucose 113 Lactic Acid Lactic Acid F/U @ 2Hr Lactic Acid F/U @ 4Hr Calcium 8.6 Magnesium 1.9 B-Natriuretic Peptide 2185 H Microbiology Microbiology Results: Microbiology 10/13/24 20:50 Urine Culture - Preliminary Urine Catheterized - Straight Catheter Gram negative gordon 10/13/24 19:24 Blood Culture - Preliminary Blood - Venous No growth after 24 hours. 10/13/24 18:58 Blood Culture - Preliminary Blood - Venous No growth after 24 hours. Assessment and Plan (1) Hypoglycemia: Status: Acute Plan d3 for 69yo F with HFpEF, CKD3, morbid obesity, pAF on rivaorxaban, HTN, DM2, and HLD sent in from [facility] for hypoglycemia; recent admission here for decompensated heart failure + cardiorenal syndrome hypoglycemia - likely due to glyburide with renal failure, which should be discontinued permanently - discontinue D5W chronic diastolic + R-sided HF hypotension - hold furosemide + metolazone + metoprolol tartrate for now given soft BP; was a little dry upon presentation but now appears euvolemic; Nephrology and Cardiology consulted and following - limited TTE to check IVC volume/collapse as proxy for lactic acidosis - due to dehydration, not sepsis UTI - ceftriaxone 4/-, follow UCx [growing GNRs] CKD4 - SCr at baseline chronic AF - hold metoprolol tartrate due to severe RV dysfunction per Cardiology; change rivaroxaban to apixaban given low CrCl hypothyroidism - TSH under-suppressed but checked in the face of acute illness; recheck TSH in 4 wk; continue LT4 at current dosing for now HLD - statin morbid obesity - diet/exercise counseling VTE ppx - apixaban dispo - eventual return to LTC at [facility] In my clinical judgment, the patient requires continued inpatient hospitalization for the following reasons: IV ABX, hypotension Total time managing care of this patient today: 45 minutes. Quality Stroke Does the patient have a stroke diagnosis?: No Reason for No Anti-thrombotic by Day Two: N/A - Med Ordered VTE Prior VTE?: No VTE Risk Level:: Medical - moderate - high VTE Device Contraindication: Treatment Not Tolerated VTE Drug Contraindication: N/A - Med Ordered
--- NOTE | 2024-10-15 14:17 | MHC.CM.PN ---
Per EMR review, pt is not ready to DC, she requires acute care for IV ABX and hypotension. DCP is to return to [facility] via BLS.
[2024-10-15 16:18] LABS: Glucose, Whole Blood 169 mg/dL (60-115)
[2024-10-15 21:03] LABS: B Type Natriuretic Peptide 2764 pg/mL (<100)
[2024-10-15] MEDS: cefTRIAXone sodium 1 GM VIAL IVPUSH (21:56)
[2024-10-15] MEDS: Sennosides 8.6 MG TABLET 17.2 MG PO (21:56)
[2024-10-15] MEDS: diphenhydrAMINE HCL 25 MG CAPSULE PO (21:56)
[2024-10-15] MEDS: Melatonin 3 MG TABLET 6 MG PO (21:56)
[2024-10-15] MEDS: Apixaban 2.5 MG TABLET PO (21:56)
[2024-10-16 00:07] LABS: Glucose, Whole Blood 177 mg/dL (60-115)
[2024-10-16 03:47] VITALS: BP 100/58; PULSE 85; RESP 20; TEMP 36.9; O2SAT 94
[2024-10-16] MEDS: Levothyroxine Sodium 150 MCG TABLET PO (05:56)
[2024-10-16 06:12] LABS: Glucose, Whole Blood 114 mg/dL (60-115)
[2024-10-16 07:34] LABS: Anion Gap 19 (12-20); Blood Urea Nitrogen 121 mg/dL (9-16); Calcium 8.9 mg/dL (8.4-10.2); Carbon Dioxide 33 mmol/L (22-29); Chloride 90 mmol/L (96-108); Creatinine Clr Calc Pharmacy 20.9; Estimated Glomerular Filt Rate 13; Glucose Random 127 mg/dL (60-115); Magnesium 1.8 mg/dL (1.6-2.6); Potassium 3.7 mmol/L (3.3-5.1); Sodium 138 mmol/L (135-145)
[2024-10-16 07:37] LABS: B Type Natriuretic Peptide 2883 pg/mL (<100)
[2024-10-16 07:46] VITALS: BP 96/56; PULSE 69; RESP 20; TEMP 36.1; O2SAT 100
[2024-10-16] MEDS: Magnesium Oxide 400 MG TABLET PO (09:51)
[2024-10-16] MEDS: Loratadine 10 MG TABLET PO (09:51)
[2024-10-16] MEDS: Potassium Chloride ER 20 MEQ TAB.ER.PRT PO (09:51)
[2024-10-16] MEDS: traMADoL HCL 50 MG TABLET PO (09:51)
[2024-10-16] MEDS: Apixaban 2.5 MG TABLET PO ×2 (09:51→19:59)
[2024-10-16] MEDS: Atorvastatin Calcium 80 MG TABLET PO (09:51)
[2024-10-16] MEDS: Psyllium seed 3.7 GM PACKET PO (09:52)
[2024-10-16] MEDS: 0.9 % Sodium Chloride Flush 3 ML SYRINGE IVFLUSH ×3 (09:55→20:04)
[2024-10-16 11:25] VITALS: BP 109/56; PULSE 88; RESP 20; TEMP 36.4; O2SAT 97
[2024-10-16 12:16] LABS: Glucose, Whole Blood 169 mg/dL (60-115)
--- NOTE | 2024-10-16 14:26 | PC.NURSE ---
per prior shift RN, katz cath was removed 4/7 PM prior to shift change. no documentation on removal of katz cath. during assessment pt did not have katz cath present. task completed.
[2024-10-16 15:18] VITALS: BP 107/55; PULSE 77; RESP 20; TEMP 36.8; O2SAT 93
--- NOTE | 2024-10-16 16:11 | HO.WOUND ---
Wound Consult: Initial 69yr old? female admitted to [facility] on 10/13/24 - See progress notes and H&P for detailed history.? Wound consult placed for Bilateral Upper Arm Rash.? Patient agreeable to assessment and photo documentation.? Patient is not able to identify the rash but reports it has been there for sometime she recalls months. She reports she has not sought treatment other than her last admission to [facility] they prescribed a topical cream that helped significantly;y with the itch. Chart review reveals Triacimolone 0.1% cream and ointment was used - TT to provider Dr. Powell he reports he suspects it is a form of vasculitits and will assess if topical steroid is appropriate and order if so. Left Arm Right Arm Left Lateral Leg - upper Etiology: Suspected Vasculitits ?? Wound Bed: various stages of healing - several pin point areas some open with red moist tissue some scabed Drainage / Odor: serosang noted on bed linen Edges: ? irregular Opal wound: red pink erythema? No Induration, Fluctuance or Warmth noted Pain: itching reported Goals of Treatment: ? Topical steroid and cover dressing Recommendations: 1. When applicable maintain blood glucose levels per Providers order. Bilateral Arms - Cleanse with NS moist gauze, pat dry. Apply topical steroid cream per provider orders. cover with dry gauze wrap if patient continue to scratch. Re-consult wound care Nurse for wound deterioration or wound changes.
[2024-10-16 17:30] LABS: Glucose, Whole Blood 164 mg/dL (60-115)
[2024-10-16] MEDS: diphenhydrAMINE HCL 25 MG CAPSULE PO (17:53)
--- NOTE | 2024-10-16 18:47 | HO.PM.IMPN ---
Subjective Subjective Date of Service: 10/16/24 Interval History: awake, alert, eating well no chest pain or sob Physical Exam Vital Signs: Vital Signs: Last Vital Signs Temp 98.2 F 10/16/24 15:18 Pulse 77 10/16/24 15:18 Resp 20 10/16/24 15:18 BP 107/55 L 10/16/24 15:18 Pulse Ox 93 10/16/24 15:18 O2 Del Method Room Air 10/16/24 15:18 O2 Flow Rate 3 10/16/24 07:46 BMI result Body Mass Index 48.3 Gen: in no acute distress HEENT: sclera anicteric, moist mucus membranes Neck: supple Lungs: clear to auscultation bilaterally Heart: regular rate and rhythm, no murmurs Abd: soft, non-tender, non-distended, obese Ext: 2+ edema Skin: warm/well-perfused Neuro: alert and oriented x3, no focal findings Psych: appropriate affect Objective Data Active Medications Acetaminophen (Acetaminophen 325 Mg Tablet) 650 mg PO Q6H PRN PRN Reason: Pain, Mild 1-3,fever,headache Albuterol/Ipratropium (Albuterol/Iprat 2.5/0.5mg 3 Ml Ampul.Neb) 3 ml INHALE Q4H PRN PRN Reason: Shortness of Breath/Wheezing Apixaban (Apixaban 2.5 Mg Tablet) 2.5 mg PO BID [facility] Last Admin: 10/16/24 09:51 Dose: 2.5 mg Documented By: MICHELLE Atorvastatin Calcium (Atorvastatin Calcium 80 Mg Tablet) 80 mg PO DAILY [facility] Last Admin: 10/16/24 09:51 Dose: 80 mg Documented By: MICHELLE Bisacodyl (Bisacodyl 10 Mg Supp.Rect) 10 mg [place] DAILY PRN PRN Reason: Constipation Calcitriol (Calcitriol 0.25 Mcg Capsule) 0.25 mcg PO MOWEFR@0900 [facility] Last Admin: 10/15/24 08:52 Dose: 0.25 mcg Documented By: STAR Calcium Carbonate (Calcium Carbonate 750 Mg Tab.Chew) 750 mg PO Q4H PRN PRN Reason: Heartburn Ceftriaxone Sodium (Ceftriaxone Sodium 1 Gm Vial) 1 gm IVPUSH Q24H [facility] Last Admin: 10/15/24 21:56 Dose: 1 gm Documented By: SHIVAM Dextrose (Dextrose 50 % 25 Gm/50 Ml Syringe) 25 gm IVPUSH Q15M PRN; Protocol PRN Reason: per Hypoglycemia Standing Ord. Last Admin: 10/14/24 14:35 Dose: 25 gm Documented By: VICTORIANO Diphenhydramine HCl (Diphenhydramine Hcl 25 Mg Capsule) 25 mg PO Q6H PRN PRN Reason: pruritus Last Admin: 10/16/24 17:53 Dose: 25 mg Documented By: MICHELLE Furosemide (Furosemide 40 Mg Tablet) 40 mg PO BID@0900,1800 [facility]; Protocol Last Admin: 10/14/24 09:38 Dose: 40 mg Documented By: VICTORIANO Glucose (Glucose Gel 15 Gm Gel..Gram.) 15 gm PO Q15M PRN; Protocol PRN Reason: per Hypoglycemia Standing Ord. Levothyroxine Sodium (Levothyroxine Sodium 150 Mcg Tablet) 150 mcg PO MOTUWETHFRSA@0600 [facility] Last Admin: 10/16/24 05:56 Dose: 150 mcg Documented By: SHIVAM Levothyroxine Sodium (Levothyroxine Sodium 75 Mcg Tablet) 225 mcg PO TATUM@0600 [facility] Loratadine (Loratadine 10 Mg Tablet) 10 mg PO DAILY [facility] Last Admin: 10/16/24 09:51 Dose: 10 mg Documented By: MICHELLE Magnesium Hydroxide (Milk Of Magnesia 30 Ml Oral.Susp) 30 ml PO DAILY PRN PRN Reason: Constipation Magnesium Oxide (Magnesium Oxide 400 Mg Tablet) 400 mg PO DAILY [facility] Last Admin: 10/16/24 09:51 Dose: 400 mg Documented By: MICHELLE Melatonin (Melatonin 3 Mg Tablet) 6 mg PO BEDTIME PRN PRN Reason: Insomnia Melatonin (Melatonin 3 Mg Tablet) 6 mg PO BEDTIME [facility] Last Admin: 10/15/24 21:56 Dose: 6 mg Documented By: SHIVAM Metolazone (Metolazone 2.5 Mg Tablet) 2.5 mg PO MOWEFR@0900 [facility] Metoprolol Tartrate (Metoprolol Tartrate 25 Mg Tablet) 25 mg PO BID [facility]; Protocol Last Admin: 10/15/24 08:54 Dose: 25 mg Documented By: STAR Ondansetron HCl (Ondansetron Hcl 4 Mg/2 Ml Vial) 4 mg IVPUSH Q8H PRN PRN Reason: Nausea and Vomiting Polyethylene Glycol (Polyethylene Glycol 3350 17 Gm Powd.Pack) 17 gm PO DAILY PRN PRN Reason: Constipation Potassium Chloride (Potassium Chloride Er 20 Meq Tab.Er.Prt) 20 meq PO DAILY [facility] Last Admin: 10/16/24 09:51 Dose: 20 meq Documented By: MICHELLE Psyllium Hydrophilic Mucilloid (Psyllium Seed 3.7 Gm Packet) 3.7 gm PO DAILY [facility] Last Admin: 10/16/24 09:52 Dose: 3.7 gm Documented By: MICHELLE Senna (Sennosides 8.6 Mg Tablet) 17.2 mg PO BEDTIME [facility] Last Admin: 10/15/24 21:56 Dose: 17.2 mg Documented By: SHIVAM Sodium Biphosphate/Sodium Phosphate (Sodium Phosphate,[place]-Dibasic 133 Ml Enema) 118 ml [place] DAILY PRN PRN Reason: Constipation Sodium Chloride (0.9 % Sodium Chloride Flush 3 Ml Syringe) 3 ml IVFLUSH QSHIFT [facility] Last Admin: 10/16/24 17:58 Dose: 3 ml Documented By: MICHELLE Tramadol HCl (Tramadol Hcl 50 Mg Tablet) 50 mg PO DAILY [facility] Last Admin: 10/16/24 09:51 Dose: 50 mg Documented By: MICHELLE Labs 10/15/24 06:54 10/16/24 06:29 Labs: Laboratory Results - last 24 hr 10/15/24 10/15/24 10/16/24 20:33 23:56 06:09 Anion Gap Estim Creat Clear Calc Estimated GFR POC Glucose 177 H 114 Random Glucose Lactic Acid 2.0 Calcium Magnesium B-Natriuretic Peptide 2764 H 10/16/24 10/16/24 10/16/24 06:29 12:12 17:26 Anion Gap 19 Estim Creat Clear Calc 20.9 Estimated GFR 13 POC Glucose 169 H 164 H Random Glucose 127 H Lactic Acid Calcium 8.9 Magnesium 1.8 B-Natriuretic Peptide 2883 H Microbiology Microbiology Results: Microbiology 10/13/24 20:50 Urine Culture - Preliminary Urine Catheterized - Straight Catheter Klebsiella pneumoniae 10/13/24 19:24 Blood Culture - Preliminary Blood - Venous No growth after 48 hours. 10/13/24 18:58 Blood Culture - Preliminary Blood - Venous No growth after 48 hours. Assessment and Plan (1) Hypoglycemia: Status: Acute Plan 69yo F with HFpEF, CKD3, morbid obesity, pAF on rivaorxaban, HTN, DM2, and HLD sent in [facility] for hypogly[facility]; recent admission here for decompensated heart failure + cardiorenal syndrome hypoglycemia - likely due to glyburide with renal failure, which should be discontinued permanently, resolved chronic diastolic + R-sided HF hypOtension - hold furosemide + metolazone + metoprolol tartrate for now given soft BP; was a little dry upon presentation but now appears euvolemic; Nephrology and Cardiology consulted and following - limited TTE to check IVC volume/collapse as proxy for lactic acidosis - due to dehydration, not sepsis UTI - ceftriaxone 10/13-, follow UCx [growing GNRs] CKD4 - SCr at baseline chronic AF - hold metoprolol tartrate due to severe RV dysfunction per Cardiology; change rivaroxaban to apixaban given low CrCl hypothyroidism - TSH under-suppressed but checked in the face of acute illness; recheck TSH in 4 wk; continue LT4 at current dosing for now HLD - statin morbid obesity - diet/exercise counseling VTE ppx - apixaban dispo - eventual return to LTC at [facility] In my clinical judgment, the patient requires continued inpatient hospitalization for the following reasons: IV ABX, hypotension Total time managing care of this patient today: 45 minutes. Quality Stroke Does the patient have a stroke diagnosis?: No Reason for No Anti-thrombotic by Day Two: N/A - Med Ordered VTE Prior VTE?: No VTE Risk Level:: Medical - moderate - high VTE Device Contraindication: Treatment Not Tolerated VTE Drug Contraindication: N/A - Med Ordered
--- NOTE | 2024-10-16 19:00 | P.PNNP_ITS ---
Subjective Subjective Date of Service: 10/16/24 Interval history: Events noted. All recent data reviewed Physical Exam 2 Vital Signs: Vital Signs: Last Vital Signs Temp 98.2 F 10/16/24 15:18 Pulse 77 10/16/24 15:18 Resp 20 10/16/24 15:18 BP 107/55 L 10/16/24 15:18 Pulse Ox 93 10/16/24 15:18 O2 Del Method Room Air 10/16/24 15:18 O2 Flow Rate 3 10/16/24 07:46 BMI result Body Mass Index 48.3 Const: General: no acute distress Orientation/consciousness: patient oriented x3 Eyes: EOM: EOMs intact bilaterally Resp: Auscultation: diminished lung sounds Cardio: Rate: regular rate GI: Palpation (GI): Soft to palpation Neuro: General: patient oriented x3 Objective Data Labs 10/15/24 06:54 10/16/24 06:29 Labs: Laboratory Results - last 24 hr 10/15/24 10/15/24 10/16/24 20:33 23:56 06:09 Sodium Potassium Chloride Carbon Dioxide Anion Gap BUN Creatinine Estim Creat Clear Calc Estimated GFR POC Glucose 177 H 114 Random Glucose Lactic Acid 2.0 Calcium Magnesium B-Natriuretic Peptide 2764 H 10/16/24 10/16/24 10/16/24 06:29 12:12 17:26 Sodium 138 Potassium 3.7 Chloride 90 L Carbon Dioxide 33 H Anion Gap 19 BUN 121 H Creatinine 3.49 H Estim Creat Clear Calc 20.9 Estimated GFR 13 POC Glucose 169 H 164 H Random Glucose 127 H Lactic Acid Calcium 8.9 Magnesium 1.8 B-Natriuretic Peptide 2883 H Microbiology Microbiology Results: Microbiology 10/13/24 20:50 Urine Catheterized - Straight Catheter Urine Culture - Preliminary Klebsiella pneumoniae 10/13/24 19:24 Blood - Venous Blood Culture - Preliminary No growth after 48 hours. 10/13/24 18:58 Blood - Venous Blood Culture - Preliminary No growth after 48 hours. Procedures Date of Service Date of Service: 10/16/24 Assessment & Plan Assessment and plan (1) Chronic renal disease, stage 5, glomerular filtration rate (GFR) less than or equal to 15 mL/min/1.73 square meter: Status: Acute Plan Has RV systolic dysfunction Not clinically dry or overloaded Diuretics on hold; No further IVF Renal function stable; No Glyburide No indication for renal replacement C/W rest of current management for now Progress Note: Quality Stroke Does the patient have a stroke diagnosis?: No Reason for No Anti-thrombotic by Day Two: N/A - Med Ordered
[2024-10-16] MEDS: Sennosides 8.6 MG TABLET 17.2 MG PO (19:58)
[2024-10-16] MEDS: Meropenem 500 MG VIAL IVPUSH (19:58)
[2024-10-16] MEDS: Melatonin 3 MG TABLET 6 MG PO (19:59)
[2024-10-16 20:00] VITALS: BP 100/56; PULSE 80; RESP 14; TEMP 36.9; O2SAT 100
[2024-10-16 23:38] VITALS: BP 103/56; PULSE 71; RESP 16; TEMP 36.1; O2SAT 94
[2024-10-17 00:03] LABS: Glucose, Whole Blood 156 mg/dL (60-115)
[2024-10-17 03:37] VITALS: BP 115/71; PULSE 99; RESP 16; TEMP 36.9; O2SAT 99
[2024-10-17] MEDS: Levothyroxine Sodium 150 MCG TABLET PO (05:34)
[2024-10-17 06:06] LABS: Glucose, Whole Blood 119 mg/dL (60-115)
[2024-10-17 07:01] VITALS: BP 103/60; PULSE 96; RESP 20; TEMP 36; O2SAT 98
[2024-10-17] MEDS: Loratadine 10 MG TABLET PO (09:06)
[2024-10-17] MEDS: calcitrioL 0.25 MCG CAPSULE PO (09:06)
[2024-10-17] MEDS: Atorvastatin Calcium 80 MG TABLET PO (09:07)
[2024-10-17] MEDS: 0.9 % Sodium Chloride Flush 3 ML SYRINGE IVFLUSH ×3 (09:07→20:28)
[2024-10-17] MEDS: Meropenem 500 MG VIAL IVPUSH ×2 (09:07→18:42)
[2024-10-17] MEDS: Apixaban 2.5 MG TABLET PO ×2 (09:07→20:27)
[2024-10-17] MEDS: Magnesium Oxide 400 MG TABLET PO (09:07)
[2024-10-17] MEDS: Potassium Chloride ER 20 MEQ TAB.ER.PRT PO (09:07)
[2024-10-17] MEDS: traMADoL HCL 50 MG TABLET PO (09:15)
--- NOTE | 2024-10-17 09:35 | P.PNNP_ITS ---
Subjective Subjective Date of Service: 10/17/24 Interval history: Events noted. All recent data reviewed; D/W family Physical Exam 2 Vital Signs: Vital Signs: Last Vital Signs Temp 96.8 F 10/17/24 07:01 Pulse 96 10/17/24 07:01 Resp 20 10/17/24 07:01 BP 103/60 10/17/24 07:01 Pulse Ox 98 10/17/24 07:01 O2 Del Method Room Air 10/17/24 07:01 O2 Flow Rate 3 10/16/24 23:38 BMI result Body Mass Index 48.3 Const: General: no acute distress Orientation/consciousness: patient oriented x3 Eyes: EOM: EOMs intact bilaterally Resp: Auscultation: diminished lung sounds Cardio: Rate: regular rate GI: Palpation (GI): Soft to palpation Neuro: General: patient oriented x3 Objective Data Labs 10/15/24 06:54 10/16/24 06:29 Labs: Laboratory Results - last 24 hr 10/16/24 10/16/24 10/17/24 12:12 17:26 00:01 POC Glucose 169 H 164 H 156 H 10/17/24 06:01 POC Glucose 119 H Microbiology Microbiology Results: Microbiology 10/13/24 20:50 Urine Catheterized - Straight Catheter Urine Culture - Final Klebsiella pneumoniae 10/13/24 19:24 Blood - Venous Blood Culture - Preliminary No growth after 48 hours. 10/13/24 18:58 Blood - Venous Blood Culture - Preliminary No growth after 48 hours. Procedures Date of Service Date of Service: 10/17/24 Assessment & Plan Assessment and plan (1) Chronic renal disease, stage 5, glomerular filtration rate (GFR) less than or equal to 15 mL/min/1.73 square meter: Status: Acute Plan Has RV systolic dysfunction Not clinically dry or overloaded Diuretics on hold- could start 50% home dose No metolazone for now Renal function stable; No Glyburide No indication for renal replacement C/W rest of current management for now Progress Note: Quality Stroke Does the patient have a stroke diagnosis?: No Reason for No Anti-thrombotic by Day Two: N/A - Med Ordered
[2024-10-17 10:55] VITALS: BP 116/63; PULSE 92; RESP 20; TEMP 36.6; O2SAT 98
[2024-10-17 11:00] LABS: Glucose, Whole Blood 149 mg/dL (60-115)
--- NOTE | 2024-10-17 14:59 | MHC.CM.PN ---
Per rounds, pt. will be ready to return to [facility] tomorrow. CM will follow for DC needs.
[2024-10-17 16:00] VITALS: BP 129/80; PULSE 93; RESP 20; TEMP 36.4; O2SAT 100
--- NOTE | 2024-10-17 16:30 | ECG_ITS ---
Test Reason : rhythm check Blood Pressure : */* mmHG Vent. Rate : 92 BPM Atrial Rate : 92 BPM P-R Int : 110 ms QRS Dur : 94 ms QT Int : 392 ms P-R-T Axes : 173 128 173 degrees QTcB Int : 484 ms Suspect limb lead reversal, interpretation assumes no reversal Unusual P axis, possible ectopic atrial rhythm with Premature atrial complexes in a pattern of bigeminy Low voltage QRS Lateral infarct , age undetermined Abnormal ECG When compared with ECG of 14-Oct-2024 07:53, Ectopic atrial rhythm has replaced Sinus rhythm QRS axis Shifted right Criteria for Septal infarct are no longer Present Lateral infarct is now Present Referred By: Saad Powell Electronically Signed By: Jared Allen
[2024-10-17 18:10] LABS: Glucose, Whole Blood 117 mg/dL (60-115)
[2024-10-17] MEDS: diphenhydrAMINE HCL 25 MG CAPSULE PO (18:43)
--- NOTE | 2024-10-17 19:14 | P.CDIM_ITS ---
PROVIDER RESPONSE TEXT: To clarify, the appropriate diagnosis supported by the clinical indicators: Acute QUERY TEXT: PHYSICIAN'S DOCUMENTATION REQUEST Date of Query: 10/17/2024 12:11 PM EDT Patient Name: Shira Nicholas Admit Date: 10/14/2024 Dear Saad Powell MD, A review of the medical record indicates additional documentation may be needed. Please review below and update the documentation accordingly. Clinical Indicators: LA 3.8 baseline hypotension with a noted metabolic alkalosis and lactic acidosis. Progress note: Lactic acidosis went from 2.8-3.8 with a noted possible urinary tract infection. Clarify which of the following accurately represents the acuity of the lactic acidosis: Possible options might include: Acute Chronic Other specified Other (explain) Clinically unable to determine (explain) Thank you, Bridgett Bass, CCS, CDIS Use of terms such as suspected, likely, concern for, or probable (associated with a specific diagnosi s that is being evaluated, monitored, or treated as if it exists) are acceptable and can be coded in the inpatient se tting, when documented at the time of discharge. Please use your independent medical judgment in providing your response. THIS QUERY IS PART OF THE PERMANENT MEDICAL RECORD
[2024-10-17 19:47] VITALS: BP 102/54; PULSE 94; RESP 16; TEMP 36; O2SAT 95
[2024-10-17] MEDS: Sennosides 8.6 MG TABLET 17.2 MG PO (20:26)
[2024-10-17] MEDS: Melatonin 3 MG TABLET 6 MG PO (20:26)
[2024-10-17 23:59] VITALS: BP 120/79; PULSE 112; RESP 17; TEMP 36.3; O2SAT 100
[2024-10-18 00:38] LABS: Glucose, Whole Blood 144 mg/dL (60-115)
[2024-10-18 04:00] VITALS: BP 96/52; PULSE 76; RESP 17; TEMP 35.9; O2SAT 100
[2024-10-18 06:21] LABS: Glucose, Whole Blood 144 mg/dL (60-115)
[2024-10-18] MEDS: Meropenem 500 MG VIAL IVPUSH (06:36)
[2024-10-18] MEDS: Levothyroxine Sodium 150 MCG TABLET PO (06:36)
[2024-10-18] MEDS: 0.9 % Sodium Chloride Flush 3 ML SYRINGE IVFLUSH (06:36)
[2024-10-18 07:24] VITALS: BP 110/57; PULSE 99; RESP 20; TEMP 36.2; O2SAT 99
[2024-10-18] MEDS: Apixaban 2.5 MG TABLET PO (09:02)
[2024-10-18] MEDS: Potassium Chloride ER 20 MEQ TAB.ER.PRT PO (09:02)
[2024-10-18] MEDS: Atorvastatin Calcium 80 MG TABLET PO (09:02)
[2024-10-18] MEDS: Loratadine 10 MG TABLET PO (09:02)
[2024-10-18] MEDS: Magnesium Oxide 400 MG TABLET PO (09:02)
[2024-10-18] MEDS: traMADoL HCL 50 MG TABLET PO (09:02)
--- NOTE | 2024-10-18 10:40 | MHC.CM.PN ---
Second IMM 10/18/24, Pt has been medically cleared for DC, she will go back to [facility] today via BLS this afternoon. CM called dtr to inform her of transport back to SNF.
--- NOTE | 2024-10-18 10:43 | PM.DS ---
DS: Providers Provider Date of Service: 10/18/24 Date of admission: 10/13/24 22:57 Date of discharge: 10/18/24 Primary care physician: Scott Quintanilla MD Consults: 10/14/24 17:14 Consult to Nephrology Routine Consulting Provider: [facility] Reason for consultation: CKD/worserning BUN, now appears dry 10/15/24 00:31 Consult to Wound Care Routine Reason for consultation: Recommendations for open area/?rash to LUE 10/15/24 09:38 Consult to Cardiology Routine Consulting Provider: [facility] Reason for consultation: R-sided HF DS: Diagnosis Discharge Diagnosis (1) Chronic renal disease, stage 5, glomerular filtration rate (GFR) less than or equal to 15 mL/min/1.73 square meter: Status: Acute DS: Summary Hospital Course Hospital Course: Chief Complaint: Patient told she had low blood sugar Patient is a 69-year-old female with past medical history of diabetes type 2, chronic kidney disease stage 4, hypertension, hypothyroidism, morbid obesity, paroxysmal atrial fibrillation on anticoagulation, CHF on oxygen, hyperlipidemia has been staying at a rehabilitation facility since discharge October 10 from [facility] for TANA. Patient was found to have a blood sugar of 31. Patient stated she had gone down earlier to play bingo but complained that her legs hurt and she wanted to returned to her room and take a nap. Staff or coming in to help make the bed so that patient could rest. In the interim patient's blood sugar was checked and patient denies being symptomatic including altered mental status, diaphoresis, or agitation. Patient then learned that her blood sugar was low and required transfer to the hospital for intervention. Patient received dextrose and point of care with EMS was 106. Blood glucose level in the emergency department is currently 84. Patient is currently on a D5 0.9 normal saline infusion at 80 mL/hour. Patient is not reporting any chest pain, shortness of breath, dizziness, sweating and is not altered in terms of mental status. Patient had been on glyburide at the time of discharge on October 10. Patient also found to have high suspicion for UTI based on UA and was started on ceftriaxone in the emergency department. Patient does have of 11.6. Patient is afebrile. Patient's renal function currently at baseline although noting stage IV with a creatinine of 3.86, creatinine clearance of 12.5 and estimated GFR of 12. Patient follows with prepress technician at [facility]. Patient has noted metabolic alkalosis and a lactic acid of 3.8. Patient is not currently oliguric or anuric. Patient was straight cath for urine sample and obtained 150 mL of urine. Patient is complaining of some itching on the upper arms. Phosphorus is pending. Incidentally EKG notes sinus rhythm with sinus arrhythmia and a first-degree AV block. WV interval is 260. QTC is 568. Magnesium 1.9. Chest x-ray notes a left basilar consolidation that may likely represent atelectasis versus pneumonia as this finding was also noted from a chest x-ray from 10/01/2024 indicating a left basilar opacity or infiltrate and layering left-sided effusion. Effusion no longer present. We will assess viral studies for flu, COVID, and RSV. Patient has not had any hypoxia and is currently 100% on 2 L nasal cannula. Patient does use oxygen daily normally. Patient currently being admitted for hypoglycemia, urinary tract infection, chronic kidney disease stage 4, baseline hypotension with a noted metabolic alkalosis and lactic acidosis. Patient does not meet the criteria for SIRS and is not being qualified as having sepsis. Hospital course 69yo F with HFpEF, CKD3, morbid obesity, pAF on rivaorxaban, HTN, DM2, and HLD sent in from [facility] for hypoglycemia; recent admission here for decompensated heart failure + cardiorenal syndrome, she presented with hypoglycemia and has been found to have hypoglycemia due to glyburide, supposedly she was no longer to be on the medication, it is stopped and no further issues. Found to have UTI, initially treated with Ceftriaxone but has positive ESBL klebiseila, Abx changed to meorponem for 2 days and will give one dose of fosfomycin hypoglycemia - likely due to glyburide with renal failure, which should be discontinued permanently, resolved. Glyburide discontinued She has not required any medication for blood sugar control, her sugar level are less than 200, and will only cover with insulin if sugar was over 200, check sugars routine 3 times a day hypOtension--probably related to medication, holding metolazone, lasix reduced to half, and continue metoprolol. Dehydration thought to be part of it CKD4 - SCr at baseline chronic AF - hold metoprolol tartrate due to severe RV dysfunction per Cardiology; change rivaroxaban to apixaban given low CrCl hypothyroidism - TSH under-suppressed but checked in the face of acute illness; recheck TSH in 4 wk; continue LT4 at current dosing for now HLD - statin morbid obesity - diet/exercise counseling Time Attestation Discharge Coordination Time (in mins): 45 Quality: Safe Use of Opioids Does Pt have an Active Cancer Diagnosis on the Problem List?: No Quality: Stroke Does the patient have a stroke diagnosis?: No Physical Exam Vital Signs: Vital Signs: Last Vital Signs Temp 97.2 F 10/18/24 07:24 Pulse 99 10/18/24 07:24 Resp 20 10/18/24 07:24 BP 110/57 L 10/18/24 07:24 Pulse Ox 99 10/18/24 07:24 O2 Del Method Nasal Cannula 10/18/24 07:24 O2 Flow Rate 2 10/18/24 07:24 BMI result Body Mass Index 48.3 DS: Data Data Completed and Pending Labs on day of discharge: Laboratory Results - last 24 hr 10/17/24 10/17/24 10/18/24 10:53 18:05 00:34 POC Glucose 149 H 117 H 144 H 10/18/24 05:57 POC Glucose 144 H Preliminary micro results at discharge 10/13/24 19:24 Blood Culture - Preliminary Blood - Venous No growth after 48 hours. 10/13/24 18:58 Blood Culture - Preliminary Blood - Venous No growth after 48 hours. Discharge Plan Discharge Anticipated Discharge Date/Time: 10/18/24 15:41 Patient Disposition: er [facility] Discharge Diagnosis: hypoglycemai, uti, hypotension Referrals: [facility] [Outside] - 1 Week Scott Castle MD [Primary Care Provider] - 1 Week Discharge Medications: New Eliquis 2.5 mg Tablet 2.5 mg PO BID Qty: 60 0RF furosemide 20 mg Tablet 20 mg PO BID@0900,1800 Qty: 60 0RF Protocol: Hold for SBP< HOLD for SBP < : 90 fosfomycin tromethamine 3 gram packet 1 packet PO Q OTHER DAY Qty: 1 0RF Rx Instructions: tomorrow Continued acetaminophen 325 mg Tablet 650 mg PO Q6H PRN (Reason: Fever/Pain) dextrose [Glutose-45] 40 % Gel 45 g PO Q10M PRN (Reason: Hypoglycemia) Rx Instructions: Use if FSBS <50 and able to swallow. melatonin 3 mg Tablet 6 mg PO BEDTIME tramadol 50 mg Tablet 50 mg PO DAILY magnesium hydroxide [Milk of Magnesia] 400 mg/5 mL Suspension 30 ml PO DAILY PRN (Reason: Constipation) bisacodyl 10 mg Suppository 10 mg WV DAILY PRN (Reason: Constipation) levothyroxine 150 mcg Tablet 150 mcg PO MOTUWETHFRSA@0600 levothyroxine 150 mcg Tablet 225 mcg PO TATUM@0600 Fleet Enema 19-7 gram/118 mL Enema 118 ml WV DAILY PRN (Reason: Constipation) glucagon 1 mg Recon Soln 1 mg SUBCUT Q10M PRN (Reason: Hypoglycemia) Rx Instructions: If FSBS below 60 calcitriol 0.25 mcg Capsule 0.25 mcg PO MOWEFR@0900 loratadine 10 mg Tablet 10 mg PO DAILY rosuvastatin 40 mg Tablet 40 mg PO DAILY metoprolol tartrate 25 mg Tablet 25 mg PO BID magnesium oxide 400 mg magnesium Tablet 400 mg PO DAILY potassium chloride 20 mEq tablet extended release 20 meq PO DAILY Qty: 30 0RF Metamucil 3.4 gram/5.4 gram powder 1 tbsp PO DAILY Qty: 660 0RF Rx Instructions: mix into at least 8 oz of water or juice before administering diphenhydramine HCl [Benadryl Allergy] 25 mg Tablet 25 mg PO Q6H PRN (Reason: pruritus) Discontinued metolazone 2.5 mg Tablet 2.5 mg PO MOWEFR@0900 glyburide 5 mg Tablet 5 mg PO BID Xarelto 15 mg Tablet 15 mg PO DAILY Qty: 30 0RF furosemide 40 mg Tablet 40 mg PO BID@0900,1800 Qty: 60 0RF Protocol: Hold for SBP< HOLD for SBP < : 90 Discharge Orders: Discharge Order (Routine); Ordered 10/18/24 Ordered By: Saad Powell Diet: Advance to usual diet Activity on Discharge: As tolerated Stand Alone Forms: Patient Portal Discharge page Print Language: Unable To Collect Care Plan Goals: recovery from hypoglycemia, UTI, and Hypotension Health Concerns: same as above Plan of Treatment: take fosfomycin tomorrow just one dose Lasix reduced to half usual dose metolazone stopped glyburide stopped due to hypoglycemia Check sugars per protocol before meals and at bedtime, and give treatment with insulin sliding scale only if blood sugars over 200, they have been much less than 200 in the hospital and has not required any treatment Assessment: see
[2024-10-18 10:56] LABS: Glucose, Whole Blood 147 mg/dL (60-115)
[2024-10-18 11:11] VITALS: BP 100/54; PULSE 98; RESP 18; TEMP 36.2; O2SAT 99
[2024-10-18] MEDS: Furosemide 20 MG TABLET PO (12:48)
[2024-10-18 15:25] VITALS: BP 100/58; PULSE 83; RESP 18; TEMP 36.8; O2SAT 98
--- NOTE | 2024-10-18 16:16 | P.PNNP_ITS ---
Subjective Subjective Date of Service: 10/18/24 Interval history: Events noted. All recent data reviewed; D/W family Physical Exam 2 Vital Signs: Vital Signs: Last Vital Signs Temp 98.3 F 10/18/24 15:25 Pulse 83 10/18/24 15:25 Resp 18 10/18/24 15:25 BP 100/58 L 10/18/24 15:25 Pulse Ox 98 10/18/24 15:25 O2 Del Method Room Air 10/18/24 15:25 O2 Flow Rate 2 10/18/24 07:24 BMI result Body Mass Index 48.3 Const: General: no acute distress Orientation/consciousness: patient oriented x3 HEENT: Head: Yes normocephalic Eyes: EOM: EOMs intact bilaterally Resp: Auscultation: diminished lung sounds Cardio: Rate: regular rate GI: Palpation (GI): Soft to palpation Neuro: General: patient oriented x3 Objective Data Labs 10/15/24 06:54 10/16/24 06:29 Labs: Laboratory Results - last 24 hr 10/17/24 10/18/24 10/18/24 18:05 00:34 05:57 POC Glucose 117 H 144 H 144 H 10/18/24 10:52 POC Glucose 147 H Microbiology Microbiology Results: Microbiology 10/13/24 20:50 Urine Catheterized - Straight Catheter Urine Culture - Final Klebsiella pneumoniae 10/13/24 19:24 Blood - Venous Blood Culture - Preliminary No growth after 48 hours. 10/13/24 18:58 Blood - Venous Blood Culture - Preliminary No growth after 48 hours. Procedures Date of Service Date of Service: 10/18/24 Assessment & Plan Assessment and plan (1) Chronic renal disease, stage 5, glomerular filtration rate (GFR) less than or equal to 15 mL/min/1.73 square meter: Status: Acute Plan Has RV systolic dysfunction Not clinically dry or overloaded Diuretics on hold- ordered to start @50% home dose No metolazone for now Renal function stable; No Glyburide No indication for renal replacement C/W rest of current management for now Shall arrange office F/U when D/Osei Progress Note: Quality Stroke Does the patient have a stroke diagnosis?: No Reason for No Anti-thrombotic by Day Two: N/A - Med Ordered
== END 2024-10-18 17:24 | disposition skilled nursing facility (03) | DRG 689 ==
LOC: HO.ED 20:15 → HO.EDOVER 23:08 → HO.IMC 10-14 19:54
PROVIDERS: Family Medicine; Hospitalist; Student in an Organized Health Care Education/Training Program; Admitting Provider Nurse Practitioner Family; Emergency Provider Internal Medicine; PCP Family Medicine; Visit Provider Internal Medicine
DX: N39.0 Urinary tract infection, site not specified (principal); I50.33 Acute on chronic diastolic (congestive) heart failure; I13.0 Hypertensive heart and chronic kidney disease with heart failure and stage 1 through stage 4 chronic kidney disease, or unspecified chronic kidney disease; J98.11 Atelectasis; I48.20 Chronic atrial fibrillation, unspecified; Z68.42 Body mass index [BMI] 45.0-49.9, adult; E87.21 Acute metabolic acidosis; Z16.12 Extended spectrum beta lactamase (ESBL) resistance; N18.4 Chronic kidney disease, stage 4 (severe); E11.649 Type 2 diabetes mellitus with hypoglycemia without coma; T38.3X5A Adverse effect of insulin and oral hypoglycemic [antidiabetic] drugs, initial encounter; B96.1 Klebsiella pneumoniae [K. pneumoniae] as the cause of diseases classified elsewhere; I95.2 Hypotension due to drugs; I27.29 Other secondary pulmonary hypertension; I48.0 Paroxysmal atrial fibrillation; I50.812 Chronic right heart failure; E03.8 Other specified hypothyroidism; E11.22 Type 2 diabetes mellitus with diabetic chronic kidney disease; E66.813 Obesity, class 3; Z71.3 Dietary counseling and surveillance; I44.0 Atrioventricular block, first degree; Z79.01 Long term (current) use of anticoagulants; Z79.890 Hormone replacement therapy; Z79.899 Other long term (current) drug therapy
CPT/HCPCS: 36415; 71045; 80048; 80053; 81001; 82533; 82803; 82947; 83605; 83735; 83880; 83970; 84100; 84439; 84443; 85025; 85027; 87040; 87086; 87088; 87186; 93005; 93308; 99285; J0696; J2185; P9047

== ENCOUNTER → 2024-10-13 18:06 | Outpatient (BNV) | payer MEDICARE, MEDICAID, SELFPAY | PROVIDERS: Emergency Provider Internal Medicine; PCP Family Medicine; Visit Provider Radiology Diagnostic Radiology | DX: I50.9 Heart failure, unspecified (principal); I51.7 Cardiomegaly | CPT/HCPCS: 71045 ==

== ENCOUNTER → 2024-10-13 18:06 | Outpatient (BNV) | payer MEDICARE, MEDICAID, SELFPAY | PROVIDERS: Admitting Provider Nurse Practitioner Family; Emergency Provider Internal Medicine; PCP Family Medicine; Visit Provider Internal Medicine | DX: I44.0 Atrioventricular block, first degree (principal); I49.9 Cardiac arrhythmia, unspecified | CPT/HCPCS: 93010 ==

== ENCOUNTER 2024-10-13 22:57 | Outpatient (BNV) | payer MEDICARE, MEDICAID, SELFPAY | END 2024-10-14 08:00 | PROVIDERS: Admitting Provider Nurse Practitioner Family; Emergency Provider Internal Medicine; PCP Family Medicine; Visit Provider Internal Medicine | DX: I44.0 Atrioventricular block, first degree (principal); I49.9 Cardiac arrhythmia, unspecified | CPT/HCPCS: 93010 ==

== ENCOUNTER 2024-10-13 22:57 | Outpatient (BNV) | payer MEDICARE, MEDICAID, SELFPAY | END 2024-10-15 07:00 | PROVIDERS: Admitting Provider Nurse Practitioner Family; Emergency Provider Internal Medicine; PCP Family Medicine; Visit Provider Internal Medicine Cardiovascular Disease | DX: I27.20 Pulmonary hypertension, unspecified (principal); I31.39 Other pericardial effusion (noninflammatory) | CPT/HCPCS: 93308 ==

== ENCOUNTER 2024-10-13 22:57 | Outpatient (BNV) | payer MEDICARE, MEDICAID, SELFPAY | END 2024-10-15 20:40 | PROVIDERS: Admitting Provider Nurse Practitioner Family; Emergency Provider Internal Medicine; PCP Family Medicine; Visit Provider Radiology Diagnostic Radiology | DX: I50.9 Heart failure, unspecified (principal); I51.7 Cardiomegaly | CPT/HCPCS: 71045 ==

== ENCOUNTER 2024-10-13 22:57 | Outpatient (BNV) | payer MEDICARE, MEDICAID, SELFPAY | END 2024-10-17 16:30 | PROVIDERS: Admitting Provider Nurse Practitioner Family; Emergency Provider Internal Medicine; PCP Family Medicine; Visit Provider Internal Medicine Cardiovascular Disease | DX: R94.31 Abnormal electrocardiogram [ECG] [EKG] (principal); I21.29 ST elevation (STEMI) myocardial infarction involving other sites | CPT/HCPCS: 93010 ==

== ENCOUNTER → 2024-10-13 22:57 | Outpatient (BNV) | payer MEDICARE, MEDICAID, SELFPAY | PROVIDERS: Admitting Provider Nurse Practitioner Family; Emergency Provider Internal Medicine; PCP Family Medicine; Visit Provider Internal Medicine Nephrology | DX: N18.5 Chronic kidney disease, stage 5 (principal) | CPT/HCPCS: 99223; 99232 ==

== ENCOUNTER → 2024-10-13 22:57 | Outpatient (BNV) | payer MEDICARE, MEDICAID, SELFPAY | PROVIDERS: Admitting Provider Nurse Practitioner Family; Emergency Provider Internal Medicine; PCP Family Medicine; Visit Provider Internal Medicine Cardiovascular Disease | DX: E11.22 Type 2 diabetes mellitus with diabetic chronic kidney disease (principal); N18.4 Chronic kidney disease, stage 4 (severe); I48.0 Paroxysmal atrial fibrillation; I50.32 Chronic diastolic (congestive) heart failure | CPT/HCPCS: 99223 ==

== ENCOUNTER → 2024-10-13 22:57 | Outpatient (BNV) | payer MEDICARE, MEDICAID, SELFPAY | PROVIDERS: Admitting Provider Nurse Practitioner Family; Emergency Provider Internal Medicine; PCP Family Medicine; Visit Provider Nurse Practitioner Family | DX: E16.2 Hypoglycemia, unspecified (principal); I50.32 Chronic diastolic (congestive) heart failure | CPT/HCPCS: 99232 ==